=== PATIENT | male | born 1970 | race Caucasian/White ===

== ENCOUNTER 2018-05-26 10:15 | Outpatient (RCR) | payer BC, SELFPAY ==
[2018-05-19 09:32] VITALS: BP 143/96; PULSE 67; RESP 16; TEMP 36.6; BMI 33.7
--- NOTE | 2018-05-19 11:03 | HP.PCM_ITS ---
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 He had this performed in [place] with Dr. Estes on 04/14/2018. He noticed some redness and gapping at the incision site on the outside of the foot and was placed on Augmentin. He denies fever, chill, nausea, vomiting, loss of appetite. His foot is painful particularly on the lateral aspect. He thinks his PRAFO boot may be touching the site. He denies laying or sleeping on the site. He denies claudication symptoms or rest paresthesias. He has been putting dry gauze over the site. History of Wound: Stable Past Medical History Past Medical History: Chronic Problems Chronic ulcer of left foot with fat layer exposed (Chronic) Allergies/Adverse Reactions: Allergies No Known Allergies Allergy (Verified 05/19/18 09:54) Home Medications: Ambulatory Orders Medication Instructions Recorded Allopurinol [Zyloprim] 100 mg PO BIDCM 04/17/16 Ascorbic Acid [Vitamin C] 1,000 mg PO BID 04/17/16 Fexofenadine/Pseudoephedrine 1 each PO BID 04/17/16 [Ju-D 12 Hour Tablet] Fluticasone 0.05% [Flonase Nasal 1 spray NASAL BID 04/17/16 [place]] Acetaminophen [Tylenol Extra 1,000 mg PO BID 05/19/18 Strength] Amoxicillin/Potassium Clav 1 each PO BID 05/19/18 [Augmentin 875-125 Tablet] Magnesium 400 mg PO DAILY 05/19/18 Lives: Spouse/ Significant Other Smoking Status: Former smoker Tobacco Use: Non-smoker Review of Systems Constitutional: Denies: Chills, Fever, Fatigue Cardiovascular: Reports: Edema. Denies: Chest Pain, Claudication Respiratory: Denies: Shortness of Breath Gastrointestinal: Denies: Diarrhea, Nausea, Vomiting Musculoskeletal: Reports: Foot Pain. Denies: Joint Tenderness, Leg Pain Skin: Reports: Skin Changes, Wounds Neurological: Reports: - - CMT deformity. Denies: Numbness, Tingling - Physical Exam Vital Signs Temp Pulse Resp BP 98 F 67 16 143/96 H 05/19/18 09:32 05/19/18 09:32 05/19/18 09:32 05/19/18 09:32 General: Alert, Oriented x3, Cooperative HEENT: Atraumatic Extremities: No cyanosis, Capillary Refill Less than 3 Seconds, No Calf Tenderness - Negative Kev and Bran left lower extremity, Edema - Left hindfoot, Peripheral Pulses Normal Skin: Ulcer/ Wound - No purulence, streaking, odor noted. There is eschar noted to the central aspect of the lateral hindfoot incision as well as the medial hindfoot incision with fibrous and granulation tissue noted. This may be secondary to incisional devitalization or minor dehiscence. There is no exposed deep tissue noted. There is some rubor Fe-incision site on the lateral aspect and no distinct erythema, bogginess, or fluctuance. Wound Measurements and Assessment WC - Nurse 1 - General Ulcer Measurement Start: 05/19/18 09:32 Freq: Status: Active Protocol: Activity Type Activity Date Activity User E-Sign Co-Sign Detail Recorded Client Recorded Date Recorded By Document 05/19/18 09:32 [facility] [id number] 05/19/18 09:46 [facility] 05/19/18 09:32 Wound Center Nurse 1 [Ulcer Assessment] #2- LT MED ANKLE CLUSTER -Combined with other wound No -Current Size (cm) - Length 9 -Current Size (cm) - Width 0.6 -Current Size (cm) - Depth 0.1 -Total Square Cm 5.4 -Date of Last Picture (Recall this 05/19/18 field) -Photo Taken Yes -Epithelialization None Present -Tunneling No -Undermining/Tunneling No -Circular Undermining No -Exudate Amt None Present (0 %) -Wound Margin Distinct, Outline Attached -Granulation Amt Small (1-33%) -Granulation Quality Red -Slough/Fibrin Yes -Necrosis Amt Large (67-100%) -Necrotic Tissue Type Eschar -Structure Exposed N/A -Texture (Fe-wound Skin Appearance) Localized Edema Scarring -Color (Fe-wound Skin Appearance) Assessed Erythema -Temperature (Fe-wound Skin No Abnormality Appearance) (Pt Warm) -Tenderness on Palpation (Fe-wound No Skin Appearance) -Ulcer Cleansing Rinsed/ Irrigated with Saline -Foul Odor after Cleansing No -Anesthetic Used 4% Lidocaine Solution #1- LT LAT ANKLE -Combined with other wound No -Current Size (cm) - Length 8 -Current Size (cm) - Width 0.6 -Current Size (cm) - Depth 0.2 -Total Square Cm 4.8 -Date of Last Picture (Recall this 05/19/18 field) -Photo Taken Yes -Epithelialization None Present -Tunneling No -Undermining/Tunneling No -Circular Undermining No -Exudate Amt None Present (0 %) -Wound Margin Distinct, Outline Attached -Granulation Amt Small (1-33%) -Granulation Quality Red -Slough/Fibrin Yes -Necrosis Amt Large (67-100%) -Necrotic Tissue Type Eschar -Structure Exposed N/A -Texture (Fe-wound Skin Appearance) Localized Edema -Moisture (Fe-wound Skin Appearance Dry/Scaly ) -Color (Fe-wound Skin Appearance) Erythema -Temperature (Fe-wound Skin No Abnormality Appearance) (Pt Warm) -Tenderness on Palpation (Fe-wound No Skin Appearance) -Ulcer Cleansing Rinsed/ Irrigated with Saline -Foul Odor after Cleansing No -Anesthetic Used 4% Lidocaine Solution [Edema Assessment] -Lower Limb Edema Present No -Right Calf (cm) 33.5 -Right Ankle (cm) 20 -Left Calf (cm) 33.5 -Left Ankle (cm) 21.2 WC - Nurse 2 - General Ulcer CM Notes Start: 05/19/18 09:32 Freq: Status: Active Protocol: Activity Type Activity Date Activity User E-Sign Co-Sign Detail Recorded Client Recorded Date Recorded By Document 05/19/18 10:07 [id number] 05/19/18 10:23 05/19/18 10:07 Wound Center Nurse 2 [Procedure/Treatment] #2- LT MED ANKLE CLUSTER -Time 10:07 -Correct Patient Yes -Correct Side, Site, Position Yes -Correct Procedure Yes -Procedure Performed Yes -Type of Procedure Debridement -Clinical Debridement Subcutaneous -Post Debridement Size (cm) - Length 9.1 -Post Debridement Size (cm) - Width 0.7 -Post Debridement Size (cm) - Depth 0.1 -Total Square Cm 6.37 -Wound/Ulcer Outcome Not Healed -Ulcer Cleansing Rinsed/ Irrigated with Saline -Foul Odor after Cleansing No -Bioengineered Tissue No -Topical Lidocaine (%) 4 -Bleeding Controlled with Pressure -Treatment Response Procedure Tolerated Well #1- LT LAT ANKLE -Time 10:16 -Correct Patient Yes -Correct Side, Site, Position Yes -Correct Procedure Yes -Procedure Performed Yes -Type of Procedure Debridement -Clinical Debridement Subcutaneous -Post Debridement Size (cm) - Length 8.1 -Post Debridement Size (cm) - Width 0.6 -Post Debridement Size (cm) - Depth 0.2 -Total Square Cm 4.86 -Wound/Ulcer Outcome Not Healed -Ulcer Cleansing Rinsed/ Irrigated with Saline -Foul Odor after Cleansing No -Bioengineered Tissue No -Topical Lidocaine (%) 4 -Bleeding Controlled with Pressure -Treatment Response Procedure Tolerated Well [See Physician Procedure note for Specifics] Pain Scale: 0-10 Numeric [Pain] -Is Patient Pain Free? Yes Musculoskeletal: No Tenderness to Palpation of Joints or Extremities, Muscle Wasting, - - Active ankle range of motion all directions noted. Surgically corrected cavus foot structure with improved rectus position noted. Adequate ankle dorsiflexion with knee flexed and extended. Neurological: Sensory exam intact to light touch and pain Psych/Mental Status: Normal Affect, Appropriate Debridement Note Post-Debridement Measurements/Treatment WC - Nurse 2 - General Ulcer CM Notes Start: 05/19/18 09:32 Freq: Status: Active Protocol: Activity Type Activity Date Activity User E-Sign Co-Sign Detail Recorded Client Recorded Date Recorded By Document 05/19/18 10:07 [id number] 05/19/18 10:23 05/19/18 10:07 Wound Center Nurse 2 #2- LT MED ANKLE CLUSTER -Time 10:07 -Correct Patient Yes -Correct Side, Site, Position Yes -Correct Procedure Yes -Procedure Performed Yes -Type of Procedure Debridement -Clinical Debridement Subcutaneous -Post Debridement Size (cm) - Length 9.1 -Post Debridement Size (cm) - Width 0.7 -Post Debridement Size (cm) - Depth 0.1 -Total Square Cm 6.37 -Wound/Ulcer Outcome Not Healed -Ulcer Cleansing Rinsed/ Irrigated with Saline -Foul Odor after Cleansing No -Bioengineered Tissue No -Topical Lidocaine (%) 4 -Bleeding Controlled with Pressure -Treatment Response Procedure Tolerated Well #1- LT LAT ANKLE -Time 10:16 -Correct Patient Yes -Correct Side, Site, Position Yes -Correct Procedure Yes -Procedure Performed Yes -Type of Procedure Debridement -Clinical Debridement Subcutaneous -Post Debridement Size (cm) - Length 8.1 -Post Debridement Size (cm) - Width 0.6 -Post Debridement Size (cm) - Depth 0.2 -Total Square Cm 4.86 -Wound/Ulcer Outcome Not Healed -Ulcer Cleansing Rinsed/ Irrigated with Saline -Foul Odor after Cleansing No -Bioengineered Tissue No -Topical Lidocaine (%) 4 -Bleeding Controlled with Pressure -Treatment Response Procedure Tolerated Well Pain Scale: 0-10 Numeric Is Patient Pain Free? Yes Wound debrided: lateral foot Laterality: Left Type of Debridement: Excisional debridement Anesthesia Used: 4% Lidocaine Solution Depth: in the subcutaneous layer Percentage of wound debrided: 20 Instrument Used: #15 blade Tissue Removed: Fibrous, devitalized subcutaneous, biofilm, slough Severity: Fat Layer Exposed Amount of bleeding with debridement: Mild Bleeding Controlled with: Pressure Patient tolerated procedure well Assessment/Plan Active Problems Chronic ulcer of left foot with fat layer exposed (Chronic) Delayed wound healing (Acute) Charcot-Rocio disease (Acute) Cavus deformity of left foot (Acute) Assessment: -Status post left Charcot Rocio associated cavus foot reconstruction performed on 04/14/2018 (subtalar and talonavicular arthrodesis with Peroneus longus to brevis tendon transfer, plantar fascial release, percutaneous tendo Achilles lengthening, first metatarsal dorsiflexion closing wedge osteotomy with allograft, deltoid ligament lengthening, posterior tibial Z-lengthening, bone marrow aspirate extraction and augmentation). -Cellulitis resolving left foot. -Delayed healing with incision compromise. -Malnutrition suspected Plan: I reviewed and discussed his case today. Physical exam was performed as noted. Debridement was performed only to the partial lateral incision aspect including removal of nonviable slough, fibrous tissue, and partially adhered eschar. Care was taken to this recent surgical site not to reopen any unnecessary aspects. I recommend application of Aquacel Ag to the medial lateral hindfoot sites and change daily and cover with additional gauze. He reports previous cellulitis which has improved on Augmentin antibiotic. To complete his prescribed dose. Labs were ordered including CBC, CMP, ESR, C- reactive protein for baseline also for general medical assessment. I recommended a foot x-ray and reviewed his foot x-rays that he had saved on his phone from his immediate postoperative timeframe. The arthrodesis and osteotomy sites with internal fixation are noted with desired hardware placement and trajectory. No acute injuries were noted. He is following up with his surgeon on Thursday and and will obtain new x-rays; I requested a copy to compare to serial future x-rays if lack of healing ensues. To avoid pressure on this site by avoiding sleeping on the left leg. He also evaluated his PRAFO boot and advised him not to tighten the central strap which appears to line up directly with the devitalized site. To wear the Cam walker use because he reports this presses very firmly into the irritated skin site. To avoid excessive hindfoot and leg motion because this places tension on the friable skin and ulcer sites. I recommend nutritional supplementation optimize healing; a prescription for Terrance nutritional supplement was provided today. He was advised on safe and proper use. If lack of healing continues the following will be considered; vascular workup to rule out any lack of perfusion, change in wound care product, consideration for advanced wound care products with extra growth factors to expedite healing. I answered all his questions. To return to the wound healing center 1 week or call sooner if he has any questions or concerns.
[2018-05-26 10:27] VITALS: BP 142/90; PULSE 79; RESP 16; TEMP 35.7; BMI 33.7
--- NOTE | 2018-05-26 11:05 | PCM.WC.PN ---
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 He had this performed in [place] with Dr. Estes on 04/14/2018. His redness has resolved and he denies pain. He denies fever, chill, nausea, vomiting, loss of appetite. He has been advised to place 25% weight on this with a Cam walker by his surgeon that he saw last week. X-rays were obtained in his surgeon's office. He did not obtain his lab work yet and will go this afternoon. He is also no longer taking oral antibiotics. Progress of Wound: Improving - Physical Exam Vital Signs Temp Pulse Resp BP 96.2 F L 79 16 142/90 H 05/26/18 10:27 05/26/18 10:27 05/26/18 10:27 05/26/18 10:27 General: Alert, Oriented x3, Cooperative Extremities: No cyanosis, Capillary Refill Less than 3 Seconds - All digits left foot, No Calf Tenderness - Negative Kev and Bran, Edema - Mild fe-ulcer decreased, Peripheral Pulses Normal, - - Maintained surgically reconstructive foot posture noted left lower extremity. No pain to arthrodesis sites left Skin: Ulcer/ Wound - No purulence, erythema, string, odor, or infection. There is incisional central eschar noted with adjacent fibrous and granulation tissue. No exposed deep tissue or sutures are noted. There is no bogginess or fluctuance on palpation. The peripheral skin is atrophic. Wound Measurements and Assessment WC - Nurse 1 - General Ulcer Measurement Start: 05/19/18 09:32 Freq: Status: Active Protocol: Activity Type Activity Date Activity User E-Sign Co-Sign Detail Recorded Client Recorded Date Recorded By Document 05/26/18 10:27 [facility] [id number] 05/26/18 10:32 [facility] 05/26/18 10:27 Wound Center Nurse 1 [Ulcer Assessment] #2- LT MED ANKLE CLUSTER -Combined with other wound No -Current Size (cm) - Length 7.4 -Current Size (cm) - Width 0.6 -Current Size (cm) - Depth 0.1 -Total Square Cm 4.44 -Photo Taken No -Epithelialization None Present -Tunneling No -Undermining/Tunneling No -Circular Undermining No -Exudate Amt Small (1-33%) -Exudate Type Serosanguineous -Wound Margin Distinct, Outline Attached -Granulation Amt Small (1-33%) -Granulation Quality Red -Slough/Fibrin Yes -Necrosis Amt Large (67-100%) -Necrotic Tissue Type Adherent Slough -Texture (Fe-wound Skin Appearance) Scarring -Moisture (Fe-wound Skin Appearance Dry/Scaly ) -Color (Fe-wound Skin Appearance) Assessed -Temperature (Fe-wound Skin No Abnormality Appearance) (Pt Warm) -Tenderness on Palpation (Fe-wound No Skin Appearance) -Ulcer Cleansing Rinsed/ Irrigated with Saline -Foul Odor after Cleansing No -Anesthetic Used 4% Lidocaine Solution #1- LT LAT ANKLE -Combined with other wound No -Current Size (cm) - Length 0.8 -Current Size (cm) - Width 7.4 -Current Size (cm) - Depth 0.1 -Total Square Cm 5.92 -Photo Taken No -Tunneling No -Undermining/Tunneling No -Circular Undermining No -Exudate Amt Small (1-33%) -Exudate Type Serosanguineous -Wound Margin Distinct, Outline Attached -Granulation Amt None Present (0 %) -Slough/Fibrin Yes -Necrosis Amt Large (67-100%) -Necrotic Tissue Type Adherent Slough -Texture (Fe-wound Skin Appearance) Scarring -Moisture (Fe-wound Skin Appearance Dry/Scaly ) -Color (Fe-wound Skin Appearance) Assessed -Temperature (Fe-wound Skin No Abnormality Appearance) (Pt Warm) -Tenderness on Palpation (Fe-wound No Skin Appearance) -Ulcer Cleansing Rinsed/ Irrigated with Saline -Foul Odor after Cleansing No -Anesthetic Used 4% Lidocaine Solution [Edema Assessment] -Lower Limb Edema Present Yes -Left Calf (cm) 37.5 -Left Ankle (cm) 22.2 NEREYDA - Nurse 2 - General Ulcer CM Notes Start: 05/19/18 09:32 Freq: Status: Active Protocol: Activity Type Activity Date Activity User E-Sign Co-Sign Detail Recorded Client Recorded Date Recorded By Document 05/26/18 10:56 ROSA ISELA [id number] 05/26/18 10:57 ROSA ISELA 05/26/18 10:56 Wound Center Nurse 2 [Procedure/Treatment] #2- LT MED ANKLE CLUSTER -Time 10:56 -Correct Patient Yes -Correct Side, Site, Position Yes -Correct Procedure Yes -Procedure Performed Yes -Type of Procedure Debridement -Clinical Debridement Subcutaneous -Post Debridement Size (cm) - Length 7.5 -Post Debridement Size (cm) - Width 0.6 -Post Debridement Size (cm) - Depth 0.1 -Total Square Cm 4.50 -Wound/Ulcer Outcome Not Healed -Ulcer Cleansing Rinsed/ Irrigated with Saline -Foul Odor after Cleansing No -Bioengineered Tissue No -Bleeding Controlled with Pressure -Treatment Response Procedure Tolerated Well #1- LT LAT ANKLE -Time 10:57 -Correct Patient Yes -Correct Side, Site, Position Yes -Correct Procedure Yes -Procedure Performed Yes -Type of Procedure Debridement -Clinical Debridement Subcutaneous -Post Debridement Size (cm) - Length 0.8 -Post Debridement Size (cm) - Width 7.5 -Post Debridement Size (cm) - Depth 0.2 -Total Square Cm 6.00 -Wound/Ulcer Outcome Not Healed -Ulcer Cleansing Rinsed/ Irrigated with Saline -Foul Odor after Cleansing No -Bioengineered Tissue No -Bleeding Controlled with Pressure -Treatment Response Procedure Tolerated Well [See Physician Procedure note for Specifics] Pain Scale: 0-10 Numeric [Pain] -Is Patient Pain Free? Yes Musculoskeletal: No Tenderness to Palpation of Joints or Extremities, Muscle Wasting, - - Pain with ulcer site manipulation left foot Neurological: Sensory exam intact to light touch and pain Psych/Mental Status: Normal Affect, Appropriate Debridement Note Post-Debridement Measurements/Treatment [email or web address] - Nurse 2 - General Ulcer CM Notes Start: 05/19/18 09:32 Freq: Status: Active Protocol: Activity Type Activity Date Activity User E-Sign Co-Sign Detail Recorded Client Recorded Date Recorded By Document 05/19/18 10:07 [id number] 05/19/18 10:23 Document 05/26/18 10:56 [id number] 05/26/18 10:57 05/19/18 05/26/18 10:07 10:56 Wound Center Nurse 2 #2- LT MED ANKLE CLUSTER -Time 10:07 10:56 -Correct Patient Yes Yes -Correct Side, Site, Position Yes Yes -Correct Procedure Yes Yes -Procedure Performed Yes Yes -Type of Procedure Debridement Debridement -Clinical Debridement Subcutaneous Subcutaneous -Post Debridement Size (cm) - Length 9.1 7.5 -Post Debridement Size (cm) - Width 0.7 0.6 -Post Debridement Size (cm) - Depth 0.1 0.1 -Total Square Cm 6.37 4.50 -Wound/Ulcer Outcome Not Healed Not Healed -Ulcer Cleansing Rinsed/ Rinsed/ Irrigated with Irrigated with Saline Saline -Foul Odor after Cleansing No No -Bioengineered Tissue No No -Topical Lidocaine (%) 4 -Bleeding Controlled with Pressure Pressure -Treatment Response Procedure Procedure Tolerated Well Tolerated Well #1- LT LAT ANKLE -Time 10:16 10:57 -Correct Patient Yes Yes -Correct Side, Site, Position Yes Yes -Correct Procedure Yes Yes -Procedure Performed Yes Yes -Type of Procedure Debridement Debridement -Clinical Debridement Subcutaneous Subcutaneous -Post Debridement Size (cm) - Length 8.1 0.8 -Post Debridement Size (cm) - Width 0.6 7.5 -Post Debridement Size (cm) - Depth 0.2 0.2 -Total Square Cm 4.86 6.00 -Wound/Ulcer Outcome Not Healed Not Healed -Ulcer Cleansing Rinsed/ Rinsed/ Irrigated with Irrigated with Saline Saline -Foul Odor after Cleansing No No -Bioengineered Tissue No No -Topical Lidocaine (%) 4 -Bleeding Controlled with Pressure Pressure -Treatment Response Procedure Procedure Tolerated Well Tolerated Well Pain Scale: 0-10 Numeric Is Patient Pain Free? Yes Yes Wound debrided: medial Laterality: Left Type of Debridement: Excisional debridement Anesthesia Used: 4% Lidocaine Solution Depth: in the subcutaneous layer Percentage of wound debrided: 100 Instrument Used: #15 blade Tissue Removed: fibrous, devitalized subcutaneous, biofilm, slough Severity: Fat Layer Exposed Amount of bleeding with debridement: Mild Bleeding Controlled with: Pressure Patient tolerated procedure well - Additional Wound Wound debrided: lateral foot Laterality: Left Type of Debridement: Excisional debridement Anesthesia Used: 4% Lidocaine Solution Depth: in the subcutaneous layer Percentage of wound debrided: 100 Instrument Used: #15 blade Tissue Removed: fibrous, devitalized subcutaneous, biofilm, slough Severity: Fat Layer Exposed Amount of bleeding with debridement: Mild Bleeding Controlled with: Pressure Patient tolerated procedure: Patient tolerated procedure well Assessment/Plan Active Problems Chronic ulcer of left foot with fat layer exposed (Chronic) Delayed wound healing (Chronic) Charcot-Rocio disease (Chronic) Cavus deformity of left foot (Chronic) Assessment: -Status post left Charcot Rocio associated cavus foot reconstruction performed on 04/14/2018 (subtalar and talonavicular arthrodesis with Peroneus longus to brevis tendon transfer, plantar fascial release, percutaneous tendo Achilles lengthening, first metatarsal dorsiflexion closing wedge osteotomy with allograft, deltoid ligament lengthening, posterior tibial Z-lengthening, bone marrow aspirate extraction and augmentation). -Cellulitis resolving left foot. -Delayed healing with incision compromise. -Malnutrition suspected Plan: I reviewed and discussed his case today. Physical exam was performed as noted. Debridement was performed only to the partial lateral and medial incision aspects including removal of nonviable slough, fibrous tissue, and partially adhered eschar. Care was taken to this recent surgical site not to reopen any unnecessary aspects. I recommend application of Aquacel Ag to the medial and saline moistened lateral hindfoot sites and change daily and cover with additional gauze. He reports previous cellulitis which has improved on Augmentin antibiotic. He is no longer taking this at this time and I do not recommend resuming due to lack of clinical signs of infection. Labs were ordered including CBC, CMP, ESR, C-reactive protein for baseline also for general medical assessment. He will obtain this later today. I recommended a foot x-ray and reviewed his foot x-rays were recently updated when he visited his surgeon last week. He will request that they are sent to the wound healing center for review. To avoid pressure on this site by avoiding sleeping on the left leg. To wear the Cam walker and placed up to 25% weight as advised by his surgeon. To avoid excessive hindfoot and leg motion because this places tension on the friable skin and ulcer sites. I recommend nutritional supplementation optimize healing; a prescription for Terrance nutritional supplement was provided previously. If lack of healing continues the following will be considered; vascular workup to rule out any lack of perfusion, change in wound care product, consideration for advanced wound care products with extra growth factors to expedite healing. I answered all his questions. To return to the wound healing center 1 week or call sooner if he has any questions or concerns.
== END 2018-05-28 23:59 ==
LOC: WC 10:15
PROVIDERS: Family Provider Family Medicine; PCP Family Medicine; Visit Provider Podiatrist
DX: L97.522 Non-pressure chronic ulcer of other part of left foot with fat layer exposed (principal); G60.0 Hereditary motor and sensory neuropathy; Q66.7 Congenital pes cavus; Z87.891 Personal history of nicotine dependence
CPT/HCPCS: 11042; 99213; G0463

== ENCOUNTER → 2018-05-26 11:01 | Outpatient (CLI) | payer BC, SELFPAY ==
[2018-05-26 10:27] VITALS: BMI 33.7
[2018-05-26 11:50] LABS: Absolute Lymphocyte Count 1.91 X10^3/ul (0.83-4.51); Absolute Neutrophil Count 4.3 X10^3/uL (2.0-7.7); Basophil# 0.03 X10^3/uL; Basophil% 0.4 % (0-1); Eosinophil# 0.17 X10^3/uL; Eosinophils% 2.5 % (0-5); Hematocrit 45.4 % (40-54); Hemoglobin 14.8 g/dl (13.0-16.5); Lymphocyte # 1.91 X10^3/ul (4.0); Lymphocyte % 28.1 % (19-41); Mean Corp Hgb Conc 32.6 g/gl (32-36); Mean Corpuscular Hgb 29.8 pg (27.0-32.0); Mean Corpuscular Volume 91.3 fL (80-94); Mean Platelet Vol. 10.6 fl (6.2-12.0); Monocyte# 0.41 X10^3/uL; Neutrophil # 4.27 X10^3/uL (2.7-7.7); Neutrophil % 62.9 % (47-70); Platelet Count 252 K/mm3 (150-450); RBC Distribution Width CV 14.4 % (11.6-14.6); RBC Distribution Width SD 47.5 fl (35.1-43.9); Red Blood Count 4.97 M/mm3 (4.6-6.2); White Blood Count 6.8 K/mm3 (4.4-11.0)
[2018-05-26 11:52] LABS: POSITIVE COUNT NO; POSITIVE DIFFERENTIAL NO; POSITIVE MORPHOLOGY NO
[2018-05-26 11:54] LABS: Erythrocyte Sedimentation Rate 23 mm/hr (0-15)
[2018-05-26 12:04] LABS: Hemoglobin A1c 5.5 % (4.2-6.3)
[2018-05-26 12:08] LABS: ALB/GLOB Ratio 1.1 RATIO (0.9-2.4); AST(SGOT) 26 U/L (15-37); Alanine Aminotransfer ALT/SGPT 43 U/L (16-61); Albumin, Serum 3.7 g/dL (3.2-5.0); Alkaline Phosphatase 58 U/L (45-117); Anion Gap 8 (5-15); BUN 18 mg/dL (7-18); BUN/Creat Ratio 19.7 RATIO (10-20); CRP 4.18 mg/L (0.0-3.0); Chloride 110 mmol/L (98-107); Creatinine, Serum 0.91 mg/dL (0.70-1.30); EST Glomerular Filtration Rate 94 mL/min (>60); Est Glom Filt Rate - Afr Amer 114 mL/min (>60); Globulin 3.5 g/dL (2.2-4.2); Glucose 95 mg/dL (74-106); Potassium 4.2 mmol/L (3.5-5.1); Protein, Total 7.2 g/dL (6.4-8.2); Sodium Level 143 mmol/L (136-145); Uric Acid 5.3 mg/dL (3.5-7.2)
--- OUTSIDE RECORDS SUMMARY | 2018-07-21 19:34 | XMS RPT_ITS ---
:1970 Author Organization OHIP Care Team Providers Name Role Phone Munira White Attending Unavailable Paul [facility] Unavailable Munira White Attending Unavailable Munira White Referring Unavailable Paul D eLa [facility] Unavailable Munira White Attending Unavailable [facility] Unavailable PROBLEMS PROBLEMS No Problem Records FoundPROCEDURES PROCEDURES No Procedure Records FoundRESULTS RESULTS CBC W/DIFF, AUTOMATED Collected: 05/26/2018 Status: F Source: [facility]ATY 11:05 AM [facility] REPOSITORY Order Comment: DR. WHITE WANTS THE CRP CMP SED CBCD DR. DE LA TORRE WANTS THE CBCD CMP URIC A1C TYPE CODE TESTS RESULT OUT OF RANGE REFERENCE UNITS LAB L100.1000 4.4-11.0 K/mm3 Normal WBC 6.8 LAB L100.1200 4.6-6.2 M/mm3 Normal RBC 4.97 LAB L100.1300 13.0-16.5 g/dl Normal HGB 14.8 LAB L100.1400 40-54 % Normal HCT 45.4 LAB L100.1500 80-94 fL Normal MCV 91.3 LAB L100.1600 27.0-32.0 pg Normal MCH 29.8 LAB L100.1700 32-36 g/gl Normal MCHC 32.6 LAB L100.1810 11.6-14.6 % Normal RDW CV 14.4 LAB L100.1820 35.1-43.9 fl High RDW SD 47.5 LAB L100.1900 150-450 K/mm3 Normal PLT 252 LAB L100.2000 6.2-12.0 fl Normal MPV 10.6 LAB L100.2100 47-70 % Normal NEUT% 62.9 LAB L100.2200 19-41 % Normal LY% 28.1 LAB L100.2300 0-10 % Normal MONO% 6.0 LAB L100.2400 0-5 % Normal EO% 2.5 LAB L100.2500 0-1 % Normal BASO% 0.4 LAB L100.2550 0.0-0.9 % Normal IM GRAN % 0.100 Result Comment: IG% - Immature Granulocytes (promyelocytes, myelocytes and metamyelocytes) > 1% indicates that a LEFT SHIFT is Present. LAB L100.2620 2.0-7.7 X10 3/uL Normal Absolute Neut 4.3 LAB L100.2720 0.83-4.51 X10 3/ul Normal Absolute Lymph 1.91 Performed By: #### L100.0100 #### [facility] [id number] ERYTHROCYTE SED RATE Collected: 05/26/2018 Status: F Source: [place] 11:05 [facility] REPOSITORY Order Comment: DR. WHITE WANTS THE CRP CMP SED CBCD DR. DE LA TORRE WANTS THE CBCD CMP URIC A1C TYPE CODE TESTS RESULT OUT OF RANGE REFERENCE UNITS LAB L102.0000 0-15 mm/hr High SED RATE 23 Performed By: #### L101.9900 #### [facility] [id number] HEMOGLOBIN A1C Collected: 05/26/2018 Status: F Source: CLINT 11:05 [facility] REPOSITORY Order Comment: DR. WHITE WANTS THE CRP CMP SED CBCD DR. DE LA TORRE WANTS THE CBCD CMP URIC A1C TYPE CODE TESTS RESULT OUT OF RANGE REFERENCE UNITS LAB L501.9985 4.2-6.3 % Normal HGB A1C 5.5 Performed By: #### L501.9985 #### [facility] [address] [place], [place], [address] COMPREHENSIVE METABOLIC Collected: 05/26/2018 Status: F Source: [place] 11:05 AM [facility] REPOSITORY Order Comment: DR. WHITE WANTS THE CRP CMP SED CBCD DR. DE LA TORRE WANTS THE CBCD CMP URIC A1C TYPE CODE TESTS RESULT OUT OF RANGE REFERENCE UNITS LAB L501.0100 74-106 mg/dL Normal GLU 95 Result Comment: Please note revised GLUCOSE reference range effective 2017. LAB L501.1000 7-18 mg/dL Normal BUN 18 LAB L501.1100 0.70-1.30 mg/dL Normal CREAT,SERUM 0.91 Result Comment: The validity of the calculated GFR AND GFRAA in patients over 70 years has not been determined. Clinical correlation is essential. LAB L501.1110 >60 mL/min Normal EST GFR 94 Result Comment: Non- GFR Calc LAB L501.1115 >60 mL/min Normal EST GFR - AA 114 Result Comment: GFR Calc LAB L501.1300 10-20 RATIO Normal BUN/CRE 19.7 LAB L501.1500 6.4-8.2 g/dL T Normal PROT 7.2 LAB L501.1800 3.2-5.0 g/dL Normal ALB 3.7 LAB L501.1950 2.2-4.2 g/dL Normal GLOB 3.5 LAB L501.2000 0.9-2.4 RATIO Normal A/G 1.1 LAB L501.2200 8.5-10.1 mg/dL CA Normal 9.0 LAB L501.4100 15-37 U/L Normal AST 26 Result Comment: Slight Hemolysis, Result may be falsely increased. LAB L501.4305 45-117 U/L Normal ALK P 58 LAB L501.4405 16-61 U/L Normal ALT 43 LAB L501.4600 0.20-1.00 mg/dL Normal T BILI 0.50 LAB L501.5300 136-145 mmol/L Normal NA 143 LAB L501.5600 3.5-5.1 mmol/L Normal K 4.2 Result Comment: Slight Hemolysis, Result may be falsely increased. LAB L501.5900 98-107 mmol/L High CL 110 LAB L501.6100 21.0-32.0 mmol/L Normal CO2 25.0 LAB L501.6200 5-15 Normal 8 GAP Performed By: #### L500.4050 #### [facility] [address] [facility] [place], [address] URIC ACID Collected: 05/26/2018 Status: F Source: [facility] 11:05 AM [facility] REPOSITORY Order Comment: DR. WHITE WANTS THE CRP CMP SED CBCD DR. DE LA TORRE WANTS THE CBCD CMP URIC A1C TYPE CODE TESTS RESULT OUT OF RANGE REFERENCE UNITS LAB L501.1400 3.5-7.2 mg/dL Normal URIC 5.3 Result Comment: The drugs N-Acetylcysteine and Metamizole may falsely depress this assay. Performed By: #### L501.1400 #### [facility] [address] [facility] [place], [address] CRP Collected: 05/26/2018 Status: F Source: [place] 11:05 AM [facility] REPOSITORY Order Comment: DR. WHITE WANTS THE CRP CMP SED CBCD DR. DE LA TORRE WANTS THE CBCD CMP URIC A1C TYPE CODE TESTS RESULT OUT OF RANGE REFERENCE UNITS LAB L501.6710 0.0-3.0 mg/L High 4.18 C-REACTIVE PROT Result Comment: C-Reactive Protein (CRP) provides useful information for the diagnosis, therapy and monitoring of inflammatory processes and associated diseases. For the evaluation of Relative Risk for Cardiovascular Disease, a High Sensitivity CRP (HSCRP) should be ordered. Performed By: #### L501.6710 #### [facility] [address] [facility] [place], [address] WOUND CTR HISTORY Observed: 05/19/2018 Status: F Source: TATY AND PHYSICAL 3:15 PM [facility] REPOSITORY [facility] [address] [place] [address] Wound Ctr History AND Physical 05/19/18 1102 MR#: [id number] Acct: [id number] Name: LORRIE LLAMAS Rep #: [id number] : 1970 48 From: Munira White DPM PCP: Wil TEMPLETON,Paul Status: REG RCR Y Location: WC (1) Chronic ulcer of left foot with fat layer exposed Status: Chronic Current Visit: Yes Code(s): L97.522 - Non-pressure chronic ulcer of other part of left foot with fat layer exposed (2) Delayed wound healing Status: Acute Current Visit: Yes Code(s): T14.8XXD - Other injury of unspecified body region, subsequent encounter (3) Charcot-Rocio disease Status: Acute Current Visit: Yes Code(s): 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 He had this performed in [place] with Dr. Estes on 04/14/2018. He noticed some redness and gapping at the incision site on the outside of the foot and was placed on Augmentin. He denies fever, chill, nausea, vomiting, loss of appetite. His foot is painful particularly on the lateral aspect. He thinks his PRAFO boot may be touching the site. He denies laying or sleeping on the site. He denies claudication symptoms or rest paresthesias. He has been putting dry gauze over the site. History of Wound: Stable Past Medical History Past Medical History: Chronic Problems Chronic ulcer of left foot with fat layer exposed (Chronic) Allergies/Adverse Reactions: Allergies No Known Allergies Allergy (Verified 05/19/18 09:54) Home Medications: Ambulatory Orders Medication Instructions Recorded Allopurinol [Zyloprim] 100 mg PO BIDCM 04/17/16 Lives: Spouse/ Significant Other Smoking Status: Former smoker Tobacco Use: Non-smoker Review of Systems Constitutional: Denies: Chills, Fever, Fatigue Cardiovascular: Reports: Edema. Denies: Chest Pain, Claudication Respiratory: Denies: Shortness of Breath Gastrointestinal: Denies: Diarrhea, Nausea, Vomiting Musculoskeletal: Reports: Foot Pain. Denies: Joint Tenderness, Leg Pain Skin: Reports: Skin Changes, Wounds Neurological: Reports: - - CMT deformity. Denies: Numbness, Tingling - Physical Exam Vital Signs Temp Pulse Resp BP 98 F 67 16 143/96 H 05/19/18 09:32 05/19/18 09:32 05/19/18 09:32 05/19/18 09:32 General: Alert, Oriented x3, Cooperative HEENT: Atraumatic Extremities: No cyanosis, Capillary Refill Less than 3 Seconds, No Calf Tenderness - Negative Kev and Bran left lower extremity, Edema - Left hindfoot, Peripheral Pulses Normal Skin: Ulcer/ Wound - No purulence, streaking, odor noted. There is eschar noted to the central aspect of the lateral hindfoot incision as well as the medial hindfoot incision with fibrous and granulation tissue noted. This may be secondary to incisional devitalization or minor dehiscence. There is no exposed deep tissue noted. There is some rubor Fe-incision site on the lateral aspect and no distinct erythema, bogginess, or fluctuance. Wound Measurements and Assessment WC - Nurse 1 - General Ulcer Measurement Start: 05/19/18 09:32 Freq: Status: Active Protocol: Activity Type Activity Date Activity User E-Sign Co-Sign Detail Recorded Client Recorded Date Recorded By Document 05/19/18 09:32 [facility] [id number] 05/19/18 09:46 [facility] Wound Center Nurse 1 [Ulcer Assessment] #2- LT MED ANKLE CLUSTER -Combined with other wound No -Current Size (cm) - Length 9 WC - Nurse 2 - General Ulcer CM Notes Start: 05/19/18 09:32 Freq: Status: Active Protocol: Activity Type Activity Date Activity User E-Sign Co-Sign Detail Recorded Client Recorded Date Recorded By Document 05/19/18 10:07 [id number] 05/19/18 10:23 Wound Center Nurse 2 [Procedure/Treatment] #2- LT MED ANKLE CLUSTER -Time 10:07 -Correct Patient Yes Musculoskeletal: No Tenderness to Palpation of Joints or Extremities, Muscle Wasting, - - Active ankle range of motion all directions noted. Surgically corrected cavus foot structure with improved rectus position noted. Adequate ankle dorsiflexion with knee flexed and extended. Neurological: Sensory exam intact to light touch and pain Psych/Mental Status: Normal Affect, Appropriate Debridement Note Post-Debridement Measurements/Treatment - Nurse 2 - General Ulcer CM Notes Start: 05/19/18 09:32 Freq: Status: Active Protocol: Activity Type Activity Date Activity User E-Sign Co-Sign Detail Recorded Client Recorded Date Recorded By Document 05/19/18 10:07 [id number] 05/19/18 10:23 Wound Center Nurse 2 #2- LT MED ANKLE CLUSTER -Time 10:07 -Correct Patient Yes -Correct Side, Site, Position Yes -Correct Procedure Yes -Procedure Performed Yes Wound debrided: lateral foot Laterality: Left Type of Debridement: Excisional debridement Anesthesia Used: 4% Lidocaine Solution Depth: in the subcutaneous layer Percentage of wound debrided: 20 Instrument Used: #15 blade Tissue Removed: Fibrous, devitalized subcutaneous, biofilm, slough Severity: Fat Layer Exposed Amount of bleeding with debridement: Mild Bleeding Controlled with: Pressure Patient tolerated procedure well Assessment/Plan Active Problems Chronic ulcer of left foot with fat layer exposed (Chronic) Delayed wound healing (Acute) Charcot-Rocio disease (Acute) Cavus deformity of left foot (Acute) Assessment: -Status post left Charcot Rocio associated cavus foot reconstruction performed on 04/14/2018 (subtalar and talonavicular arthrodesis with Peroneus longus to brevis tendon transfer, plantar fascial release, percutaneous tendo Achilles lengthening, first metatarsal dorsiflexion closing wedge osteotomy with allograft, deltoid ligament lengthening, posterior tibial Z-lengthening, bone marrow aspirate extraction and augmentation). -Cellulitis resolving left foot. -Delayed healing with incision compromise. -Malnutrition suspected Plan: I reviewed and discussed his case today. Physical exam was performed as noted. Debridement was performed only to the partial lateral incision aspect including removal of nonviable slough, fibrous tissue, and partially adhered eschar. Care was taken to this recent surgical site not to reopen any unnecessary aspects. I recommend application of Aquacel Ag to the medial lateral hindfoot sites and change daily and cover with additional gauze. He reports previous cellulitis which has improved on Augmentin antibiotic. To complete his prescribed dose. Labs were ordered including CBC, CMP, ESR, C-reactive protein for baseline also for general medical assessment. I recommended a foot x-ray and reviewed his foot x-rays that he had saved on his phone from his immediate postoperative timeframe. The arthrodesis and osteotomy sites with internal fixation are noted with desired hardware placement and trajectory. No acute injuries were noted. He is following up with his surgeon on Thursday and and will obtain new x-rays; I requested a copy to compare to serial future x-rays if lack of healing ensues. To avoid pressure on this site by avoiding sleeping on the left leg. He also evaluated his PRAFO boot and advised him not to tighten the central strap which appears to line up directly with the devitalized site. To wear the Cam walker use because he reports this presses very firmly into the irritated skin site. To avoid excessive hindfoot and leg motion because this places tension on the friable skin and ulcer sites. I recommend nutritional supplementation optimize healing; a prescription for Terrance nutritional supplement was provided today. He was advised on safe and proper use. If lack of healing continues the following will be considered; vascular workup to rule out any lack of perfusion, change in wound care product, consideration for advanced wound care products with extra growth factors to expedite healing. I answered all his questions. To return to the wound healing center 1 week or call sooner if he has any questions or concerns. 05/19/18 1515 <Electronically signed by Munira White DPM> Date Munira White DPM CC: Signed ALLERGIES ALLERGIES DATE TYPE / CODE NAME / CODE REACTION SEVERITY SOURCE 05/19/2018 Drug No Known Unknown [facility] Allergy/4160 Allergies/F00 Hospital 93145(SNOMED [id number](RXNOR Repository CT) M) ENCOUNTERS ENCOUNTERS ADMIT/DISCHARGE ACCOUNT ADMITTING ENCOUNTER LOCATION SOURCE NUMBER CLASS 06/09/2018 [id number] Ambulatory [place] [facility] ing:WC Repository 05/26/2018 [id number] Ambulatory [facility] [place] 7 [facility] ing:LAB Repository 05/26/2018/ [id number] Ambulatory [place] [facility] 8 9 [facility] ing: Repository PAYERS PAYERS ENCOUNTER GUARANTOR PAYER SUBSCRIBER SOURCE 06/09/2018 EDWARD E Primary EDWARD E Taty [id number] Insurance:ANTHEMPolic BUTDORFDOB: Community LUI [place]: [id number] [id number] Repository [address]Gfo: [phone]) Date:[id number] [phone] () [id number], [place] [address]FD: 06/09/2018 Secondary NOT GIVENUNK [place] Insurance:SELF PAY [facility] Effective Repository Date:2018-05-29 05/26/2018 EDWARD E Primary EDJONATAN E Taty [id number] Insurance:ANTHEMPolic BUTDORFDOB: Community LUI y [place]: [id number] [id number] Repository [address]Aki: ([phone]) Date:[id number] [phone] () [id number] [address]VK: 05/26/2018 Secondary NOT GIVENUNK [place] Insurance:SELF PAY [facility] Number: Effective Repository Date:2018-05-26 05/26/2018 Edjnoatan Primary Edjonatan Posey [id number] Insurance:ANTHEMPolic ButdorfDOB: Community LUI y Number: [id number], [place] [id number] Repository [address]Oxy: ([phone]) Date:[id number] [phone] () [id number], [place] [address]CK: 05/26/2018 Secondary NOT GIVENUNK Taty Insurance:SELF PAY [facility] Number: Effective Repository Date:2018-05-18
== END ==
PROVIDERS: Family Provider Family Medicine; PCP Family Medicine; Referring Provider Podiatrist; Visit Provider Podiatrist
DX: L97.329 Non-pressure chronic ulcer of left ankle with unspecified severity (principal); E66.9 Obesity, unspecified
CPT/HCPCS: 36415; 80053; 83036; 84550; 85025; 85652; 86140

== ENCOUNTER 2018-06-23 14:15 | Outpatient (RCR) | payer BC, SELFPAY ==
[2018-05-29 02:09] VITALS: BP 142/90; PULSE 79; RESP 16; TEMP 35.7
[2018-06-02 10:18] VITALS: BP 155/96; PULSE 72; RESP 16; TEMP 35.5; BMI 33.7
--- NOTE | 2018-06-02 13:12 | PCM.WC.PN ---
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 He had this performed in [place] with Dr. Estes on 04/14/2018. His redness has resolved and he denies pain. He denies fever, chill, nausea, vomiting, loss of appetite. He has been advised to place 25% weight on this with a Cam walker by his surgeon that he saw last week. X-rays were obtained in his surgeon's office. He obtained his lab work. Progress of Wound: Improving - Physical Exam Vital Signs Temp Pulse Resp BP 95.9 F L 72 16 155/96 H 06/02/18 10:18 06/02/18 10:18 06/02/18 10:18 06/02/18 10:18 General: Alert, Oriented x3, Cooperative Extremities: No cyanosis, No edema, Capillary Refill Less than 3 Seconds, No Calf Tenderness - Negative Kev and Bran left, Peripheral Pulses Normal Skin: Ulcer/ Wound - No purulence, erythema, streaking, odor, or infection. There is dried well adhered eschar to medial less than lateral incision sites. Peripheral skin is atrophic Wound Measurements and Assessment WC - Nurse 1 - General Ulcer Measurement Start: 06/02/18 10:18 Freq: Status: Active Protocol: Activity Type Activity Date Activity User E-Sign Co-Sign Detail Recorded Client Recorded Date Recorded By Document 06/02/18 10:18 DL [id number] 06/02/18 10:22 DL 06/02/18 10:18 Wound Center Nurse 1 [Ulcer Assessment] #2- LT MED ANKLE CLUSTER -Current Size (cm) - Length 6.9 -Current Size (cm) - Width 0.5 -Current Size (cm) - Depth 0.1 -Total Square Cm 3.45 -Photo Taken No -Exudate Amt None Present (0 %) -Wound Margin Thickened -Granulation Amt Large (67-100%) -Necrosis Amt Large (67-100%) -Necrotic Tissue Type Eschar -Structure Exposed N/A -Texture (Fe-wound Skin Appearance) Localized Edema Scarring -Moisture (Fe-wound Skin Appearance No Abnormality ) -Color (Fe-wound Skin Appearance) Hemosiderin Staining Rubor -Temperature (Fe-wound Skin No Abnormality Appearance) (Pt Warm) -Tenderness on Palpation (Fe-wound No Skin Appearance) -Ulcer Cleansing Wound Cleanser -Foul Odor after Cleansing No -Anesthetic Used 4% Lidocaine Solution 5% Lidocaine Gel #1- LT LAT ANKLE -Current Size (cm) - Length 4.3 -Current Size (cm) - Width 0.3 -Current Size (cm) - Depth 0.2 -Total Square Cm 1.29 -Photo Taken No -Exudate Amt None Present (0 %) -Wound Margin Thickened -Granulation Amt Large (67-100%) -Slough/Fibrin No -Necrosis Amt Large (67-100%) -Necrotic Tissue Type Eschar -Structure Exposed N/A -Texture (Fe-wound Skin Appearance) Localized Edema Scarring -Moisture (Fe-wound Skin Appearance No Abnormality ) -Color (Fe-wound Skin Appearance) Rubor -Temperature (Fe-wound Skin No Abnormality Appearance) (Pt Warm) -Tenderness on Palpation (Ef-wound No Skin Appearance) -Ulcer Cleansing Wound Cleanser -Foul Odor after Cleansing No -Anesthetic Used 4% Lidocaine Solution 5% Lidocaine Gel [Edema Assessment] -Left Calf (cm) 38.1 -Left Ankle (cm) 21.6 WC - Nurse 2 - General Ulcer CM Notes Start: 06/02/18 10:18 Freq: Status: Active Protocol: Activity Type Activity Date Activity User E-Sign Co-Sign Detail Recorded Client Recorded Date Recorded By Document 06/02/18 10:39 ROSA ISELA [id number] 06/02/18 10:45 ROSA ISELA 06/02/18 10:39 Wound Center Nurse 2 [Procedure/Treatment] #2- LT MED ANKLE CLUSTER -Time 10:40 -Correct Patient Yes -Correct Side, Site, Position Yes -Correct Procedure Yes -Procedure Performed Yes -Type of Procedure Debridement -Clinical Debridement Subcutaneous -Post Debridement Size (cm) - Length 7 -Post Debridement Size (cm) - Width 0.5 -Post Debridement Size (cm) - Depth 0.1 -Total Square Cm 3.5 -Wound/Ulcer Outcome Not Healed -Ulcer Cleansing Rinsed/ Irrigated with Saline -Foul Odor after Cleansing No -Bioengineered Tissue No -Bleeding Controlled with Pressure -Offloading Yes -Type of Offloading Camwalker -Treatment Response Procedure Tolerated Well #1- LT LAT ANKLE -Time 10:40 -Correct Patient Yes -Correct Side, Site, Position Yes -Correct Procedure Yes -Procedure Performed Yes -Type of Procedure Debridement -Clinical Debridement Subcutaneous -Post Debridement Size (cm) - Length 4.3 -Post Debridement Size (cm) - Width 0.4 -Post Debridement Size (cm) - Depth 0.2 -Total Square Cm 1.72 -Wound/Ulcer Outcome Not Healed -Ulcer Cleansing Rinsed/ Irrigated with Saline -Foul Odor after Cleansing No -Bioengineered Tissue No -Bleeding Controlled with Pressure -Offloading Yes -Type of Offloading Camwalker -Treatment Response Procedure Tolerated Well [See Physician Procedure note for Specifics] Pain Scale: 0-10 Numeric [Pain] -Is Patient Pain Free? Yes Musculoskeletal: No Tenderness to Palpation of Joints or Extremities, Muscle Wasting, - - Reconstructive rectus foot maintained left Neurological: Sensory exam intact to light touch and pain Psych/Mental Status: Normal Affect, Appropriate Debridement Note Post-Debridement Measurements/Treatment WC - Nurse 2 - General Ulcer CM Notes Start: 06/02/18 10:18 Freq: Status: Active Protocol: Activity Type Activity Date Activity User E-Sign Co-Sign Detail Recorded Client Recorded Date Recorded By Document 06/02/18 10:39 ROSA ISELA [id number] 06/02/18 10:45 ROSA ISELA 06/02/18 10:39 Wound Center Nurse 2 #2- LT MED ANKLE CLUSTER -Time 10:40 -Correct Patient Yes -Correct Side, Site, Position Yes -Correct Procedure Yes -Procedure Performed Yes -Type of Procedure Debridement -Clinical Debridement Subcutaneous -Post Debridement Size (cm) - Length 7 -Post Debridement Size (cm) - Width 0.5 -Post Debridement Size (cm) - Depth 0.1 -Total Square Cm 3.5 -Wound/Ulcer Outcome Not Healed -Ulcer Cleansing Rinsed/ Irrigated with Saline -Foul Odor after Cleansing No -Bioengineered Tissue No -Bleeding Controlled with Pressure -Offloading Yes -Type of Offloading Camwalker -Treatment Response Procedure Tolerated Well #1- LT LAT ANKLE -Time 10:40 -Correct Patient Yes -Correct Side, Site, Position Yes -Correct Procedure Yes -Procedure Performed Yes -Type of Procedure Debridement -Clinical Debridement Subcutaneous -Post Debridement Size (cm) - Length 4.3 -Post Debridement Size (cm) - Width 0.4 -Post Debridement Size (cm) - Depth 0.2 -Total Square Cm 1.72 -Wound/Ulcer Outcome Not Healed -Ulcer Cleansing Rinsed/ Irrigated with Saline -Foul Odor after Cleansing No -Bioengineered Tissue No -Bleeding Controlled with Pressure -Offloading Yes -Type of Offloading Camwalker -Treatment Response Procedure Tolerated Well Pain Scale: 0-10 Numeric Is Patient Pain Free? Yes Wound debrided: medial rearfoot Laterality: Left Type of Debridement: Excisional debridement Anesthesia Used: 5% Lidocaine Gel Depth: in the subcutaneous layer Percentage of wound debrided: 100 Instrument Used: #15 blade Tissue Removed: fibrous, devitalized subcutaneous, biofilm, slough Severity: Fat Layer Exposed Amount of bleeding with debridement: Mild Bleeding Controlled with: Pressure Patient tolerated procedure well - Additional Wound Wound debrided: lateral rearfoot Laterality: Left Type of Debridement: Excisional debridement Anesthesia Used: 5% Lidocaine Gel Depth: in the subcutaneous layer Percentage of wound debrided: 100 Instrument Used: #15 blade Tissue Removed: fibrous, devitalized subcutaneous, biofilm, slough Severity: Fat Layer Exposed Amount of bleeding with debridement: Mild Bleeding Controlled with: Pressure Patient tolerated procedure: Patient tolerated procedure well Assessment/Plan Assessment: -Status post left Charcot Rocio associated cavus foot reconstruction performed on 04/14/2018 (subtalar and talonavicular arthrodesis with Peroneus longus to brevis tendon transfer, plantar fascial release, percutaneous tendo Achilles lengthening, first metatarsal dorsiflexion closing wedge osteotomy with allograft, deltoid ligament lengthening, posterior tibial Z-lengthening, bone marrow aspirate extraction and augmentation). -Cellulitis resolving left foot. -Delayed healing with incision compromise. -Malnutrition suspected Plan: I reviewed and discussed his case today. Physical exam was performed as noted. Debridement was performed only to the partial lateral and medial incision aspects including removal of nonviable slough, fibrous tissue, and partially adhered eschar. Care was taken to this recent surgical site not to reopen any unnecessary aspects. I recommend application of Aquacel Ag to the medial and saline moistened lateral hindfoot sites and change daily and cover with additional gauze. I recommend transitioning over to Santyl, enzymatic debrider, once approved by insurance to further remove this adhered eschar. He was reassured no signs of infection are noted labs were ordered including CBC, CMP, ESR, C-reactive protein for baseline also for general medical assessment. The white blood cell count was 6.8, sedimentation rate 23, and C-reactive protein 4.18. This was reviewed today without gross abnormalities. I recommended a foot x-ray and reviewed his foot x-rays were recently updated when he visited his surgeon last week. To avoid pressure on this site by avoiding sleeping on the left leg. To wear the Cam walker and placed up to 25% weight as advised by his surgeon. To avoid excessive hindfoot and leg motion because this places tension on the friable skin and ulcer sites. I recommend nutritional supplementation optimize healing; a prescription for Terrance nutritional supplement was provided previously. If lack of healing continues the following will be considered; vascular workup to rule out any lack of perfusion, change in wound care product, consideration for advanced wound care products with extra growth factors to expedite healing. I answered all his questions. To return to the wound healing center 1 week or call sooner if he has any questions or concerns.
[2018-06-09 10:19] VITALS: BP 125/87; PULSE 69; RESP 20; TEMP 36.6; BMI 33.7
--- NOTE | 2018-06-09 13:32 | PN.PCM_ITS ---
(1) Chronic ulcer of left foot with fat layer exposed Status: Chronic Current Visit: Yes Code(s): L97.522 - Non-pressure chronic ulcer of other part of left foot with fat layer exposed (2) Delayed wound healing Status: Chronic Current Visit: Yes Code(s): T14.8XXD - Other injury of unspecified body region, subsequent encounter (3) Charcot-Rocio disease Status: Chronic Current Visit: Yes Code(s): G60.0 - Hereditary motor and sensory neuropathy (4) Cavus deformity of left foot Status: Chronic Current Visit: Yes Code(s): Q66.7 - Congenital pes cavus Type of Wound Date of Service: 06/09/18 Chief Complaint: Left foot ulcer sites at previous surgical incisions, medial lateral foot History of Wound: This 48-year-old male is status post Tgvidbc-Tlciy-Sgaef induced cavus foot reconstructive surgery with ulcers now to the medial and lateral wear foot at his nonhealing incision sites. He had this performed in [facility] with Dr. Estes on 04/14/2018. His redness has resolved and he denies pain. He denies fever, chill, nausea, vomiting, loss of appetite. He has been progressing his weightbearing status as advised by his surgeon. He reports some discomfort with the Santyl and switched over to only utilizing this every other day. Progress of Wound: Improving - Physical Exam Vital Signs Temp Pulse Resp BP 97.8 F 69 20 H 125/87 H 06/09/18 10:19 06/09/18 10:19 06/09/18 10:19 06/09/18 10:19 General: Alert, Oriented x3, Cooperative Extremities: No cyanosis, Capillary Refill Less than 3 Seconds, No Calf Tenderness - Negative Kev and Bran., Diminished Peripheral Pulses, Edema, - - Surgical the reconstructive foot has maintained its desired position left lower extremity Skin: Ulcer/ Wound - No purulence, erythema, streaking, odor, or infection. Peripheral skin is with normal turgor. Decreased eschar noted. The wound beds are mainly fibrous with sparse granulation tissue Wound Measurements and Assessment WC - Nurse 1 - General Ulcer Measurement Start: 06/02/18 10:18 Freq: Status: Active Protocol: Activity Type Activity Date Activity User E-Sign Co-Sign Detail Recorded Client Recorded Date Recorded By Document 06/09/18 10:19 MAYKEL [id number] 06/09/18 10:27 DL 06/09/18 10:19 Wound Center Nurse 1 [Ulcer Assessment] #2- LT MED ANKLE CLUSTER -Current Size (cm) - Length 3.3 -Current Size (cm) - Width 0.1 -Current Size (cm) - Depth 0.1 -Total Square Cm 0.33 -Photo Taken No -Exudate Amt None Present (0 %) -Exudate Type Serosanguineous -Wound Margin Flat & Intact -Granulation Amt Large (67-100%) -Granulation Quality [place] -Necrosis Amt Small (1-33%) -Necrotic Tissue Type Adherent Slough -Structure Exposed N/A -Texture (Fe-wound Skin Appearance) Scarring -Moisture (Fe-wound Skin Appearance No Abnormality ) -Color (Fe-wound Skin Appearance) Rubor -Temperature (Fe-wound Skin No Abnormality Appearance) (Pt Warm) -Tenderness on Palpation (Fe-wound No Skin Appearance) -Ulcer Cleansing Wound Cleanser -Foul Odor after Cleansing No -Anesthetic Used 4% Lidocaine Solution #1- LT LAT ANKLE -Current Size (cm) - Length 4.8 -Current Size (cm) - Width 0.5 -Current Size (cm) - Depth 0.2 -Total Square Cm 2.40 -Photo Taken No -Exudate Amt Small (1-33%) -Exudate Type Serosanguineous -Wound Margin Distinct, Outline Attached -Granulation Amt Small (1-33%) -Granulation Quality [place] -Necrosis Amt Large (67-100%) -Necrotic Tissue Type Adherent Slough -Structure Exposed N/A -Texture (Fe-wound Skin Appearance) Scarring -Moisture (Fe-wound Skin Appearance No Abnormality ) -Color (Fe-wound Skin Appearance) Rubor -Temperature (Fe-wound Skin No Abnormality Appearance) (Pt Warm) -Tenderness on Palpation (Fe-wound No Skin Appearance) -Ulcer Cleansing Rinsed/ Irrigated with Saline -Foul Odor after Cleansing No -Anesthetic Used 4% Lidocaine Solution [Edema Assessment] -Left Calf (cm) 3,621.5 WC - Nurse 2 - General Ulcer CM Notes Start: 06/02/18 10:18 Freq: Status: Active Protocol: Activity Type Activity Date Activity User E-Sign Co-Sign Detail Recorded Client Recorded Date Recorded By Document 06/09/18 10:36 [id number] 06/09/18 10:40 DL 06/09/18 10:36 Wound Center Nurse 2 [Procedure/Treatment] #2- LT MED ANKLE CLUSTER -Time 10:38 -Correct Patient Yes -Correct Side, Site, Position Yes -Correct Procedure Yes -Procedure Performed Yes -Type of Procedure Debridement -Clinical Debridement Subcutaneous -Post Debridement Size (cm) - Length 3.4 -Post Debridement Size (cm) - Width 0.2 -Post Debridement Size (cm) - Depth 0.1 -Total Square Cm 0.68 -Wound/Ulcer Outcome Not Healed -Ulcer Cleansing Rinsed/ Irrigated with Saline -Foul Odor after Cleansing No -Bioengineered Tissue No -Bleeding Controlled with Pressure -Offloading No -Treatment Response Procedure Tolerated Well #1- LT LAT ANKLE -Time 10:39 -Correct Patient Yes -Correct Side, Site, Position Yes -Correct Procedure Yes -Procedure Performed Yes -Type of Procedure Debridement -Clinical Debridement Subcutaneous -Post Debridement Size (cm) - Length 4.8 -Post Debridement Size (cm) - Width 0.6 -Post Debridement Size (cm) - Depth 0.2 -Total Square Cm 2.88 -Wound/Ulcer Outcome Not Healed -Ulcer Cleansing Rinsed/ Irrigated with Saline -Foul Odor after Cleansing No -Bioengineered Tissue No -Bleeding Controlled with Pressure -Offloading No -Treatment Response Procedure Tolerated Well [See Physician Procedure note for Specifics] Pain Scale: 0-10 Numeric [Pain] -Is Patient Pain Free? Yes Musculoskeletal: No Tenderness to Palpation of Joints or Extremities, Muscle Wasting Neurological: Sensory exam intact to light touch and pain Psych/Mental Status: Normal Affect, Appropriate Debridement Note Post-Debridement Measurements/Treatment WC - Nurse 2 - General Ulcer CM Notes Start: 06/02/18 10:18 Freq: Status: Active Protocol: Activity Type Activity Date Activity User E-Sign Co-Sign Detail Recorded Client Recorded Date Recorded By Document 06/02/18 10:39 [id number] 06/02/18 10:45 Document 06/09/18 10:36 DL [id number] 06/09/18 10:40 DL 06/02/18 06/09/18 10:39 10:36 Wound Center Nurse 2 #2- LT MED ANKLE CLUSTER -Time 10:40 10:38 -Correct Patient Yes Yes -Correct Side, Site, Position Yes Yes -Correct Procedure Yes Yes -Procedure Performed Yes Yes -Type of Procedure Debridement Debridement -Clinical Debridement Subcutaneous Subcutaneous -Post Debridement Size (cm) - Length 7 3.4 -Post Debridement Size (cm) - Width 0.5 0.2 -Post Debridement Size (cm) - Depth 0.1 0.1 -Total Square Cm 3.5 0.68 -Wound/Ulcer Outcome Not Healed Not Healed -Ulcer Cleansing Rinsed/ Rinsed/ Irrigated with Irrigated with Saline Saline -Foul Odor after Cleansing No No -Bioengineered Tissue No No -Bleeding Controlled with Pressure Pressure -Offloading Yes No -Type of Offloading Camwalker -Treatment Response Procedure Procedure Tolerated Well Tolerated Well #1- LT LAT ANKLE -Time 10:40 10:39 -Correct Patient Yes Yes -Correct Side, Site, Position Yes Yes -Correct Procedure Yes Yes -Procedure Performed Yes Yes -Type of Procedure Debridement Debridement -Clinical Debridement Subcutaneous Subcutaneous -Post Debridement Size (cm) - Length 4.3 4.8 -Post Debridement Size (cm) - Width 0.4 0.6 -Post Debridement Size (cm) - Depth 0.2 0.2 -Total Square Cm 1.72 2.88 -Wound/Ulcer Outcome Not Healed Not Healed -Ulcer Cleansing Rinsed/ Rinsed/ Irrigated with Irrigated with Saline Saline -Foul Odor after Cleansing No No -Bioengineered Tissue No No -Bleeding Controlled with Pressure Pressure -Offloading Yes No -Type of Offloading Camwalker -Treatment Response Procedure Procedure Tolerated Well Tolerated Well Pain Scale: 0-10 Numeric Is Patient Pain Free? Yes Yes Wound debrided: medial rearfoot Laterality: Left Type of Debridement: Excisional debridement Anesthesia Used: 5% Lidocaine Gel Depth: in the subcutaneous layer Percentage of wound debrided: 100 Instrument Used: #15 blade Tissue Removed: fibrous, devitalized subcutaneous, biofilm, slough Severity: Fat Layer Exposed Amount of bleeding with debridement: Mild Bleeding Controlled with: Pressure Patient tolerated procedure well - Additional Wound Wound debrided: lateral rearfoot Laterality: Left Type of Debridement: Excisional debridement Anesthesia Used: 5% Lidocaine Gel Depth: in the subcutaneous layer Percentage of wound debrided: 100 Instrument Used: #15 blade Tissue Removed: fibrous, devitalized subcutaneous, biofilm, slough Severity: Fat Layer Exposed Amount of bleeding with debridement: Mild Bleeding Controlled with: Pressure Patient tolerated procedure: Patient tolerated procedure well Assessment/Plan Active Problems Chronic ulcer of left foot with fat layer exposed (Chronic) Delayed wound healing (Chronic) Charcot-Rocio disease (Chronic) Cavus deformity of left foot (Chronic) Assessment: -Status post left Charcot Rocio associated cavus foot reconstruction performed on 04/14/2018 (subtalar and talonavicular arthrodesis with Peroneus longus to brevis tendon transfer, plantar fascial release, percutaneous tendo Achilles lengthening, first metatarsal dorsiflexion closing wedge osteotomy with allograft, deltoid ligament lengthening, posterior tibial Z-lengthening, bone marrow aspirate extraction and augmentation). -Cellulitis resolving left foot. -Delayed healing with incision compromise. -Malnutrition suspected Plan: I reviewed and discussed his case today. Physical exam was performed as noted. Debridement was performed only to the partial lateral and medial incision aspects including removal of nonviable slough, fibrous tissue, and partially adhered eschar. Care was taken to this recent surgical site not to reopen any unnecessary aspects. I recommend application of Santyl as tolerated every other day and to apply hydrogel in the interim. A prescription was provided for hydration with collagen. It appears the Aquacel Ag is causing the wound to dry out too much and eschar keep forming; to decrease this use. He was reassured no signs of infection are noted labs were ordered including CBC, CMP, ESR, C-reactive protein for baseline also for general medical assessment. The white blood cell count was 6.8, sedimentation rate 23, and C-reactive protein 4.18. This was reviewed today without gross abnormalities. I recommended a foot x-ray and reviewed his foot x-rays were recently updated when he visited his surgeon last week. To avoid pressure on this site by avoiding sleeping on the left leg. To wear the Cam walker and placed up to 25% weight as advised by his surgeon. To avoid excessive hindfoot and leg motion because this places tension on the friable skin and ulcer sites. I recommend nutritional supplementation optimize healing; a prescription for Terrance nutritional supplement was provided previously. If lack of healing continues the following will be considered; vascular workup to rule out any lack of perfusion, change in wound care product, consideration for advanced wound care products with extra growth factors to expedite healing. I answered all his questions. To return to the wound healing center 1 week or call sooner if he has any questions or concerns.
[2018-06-16 13:51] VITALS: BP 127/74; PULSE 76; RESP 20; TEMP 36.3; BMI 33.7
--- NOTE | 2018-06-16 15:16 | PN.PCM_ITS ---
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 He had this performed in [facility] with Dr. Estes on 04/14/2018. He denies redness, odor, or pain. He denies fever, chill, nausea, vomiting, loss of appetite. He has been progressing his weightbearing status as advised by his surgeon. He reports some discomfort with the Santyl and switched over to only utilizing this every other day. Progress of Wound: Improving - Physical Exam Vital Signs Temp Pulse Resp BP 97.4 F L 76 20 H 127/74 H 06/16/18 13:51 06/16/18 13:51 06/16/18 13:51 06/16/18 13:51 General: Alert, Oriented x3, Cooperative Extremities: No cyanosis, Capillary Refill Less than 3 Seconds, No Calf Tenderness - Negative Kev and Bran sign, Diminished Peripheral Pulses, Edema - Mild Skin: Ulcer/ Wound - No purulence, erythema, streaking, odor, or infection. Peripheral skin is atrophic and there is hair noted Wound Measurements and Assessment WC - Nurse 1 - General Ulcer Measurement Start: 06/02/18 10:18 Freq: Status: Active Protocol: Activity Type Activity Date Activity User E-Sign Co-Sign Detail Recorded Client Recorded Date Recorded By Document 06/16/18 13:51 DL [id number] 06/16/18 13:58 DL 12/19/18 13:51 Wound Center Nurse 1 [Ulcer Assessment] #2- LT MED ANKLE CLUSTER -Current Size (cm) - Length 0.4 -Current Size (cm) - Width 0.3 -Current Size (cm) - Depth 0.1 -Total Square Cm 0.12 -Photo Taken No -Exudate Amt None Present (0 %) -Wound Margin Flat & Intact -Granulation Amt Small (1-33%) -Granulation Quality [place] -Necrosis Amt Small (1-33%) -Necrotic Tissue Type Adherent Slough -Structure Exposed N/A -Texture (Fe-wound Skin Appearance) Localized Edema Scarring -Moisture (Fe-wound Skin Appearance No Abnormality ) -Color (Fe-wound Skin Appearance) Hemosiderin Staining -Temperature (Fe-wound Skin No Abnormality Appearance) (Pt Warm) -Tenderness on Palpation (Fe-wound No Skin Appearance) -Ulcer Cleansing Rinsed/ Irrigated with Saline -Foul Odor after Cleansing No -Anesthetic Used 4% Lidocaine Solution #1- LT LAT ANKLE -Current Size (cm) - Length 3.4 -Current Size (cm) - Width 0.5 -Current Size (cm) - Depth 0.1 -Total Square Cm 1.70 -Photo Taken No -Exudate Amt Small (1-33%) -Exudate Type Serosanguineous -Wound Margin Distinct, Outline Attached -Granulation Amt Small (1-33%) -Granulation Quality [place] -Necrosis Amt Large (67-100%) -Necrotic Tissue Type Adherent Slough -Structure Exposed N/A -Texture (Fe-wound Skin Appearance) Scarring -Moisture (Fe-wound Skin Appearance No Abnormality ) -Color (Fe-wound Skin Appearance) Rubor -Temperature (Fe-wound Skin No Abnormality Appearance) (Pt Warm) -Tenderness on Palpation (Fe-wound No Skin Appearance) -Ulcer Cleansing Rinsed/ Irrigated with Saline -Foul Odor after Cleansing No -Anesthetic Used 4% Lidocaine Solution [Edema Assessment] -Left Calf (cm) 37.5 -Left Ankle (cm) 21.5 WC - Nurse 2 - General Ulcer CM Notes Start: 06/02/18 10:18 Freq: Status: Active Protocol: Activity Type Activity Date Activity User E-Sign Co-Sign Detail Recorded Client Recorded Date Recorded By Document 06/16/18 14:16 DL [id number] 06/16/18 14:18 DL 06/16/18 14:16 Wound Center Nurse 2 [Procedure/Treatment] #2- LT MED ANKLE CLUSTER -Time 14:16 -Correct Patient Yes -Correct Side, Site, Position Yes -Correct Procedure Yes -Procedure Performed Yes -Type of Procedure Debridement -Clinical Debridement Subcutaneous -Post Debridement Size (cm) - Length 0.5 -Post Debridement Size (cm) - Width 0.3 -Post Debridement Size (cm) - Depth 0.1 -Total Square Cm 0.15 -Wound/Ulcer Outcome Not Healed -Ulcer Cleansing Rinsed/ Irrigated with Saline -Foul Odor after Cleansing No -Bioengineered Tissue No -Bleeding Controlled with Pressure -Offloading Yes -Type of Offloading Camwalker -Treatment Response Procedure Tolerated Well #1- LT LAT ANKLE -Time 14:17 -Correct Patient Yes -Correct Side, Site, Position Yes -Correct Procedure Yes -Procedure Performed Yes -Type of Procedure Debridement -Clinical Debridement Subcutaneous -Post Debridement Size (cm) - Length 3.5 -Post Debridement Size (cm) - Width 0.5 -Post Debridement Size (cm) - Depth 0.1 -Total Square Cm 1.75 -Wound/Ulcer Outcome Not Healed -Ulcer Cleansing Rinsed/ Irrigated with Saline -Foul Odor after Cleansing No -Bioengineered Tissue No -Bleeding Controlled with Pressure -Offloading Yes -Type of Offloading Camwalker -Treatment Response Procedure Tolerated Well [See Physician Procedure note for Specifics] Pain Scale: 0-10 Numeric [Pain] -Is Patient Pain Free? Yes Musculoskeletal: No Tenderness to Palpation of Joints or Extremities, Muscle Wasting, - - Preserved reconstructive foot position is maintained. Other incision sites are healed with cicatrix noted Neurological: Sensory exam intact to light touch and pain Psych/Mental Status: Normal Affect, Appropriate Debridement Note Post-Debridement Measurements/Treatment WC - Nurse 2 - General Ulcer CM Notes Start: 06/02/18 10:18 Freq: Status: Active Protocol: Activity Type Activity Date Activity User E-Sign Co-Sign Detail Recorded Client Recorded Date Recorded By Document 06/02/18 10:39 JF [id number] 06/02/18 10:45 JF Document 06/09/18 10:36 DL [id number] 06/09/18 10:40 DL Document 06/16/18 14:16 DL [id number] 06/16/18 14:18 DL 06/02/18 06/09/1818 10:39 10:36 14:16 Wound Center Nurse 2 #2- LT MED ANKLE CLUSTER -Time 10:40 10:38 14:16 -Correct Patient Yes Yes Yes -Correct Side, Site, Position Yes Yes Yes -Correct Procedure Yes Yes Yes -Procedure Performed Yes Yes Yes -Type of Procedure Debridement Debridement Debridement -Clinical Debridement Subcutaneous Subcutaneous Subcutaneous -Post Debridement Size (cm) - Length 7 3.4 0.5 -Post Debridement Size (cm) - Width 0.5 0.2 0.3 -Post Debridement Size (cm) - Depth 0.1 0.1 0.1 -Total Square Cm 3.5 0.68 0.15 -Wound/Ulcer Outcome Not Healed Not Healed Not Healed -Ulcer Cleansing Rinsed/ Rinsed/ Rinsed/ Irrigated with Irrigated with Irrigated with Saline Saline Saline -Foul Odor after Cleansing No No No -Bioengineered Tissue No No No -Bleeding Controlled with Pressure Pressure Pressure -Offloading Yes No Yes -Type of Offloading Camwalker Camwalker -Treatment Response Procedure Procedure Procedure Tolerated Well Tolerated Well Tolerated Well #1- LT LAT ANKLE -Time 10:40 10:39 14:17 -Correct Patient Yes Yes Yes -Correct Side, Site, Position Yes Yes Yes -Correct Procedure Yes Yes Yes -Procedure Performed Yes Yes Yes -Type of Procedure Debridement Debridement Debridement -Clinical Debridement Subcutaneous Subcutaneous Subcutaneous -Post Debridement Size (cm) - Length 4.3 4.8 3.5 -Post Debridement Size (cm) - Width 0.4 0.6 0.5 -Post Debridement Size (cm) - Depth 0.2 0.2 0.1 -Total Square Cm 1.72 2.88 1.75 -Wound/Ulcer Outcome Not Healed Not Healed Not Healed -Ulcer Cleansing Rinsed/ Rinsed/ Rinsed/ Irrigated with Irrigated with Irrigated with Saline Saline Saline -Foul Odor after Cleansing No No No -Bioengineered Tissue No No No -Bleeding Controlled with Pressure Pressure Pressure -Offloading Yes No Yes -Type of Offloading Camwalker Camwalker -Treatment Response Procedure Procedure Procedure Tolerated Well Tolerated Well Tolerated Well Pain Scale: 0-10 Numeric Is Patient Pain Free? Yes Yes Yes Wound debrided: medial rearfoot Laterality: Right Type of Debridement: Excisional debridement Anesthesia Used: 4% Lidocaine Solution Depth: in the subcutaneous layer Percentage of wound debrided: 100 Instrument Used: #15 blade Tissue Removed: fibrous, devitalized subcutaneous, biofilm, slough Severity: Fat Layer Exposed Amount of bleeding with debridement: Mild Bleeding Controlled with: Pressure Patient tolerated procedure well - Additional Wound Wound debrided: lateral rearfoot Laterality: Left Type of Debridement: Excisional debridement Anesthesia Used: 4% Lidocaine Solution Depth: in the subcutaneous layer Percentage of wound debrided: 100 Instrument Used: #15 blade Tissue Removed: fibrous, devitalized subcutaneous, biofilm, slough Severity: Fat Layer Exposed Amount of bleeding with debridement: Mild Bleeding Controlled with: Pressure Patient tolerated procedure: Patient tolerated procedure well Assessment/Plan Active Problems Chronic ulcer of left foot with fat layer exposed (Chronic) Delayed wound healing (Chronic) Charcot-Rocio disease (Chronic) Cavus deformity of left foot (Chronic) Assessment: -Status post left Charcot Rocio associated cavus foot reconstruction performed on 04/14/2018 (subtalar and talonavicular arthrodesis with Peroneus longus to brevis tendon transfer, plantar fascial release, percutaneous tendo Achilles lengthening, first metatarsal dorsiflexion closing wedge osteotomy with allograft, deltoid ligament lengthening, posterior tibial Z-lengthening, bone marrow aspirate extraction and augmentation). -Cellulitis resolving left foot. -Delayed healing with incision compromise. -Malnutrition suspected Plan: I reviewed and discussed his case today. Physical exam was performed as noted. Debridement was performed only to the partial lateral and medial incision aspects including removal of nonviable slough, fibrous tissue, and partially adhered eschar. Care was taken to this recent surgical site not to reopen any unnecessary aspects. I recommend application of Santyl as tolerated every other day and to apply hydrogel in the interim. He was reassured no signs of infection are noted labs were ordered including CBC, CMP, ESR, C- reactive protein for baseline also for general medical assessment. The white blood cell count was 6.8, sedimentation rate 23, and C-reactive protein 4.18. This was reviewed today without gross abnormalities. I recommended a foot x- ray and reviewed his foot x-rays were recently updated when he visited his surgeon last week. To avoid pressure on this site by avoiding sleeping on the left leg. To wear the Cam walker and placed up to 25% weight as advised by his surgeon. To avoid excessive hindfoot and leg motion because this places tension on the friable skin and ulcer sites. I recommend nutritional supplementation optimize healing; a prescription for Terrance nutritional supplement was provided previously. If lack of healing continues the following will be considered; vascular workup to rule out any lack of perfusion, change in wound care product, consideration for advanced wound care products with extra growth factors to expedite healing. I answered all his questions. To return to the wound healing center 1 week or call sooner if he has any questions or concerns.
[2018-06-23 14:36] VITALS: BP 137/85; PULSE 77; RESP 16; TEMP 37; BMI 33.7
--- NOTE | 2018-06-23 15:02 | PN.PCM_ITS ---
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 He had this performed in [place] with Dr. Estes on 04/14/2018. He denies redness, odor, or pain. He denies fever, chill, nausea, vomiting, loss of appetite. He has been progressing his weightbearing status as advised by his surgeon. He reports some discomfort with the Santyl and switched over to only utilizing this every day. Progress of Wound: Improving - Physical Exam Vital Signs Temp Pulse Resp BP 98.6 F 77 16 137/85 H 06/23/18 14:36 06/23/18 14:36 06/23/18 14:36 06/23/18 14:36 General: Alert, Oriented x3, Cooperative Extremities: No cyanosis, Capillary Refill Less than 3 Seconds, No Calf Tenderness - Negative Kev and Bran sign, Diminished Peripheral Pulses, Edema - Mild, Tenderness - Mild pain with ulcer manipulation and debridement left foot, - - Surgically reconstructed foot position is maintained Skin: Ulcer/ Wound - No purulence, erythema hamstring, odor, or infection. Peripheral epithelialization noted to both sites. The central lateral rear foot ulcer site continues to have fibrotic tissue. There is no exposed bone or joint or muscle. Wound Measurements and Assessment WC - Nurse 1 - General Ulcer Measurement Start: 06/02/18 10:18 Freq: Status: Active Protocol: Activity Type Activity Date Activity User E-Sign Co-Sign Detail Recorded Client Recorded Date Recorded By Document 06/23/18 14:36 DV [id number] 06/23/18 14:38 DV 06/23/18 14:36 Wound Center Nurse 1 [Ulcer Assessment] #2- LT MED ANKLE CLUSTER -Combined with other wound No -Current Size (cm) - Length 0.1 -Current Size (cm) - Width 0.1 -Current Size (cm) - Depth 0.1 -Total Square Cm 0.01 -Photo Taken No -Epithelialization None Present -Tunneling No -Undermining/Tunneling No -Circular Undermining No #1- LT LAT ANKLE -Combined with other wound No -Current Size (cm) - Length 5.0 -Current Size (cm) - Width 0.6 -Current Size (cm) - Depth 0.2 -Total Square Cm 3.00 WC - Nurse 2 - General Ulcer CM Notes Start: 06/02/18 10:18 Freq: Status: Active Protocol: Activity Type Activity Date Activity User E-Sign Co-Sign Detail Recorded Client Recorded Date Recorded By Document 06/23/18 14:51 [id number] 06/23/18 14:52 06/23/18 14:51 Wound Center Nurse 2 [Procedure/Treatment] #2- LT MED ANKLE CLUSTER -Time 14:51 -Correct Patient Yes -Correct Side, Site, Position Yes -Correct Procedure Yes -Procedure Performed Yes -Type of Procedure Debridement -Clinical Debridement Subcutaneous -Post Debridement Size (cm) - Length 0.1 -Post Debridement Size (cm) - Width 0.1 -Post Debridement Size (cm) - Depth 0.1 -Total Square Cm 0.01 -Wound/Ulcer Outcome Not Healed -Ulcer Cleansing Rinsed/ Irrigated with Saline -Foul Odor after Cleansing No -Bioengineered Tissue No -Bleeding Controlled with Pressure -Offloading No -Treatment Response Procedure Tolerated Well #1- LT LAT ANKLE -Time 14:52 -Correct Patient Yes -Correct Side, Site, Position Yes -Correct Procedure Yes -Procedure Performed Yes -Type of Procedure Debridement -Clinical Debridement Subcutaneous -Post Debridement Size (cm) - Length 5 -Post Debridement Size (cm) - Width 0.7 -Post Debridement Size (cm) - Depth 0.2 -Total Square Cm 3.5 -Wound/Ulcer Outcome Not Healed -Ulcer Cleansing Rinsed/ Irrigated with Saline -Foul Odor after Cleansing No -Bioengineered Tissue No -Bleeding Controlled with Pressure -Offloading No -Treatment Response Procedure Tolerated Well [See Physician Procedure note for Specifics] Pain Scale: 0-10 Numeric [Pain] -Is Patient Pain Free? Yes Musculoskeletal: No Tenderness to Palpation of Joints or Extremities, Muscle Wasting Neurological: Sensory exam intact to light touch and pain Psych/Mental Status: Normal Affect, Appropriate Debridement Note Post-Debridement Measurements/Treatment WC - Nurse 2 - General Ulcer CM Notes Start: 06/02/18 10:18 Freq: Status: Active Protocol: Activity Type Activity Date Activity User E-Sign Co-Sign Detail Recorded Client Recorded Date Recorded By Document 06/02/18 10:39 JF [id number] 06/02/18 10:45 JF Document 06/09/18 10:36 DL [id number] 06/09/18 10:40 DL Document 06/16/18 14:16 DL [id number] 06/16/18 14:18 DL Document 06/23/18 14:51 [id number] 06/23/18 14:52 06/02/18 06/09/18 06/16/18 10:39 10:36 14:16 Wound Center Nurse 2 #2- LT MED ANKLE CLUSTER -Time 10:40 10:38 14:16 -Correct Patient Yes Yes Yes -Correct Side, Site, Position Yes Yes Yes -Correct Procedure Yes Yes Yes -Procedure Performed Yes Yes Yes -Type of Procedure Debridement Debridement Debridement -Clinical Debridement Subcutaneous Subcutaneous Subcutaneous -Post Debridement Size (cm) - Length 7 3.4 0.5 -Post Debridement Size (cm) - Width 0.5 0.2 0.3 -Post Debridement Size (cm) - Depth 0.1 0.1 0.1 -Total Square Cm 3.5 0.68 0.15 -Wound/Ulcer Outcome Not Healed Not Healed Not Healed -Ulcer Cleansing Rinsed/ Rinsed/ Rinsed/ Irrigated with Irrigated with Irrigated with Saline Saline Saline -Foul Odor after Cleansing No No No -Bioengineered Tissue No No No -Bleeding Controlled with Pressure Pressure Pressure -Offloading Yes No Yes -Type of Offloading Camwalker Camwalker -Treatment Response Procedure Procedure Procedure Tolerated Well Tolerated Well Tolerated Well #1- LT LAT ANKLE -Time 10:40 10:39 14:17 -Correct Patient Yes Yes Yes -Correct Side, Site, Position Yes Yes Yes -Correct Procedure Yes Yes Yes -Procedure Performed Yes Yes Yes -Type of Procedure Debridement Debridement Debridement -Clinical Debridement Subcutaneous Subcutaneous Subcutaneous -Post Debridement Size (cm) - Length 4.3 4.8 3.5 -Post Debridement Size (cm) - Width 0.4 0.6 0.5 -Post Debridement Size (cm) - Depth 0.2 0.2 0.1 -Total Square Cm 1.72 2.88 1.75 -Wound/Ulcer Outcome Not Healed Not Healed Not Healed -Ulcer Cleansing Rinsed/ Rinsed/ Rinsed/ Irrigated with Irrigated with Irrigated with Saline Saline Saline -Foul Odor after Cleansing No No No -Bioengineered Tissue No No No -Bleeding Controlled with Pressure Pressure Pressure -Offloading Yes No Yes -Type of Offloading Camwalker Camwalker -Treatment Response Procedure Procedure Procedure Tolerated Well Tolerated Well Tolerated Well Pain Scale: 0-10 Numeric Is Patient Pain Free? Yes Yes Yes 06/23/18 14:51 Wound Center Nurse 2 #2- LT MED ANKLE CLUSTER -Time 14:51 -Correct Patient Yes -Correct Side, Site, Position Yes -Correct Procedure Yes -Procedure Performed Yes -Type of Procedure Debridement -Clinical Debridement Subcutaneous -Post Debridement Size (cm) - Length 0.1 -Post Debridement Size (cm) - Width 0.1 -Post Debridement Size (cm) - Depth 0.1 -Total Square Cm 0.01 -Wound/Ulcer Outcome Not Healed -Ulcer Cleansing Rinsed/ Irrigated with Saline -Foul Odor after Cleansing No -Bioengineered Tissue No -Bleeding Controlled with Pressure -Offloading No -Type of Offloading -Treatment Response Procedure Tolerated Well #1- LT LAT ANKLE -Time 14:52 -Correct Patient Yes -Correct Side, Site, Position Yes -Correct Procedure Yes -Procedure Performed Yes -Type of Procedure Debridement -Clinical Debridement Subcutaneous -Post Debridement Size (cm) - Length 5 -Post Debridement Size (cm) - Width 0.7 -Post Debridement Size (cm) - Depth 0.2 -Total Square Cm 3.5 -Wound/Ulcer Outcome Not Healed -Ulcer Cleansing Rinsed/ Irrigated with Saline -Foul Odor after Cleansing No -Bioengineered Tissue No -Bleeding Controlled with Pressure -Offloading No -Type of Offloading -Treatment Response Procedure Tolerated Well Pain Scale: 0-10 Numeric Is Patient Pain Free? Yes Wound debrided: lateral rearfoot Laterality: Left Type of Debridement: Excisional debridement Anesthesia Used: 5% Lidocaine Gel Depth: in the subcutaneous layer Percentage of wound debrided: 100 Instrument Used: #15 blade Tissue Removed: fibrous, devitalized subcutaneous, biofilm, slough Severity: Fat Layer Exposed Amount of bleeding with debridement: Mild Bleeding Controlled with: Pressure Patient tolerated procedure well - Additional Wound Wound debrided: medial rearfoot Laterality: Left Type of Debridement: Excisional debridement Anesthesia Used: 5% Lidocaine Gel Depth: in the subcutaneous layer Percentage of wound debrided: 100 Instrument Used: #15 blade Tissue Removed: fibrous, devitalized subcutaneous, biofilm, slough Severity: Fat Layer Exposed Amount of bleeding with debridement: Mild Bleeding Controlled with: Pressure Patient tolerated procedure: Patient tolerated procedure well Assessment/Plan Active Problems Chronic ulcer of left foot with fat layer exposed (Chronic) Delayed wound healing (Chronic) Charcot-Rocio disease (Chronic) Cavus deformity of left foot (Chronic) Assessment: -Status post left Charcot Rocio associated cavus foot reconstruction performed on 04/14/2018 (subtalar and talonavicular arthrodesis with Peroneus longus to brevis tendon transfer, plantar fascial release, percutaneous tendo Achilles lengthening, first metatarsal dorsiflexion closing wedge osteotomy with allograft, deltoid ligament lengthening, posterior tibial Z-lengthening, bone marrow aspirate extraction and augmentation). -Cellulitis resolving left foot. -Delayed healing with incision compromise. -Malnutrition suspected Plan: I reviewed and discussed his case today. Physical exam was performed as noted. Debridement was performed only to the partial lateral and medial incision aspects including removal of nonviable slough, fibrous tissue, and partially adhered eschar. Care was taken to this recent surgical site not to reopen any unnecessary aspects. I recommend application of Santyl as tolerated every day. He was reassured no signs of infection are noted labs were ordered including CBC, CMP, ESR, C-reactive protein for baseline also for general medical assessment. The white blood cell count was 6.8, sedimentation r ate 23, and C-reactive protein 4.18. This was reviewed today without gross abnormalities. I recommended a foot x-ray and reviewed his foot x-rays were recently updated when he visited his surgeon last week. To avoid pressure on this site by avoiding sleeping on the left leg. To wear the Cam walker and placed up to 25% weight as advised by his surgeon. To avoid excessive hindfoot and leg motion because this places tension on the friable skin and ulcer sites. I recommend nutritional supplementation optimize healing; a prescription for Terrance nutritional supplement was provided previously. If lack of healing continues the following will be considered; vascular workup to rule out any lack of perfusion, change in wound care product, consideration for advanced wound care products with extra growth factors to expedite healing. I answered all his questions. To return to the wound healing center 1 week or call sooner if he has any questions or concerns.
== END 2018-06-28 23:59 ==
LOC: WC 14:15
PROVIDERS: Family Provider Family Medicine; PCP Family Medicine; Visit Provider Podiatrist
DX: L97.522 Non-pressure chronic ulcer of other part of left foot with fat layer exposed (principal); G60.0 Hereditary motor and sensory neuropathy; Q66.7 Congenital pes cavus
CPT/HCPCS: 11042

== ENCOUNTER 2018-07-22 13:00 | Outpatient (RCR) | payer SELFPAY ==
[2018-07-07 14:37] VITALS: BMI 33.7
--- NOTE | 2018-07-13 13:59 | HP.PTEVAL_ITS ---
Patient's Visit Information LORRIE LLAMAS is a 48 year old M referred to Physical Therapy by Jair Estes with a diagnosis of charcot maco tooth disease. Date of Evaluation: 07/13/18 Physical Therapist: Viet Richard PT, ATC - Visit Plan Frequency: 2-3x /Week Duration: 2 Months Plan: L ankle stretching and strengthening, balance and proprio, gait training, bike, and HEP - Subjective Findings: DOS: 04/14/18. 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 Pt reports he could waslk prior to the surgery, but was in significant pain. Pt reports he was NWB'ing for the past 13 weeks. He just began putting weight on his foot 4 days ago. Pt notes he can tell his strength is coming back quickly, but he is still in a lot of pain. 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 No sleep difficulty at this time secondary to pain. Pt has stairs at home that he negotiates one at a time. No tingling or numbness at this time in his L LE. Pt is wearing his shoe around the house, but the boot outside. Pt had his other foot operated on 8 years ago. 0/10 pain at rest. 4/10 pain after standing all day - Pain L foot Pain Intensity (Out of 10): 0 Pain Intensity Range: 4 - Objective Neuro: B LE sensation is WNL to light touch. B patellar reflex= 2/3. Girth at malleolus line: L ankle 31 CM, R ankle 25 cm. ROM: R ankle DF= 1, PF= 30 degrees. L ankle DF= -3, PF= 24. MMT: R ankle 4+/5 throughout. L ankle is 3+/5 throughout. Gait: slow cadance. No heal strike and only minimal toe off - Goals Goal 1:: Decrease L foot pain x 50% to aid with tolerance for prolonged standing Goal Time Frame: 6-8 Weeks Goal 2:: Increase L ankle strength x 1 grade to aid with stair negotiation Goal Time Frame: 6-8 Weeks Goal 3:: increase L ankle DF ROM x 5-10 degrees to aid with restoring a more normalized gait pattern Goal Time Frame: 6-8 Weeks Goal 4:: I with HEP Goal Time Frame: 6-8 Weeks - Rehabilitation Potential Physical Therapy Diagnosis: Pt has limited L ankle ROM, weakness, and L foot pain secondary to L foot fusion and tendon lengthenings. Rehabilitation Potential: Good - Anticipated Interventions Patient/Client Instruction: Educate patient on: Condition, Plan of Care For the Purpose of:: To improve self management Therapeutic Exercise to Include: Strength training, Endurance training, Balance training, Flexibilty training, Gait and locomotor training, Passive ROM, Active ROM For the Purpose of:: To decrease pain, To increase ROM, To improve muscle performance and motor function Cryotherapy (ice pack, ice massage): Yes For the Purpose of:: To decrease pain Thank you for the opportunity to evaluate your patient. For Medicare and Medicare HMO plans, please review the plan of care and approve it. It will need to be FAXED BACK to us at [phone] for Medicare purposes. For Medicare only, by signing this I certify the plan of care. Please let me know if there are questions or concerns regarding this plan of care. Physician Signature: Date:
--- NOTE | 2018-09-08 13:30 | HP.PT.NRP ---
HP - Discharge Summary (1) - Patient Information LORRIE LLAMAS was seen in my office for initial evaluation on 07/13/18. The following Plan of Care was established for this patient: Initial Frequency: 2-3x /Week Initial Duration: 2 Months - Anticipated Interventions Patient/Client Instruction: Educate patient on: Condition, Plan of Care For the Purpose of:: To improve self management Therapeutic Exercise to Include: Strength training, Endurance training, Balance training, Flexibilty training, Gait and locomotor training, Passive ROM, Active ROM For the Purpose of:: To decrease pain, To increase ROM, To improve muscle performance and motor function Cryotherapy (ice pack, ice massage): Yes For the Purpose of:: To decrease pain This patient was last seen in our office . Pertinent comments regarding their Physical therapy will appear below: Pt was last treated for L ankle pain on the date of 07/22/18. Pt has not returned since that date and is therefore discontinued at this time. At this point I will be discontinuing this patient from physical therapy. I would be happy to see this patient again in the future if found appropriate by the physician. Thank you! Viet Richard, PT, ATC
== END 2018-07-22 19:00 | disposition home or self-care (01) ==
LOC: PT 13:00
PROVIDERS: Family Provider Family Medicine; PCP Family Medicine; Referring Provider Orthopaedic Surgery Foot and Ankle Surgery; Visit Provider Orthopaedic Surgery Foot and Ankle Surgery
DX: G80.0 Spastic quadriplegic cerebral palsy (principal)
CPT/HCPCS: 97110; 97162

== ENCOUNTER 2018-07-28 14:30 | Outpatient (RCR) | payer BC, SELFPAY ==
[2018-06-29 01:24] VITALS: BP 137/85; PULSE 77; RESP 16; TEMP 37
[2018-06-30 14:32] VITALS: RESP 16; TEMP 36.8; BMI 33.7
--- NOTE | 2018-06-30 16:26 | PN.PCM_ITS ---
(1) Chronic ulcer of left foot with fat layer exposed Status: Chronic Current Visit: Yes Code(s): L97.522 - Non-pressure chronic ulcer of other part of left foot with fat layer exposed (2) Delayed wound healing Status: Chronic Current Visit: Yes Code(s): T14.8XXD - Other injury of unspecified body region, subsequent encounter (3) Charcot-Rocio disease Status: Chronic Current Visit: Yes Code(s): G60.0 - Hereditary motor and sensory neuropathy (4) Cavus deformity of left foot Status: Chronic Current Visit: Yes Code(s): Q66.7 - Congenital pes cavus Type of Wound Date of Service: 06/30/18 Chief Complaint: Left foot ulcer sites at previous surgical incisions, lateral foot History of Wound: This 48-year-old male is status post Bjzmbda-Ygujg-Lslox induced cavus foot reconstructive surgery with ulcers now to the medial and lateral wear foot at his nonhealing incision sites. He had this performed in [facility] [place] with Dr. Estes on 04/14/2018. He denies redness, odor, or pain. He denies fever, chill, nausea, vomiting, loss of appetite. He thinks the medial ulcer site is healing denies drainage the last several days. Progress of Wound: Improving lateral. Healed medial - Physical Exam Vital Signs Temp Pulse Resp BP 98.2 F 77 16 137/85 H 06/30/18 14:32 06/29/18 01:24 06/30/18 14:32 06/29/18 01:24 General: Alert, Oriented x3, Cooperative Extremities: No cyanosis, Capillary Refill Less than 3 Seconds, No Calf Tenderness - Negative Kev and Bran sign, Diminished Peripheral Pulses, Edema, Tenderness - Decrease tenderness with ulcer manipulation Skin: Ulcer/ Wound - No purulence, erythema, streaking, odor, or acute signs of infection left foot. Wound Measurements and Assessment WC - Nurse 1 - General Ulcer Measurement Start: 06/30/18 14:32 Freq: Status: Active Protocol: Activity Type Activity Date Activity User E-Sign Co-Sign Detail Recorded Client Recorded Date Recorded By Document 06/30/18 14:32 [facility] [id number] 06/30/18 14:40 BM 06/30/18 14:32 Wound Center Nurse 1 [Ulcer Assessment] #2- LT MED ANKLE CLUSTER -Combined with other wound No -Current Size (cm) - Length 0.1 -Current Size (cm) - Width 0.1 -Current Size (cm) - Depth 0.1 -Total Square Cm 0.01 -Date of Last Picture (Recall this 06/30/18 field) -Photo Taken Yes -Epithelialization Large 67-100% #1- LT LAT ANKLE -Combined with other wound No -Current Size (cm) - Length 3.5 -Current Size (cm) - Width 0.5 -Current Size (cm) - Depth 0.2 -Total Square Cm 1.75 -Date of Last Picture (Recall this 06/30/18 field) -Photo Taken Yes -Epithelialization None Present -Tunneling No -Undermining/Tunneling No -Circular Undermining No -Exudate Amt Small (1-33%) -Exudate Type Serosanguineous -Wound Margin Distinct, Outline Attached -Granulation Amt None Present (0 %) -Slough/Fibrin Yes -Necrosis Amt Large (67-100%) -Necrotic Tissue Type Adherent Slough -Texture (Fe-wound Skin Appearance) Scarring -Moisture (Fe-wound Skin Appearance Dry/Scaly ) -Color (Fe-wound Skin Appearance) Assessed -Temperature (Fe-wound Skin No Abnormality Appearance) (Pt Warm) -Tenderness on Palpation (Fe-wound No Skin Appearance) -Ulcer Cleansing Rinsed/ Irrigated with Saline -Foul Odor after Cleansing No -Anesthetic Used 5% Lidocaine Gel WC - Nurse 2 - General Ulcer CM Notes Start: 06/30/18 14:32 Freq: Status: Active Protocol: Activity Type Activity Date Activity User E-Sign Co-Sign Detail Recorded Client Recorded Date Recorded By Document 06/30/18 14:47 ROSA ISELA [id number] 06/30/18 14:48 ROSA ISELA 06/30/18 14:47 Wound Center Nurse 2 [Procedure/Treatment] #2- LT MED ANKLE CLUSTER -Correct Patient No -Correct Side, Site, Position No -Correct Procedure No -Procedure Performed No -Post Debridement Size (cm) - Length 0 -Post Debridement Size (cm) - Width 0 -Post Debridement Size (cm) - Depth 0 -Total Square Cm 0 -Wound/Ulcer Outcome Healed- Epithelialized #1- LT LAT ANKLE -Time 14:48 -Correct Patient Yes -Correct Side, Site, Position Yes -Correct Procedure Yes -Procedure Performed Yes -Type of Procedure Debridement -Clinical Debridement Subcutaneous -Post Debridement Size (cm) - Length 3.6 -Post Debridement Size (cm) - Width 0.5 -Post Debridement Size (cm) - Depth 0.2 -Total Square Cm 1.80 -Ulcer Cleansing Rinsed/ Irrigated with Saline -Foul Odor after Cleansing No -Bioengineered Tissue No -Bleeding Controlled with Pressure -Offloading Yes -Type of Offloading Camwalker -Treatment Response Procedure Tolerated Well [See Physician Procedure note for Specifics] Pain Scale: 0-10 Numeric [Pain] -Is Patient Pain Free? Yes Musculoskeletal: No Tenderness to Palpation of Joints or Extremities, Muscle Wasting Neurological: Sensory exam intact to light touch and pain Psych/Mental Status: Normal Affect, Appropriate Debridement Note Post-Debridement Measurements/Treatment WC - Nurse 2 - General Ulcer CM Notes Start: 06/30/18 14:32 Freq: Status: Active Protocol: Activity Type Activity Date Activity User E-Sign Co-Sign Detail Recorded Client Recorded Date Recorded By Document 06/30/18 14:47 ROSA ISELA [id number] 06/30/18 14:48 ROSA ISELA 06/30/18 14:47 Wound Center Nurse 2 #2- LT MED ANKLE CLUSTER -Correct Patient No -Correct Side, Site, Position No -Correct Procedure No -Procedure Performed No -Post Debridement Size (cm) - Length 0 -Post Debridement Size (cm) - Width 0 -Post Debridement Size (cm) - Depth 0 -Total Square Cm 0 -Wound/Ulcer Outcome Healed- Epithelialized #1- LT LAT ANKLE -Time 14:48 -Correct Patient Yes -Correct Side, Site, Position Yes -Correct Procedure Yes -Procedure Performed Yes -Type of Procedure Debridement -Clinical Debridement Subcutaneous -Post Debridement Size (cm) - Length 3.6 -Post Debridement Size (cm) - Width 0.5 -Post Debridement Size (cm) - Depth 0.2 -Total Square Cm 1.80 -Ulcer Cleansing Rinsed/ Irrigated with Saline -Foul Odor after Cleansing No -Bioengineered Tissue No -Bleeding Controlled with Pressure -Offloading Yes -Type of Offloading Camwalker -Treatment Response Procedure Tolerated Well Pain Scale: 0-10 Numeric Is Patient Pain Free? Yes Wound debrided: lateral foot Laterality: Left Type of Debridement: Excisional debridement Anesthesia Used: 5% Lidocaine Gel Depth: in the subcutaneous layer Percentage of wound debrided: 100 Instrument Used: #15 blade Tissue Removed: fibrous, devitalized subcutaneous, biofilm, slough Severity: Fat Layer Exposed Amount of bleeding with debridement: Mild Bleeding Controlled with: Pressure Patient tolerated procedure well Assessment/Plan Active Problems Chronic ulcer of left foot with fat layer exposed (Chronic) Delayed wound healing (Chronic) Charcot-Rocio disease (Chronic) Cavus deformity of left foot (Chronic) Assessment: -Status post left Charcot Rocio associated cavus foot reconstruction performed on 04/14/2018 (subtalar and talonavicular arthrodesis with Peroneus longus to brevis tendon transfer, plantar fascial release, percutaneous tendo Achilles lengthening, first metatarsal dorsiflexion closing wedge osteotomy with allograft, deltoid ligament lengthening, posterior tibial Z-lengthening, bone marrow aspirate extraction and augmentation). -Cellulitis resolving left foot. -Delayed healing with incision compromise. -Malnutrition suspected Plan: I reviewed and discussed his case today. Physical exam was performed as noted. Debridement was performed only to the lateral incision aspect including removal of nonviable slough, fibrous tissue, and partially adhered eschar. It is noted the medial site has healed. I recommend application of Santyl as tolerated every day. He was reassured no signs of infection are noted labs were ordered including CBC, CMP, ESR, C-reactive protein for baseline also for general medical assessment. The white blood cell count was 6.8, sedimentation rate 23, and C-reactive protein 4.18. This was reviewed today without gross abnormalities. I recommended a foot x-ray and reviewed his foot x-rays were recently updated when he visited his surgeon last week. To avoid pressure on this site by avoiding sleeping on the left leg. To wear the Cam walker and placed up to 25% weight as advised by his surgeon. To avoid excessive hindfoot and leg motion because this places tension on the friable skin and ulcer sites. I recommend nutritional supplementation optimize healing; a prescription for Terrance nutritional supplement was provided previously. If lack of healing continues the following will be considered; vascular workup to rule out any lack of perfusion, change in wound care product, consideration for advanced wound care products with extra growth factors to expedite healing. I answered all his questions. To return to the wound healing center 1 week or call sooner if he has any questions or concerns.
[2018-07-07 14:37] VITALS: BP 135/92; PULSE 74; RESP 16; TEMP 36.4; BMI 33.7
--- NOTE | 2018-07-07 15:34 | PN.PCM_ITS ---
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 He had this performed in [place] with Dr. Estes on 04/14/2018. He has a scheduled follow-up tomorrow which she hopes to progress his weightbearing status. He is applied up to 50% weight in the protective boot and is following his surgeons guidelines. He denies redness, odor, or pain. He denies fever, chill, nausea, vomiting, loss of appetite. Progress of Wound: Improving lateral - Physical Exam Vital Signs Temp Pulse Resp BP 97.5 F L 74 16 135/92 H 07/07/18 14:37 07/07/18 14:37 07/07/18 14:37 07/07/18 14:37 General: Alert, Oriented x3, Cooperative Extremities: No cyanosis, Capillary Refill Less than 3 Seconds, No Calf Tenderness - Negative Kev and Bran left lower extremity, Diminished Peripheral Pulses, Edema - Decreased left hindfoot Skin: Ulcer/ Wound - No purulence, erythema, streaking, odor, or acute signs of infection. Peripheral skin is hairless and atrophic. There is some hyperpigmentation around the lateral hindfoot ulcer site. The peripheral skin is hairless Wound Measurements and Assessment WC - Nurse 1 - General Ulcer Measurement Start: 06/30/18 14:32 Freq: Status: Active Protocol: Activity Type Activity Date Activity User E-Sign Co-Sign Detail Recorded Client Recorded Date Recorded By Document 07/07/18 14:37 [facility] [id number] 07/07/18 14:40 [facility] 07/07/18 14:37 Wound Center Nurse 1 [Ulcer Assessment] #1- LT LAT ANKLE -Combined with other wound No -Current Size (cm) - Length 0.3 -Current Size (cm) - Width 2.1 -Current Size (cm) - Depth 0.2 -Total Square Cm 0.63 -Photo Taken No -Epithelialization None Present -Tunneling No -Undermining/Tunneling No -Circular Undermining No -Exudate Amt Small -Exudate Type Serosanguineous -Wound Margin Distinct, Outline Attached -Granulation Amt Small (1-33%) -Granulation Quality [place] -Slough/Fibrin Yes -Necrosis Amt Large (67-100%) -Necrotic Tissue Type Adherent Slough -Texture (Fe-wound Skin Appearance) Scarring -Moisture (Fe-wound Skin Appearance Maceration ) -Color (Fe-wound Skin Appearance) Palor -Temperature (Fe-wound Skin No Abnormality Appearance) (Pt Warm) -Tenderness on Palpation (Fe-wound No Skin Appearance) -Ulcer Cleansing Rinsed/ Irrigated with Saline -Foul Odor after Cleansing No -Anesthetic Used 5% Lidocaine Gel [Edema Assessment] -Lower Limb Edema Present Yes -Left Calf (cm) 39 -Left Ankle (cm) 22.4 WC - Nurse 2 - General Ulcer CM Notes Start: 06/30/18 14:32 Freq: Status: Active Protocol: Activity Type Activity Date Activity User E-Sign Co-Sign Detail Recorded Client Recorded Date Recorded By Document 07/07/18 15:04 [id number] 07/07/18 15:05 07/07/18 15:04 Wound Center Nurse 2 [Procedure/Treatment] #1- LT [facility] ANKLE -Time 15:05 -Correct Patient Yes -Correct Side, Site, Position Yes -Correct Procedure Yes -Procedure Performed Yes -Type of Procedure Debridement -Clinical Debridement Subcutaneous -Post Debridement Size (cm) - Length 0.4 -Post Debridement Size (cm) - Width 2.1 -Post Debridement Size (cm) - Depth 0.2 -Total Square Cm 0.84 -Ulcer Cleansing Rinsed/ Irrigated with Saline -Foul Odor after Cleansing No -Bioengineered Tissue No -Bleeding Controlled with Pressure -Offloading Yes -Type of Offloading Knee Walker -Treatment Response Procedure Tolerated Well [See Physician Procedure note for Specifics] Pain Scale: 0-10 Numeric [Pain] -Is Patient Pain Free? Yes Musculoskeletal: No Tenderness to Palpation of Joints or Extremities, Muscle Wasting, - - No pain to arthrodesis site left. Compartments remain soft to palpate left lower extremity Neurological: Sensory exam intact to light touch and pain Psych/Mental Status: Normal Affect, Appropriate Debridement Note Post-Debridement Measurements/Treatment WC - Nurse 2 - General Ulcer CM Notes Start: 06/30/18 14:32 Freq: Status: Active Protocol: Activity Type Activity Date Activity User E-Sign Co-Sign Detail Recorded Client Recorded Date Recorded By Document 06/30/18 14:47 [id number] 06/30/18 14:48 Document 07/07/18 15:04 [id number] 07/07/18 15:05 JF 06/30/18 07/07/18 14:47 15:04 Wound Center Nurse 2 #2- LT MED ANKLE CLUSTER -Correct Patient No -Correct Side, Site, Position No -Correct Procedure No -Procedure Performed No -Post Debridement Size (cm) - Length 0 -Post Debridement Size (cm) - Width 0 -Post Debridement Size (cm) - Depth 0 -Total Square Cm 0 -Wound/Ulcer Outcome Healed- Epithelialized #1- LT LAT ANKLE -Time 14:48 15:05 -Correct Patient Yes Yes -Correct Side, Site, Position Yes Yes -Correct Procedure Yes Yes -Procedure Performed Yes Yes -Type of Procedure Debridement Debridement -Clinical Debridement Subcutaneous Subcutaneous -Post Debridement Size (cm) - Length 3.6 0.4 -Post Debridement Size (cm) - Width 0.5 2.1 -Post Debridement Size (cm) - Depth 0.2 0.2 -Total Square Cm 1.80 0.84 -Ulcer Cleansing Rinsed/ Rinsed/ Irrigated with Irrigated with Saline Saline -Foul Odor after Cleansing No No -Bioengineered Tissue No No -Bleeding Controlled with Pressure Pressure -Offloading Yes Yes -Type of Offloading Camwalker Knee Walker -Treatment Response Procedure Procedure Tolerated Well Tolerated Well Pain Scale: 0-10 Numeric Is Patient Pain Free? Yes Yes Wound debrided: lateral rearfoot Laterality: Left Type of Debridement: Excisional debridement Anesthesia Used: 5% Lidocaine Gel Depth: in the subcutaneous layer Percentage of wound debrided: 100 Instrument Used: #15 blade Tissue Removed: fibrous, devitalized subcutaneous, biofilm, slough Severity: Fat Layer Exposed Amount of bleeding with debridement: Mild Bleeding Controlled with: Pressure Patient tolerated procedure well Assessment/Plan Active Problems Chronic ulcer of left foot with fat layer exposed (Chronic) Delayed wound healing (Chronic) Charcot-Rocio disease (Chronic) Cavus deformity of left foot (Chronic) Assessment: -Status post left Charcot Rocio associated cavus foot reconstruction performed on 04/14/2018 (subtalar and talonavicular arthrodesis with Peroneus longus to brevis tendon transfer, plantar fascial release, percutaneous tendo Achilles lengthening, first metatarsal dorsiflexion closing wedge osteotomy with allograft, deltoid ligament lengthening, posterior tibial Z-lengthening, bone marrow aspirate extraction and augmentation). -Cellulitis resolving left foot. -Delayed healing with incision compromise. -Malnutrition suspected Plan: I reviewed and discussed his case today. Physical exam was performed as noted. Debridement was performed only to the lateral incision aspect including removal of nonviable slough, fibrous tissue, and partially adhered eschar. It is noted the medial site has healed. I recommend application of Santyl as tolerated every day. He was reassured no signs of infection are noted labs were ordered including CBC, CMP, ESR, C-reactive protein for baseline also for general medical assessment. The white blood cell count was 6.8, sedimentation rate 23, and C-reactive protein 4.18. This was reviewed today without gross abnormalities. To avoid pressure on this site by avoiding sleeping on the left leg. To wear the Cam walker and placed up to 50 % weight as advised by his surgeon. To follow-up as scheduled tomorrow. To avoid excessive hindfoot and leg motion because this places tension on the friable skin and ulcer sites. I recommend nutritional supplementation optimize healing; a prescription for Terrance nutritional supplement was provided previously. If lack of healing continues the following will be considered; vascular workup to rule out any lack of perfusion, change in wound care product, consideration for advanced wound care products with extra growth factors to expedite healing. I answered all his questions. To return to the wound healing center 1 week or call sooner if he has any questions or concerns.
[2018-07-14 14:41] VITALS: BP 158/88; PULSE 67; RESP 18; TEMP 37.1; BMI 33.7
--- NOTE | 2018-07-14 16:28 | PN.PCM_ITS ---
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 He had this performed in [place] with Dr. Estes on 04/14/2018. He recently followed up with his surgeon and is now able to apply full weight. He also started physical therapy. He denies redness, odor, or pain. He denies fever, chill, nausea, vomiting, loss of appetite. He will be in [place] next week and will not be able to attend his follow-up recommended visit. Progress of Wound: Improving lateral - Physical Exam Vital Signs Temp Pulse Resp BP 98.7 F 67 18 158/88 H 07/14/18 14:41 07/14/18 14:41 07/14/18 14:41 07/14/18 14:41 General: Alert, Oriented x3, Cooperative Extremities: No cyanosis, Capillary Refill Less than 3 Seconds, No Calf Tenderness - Negative Kev and Bran sign bilateral, Diminished Peripheral Pulses, Edema, Tenderness - Ulcer manipulation debridement Skin: Ulcer/ Wound - No purulence, erythema, streaking, odor, or infection. There is peripheral epithelialization. The central wound bed is fibrous. Wound Measurements and Assessment WC - Nurse 1 - General Ulcer Measurement Start: 06/30/18 14:32 Freq: Status: Active Protocol: Activity Type Activity Date Activity User E-Sign Co-Sign Detail Recorded Client Recorded Date Recorded By Document 07/14/18 14:41 [email or web address] [id number] 07/14/18 14:47 DL 07/14/18 14:41 Wound Center Nurse 1 [Ulcer Assessment] #1- LT LAT ANKLE -Current Size (cm) - Length 0.4 -Current Size (cm) - Width 2.3 -Current Size (cm) - Depth 0.2 -Total Square Cm 0.92 -Photo Taken No -Exudate Amt Small -Exudate Type Serosanguineous -Wound Margin Distinct, Outline Attached -Granulation Amt Small (1-33%) -Granulation Quality Palominas -Necrosis Amt Small (1-33%) -Necrotic Tissue Type Adherent Slough -Structure Exposed N/A -Texture (Fe-wound Skin Appearance) Scarring -Moisture (Fe-wound Skin Appearance Dry/Scaly ) -Color (Fe-wound Skin Appearance) Rubor -Temperature (Fe-wound Skin No Abnormality Appearance) (Pt Warm) -Tenderness on Palpation (Fe-wound No Skin Appearance) -Ulcer Cleansing Rinsed/ Irrigated with Saline -Foul Odor after Cleansing No -Anesthetic Used 5% Lidocaine Gel [Edema Assessment] -Left Calf (cm) 38 -Left Ankle (cm) 22 WC - Nurse 2 - General Ulcer CM Notes Start: 06/30/18 14:32 Freq: Status: Active Protocol: Activity Type Activity Date Activity User E-Sign Co-Sign Detail Recorded Client Recorded Date Recorded By Document 07/14/18 15:09 [id number] 07/14/18 15:09 07/14/18 15:09 Wound Center Nurse 2 [Procedure/Treatment] #1- LT LAT ANKLE -Time 15:09 -Correct Patient Yes -Correct Side, Site, Position Yes -Correct Procedure Yes -Procedure Performed Yes -Type of Procedure Debridement -Clinical Debridement Subcutaneous -Post Debridement Size (cm) - Length 0.5 -Post Debridement Size (cm) - Width 1.9 -Post Debridement Size (cm) - Depth 0.2 -Total Square Cm 0.95 -Wound/Ulcer Outcome Not Healed -Ulcer Cleansing Rinsed/ Irrigated with Saline -Foul Odor after Cleansing No -Bioengineered Tissue No -Bleeding Controlled with Pressure -Offloading Yes -Type of Offloading Camwalker -Treatment Response Procedure Tolerated Well [See Physician Procedure note for Specifics] Pain Scale: 0-10 Numeric [Pain] -Is Patient Pain Free? Yes Musculoskeletal: No Tenderness to Palpation of Joints or Extremities, Muscle Wasting Neurological: Sensory exam intact to light touch and pain Psych/Mental Status: Normal Affect, Appropriate Debridement Note Post-Debridement Measurements/Treatment WC - Nurse 2 - General Ulcer CM Notes Start: 06/30/18 14:32 Freq: Status: Active Protocol: Activity Type Activity Date Activity User E-Sign Co-Sign Detail Recorded Client Recorded Date Recorded By Document 06/30/18 14:47 [id number] 06/30/18 14:48 Document 07/07/18 15:04 [id number] 07/07/18 15:05 Document 07/14/18 15:09 [id number] 07/14/18 15:09 06/30/18 07/07/18 07/14/18 14:47 15:04 15:09 Wound Center Nurse 2 #2- LT MED ANKLE CLUSTER -Correct Patient No -Correct Side, Site, Position No -Correct Procedure No -Procedure Performed No -Post Debridement Size (cm) - Length 0 -Post Debridement Size (cm) - Width 0 -Post Debridement Size (cm) - Depth 0 -Total Square Cm 0 -Wound/Ulcer Outcome Healed- Epithelialized #1- LT LAT ANKLE -Time 14:48 15:05 15:09 -Correct Patient Yes Yes Yes -Correct Side, Site, Position Yes Yes Yes -Correct Procedure Yes Yes Yes -Procedure Performed Yes Yes Yes -Type of Procedure Debridement Debridement Debridement -Clinical Debridement Subcutaneous Subcutaneous Subcutaneous -Post Debridement Size (cm) - Length 3.6 0.4 0.5 -Post Debridement Size (cm) - Width 0.5 2.1 1.9 -Post Debridement Size (cm) - Depth 0.2 0.2 0.2 -Total Square Cm 1.80 0.84 0.95 -Wound/Ulcer Outcome Not Healed -Ulcer Cleansing Rinsed/ Rinsed/ Rinsed/ Irrigated with Irrigated with Irrigated with Saline Saline Saline -Foul Odor after Cleansing No No No -Bioengineered Tissue No No No -Bleeding Controlled with Pressure Pressure Pressure -Offloading Yes Yes Yes -Type of Offloading Camwalker Knee Walker Camwalker -Treatment Response Procedure Procedure Procedure Tolerated Well Tolerated Well Tolerated Well Pain Scale: 0-10 Numeric Is Patient Pain Free? Yes Yes Yes Wound debrided: lateral foot Laterality: Left Type of Debridement: Excisional debridement Anesthesia Used: 5% Lidocaine Gel Depth: in the subcutaneous layer Percentage of wound debrided: 100 Instrument Used: #15 blade Tissue Removed: fibrous, devitalized subcutaneous, biofilm, slough Severity: Fat Layer Exposed Amount of bleeding with debridement: Mild Bleeding Controlled with: Pressure Patient tolerated procedure well Assessment/Plan Active Problems Chronic ulcer of left foot with fat layer exposed (Chronic) Delayed wound healing (Chronic) Charcot-Rocio disease (Chronic) Cavus deformity of left foot (Chronic) Assessment: -Status post left Charcot Rocio associated cavus foot reconstruction performed on 04/14/2018 (subtalar and talonavicular arthrodesis with Peroneus longus to brevis tendon transfer, plantar fascial release, percutaneous tendo Achilles lengthening, first metatarsal dorsiflexion closing wedge osteotomy with allograft, deltoid ligament lengthening, posterior tibial Z-lengthening, bone marrow aspirate extraction and augmentation). -Cellulitis resolving left foot. -Delayed healing with incision compromise. -Malnutrition suspected Plan: I reviewed and discussed his case today. Physical exam was performed as noted. Debridement was performed only to the lateral incision aspect including removal of nonviable slough, fibrous tissue, and partially adhered eschar. It is noted the medial site has healed. I recommend application of Santyl as tolerated every day. He was reassured no signs of infection are noted labs were ordered including CBC, CMP, ESR, C-reactive protein for baseline also for general medical assessment. The white blood cell count was 6.8, sedimentation rate 23, and C-reactive protein 4.18. This was reviewed today without gross abnormalities. To avoid pressure on this site by avoiding sleeping on the left leg. To wear the Cam walker and placed up to 100 % weight as advised by his surgeon. To proceed with physical therapy as ordered by his surgeon. To avoid excessive hindfoot and leg motion because this places tension on the friable skin and ulcer sites. I recommend nutritional supplementation optimize healing; a prescription for Terrance nutritional supplement was provided previously. If lack of healing continues the following will be considered; vascular workup to rule out any lack of perfusion, change in wound care product, consideration for advanced wound care products with extra growth factors to expedite healing. I answered all his questions. To return to the wound healing center 1 week or call sooner if he has any questions or concerns. It is noted the patient will be out of town next week and plans to return in 2 weeks instead.
[2018-07-28 14:21] VITALS: BP 140/99; PULSE 72; RESP 18; TEMP 36.1; BMI 33.7
--- NOTE | 2018-07-28 15:35 | RAD_ITS ---
STUDY: X-RAY - LEFT FOOT CLINICAL: Male, 48 years old. Lateral heel ulcer. TECHNIQUE: 3 view(s) of the foot. COMPARISON: None. FINDINGS: Threaded metallic screws penetrating and fusing the calcaneus and talus. Metallic staple in the talus and calcaneus. Metallic staple and metallic plate with transfixing screws fusing the talus with the navicular bone. There is also metallic staple at the base of the first metatarsal bone. There is diffuse osteopenia. Degenerative osteoarthrosis of the visualized subtalar, talonavicular, calcaneocuboid, tarsal and tarsometatarsal articulations. Fracture deformity base of the first metatarsal bone. No suspicious acute fractures. Degenerative osteoarthrosis of the metatarsophalangeal joint of the great toe. Normal tibial and fibular sesamoid bones. Degenerative narrowing of the interphalangeal joint of the great toe. Normal phalanges of the great toe. Normal second through fifth metatarsophalangeal joints. Normal interphalangeal joints and phalanges of the lesser toes. The soft tissue structures are unremarkable. RAD/Foot min 3 Views IMPRESSION: 1. Postoperative changes of the talocalcaneal, talonavicular bones. 2. Degenerative osteoarthrosis of the subtalar, talonavicular, calcaneocuboid, tarsal and metatarsal articulations. 3. Old fracture deformity at the base of the first metatarsal bone with metallic staple. 4. Degenerative osteoarthrosis of the tarsometatarsal articulations across the left foot. 5. Degenerative osteoarthrosis of the left first metatarsophalangeal joint and the DIP joint of the left big toe. Electronically Signed: John Tee MD at 16:05 EST , Service support ,
[2018-07-28 17:12] LABS: Hematocrit 47.2 % (40-54); Hemoglobin 15.4 g/dl (13.0-16.5); Mean Corp Hgb Conc 32.6 g/gl (32-36); Mean Corpuscular Hgb 30.2 pg (27.0-32.0); Mean Corpuscular Volume 92.5 fL (80-94); Mean Platelet Vol. 10.8 fl (6.2-12.0); Platelet Count 255 K/mm3 (150-450); RBC Distribution Width CV 14.4 % (11.6-14.6); RBC Distribution Width SD 47.5 fl (35.1-43.9); Scan Indicated on CBC? Y/N NO; White Blood Count 7.5 K/mm3 (4.4-11.0)
[2018-07-28 17:36] LABS: Anion Gap 6 (5-15); BUN 19 mg/dL (7-18); BUN/Creat Ratio 20.9 RATIO (10-20); Chloride 110 mmol/L (98-107); Creatinine, Serum 0.91 mg/dL (0.70-1.30); EST Glomerular Filtration Rate 94 mL/min (>60); Est Glom Filt Rate - Afr Amer 114 mL/min (>60); Glucose 82 mg/dL (74-106); Sodium Level 142 mmol/L (136-145)
[2018-07-28 17:43] LABS: Erythrocyte Sedimentation Rate 20 mm/hr (0-15)
--- NOTE | 2018-07-29 12:50 | PCM.WC.PN ---
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 The medial aspect has already healed. He had this performed in [place] with Dr. Estes on 04/14/2018. He has been full weightbearing and athletic sneakers and thinks this site may be rubbing. He is out of town last week traveling out of state and he reports he is been more active continues to participate with. He also started physical therapy. He denies redness, odor, or pain. He denies fever, chill, nausea, vomiting, loss of appetite. He has had increased pain and switch from Santyl to Aquacel AG for 2 days. His inflammation and pain decrease and he returned to Santyl use yesterday. He thinks that ulcer site is draining more. Progress of Wound: Worsening status - Physical Exam Vital Signs Temp Pulse Resp BP 96.9 F L 72 18 140/99 H 07/28/18 14:21 07/28/18 14:21 07/28/18 14:21 07/28/18 14:21 General: Alert, Oriented x3, Cooperative Extremities: No cyanosis, Capillary Refill Less than 3 Seconds, No Calf Tenderness - Negative Kev and Bran sign bilateral, Diminished Peripheral Pulses, Edema - fe ulcer site Skin: Ulcer/ Wound - No purulence, streaking, odor, necrosis, definitive acute infection left foot. Deeper probing is noted however this is not probing to hardware or bone. There is no inflammation around the ulcer site, - - The peripheral skin is atrophic Wound Measurements and Assessment - Nurse 1 - General Ulcer Measurement Start: 06/30/18 14:32 Freq: Status: Active Protocol: Activity Type Activity Date Activity User E-Sign Co-Sign Detail Recorded Client Recorded Date Recorded By Document 07/28/18 14:21 DL [id number] 07/28/18 14:29 DL 07/28/18 14:21 Wound Center Nurse 1 [Ulcer Assessment] #1- LT LAT ANKLE -Current Size (cm) - Length 1.8 -Current Size (cm) - Width 0.2 -Current Size (cm) - Depth 0.7 -Total Square Cm 0.36 -Photo Taken No -Exudate Amt Small -Exudate Type Serosanguineous -Wound Margin Indistinct, Non -Visible -Granulation Amt Small (1-33%) -Granulation Quality [place] -Necrosis Amt Large (67-100%) -Necrotic Tissue Type Adherent Slough -Structure Exposed N/A -Texture (Fe-wound Skin Appearance) Excoriation Scarring -Moisture (Fe-wound Skin Appearance Dry/Scaly ) -Color (Fe-wound Skin Appearance) Erythema Rubor -Temperature (Fe-wound Skin No Abnormality Appearance) (Pt Warm) -Tenderness on Palpation (Fe-wound No Skin Appearance) -Ulcer Cleansing Rinsed/ Irrigated with Saline -Foul Odor after Cleansing No -Anesthetic Used 5% Lidocaine Gel [Edema Assessment] -Left Calf (cm) 38.5 -Left Ankle (cm) 22 - Nurse 2 - General Ulcer CM Notes Start: 06/30/18 14:32 Freq: Status: Active Protocol: Activity Type Activity Date Activity User E-Sign Co-Sign Detail Recorded Client Recorded Date Recorded By Document 07/28/18 14:59 JF [id number] 07/28/18 14:59 JF 07/28/18 14:59 Wound Center Nurse 2 [Procedure/Treatment] #1- LT LAT ANKLE -Time 14:59 -Correct Patient Yes -Correct Side, Site, Position Yes -Correct Procedure Yes -Procedure Performed Yes -Type of Procedure Debridement -Clinical Debridement Subcutaneous -Post Debridement Size (cm) - Length 1.8 -Post Debridement Size (cm) - Width 0.3 -Post Debridement Size (cm) - Depth 0.8 -Total Square Cm 0.54 -Wound/Ulcer Outcome Not Healed -Ulcer Cleansing Rinsed/ Irrigated with Saline -Foul Odor after Cleansing No -Bioengineered Tissue No -Bleeding Controlled with Pressure -Offloading Yes -Type of Offloading Camwalker -Treatment Response Procedure Tolerated Well [See Physician Procedure note for Specifics] Pain Scale: 0-10 Numeric [Pain] -Is Patient Pain Free? Yes Musculoskeletal: No Tenderness to Palpation of Joints or Extremities, Muscle Wasting, Tenderness - Pain to palpate the incision site Neurological: Sensory exam intact to light touch and pain Psych/Mental Status: Normal Affect, Appropriate Debridement Note Post-Debridement Measurements/Treatment WC - Nurse 2 - General Ulcer CM Notes Start: 06/30/18 14:32 Freq: Status: Active Protocol: Activity Type Activity Date Activity User E-Sign Co-Sign Detail Recorded Client Recorded Date Recorded By Document 06/30/18 14:47 [id number] 06/30/18 14:48 Document 07/07/18 15:04 [id number] 07/07/18 15:05 Document 07/14/18 15:09 [id number] 07/14/18 15:09 Document 07/28/18 14:59 [id number] 07/28/18 14:59 06/30/18 07/07/18 07/14/18 14:47 15:04 15:09 Wound Center Nurse 2 #2- LT MED ANKLE CLUSTER -Correct Patient No -Correct Side, Site, Position No -Correct Procedure No -Procedure Performed No -Post Debridement Size (cm) - Length 0 -Post Debridement Size (cm) - Width 0 -Post Debridement Size (cm) - Depth 0 -Total Square Cm 0 -Wound/Ulcer Outcome Healed- Epithelialized #1- LT LAT ANKLE -Time 14:48 15:05 15:09 -Correct Patient Yes Yes Yes -Correct Side, Site, Position Yes Yes Yes -Correct Procedure Yes Yes Yes -Procedure Performed Yes Yes Yes -Type of Procedure Debridement Debridement Debridement -Clinical Debridement Subcutaneous Subcutaneous Subcutaneous -Post Debridement Size (cm) - Length 3.6 0.4 0.5 -Post Debridement Size (cm) - Width 0.5 2.1 1.9 -Post Debridement Size (cm) - Depth 0.2 0.2 0.2 -Total Square Cm 1.80 0.84 0.95 -Wound/Ulcer Outcome Not Healed -Ulcer Cleansing Rinsed/ Rinsed/ Rinsed/ Irrigated with Irrigated with Irrigated with Saline Saline Saline -Foul Odor after Cleansing No No No -Bioengineered Tissue No No No -Bleeding Controlled with Pressure Pressure Pressure -Offloading Yes Yes Yes -Type of Offloading Camwalker Knee Walker Camwalker -Treatment Response Procedure Procedure Procedure Tolerated Well Tolerated Well Tolerated Well Pain Scale: 0-10 Numeric Is Patient Pain Free? Yes Yes Yes 07/28/18 14:59 Wound Center Nurse 2 #2- LT MED ANKLE CLUSTER -Correct Patient -Correct Side, Site, Position -Correct Procedure -Procedure Performed -Post Debridement Size (cm) - Length -Post Debridement Size (cm) - Width -Post Debridement Size (cm) - Depth -Total Square Cm -Wound/Ulcer Outcome #1- LT LAT ANKLE -Time 14:59 -Correct Patient Yes -Correct Side, Site, Position Yes -Correct Procedure Yes -Procedure Performed Yes -Type of Procedure Debridement -Clinical Debridement Subcutaneous -Post Debridement Size (cm) - Length 1.8 -Post Debridement Size (cm) - Width 0.3 -Post Debridement Size (cm) - Depth 0.8 -Total Square Cm 0.54 -Wound/Ulcer Outcome Not Healed -Ulcer Cleansing Rinsed/ Irrigated with Saline -Foul Odor after Cleansing No -Bioengineered Tissue No -Bleeding Controlled with Pressure -Offloading Yes -Type of Offloading Camwalker -Treatment Response Procedure Tolerated Well Pain Scale: 0-10 Numeric Is Patient Pain Free? Yes Wound debrided: lateral foot Laterality: Left Type of Debridement: Excisional debridement Anesthesia Used: 5% Lidocaine Gel Depth: in the subcutaneous layer Percentage of wound debrided: 100 Instrument Used: #15 blade Tissue Removed: fibrous, devitalized subcutaneous, biofilm, slough Severity: Fat Layer Exposed Amount of bleeding with debridement: Mild Bleeding Controlled with: Pressure Patient tolerated procedure well Assessment/Plan Active Problems Chronic ulcer of left foot with fat layer exposed (Chronic) Delayed wound healing (Chronic) Charcot-Rocio disease (Chronic) Cavus deformity of left foot (Chronic) Assessment: -Status post left Charcot Rocio associated cavus foot reconstruction performed on 04/14/2018 (subtalar and talonavicular arthrodesis with Peroneus longus to brevis tendon transfer, plantar fascial release, percutaneous tendo Achilles lengthening, first metatarsal dorsiflexion closing wedge osteotomy with allograft, deltoid ligament lengthening, posterior tibial Z-lengthening, bone marrow aspirate extraction and augmentation). -status change lateral site with increased ulcer depth and inflammation versus infection. -Delayed healing with incision compromise. -Malnutrition suspected Plan: I reviewed and discussed his case today. Debridement was performed only to the lateral incision aspect including removal of nonviable slough, fibrous tissue as noted in the clinical panel. It is noted the medial site has healed. I recommend application of Aquacel Ag and a with manner to the deeper aspect daily. I recommend infection screening with labs and x-rays and he understands these changes may be a result of increased inflammation with his increase in activity and shoe gear rubbing on the site or it could also be early signs of infection. Labs were ordered including CBC (no leukocytosis with wbc of 7.5), CMP, ESR (20) was ordered and reviewed. The x-ray was reviewed with no obvious bone destruction, soft tissue emphysema, or foreign body. The surgical correction and arthrodesis site appear to be healed and remain intact with appropriate hardware placement and trajectories. To avoid pressure on this site by avoiding sleeping on the left leg. To wear the Cam walker and placed up to 100 % weight as advised by his surgeon. To proceed with physical therapy as ordered by his surgeon. To avoid contact with a shoe on this site and felt offloading pads were fabricated to avoid rubbing on the open ulcer site. To avoid excessive hindfoot and leg motion because this places tension on the friable skin and ulcer sites. I recommend nutritional supplementation optimize healing; a prescription for Terrance nutritional supplement was provided previously. If lack of healing continues the following will be considered; vascular workup to rule out any lack of perfusion, change in wound care product, consideration for advanced wound care products with extra growth factors to expedite healing. I answered all his questions. To return to the wound healing center 1 week or call sooner if he has any questions or concerns. It is noted the patient will be out of town next week and plans to return in 2 weeks instead. He will be called with his lab and x-ray results. If he has continued discomfort. Since he is reduce his activity and decrease pressure and antibiotic will be considered. I do not recommend that at this time today in clinic. I answered all of his questions.
--- NOTE | 2018-07-29 12:57 | PN.PCM_ITS ---
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 The medial aspect has already healed. He had this performed in [place] with Dr. Estes on 04/14/2018. He has been full weightbearing and athletic sneakers and thinks this site may be rubbing. He is out of town last week traveling out of state and he reports he is been more active continues to participate with. He also started physical therapy. He denies redness, odor, or pain. He denies fever, chill, nausea, vomiting, loss of appetite. He has had increased pain and switch from Santyl to Aquacel AG for 2 days. His inflammation and pain decrease and he returned to Santyl use yesterday. He thinks that ulcer site is draining more. Progress of Wound: Worsening status - Physical Exam Vital Signs Temp Pulse Resp BP 96.9 F L 72 18 140/99 H 07/28/18 14:21 07/28/18 14:21 07/28/18 14:21 07/28/18 14:21 General: Alert, Oriented x3, Cooperative Extremities: No cyanosis, Capillary Refill Less than 3 Seconds, No Calf Tenderness - Negative Kev and Bran sign bilateral, Diminished Peripheral Pulses, Edema - fe ulcer site Skin: Ulcer/ Wound - No purulence, streaking, odor, necrosis, definitive acute infection left foot. Deeper probing is noted however this is not probing to hardware or bone. There is no inflammation around the ulcer site, - - The peripheral skin is atrophic Wound Measurements and Assessment - Nurse 1 - General Ulcer Measurement Start: 06/30/18 14:32 Freq: Status: Active Protocol: Activity Type Activity Date Activity User E-Sign Co-Sign Detail Recorded Client Recorded Date Recorded By Document 07/28/18 14:21 DL [id number] 07/28/18 14:29 DL 07/28/18 14:21 Wound Center Nurse 1 [Ulcer Assessment] #1- LT LAT ANKLE -Current Size (cm) - Length 1.8 -Current Size (cm) - Width 0.2 -Current Size (cm) - Depth 0.7 -Total Square Cm 0.36 -Photo Taken No -Exudate Amt Small -Exudate Type Serosanguineous -Wound Margin Indistinct, Non -Visible -Granulation Amt Small (1-33%) -Granulation Quality [place] -Necrosis Amt Large (67-100%) -Necrotic Tissue Type Adherent Slough -Structure Exposed N/A -Texture (Fe-wound Skin Appearance) Excoriation Scarring -Moisture (Fe-wound Skin Appearance Dry/Scaly ) -Color (Fe-wound Skin Appearance) Erythema Rubor -Temperature (Fe-wound Skin No Abnormality Appearance) (Pt Warm) -Tenderness on Palpation (Fe-wound No Skin Appearance) -Ulcer Cleansing Rinsed/ Irrigated with Saline -Foul Odor after Cleansing No -Anesthetic Used 5% Lidocaine Gel [Edema Assessment] -Left Calf (cm) 38.5 -Left Ankle (cm) 22 - Nurse 2 - General Ulcer CM Notes Start: 06/30/18 14:32 Freq: Status: Active Protocol: Activity Type Activity Date Activity User E-Sign Co-Sign Detail Recorded Client Recorded Date Recorded By Document 07/28/18 14:59 JF [id number] 07/28/18 14:59 JF 07/28/18 14:59 Wound Center Nurse 2 [Procedure/Treatment] #1- LT LAT ANKLE -Time 14:59 -Correct Patient Yes -Correct Side, Site, Position Yes -Correct Procedure Yes -Procedure Performed Yes -Type of Procedure Debridement -Clinical Debridement Subcutaneous -Post Debridement Size (cm) - Length 1.8 -Post Debridement Size (cm) - Width 0.3 -Post Debridement Size (cm) - Depth 0.8 -Total Square Cm 0.54 -Wound/Ulcer Outcome Not Healed -Ulcer Cleansing Rinsed/ Irrigated with Saline -Foul Odor after Cleansing No -Bioengineered Tissue No -Bleeding Controlled with Pressure -Offloading Yes -Type of Offloading Camwalker -Treatment Response Procedure Tolerated Well [See Physician Procedure note for Specifics] Pain Scale: 0-10 Numeric [Pain] -Is Patient Pain Free? Yes Musculoskeletal: No Tenderness to Palpation of Joints or Extremities, Muscle Wasting, Tenderness - Pain to palpate the incision site Neurological: Sensory exam intact to light touch and pain Psych/Mental Status: Normal Affect, Appropriate Debridement Note Post-Debridement Measurements/Treatment WC - Nurse 2 - General Ulcer CM Notes Start: 06/30/18 14:32 Freq: Status: Active Protocol: Activity Type Activity Date Activity User E-Sign Co-Sign Detail Recorded Client Recorded Date Recorded By Document 06/30/18 14:47 [id number] 06/30/18 14:48 Document 07/07/18 15:04 [id number] 07/07/18 15:05 Document 07/14/18 15:09 [id number] 07/14/18 15:09 Document 07/28/18 14:59 [id number] 07/28/18 14:59 06/30/18 07/07/18 07/14/18 14:47 15:04 15:09 Wound Center Nurse 2 #2- LT MED ANKLE CLUSTER -Correct Patient No -Correct Side, Site, Position No -Correct Procedure No -Procedure Performed No -Post Debridement Size (cm) - Length 0 -Post Debridement Size (cm) - Width 0 -Post Debridement Size (cm) - Depth 0 -Total Square Cm 0 -Wound/Ulcer Outcome Healed- Epithelialized #1- LT LAT ANKLE -Time 14:48 15:05 15:09 -Correct Patient Yes Yes Yes -Correct Side, Site, Position Yes Yes Yes -Correct Procedure Yes Yes Yes -Procedure Performed Yes Yes Yes -Type of Procedure Debridement Debridement Debridement -Clinical Debridement Subcutaneous Subcutaneous Subcutaneous -Post Debridement Size (cm) - Length 3.6 0.4 0.5 -Post Debridement Size (cm) - Width 0.5 2.1 1.9 -Post Debridement Size (cm) - Depth 0.2 0.2 0.2 -Total Square Cm 1.80 0.84 0.95 -Wound/Ulcer Outcome Not Healed -Ulcer Cleansing Rinsed/ Rinsed/ Rinsed/ Irrigated with Irrigated with Irrigated with Saline Saline Saline -Foul Odor after Cleansing No No No -Bioengineered Tissue No No No -Bleeding Controlled with Pressure Pressure Pressure -Offloading Yes Yes Yes -Type of Offloading Camwalker Knee Walker Camwalker -Treatment Response Procedure Procedure Procedure Tolerated Well Tolerated Well Tolerated Well Pain Scale: 0-10 Numeric Is Patient Pain Free? Yes Yes Yes 07/28/18 14:59 Wound Center Nurse 2 #2- LT MED ANKLE CLUSTER -Correct Patient -Correct Side, Site, Position -Correct Procedure -Procedure Performed -Post Debridement Size (cm) - Length -Post Debridement Size (cm) - Width -Post Debridement Size (cm) - Depth -Total Square Cm -Wound/Ulcer Outcome #1- LT LAT ANKLE -Time 14:59 -Correct Patient Yes -Correct Side, Site, Position Yes -Correct Procedure Yes -Procedure Performed Yes -Type of Procedure Debridement -Clinical Debridement Subcutaneous -Post Debridement Size (cm) - Length 1.8 -Post Debridement Size (cm) - Width 0.3 -Post Debridement Size (cm) - Depth 0.8 -Total Square Cm 0.54 -Wound/Ulcer Outcome Not Healed -Ulcer Cleansing Rinsed/ Irrigated with Saline -Foul Odor after Cleansing No -Bioengineered Tissue No -Bleeding Controlled with Pressure -Offloading Yes -Type of Offloading Camwalker -Treatment Response Procedure Tolerated Well Pain Scale: 0-10 Numeric Is Patient Pain Free? Yes Wound debrided: lateral foot Laterality: Left Type of Debridement: Excisional debridement Anesthesia Used: 5% Lidocaine Gel Depth: in the subcutaneous layer Percentage of wound debrided: 100 Instrument Used: #15 blade Tissue Removed: fibrous, devitalized subcutaneous, biofilm, slough Severity: Fat Layer Exposed Amount of bleeding with debridement: Mild Bleeding Controlled with: Pressure Patient tolerated procedure well Assessment/Plan Active Problems Chronic ulcer of left foot with fat layer exposed (Chronic) Delayed wound healing (Chronic) Charcot-Rocio disease (Chronic) Cavus deformity of left foot (Chronic) Assessment: -Status post left Charcot Rocio associated cavus foot reconstruction performed on 04/14/2018 (subtalar and talonavicular arthrodesis with Peroneus longus to brevis tendon transfer, plantar fascial release, percutaneous tendo Achilles lengthening, first metatarsal dorsiflexion closing wedge osteotomy with allograft, deltoid ligament lengthening, posterior tibial Z-lengthening, bone marrow aspirate extraction and augmentation). -status change lateral site with increased ulcer depth and inflammation versus infection. -Delayed healing with incision compromise. -Malnutrition suspected Plan: I reviewed and discussed his case today. Debridement was performed only to the lateral incision aspect including removal of nonviable slough, fibrous tissue as noted in the clinical panel. It is noted the medial site has healed. I recommend application of Aquacel Ag and a with manner to the deeper aspect daily. I recommend infection screening with labs and x-rays and he understands these changes may be a result of increased inflammation with his increase in activity and shoe gear rubbing on the site or it could also be early signs of infection. Labs were ordered including CBC (no leukocytosis with wbc of 7.5), CMP, ESR (20) was ordered and reviewed. The x-ray was reviewed with no obvious bone destruction, soft tissue emphysema, or foreign body. The surgical correction and arthrodesis site appear to be healed and remain intact with appropriate hardware placement and trajectories. To avoid pressure on this site by avoiding sleeping on the left leg. To wear the Cam walker and placed up to 100 % weight as advised by his surgeon. To proceed with physical therapy as ordered by his surgeon. To avoid contact with a shoe on this site and felt offloading pads were fabricated to avoid rubbing on the open ulcer site. To avoid excessive hindfoot and leg motion because this places tension on the friable skin and ulcer sites. I recommend nutritional supplementation optimize healing; a prescription for Terrance nutritional supplement was provided previously. If lack of healing continues the following will be considered; vascular workup to rule out any lack of perfusion, change in wound care product, consideration for advanced wound care products with extra growth factors to expedite healing. I answered all his questions. To return to the wound healing center 1 week or call sooner if he has any questions or concerns. It is noted the patient will be out of town next week and plans to return in 2 weeks instead. He will be called with his lab and x-ray results. If he has continued discomfort. Since he is reduce his activity and decrease pressure and antibiotic will be considered. I do not recommend that at this time today in clinic. I answered all of his questions.
== END 2018-07-29 23:59 ==
LOC: WC 14:30
PROVIDERS: Family Provider Family Medicine; PCP Family Medicine; Referring Provider Podiatrist; Visit Provider Podiatrist
DX: L97.522 Non-pressure chronic ulcer of other part of left foot with fat layer exposed (principal); G60.0 Hereditary motor and sensory neuropathy; Q66.7 Congenital pes cavus
CPT/HCPCS: 11042; 36415; 73630; 80048; 85027; 85652

== ENCOUNTER 2018-08-18 14:00 | Outpatient (RCR) | payer BC, SELFPAY ==
[2018-07-30 01:27] VITALS: BP 140/99; PULSE 72; RESP 18; TEMP 36.1
[2018-08-04 14:41] VITALS: BP 142/94; PULSE 74; RESP 18; TEMP 36.6; BMI 33.7
--- NOTE | 2018-08-04 16:20 | PN.PCM_ITS ---
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 The medial aspect has already healed. He had this performed in [place] with Dr. Estes on 04/14/2018. He was previously full weightbearing in athletic sneakers and thought his shoe was rubbing. He denies fever, chill, nausea, vomiting, loss of appetite. He is use Aquacel Ag as advised. He denies purulent drainage or odor. He relates the redness has expanded around the ulcer site and is worried it is getting infected. Progress of Wound: Worsening status - Physical Exam Vital Signs Temp Pulse Resp BP 97.8 F 74 18 142/94 H 08/04/18 14:41 08/04/18 14:41 08/04/18 14:41 08/04/18 14:41 General: Alert, Oriented x3, Cooperative Extremities: No cyanosis, Capillary Refill Less than 3 Seconds, No Calf Tenderness - Negative Kev and Bran sign bilateral, Diminished Peripheral Pulses, Edema Skin: Ulcer/ Wound - Lateral ulcer at the previous incision site does have some skin peeling and erythema extending approximately 1.5 cm peripherally. There is no odor, necrosis, purulence on expression. The wound bed is fibrous and does probe approximately 0.6 cm. This does not probe to bone nor is or any hardware exposed. There is no fluctuance or bogginess on palpation. This site is deteriorating compared to previous exams. The peripheral skin is atrophic. Wound Measurements and Assessment WC - Nurse 1 - General Ulcer Measurement Start: 08/04/18 14:41 Freq: Status: Active Protocol: Activity Type Activity Date Activity User E-Sign Co-Sign Detail Recorded Client Recorded Date Recorded By Document 08/04/18 14:41 RB [id number] 08/04/18 14:44 RB 08/04/18 14:41 Wound Center Nurse 1 [Ulcer Assessment] #1- LT LAT ANKLE -Combined with other wound No -Current Size (cm) - Length 0.3 -Current Size (cm) - Width 0.6 -Current Size (cm) - Depth 0.3 -Total Square Cm 0.18 -Photo Taken No -Tunneling No -Undermining/Tunneling No -Circular Undermining No -Exudate Amt Small -Exudate Type Serosanguineous -Wound Margin Distinct, Outline Attached -Granulation Amt Medium (34-66%) -Granulation Quality [place] -Slough/Fibrin Yes -Necrosis Amt Medium (34-66%) -Necrotic Tissue Type Adherent Slough -Structure Exposed N/A -Texture (Fe-wound Skin Appearance) Assessed -Moisture (Fe-wound Skin Appearance Assessed ) Dry/Scaly -Color (Fe-wound Skin Appearance) Assessed Erythema -Temperature (Fe-wound Skin No Abnormality Appearance) (Pt Warm) -Ulcer Cleansing Rinsed/ Irrigated with Saline -Foul Odor after Cleansing No -Anesthetic Used 4% Lidocaine Solution [Edema Assessment] -Lower Limb Edema Present Yes -Left Calf (cm) 40.5 -Left Ankle (cm) 22.5 WC - Nurse 2 - General Ulcer CM Notes Start: 08/04/18 14:41 Freq: Status: Active Protocol: Activity Type Activity Date Activity User E-Sign Co-Sign Detail Recorded Client Recorded Date Recorded By Document 08/04/18 15:02 ROSA ISELA [id number] 08/04/18 15:08 ROSA ISELA 08/04/18 15:02 Wound Center Nurse 2 [Procedure/Treatment] #1- LT LAT ANKLE -Time 15:07 -Correct Patient Yes -Correct Side, Site, Position Yes -Correct Procedure Yes -Procedure Performed Yes -Type of Procedure Debridement -Clinical Debridement Subcutaneous -Post Debridement Size (cm) - Length 1.8 -Post Debridement Size (cm) - Width 1.6 -Post Debridement Size (cm) - Depth 0.6 -Total Square Cm 2.88 -Wound/Ulcer Outcome Not Healed -Ulcer Cleansing Rinsed/ Irrigated with Saline -Foul Odor after Cleansing No -Bioengineered Tissue No -Bleeding Controlled with Pressure -Offloading Yes -Type of Offloading Camwalker -Treatment Response Procedure Tolerated Well [See Physician Procedure note for Specifics] Pain Scale: 0-10 Numeric [Pain] -Is Patient Pain Free? Yes Musculoskeletal: Muscle Wasting, Tenderness - Pain with ulcer site manipulation, - - Maintained surgical foot position, left Neurological: - - Epicritic sensation intact to light touch left lower extremity Psych/Mental Status: Normal Affect, Appropriate Debridement Note Post-Debridement Measurements/Treatment WC - Nurse 2 - General Ulcer CM Notes Start: 08/04/18 14:41 Freq: Status: Active Protocol: Activity Type Activity Date Activity User E-Sign Co-Sign Detail Recorded Client Recorded Date Recorded By Document 08/04/18 15:02 ROSA ISELA [id number] 08/04/18 15:08 ROSA ISELA 08/04/18 15:02 Wound Center Nurse 2 #1- LT LAT ANKLE -Time 15:07 -Correct Patient Yes -Correct Side, Site, Position Yes -Correct Procedure Yes -Procedure Performed Yes -Type of Procedure Debridement -Clinical Debridement Subcutaneous -Post Debridement Size (cm) - Length 1.8 -Post Debridement Size (cm) - Width 1.6 -Post Debridement Size (cm) - Depth 0.6 -Total Square Cm 2.88 -Wound/Ulcer Outcome Not Healed -Ulcer Cleansing Rinsed/ Irrigated with Saline -Foul Odor after Cleansing No -Bioengineered Tissue No -Bleeding Controlled with Pressure -Offloading Yes -Type of Offloading Camwalker -Treatment Response Procedure Tolerated Well Pain Scale: 0-10 Numeric Is Patient Pain Free? Yes Wound debrided: lateral hindfoot Laterality: Left Type of Debridement: Excisional debridement Anesthesia Used: 5% Lidocaine Gel Depth: in the subcutaneous layer Percentage of wound debrided: 100 Instrument Used: #15 blade Tissue Removed: fibrous, devitalized subcutaneous, biofilm, slough Severity: Fat Layer Exposed Amount of bleeding with debridement: Mild Bleeding Controlled with: Pressure Patient tolerated procedure well Assessment/Plan Active Problems Chronic ulcer of left foot with fat layer exposed (Chronic) Delayed wound healing (Chronic) Charcot-Rocio disease (Chronic) Cavus deformity of left foot (Chronic) Cellulitis of right foot (Chronic) Assessment: -Status post left Charcot Orcio associated cavus foot reconstruction performed on 04/14/2018 (subtalar and talonavicular arthrodesis with Peroneus longus to brevis tendon transfer, plantar fascial release, percutaneous tendo Achilles lengthening, first metatarsal dorsiflexion closing wedge osteotomy with allograft, deltoid ligament lengthening, posterior tibial Z-lengthening, bone marrow aspirate extraction and augmentation). -status change lateral site with increased ulcer depth - cellulitis. -Delayed healing with incision compromise. -Malnutrition suspected Plan: I reviewed and discussed his case today. Debridement was performed only to the lateral incision aspect including removal of nonviable slough, fibrous tissue as noted in the clinical panel. It is noted the medial site has healed. I recommend application of Aquacel Ag daily dressing change. I recommended infection screening with labs and x-rays after his last visit. These results were reviewed and I called him to follow up last Thursday. He reported decreased inflammation with shoe gear change. Now, he has some increased redness the past 2-3 days. His white blood cell count was 7.5 and sedimentation rate was 20. The ordered C-reactive protein was not completed. The x-ray was reviewed with no obvious bone destruction, soft tissue emphysema, or foreign body. The surgical correction and arthrodesis site appear to be healed and remain intact with appropriate hardware placement and trajectories. No osteolysis or osseous destruction noted adjacent to the wound site. A wound culture was obtained today. He was advised to start Augmentin prescription which she already has at home. I will call him with his culture results and he understands additional antibiotics may be needed. I also recommend advance wound care product, puraply this is medically necessary and will optimize healing. Prior authorization with insurance will be initiated., which is a collagen antimicrobial agent. I advised him to call the office immediately or present to the emergency room with his local cellulitis symptoms worsen or if he starts to develop systemic illness. To avoid pressure on this site by avoiding sleeping on the left leg. To wear the Cam walker and placed up to 100 % weight as advised by his surgeon. To proceed with physical therapy as ordered by his surgeon. To avoid contact with a shoe on this site and felt offloading pads were fabricated to avoid rubbing on the open ulcer site. To avoid excessive hindfoot and leg motion because this places tension on the friable skin and ulcer sites. He continues to walk around at home without any shoe or boot on. I recommend nutritional supplementation optimize healing; a prescription for Terrance nutritional supplement was provided previously. I answered all his questions. To return to the wound healing center 1 week or call sooner if he has any questions or concerns. To follow-up with his surgeon as advised. Due to his status change all notes will be forwarded to the surgeon for communication purposes. Since he is reduce his activity and decrease pressure and antibiotic will be considered. I do not recommend that at this time today in clinic. I answered all of his questions.
[2018-08-11 14:38] VITALS: BP 147/90; PULSE 77; RESP 16; BMI 33.7
--- NOTE | 2018-08-11 16:12 | PN.PCM_ITS ---
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 The medial aspect has already healed. He had this performed in [place] with Dr. Estes on 04/14/2018. He is use [employer] as advised. He denies purulent drainage or odor. He relates the redness has decreased in location and intensity. He took antibiotics as recommended and his pain has decreased. He also follow-up with his surgeon on Thursday who recommended nonweightbearing splinting and continued wound care. Progress of Wound: Worsening status with infection - Physical Exam Vital Signs Temp Pulse Resp BP 97.8 F 77 16 147/90 H 08/04/18 14:41 08/11/18 14:38 08/11/18 14:38 08/11/18 14:38 General: Alert, Oriented x3, Cooperative HEENT: Atraumatic Extremities: No cyanosis, Capillary Refill Less than 3 Seconds - Left foot, No Calf Tenderness - Negative Kev and Bran sign left lower extremity, Diminished Peripheral Pulses - Palpable dorsalis pedis pulse left, Edema - Fe-ulcer edema left foot, - - Rectus left surgically corrected foot position noted and maintained Skin: Ulcer/ Wound - No purulence or odor on expression. No streaking, no maceration, no eschar. This ulcer site appears to be infected and is partially improved since he has been on oral antibiotics. The ulcer continues to probe deep and there is no exposed hardware or bone. There is improved granulation tissue in the ulcer bed., - - The adjacent skin is hairless and atrophic Wound Measurements and Assessment - Nurse 1 - General Ulcer Measurement Start: 08/04/18 14:41 Freq: Status: Active Protocol: Activity Type Activity Date Activity User E-Sign Co-Sign Detail Recorded Client Recorded Date Recorded By Document 08/11/18 14:38 [facility] [id number] 08/11/18 14:48 [facility] 08/11/18 14:38 Wound Center Nurse 1 [Ulcer Assessment] #1- LT LAT ANKLE -Combined with other wound No -Current Size (cm) - Length 0.5 -Current Size (cm) - Width 0.3 -Current Size (cm) - Depth 0.6 -Total Square Cm 0.15 -Date of Last Picture (Recall this 08/11/18 field) -Photo Taken Yes -Epithelialization None Present -Tunneling No -Undermining/Tunneling No -Circular Undermining No -Exudate Amt Small -Exudate Type Serous -Wound Margin Flat & Intact -Granulation Amt Small (1-33%) -Granulation Quality [place] -Slough/Fibrin Yes -Necrosis Amt Large (67-100%) -Necrotic Tissue Type Adherent Slough -Texture (Fe-wound Skin Appearance) Scarring -Moisture (Fe-wound Skin Appearance Dry/Scaly ) -Color (Fe-wound Skin Appearance) Erythema -Temperature (Fe-wound Skin No Abnormality Appearance) (Pt Warm) -Tenderness on Palpation (Fe-wound No Skin Appearance) -Ulcer Cleansing Rinsed/ Irrigated with Saline -Foul Odor after Cleansing No -Anesthetic Used 5% Lidocaine Gel [Edema Assessment] -Lower Limb Edema Present Yes -Left Calf (cm) 39.5 -Left Ankle (cm) 21.5 - Nurse 2 - General Ulcer CM Notes Start: 08/04/18 14:41 Freq: Status: Active Protocol: Activity Type Activity Date Activity User E-Sign Co-Sign Detail Recorded Client Recorded Date Recorded By Document 08/11/18 15:16 [id number] 08/11/18 15:17 08/11/18 15:16 Wound Center Nurse 2 [Procedure/Treatment] #1- LT LAT ANKLE -Time 15:16 -Correct Patient Yes -Correct Side, Site, Position Yes -Correct Procedure Yes -Procedure Performed Yes -Type of Procedure Debridement -Clinical Debridement Subcutaneous -Post Debridement Size (cm) - Length 0.6 -Post Debridement Size (cm) - Width 0.4 -Post Debridement Size (cm) - Depth 0.6 -Total Square Cm 0.24 -Wound/Ulcer Outcome Not Healed -Ulcer Cleansing Rinsed/ Irrigated with Saline -Foul Odor after Cleansing No -Bioengineered Tissue No -Bleeding Controlled with Pressure -Offloading Yes -Type of Offloading Surgical Shoe -Treatment Response Procedure Tolerated Well [See Physician Procedure note for Specifics] Pain Scale: 0-10 Numeric [Pain] -Is Patient Pain Free? Yes Musculoskeletal: No Tenderness to Palpation of Joints or Extremities, Muscle Wasting, Tenderness - Pain with ulcer manipulation left foot Neurological: Sensory exam intact to light touch and pain Psych/Mental Status: Normal Affect, Appropriate Debridement Note Post-Debridement Measurements/Treatment WC - Nurse 2 - General Ulcer CM Notes Start: 08/04/18 14:41 Freq: Status: Active Protocol: Activity Type Activity Date Activity User E-Sign Co-Sign Detail Recorded Client Recorded Date Recorded By Document 08/04/18 15:02 [id number] 08/04/18 15:08 Document 08/11/18 15:16 [id number] 08/11/18 15:17 08/04/18 08/11/18 15:02 15:16 Wound Center Nurse 2 #1- LT LAT ANKLE -Time 15:07 15:16 -Correct Patient Yes Yes -Correct Side, Site, Position Yes Yes -Correct Procedure Yes Yes -Procedure Performed Yes Yes -Type of Procedure Debridement Debridement -Clinical Debridement Subcutaneous Subcutaneous -Post Debridement Size (cm) - Length 1.8 0.6 -Post Debridement Size (cm) - Width 1.6 0.4 -Post Debridement Size (cm) - Depth 0.6 0.6 -Total Square Cm 2.88 0.24 -Wound/Ulcer Outcome Not Healed Not Healed -Ulcer Cleansing Rinsed/ Rinsed/ Irrigated with Irrigated with Saline Saline -Foul Odor after Cleansing No No -Bioengineered Tissue No No -Bleeding Controlled with Pressure Pressure -Offloading Yes Yes -Type of Offloading Camwalker Surgical Shoe -Treatment Response Procedure Procedure Tolerated Well Tolerated Well Pain Scale: 0-10 Numeric Is Patient Pain Free? 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 -status change lateral site with increased ulcer depth - cellulitis. -Delayed healing with incision compromise. -Malnutrition suspected. -Risk for limb loss Plan: I reviewed and discussed his case today. Debridement was performed only to the lateral incision aspect including removal of nonviable slough, fibrous tissue as noted in the clinical panel. It is noted the medial site has healed. I recommend application of Aquacel Ag daily dressing change. I recommended advance wound care product including antimicrobial agent and collagen, puraply, to optimize ulcer healing, prevent amputation, prevent continued worsening infection, and to prevent hospitalization. This is medically necessary to save his limb. The indication, purpose, benefits, risks, and anticipated healing time is were discussed. The initial insurance prior authorization was denied and I recommend going through an appeal process. The reference number for this case was tentatively given [id number]. Additional documents will be faxed to [phone] and a phone peer to peer will also be initiated at extension [phone]. The x-ray was reviewed with no obvious bone destruction, soft tissue emphysema, or foreign body. The surgical correction and arthrodesis site appear to be healed and remain intact with appropriate hardware placement and trajectories. No osteolysis or osseous destruction noted adjacent to the wound site. A wound culture was obtained and there was no anaerobic growth. I recommend he continues on ciprofloxacin and clindamycin to cover his bacterial growth until next week. It is okay to discontinue the Augmentin at this time. To monitor for worsening signs of infection. To avoid pressure on this site by avoiding sleeping on the left leg. To wear the Cam walker and placed up to 100 % weight as advised by his surgeon. To proceed with physical therapy as ordered by his surgeon. To avoid contact with a shoe on this site and felt offloading pads were fabricated to avoid rubbing on the open ulcer site. To avoid excessive hindfoot and leg motion because this places tension on the friable skin and ulcer sites. He continues to walk around at home without any s hoe or boot on. I recommend nutritional supplementation optimize healing; a prescription for Terrance nutritional supplement was provided previously. I answered all his questions. To return to the wound healing center 1 week or call sooner if he has any questions or concerns. To follow-up with his surgeon as advised. His notes from Thursday will be requested. I answered all of his questions.
[2018-08-18 14:17] VITALS: BP 148/98; PULSE 66; RESP 18; TEMP 37.2; BMI 33.7
--- NOTE | 2018-08-18 15:24 | PCM.WC.PN ---
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 He had this performed in [place] with Dr. Estes on 04/14/2018. He has used [employer] Ag as advised. He denies purulent drainage or odor. He relates the redness has decreased in location and intensity. He took antibiotics as recommended and his pain has decreased. His diarrhea has been resolving. He also follow-up with his surgeon on Thursday who ordered a CT scan to confirm arthrodesis healing and to screen for bone erosion at this ulcer site. He understands debridement in the operating room with wound vac and advanced product application may be considered. Progress of Wound: stable - Physical Exam Vital Signs Temp Pulse Resp BP 98.9 F 66 18 148/98 H 08/18/18 14:17 08/18/18 14:17 08/18/18 14:17 08/18/18 14:17 General: Alert, Oriented x3, Cooperative HEENT: Atraumatic Extremities: No cyanosis, Capillary Refill Less than 3 Seconds, No Calf Tenderness, Diminished Peripheral Pulses, Edema - decreased periwound Skin: Ulcer/ Wound - no purulence, no odor, no austin necrosis noted. no streaking. fe wound inflammation continues without streaking. peripheral atrophic skin is noted Wound Measurements and Assessment WC - Nurse 1 - General Ulcer Measurement Start: 08/04/18 14:41 Freq: Status: Active Protocol: Activity Type Activity Date Activity User E-Sign Co-Sign Detail Recorded Client Recorded Date Recorded By Document 08/18/18 14:17 MAYLIN [id number] 08/18/18 14:31 AN 08/18/18 14:17 Wound Center Nurse 1 [Ulcer Assessment] #1- LT LAT ANKLE -Current Size (cm) - Length 0.4 -Current Size (cm) - Width 0.5 -Current Size (cm) - Depth 0.5 -Total Square Cm 0.20 -Photo Taken No -Epithelialization None Present -Tunneling No -Undermining/Tunneling No -Classification - Thickness Full Thickness without Exposed Support Structure -Exudate Amt Small -Exudate Type Serosanguineous -Wound Margin Distinct, Outline Attached -Granulation Amt Small (1-33%) -Granulation Quality [place] -Slough/Fibrin Yes -Necrosis Amt Large (67-100%) -Necrotic Tissue Type Adherent Slough -Structure Exposed None/Limited to Skin Breakdown -Texture (Fe-wound Skin Appearance) Assessed -Moisture (Fe-wound Skin Appearance Assessed ) Dry/Scaly -Color (Fe-wound Skin Appearance) Assessed -Temperature (Fe-wound Skin No Abnormality Appearance) (Pt Warm) -Tenderness on Palpation (Fe-wound No Skin Appearance) -Ulcer Cleansing Rinsed/ Irrigated with Saline -Foul Odor after Cleansing No -Anesthetic Used 5% Lidocaine Gel - Nurse 2 - General Ulcer CM Notes Start: 08/04/18 14:41 Freq: Status: Active Protocol: Activity Type Activity Date Activity User E-Sign Co-Sign Detail Recorded Client Recorded Date Recorded By Document 08/18/18 14:41 ROSA ISELA [id number] 08/18/18 14:44 08/18/18 14:41 Wound Center Nurse 2 [Procedure/Treatment] -Time 14:42 -Correct Patient Yes -Correct Side, Site, Position Yes -Correct Procedure Yes -Procedure Performed Yes -Type of Procedure Debridement -Clinical Debridement Subcutaneous -Post Debridement Size (cm) - Length 0.5 -Post Debridement Size (cm) - Width 0.5 -Post Debridement Size (cm) - Depth 0.6 -Total Square Cm 0.25 -Wound/Ulcer Outcome Not Healed -Ulcer Cleansing Rinsed/ Irrigated with Saline -Foul Odor after Cleansing No -Bioengineered Tissue No -Bleeding Controlled with Pressure -Offloading Yes -Type of Offloading Knee Walker -Treatment Response Procedure Tolerated Well [See Physician Procedure note for Specifics] Pain Scale: 0-10 Numeric [Pain] -Is Patient Pain Free? Yes Musculoskeletal: No Tenderness to Palpation of Joints or Extremities, Muscle Wasting Neurological: Sensory exam intact to light touch and pain Psych/Mental Status: Normal Affect, Appropriate Debridement Note Post-Debridement Measurements/Treatment WC - Nurse 2 - General Ulcer CM Notes Start: 08/04/18 14:41 Freq: Status: Active Protocol: Activity Type Activity Date Activity User E-Sign Co-Sign Detail Recorded Client Recorded Date Recorded By Document 08/04/18 15:02 [id number] 08/04/18 15:08 Document 08/11/18 15:16 [id number] 08/11/18 15:17 Document 08/18/18 14:41 [id number] 08/18/18 14:44 08/04/18 08/11/18 08/18/18 15:02 15:16 14:41 Wound Center Nurse 2 #1- LT LAT ANKLE -Time 15:07 15:16 14:42 -Correct Patient Yes Yes Yes -Correct Side, Site, Position Yes Yes Yes -Correct Procedure Yes Yes Yes -Procedure Performed Yes Yes Yes -Type of Procedure Debridement Debridement Debridement -Clinical Debridement Subcutaneous Subcutaneous Subcutaneous -Post Debridement Size (cm) - Length 1.8 0.6 0.5 -Post Debridement Size (cm) - Width 1.6 0.4 0.5 -Post Debridement Size (cm) - Depth 0.6 0.6 0.6 -Total Square Cm 2.88 0.24 0.25 -Wound/Ulcer Outcome Not Healed Not Healed Not Healed -Ulcer Cleansing Rinsed/ Rinsed/ Rinsed/ Irrigated with Irrigated with Irrigated with Saline Saline Saline -Foul Odor after Cleansing No No No -Bioengineered Tissue No No No -Bleeding Controlled with Pressure Pressure Pressure -Offloading Yes Yes Yes -Type of Offloading Camwalker Surgical Shoe Knee Walker -Treatment Response Procedure Procedure Procedure Tolerated Well Tolerated Well Tolerated Well Pain Scale: 0-10 Numeric Is Patient Pain Free? 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 -lateral site with increased ulcer depth - cellulitis appears to be resolving. -Delayed healing with incision compromise. -Malnutrition suspected. -Risk for limb loss Plan: I reviewed and discussed his case today. Debridement was performed only to the lateral incision aspect including removal of nonviable slough, fibrous tissue as noted in the clinical panel. I recommend application of Aquacel Ag daily dressing change. I recommended advance wound care product including antimicrobial agent and collagen, puraply, to optimize ulcer healing, prevent amputation, prevent continued worsening infection, reduce biofilm or bacterial colonization, and to prevent hospitalization. This is medically necessary to save his limb. The indication, purpose, benefits, risks, and anticipated healing time is were discussed. The initial insurance prior authorization was denied and I recommend going through an appeal process. He wants to do self pay at this time and this will be ordered for next week. The reference number for this case was tentatively given [id number]. Additional documents were faxed to [phone] and a phone peer to peer will also be initiated at extension [phone]. The insurance company was contacted a minimum of three times this past week. The x-ray was reviewed with no obvious bone destruction, soft tissue emphysema, or foreign body. A CT scan was performed and I have requested the CD and report from the [facility]. Radiographically, the surgical correction and arthrodesis site appear to be healed and remain intact with appropriate hardware placement and trajectories. No osteolysis or osseous destruction noted adjacent to the wound site. A wound culture was obtained and there was no anaerobic growth. I recommend he continues on ciprofloxacin and clindamycin to cover his bacterial growth until next Thursday; refill provided. He demonstrates clinical improvement and his diarrhea is also improving. I do not recommend reculturing the ulcer site today as his asks about this. I am still concerned about the depth of this wound. Surgical debridement, advanced product application, and wound vac will be considered. I would like to review this case with his surgeon and encouraged him to follow up as advised and scheduled for this upcoming Thursday. He also asks if he can go in the hyperbaric oxygen therapy chamber and he does not meet current qualifying diagnoses. The indications, purpose, requirements and qualifying diagnoses were discussed today. He understands bone infection and grade 3 diabetic foot ulcers are typical conditions that undergo this type of treatment. To avoid pressure on this site by avoiding sleeping on the left leg. To wear the Cam walker and placed up to 100 % weight as advised by his surgeon. To proceed with physical therapy as ordered by his surgeon. To avoid contact with a shoe on this site and felt offloading pads were fabricated to avoid rubbing on the open ulcer site. To avoid excessive hindfoot and leg motion because this places tension on the friable skin and ulcer sites. I recommend nutritional supplementation optimize healing; a prescription for Terrance nutritional supplement was provided previously. I answered all his questions. To return to clinic in one week or call sooner if questions or concerns.
== END 2018-08-26 23:59 ==
LOC: WC 14:00
PROVIDERS: Family Provider Family Medicine; PCP Family Medicine; Referring Provider Podiatrist; Visit Provider Podiatrist
DX: L97.522 Non-pressure chronic ulcer of other part of left foot with fat layer exposed (principal); G60.0 Hereditary motor and sensory neuropathy; Q66.7 Congenital pes cavus
CPT/HCPCS: 11042; 87070; 87075; 87077; 87186; 87205

== ENCOUNTER → 2018-12-16 09:19 | Outpatient (CLI) | payer BC, SELFPAY ==
[2018-12-16 12:22] LABS: AST(SGOT) 32 U/L (15-37); Alanine Aminotransfer ALT/SGPT 56 U/L (16-61); Albumin, Serum 3.5 g/dL (3.2-5.0); Alkaline Phosphatase 69 U/L (45-117); Anion Gap 9 (5-15); BUN 15 mg/dL (7-18); BUN/Creat Ratio 19.4 RATIO (10-20); Calcium,Total 8.4 mg/dL (8.5-10.1); Chloride 109 mmol/L (98-107); Cholesterol 173 mg/dL (200); Creatinine, Serum 0.77 mg/dL (0.70-1.30); EST Glomerular Filtration Rate 114 mL/min (>60); Est Glom Filt Rate - Afr Amer 137 mL/min (>60); Globulin 3.5 g/dL (2.2-4.2); Glucose 103 mg/dL (74-106); High Density Lipoprotein 37 mg/dL; Potassium 3.8 mmol/L (3.5-5.1); Sodium Level 143 mmol/L (136-145); Triglycerides 145 mg/dL; Very Low Density Lipoprotein 29 mg/dL (5-40)
== END ==
PROVIDERS: Family Provider Family Medicine; PCP Family Medicine; Referring Provider Family Medicine; Visit Provider Family Medicine
DX: M10.9 Gout, unspecified (principal); E78.5 Hyperlipidemia, unspecified
CPT/HCPCS: 36415; 80053; 80061; 84550

== ENCOUNTER → 2019-07-14 10:19 | Outpatient (CLI) | payer BC, SELFPAY ==
--- NOTE | 2019-07-14 10:22 | RAD_ITS ---
STUDY: X-RAY - PARANASAL SINUSES REASON FOR EXAM: Male, 49 years old. sinusitis, right side more pain, ear and jaw TECHNIQUE: 3 view(s) of the paranasal sinuses were obtained. COMPARISON: None. FINDINGS: Mild areas of mucosal thickening in the inferior maxillary sinuses without fluid retention. Normal visualized facial bones. The soft tissue structures are unremarkable. RAD/Sinuses min 3 Views IMPRESSION: Mild areas of mucosal thickening in the inferior maxillary sinuses without fluid retention. Electronically Signed: Jo-Ann Santiago MD at 16:59 EST , Service support ,
== END ==
PROVIDERS: PCP Family Medicine; Referring Provider Family Medicine; Visit Provider Family Medicine
DX: J32.9 Chronic sinusitis, unspecified (principal)
CPT/HCPCS: 70220

== ENCOUNTER → 2020-04-30 13:47 | Outpatient (CLI) | payer BC, SELFPAY | PROVIDERS: PCP Family Medicine; Visit Provider Family Medicine | DX: U07.1 COVID-19 (principal) | CPT/HCPCS: 87635; U0003 ==

== ENCOUNTER 2020-05-08 05:01 | Inpatient (IN) | payer BC, SELFPAY ==
[2020-05-08] VITALS (13 sets, daily range): BP systolic 93–160; BP diastolic 64–101; PULSE 75–114; RESP 16–35; TEMP 36.9–39.1; O2SAT 89–96; BMI 36.1; BMI 35.1
--- NOTE | 2020-05-08 05:28 | RAD_ITS ---
STUDY: X-RAY CHEST REASON FOR EXAM: Male, 50 years old. patient is covid positive, on day 11. woke up this morning with worsening shortness of breath, pulse ox 87% room air, chills, and fever. TECHNIQUE: Single AP portable view of the chest. COMPARISON: None. FINDINGS: Ill-defined subpleural groundglass opacities are seen more prominent in the lung bases , may represent atypical pneumonia or viral pneumonia (COVID-19 ?). There is no demonstrated pleural abnormality. Normal size heart. Normal mediastinum and teresa. Normal visualized pulmonary arteries. Normal visualized aortic arch and descending thoracic aorta. Normal visualized thoracic spine. Normal visualized ribs, clavicles, and shoulders. There is no demonstrated abnormality of the visualized soft tissue structures of the upper abdomen. RAD/Chest 1 View (Portable) IMPRESSION: Ill-defined subpleural groundglass opacities are seen more prominent in the lung bases , may represent atypical pneumonia or viral pneumonia (COVID-19 ?). Electronically Signed: Orquidea Ramsay, at 6:10 EST Tel , Service support ,
--- NOTE | 2020-05-08 05:28 | EKG12_ITS ---
Test Reason : SOB Blood Pressure : / mmHG Vent. Rate : 094 BPM Atrial Rate : 094 BPM P-R Int : 160 ms QRS Dur : 086 ms QT Int : 338 ms P-R-T Axes : 025 -14 055 degrees QTc Int : 422 ms Normal sinus rhythm Voltage criteria for left ventricular hypertrophy Nonspecific T wave abnormality Abnormal ECG Confirmed by BIRDIE TEMPLETON, GARFIELD ([id number]), legal editor BRANT PARRA ([id number]) on 05/09/2020 8:34:44 AM Referred By: TONY Confirmed By:GARFIELD PACKER MD
--- NOTE | 2020-05-08 05:30 | ED.DCSUM_ITS ---
History of Present Illness Chief Complaint: Shortness of Breath Informant: Patient Narrative: Patient states that he is on day 11 of coronavirus. He tested positive for coronavirus on April 30 at our facility. He has been having fevers for the last 11 days. He is using Tylenol and ibuprofen to keep his temperatures down. Over the last couple days he has had some increased short of breath. Nonproductive cough. He took his pulse ox this morning when he woke up and it was 87% at home. This concerned him so he came into the hospital. No history of asthma. Patient stated he has no chronic lung disease. He is not smoker. Patient stated that he is on day 10 of a prednisone taper. He started out with a high dose and now he is on low-dose. He is not sure the exact strength of the medication he is taking - Past Medical History (1) Cavus deformity of left foot Status: Chronic (2) Cellulitis of right foot Status: Chronic (3) Charcot-Rocio disease Status: Chronic (4) Chronic ulcer of left foot with fat layer exposed Status: Chronic (5) Delayed wound healing Status: Chronic (6) Infection of left foot Status: Suspected Past Medical History - Allergies and Home Meds Allergies/Adverse Reactions: Allergies No Known Allergies Allergy (Verified 05/08/20 05:08) Prior records reviewed: Yes Past Medical History: - - See problem list Surgical History: - - Reviewed Smoking Status: Former smoker Alcohol: None Drugs: None Review of Systems General: Reports: Fever. Denies: Chills, Sweats Eyes: Denies: Visual changes - bilaterally, Diplopia ENT: Denies: Rhinorrhea, Sore throat Cardiovascular: Denies: Chest pain, Palpitations Respiratory: Reports: Dyspnea, Cough, Dyspnea on exertion Gastrointestinal: Denies: Abdominal pain, Nausea, Vomiting, Diarrhea, Melena, Hematochezia Genitourinary: Denies: Dysuria, Hematuria, Frequency Musculoskeletal: Denies: Back pain, Extremity Pain Skin: Denies: Rash, Wounds Neurological: Denies: Headache, Weakness, Numbness Physical Exam Vital Signs/Narrative: Vital Signs Temp Pulse Resp BP Pulse Ox 05/08/20 05:08 96 05/08/20 05:06 95 05/08/20 05:01 99.8 F H 99 30 H 160/91 H 89 General: Well nourished, Well developed, No Acute Distress Head: Normocephalic, Atraumatic Eyes: Perrl, EOMI ENT: Moist mucous membranes, No rhinorrhea Neck: Supple, Nontender Cardiovascular: Regular rate, Regular rhythm, No murmurs Respiratory: No distress, CTA bilaterally, Chest nontender, - - Mild tachypnea Abdomen: Soft, Nontender, Nondistended, Normal bowel sounds Back: Nontender, Normal Inspection Extremities: Nontender, No edema Skin: Normal color, No rash Neurological: Alert, Oriented x3, Cranial nerves II-XII grossly intact, Normal Strength, Normal Sensation Psychological: Normal affect, Normal Mood Diagnostic/Tx/Re-eval - Medical Decision Making Patient given albuterol inhaler puffs x4. Placed on nasal cannula oxygen 2 L to bring his pulse ox from 90% when he arrived up to mid 90s. He is normally not on oxygen. Lab work and chest x-ray obtained. Work shows nothing acute including CBC and BMP. EKG shows normal sinus rhythm at a rate of 94 with no acute ischemia or arrhythmia. Chest x-ray shows a COVID-19 interstitial pneumonitis picture. The patient remained stable with a pulse oxygenation in the mid 90s on nasal cannula. He is already on steroid therapy. He has been weaning down. This case will be discussed with the hospitalist and due to the fact that patient has hypoxic respiratory failure from COVID-19 I feel he will need to be admitted for supplemental oxygen ED Disposition - Plan for ED Patient: Disposition: Acute Care Hospital [facility] Diagnosis: Coronavirus infection, Interstitial pneumonitis, Hypoxia
[2020-05-08 05:36] LABS: Absolute Lymphocyte Count 1.07 X10^3/uL (0.83-4.51); Absolute Neutrophil Count 5.9 X10^3/uL (2.0-7.7); Basophil# 0.01 X10^3/uL; Basophil% 0.1 % (0-1); Hematocrit 51.8 % (40-54); Hemoglobin 16.7 g/dL (13.0-16.5); Lymphocyte # 1.07 X10^3/ul (4.0); Lymphocyte % 14.7 % (19-41); Mean Corp Hgb Conc 32.2 g/dL (32-36); Mean Corpuscular Hgb 29.3 pg (27.0-32.0); Mean Platelet Vol. 9.9 fl (6.2-12.0); Monocyte# 0.28 X10^3/uL; Monocyte% 3.8 % (0-10); NRBC Flagged by Analyzer 0 % (0-5); Neutrophil # 5.92 X10^3/uL (2.7-7.7); Neutrophil % 81.1 % (47-70); Platelet Count 211 K/mm3 (150-450); RBC Distribution Width CV 13.7 % (11.6-14.6); RBC Distribution Width SD 46.4 fl (35.1-43.9); Red Blood Count 5.69 M/mm3 (4.6-6.2); White Blood Count 7.3 K/mm3 (4.4-11.0)
[2020-05-08 05:43] LABS: Anion Gap 8 (5-15); BUN 11 mg/dL (7-18); Calcium,Total 8.4 mg/dL (8.5-10.1); Chloride 103 mmol/L (98-107); Creatinine, Serum 0.85 mg/dL (0.70-1.30); EST Glomerular Filtration Rate 102 mL/min (>60); Est Glom Filt Rate - Afr Amer 123 mL/min (>60); Estimated Creatinine Clearance 100.59 ml/min; Glucose 95 mg/dL (74-106); Potassium 3.7 mmol/L (3.5-5.1); Sodium Level 136 mmol/L (136-145)
[2020-05-08] MEDS: Acetaminophen 325 MG Tablet 650 MG PO ×2 (06:37→18:12)
--- NOTE | 2020-05-08 07:16 | PCM.HP.STD ---
History of Present Illness Date of Admission: 05/08/20 Chief Complaint: Dyspnea, cough, body aches, nausea, fevers. The patient is a 50 y/o M w/ PMHx: Allergic Rhinitis, Gout who presents to the [facility] ED on 05/08/20 with history of onset of symptoms on 04/27/2020 including headache, cough, dyspnea, alteration to his taste noting that several things tasted severely salty, nausea without emesis, body aches and fevers, worsening with increasing dyspnea prompting eventual ED presentation for evaluation. Patient noted that both his and son were at home with quarantine with no severe symptoms. Work-up in the ED included T100.5, heart rate 99, BP 160/91, respiratory rate 30, 89% on room air with improvement to 93% on 2 L nasal cannula, CBC with WC 7.3, hemoglobin 16.7, platelet 211 without market shift, D-dimer 1.0, BMP unremarkable aside calcium 8.4, chest x-ray with ill-defined subpleural groundglass opacities more prominent lung bases possibly circulation representative atypical pneumonia or viral pneumonia. Patient administered no medications in the ED. 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 Psychiatric History: No pertinent psych hx Lives: Spouse/ Significant Other Smoking Status: Former smoker Tobacco Use: Non-smoker Alcohol: None Drugs: None - *Family History Maternal History Items: Hypertension Paternal History Items: Diabetes Review of Systems Constitutional: Reports: Anorexia, Chills, Fever, Malaise, Weakness, Fatigue. Denies: Weight Change HEENT: Reports: Head Aches, - - Alteration to sense of taste.. Denies: Sinus Congestion, Sinus Drainage Cardiovascular: Denies: Chest Pain, Chest Pressure, Chest Tightness, Palpitations Respiratory: Reports: Cough, Shortness of Breath, Shortness of breath at rest, Shortness of breath upon exertion. Denies: Sputum production, Wheezing Gastrointestinal: Reports: Nausea. Denies: Abdominal Pain, Vomiting Genitourinary: Denies: Dysuria Musculoskeletal: Reports: Joint Pain, Muscle pain. Denies: Joint Tenderness Skin: Denies: Rash, Wounds Neurological: Denies: Numbness, Tingling, Focal weakness Psychiatric: Denies: Anxiety, Depression, Homicidal Ideations, Suicidal Ideations Hematologic/ Lymphatic: Denies: Easy Bruising, Easy Bleeding VTE Information - Inpt Only VTE Present on Admission: No VTE Mechan Device Prophylaxis: SCD's VTE Pharm Prophylaxis ordered?: Yes Patient Problems: Active and Suspected Problems Infection of left foot (Suspected) Coronavirus infection (Acute) Interstitial pneumonitis (Acute) Hypoxia (Acute) COVID-19 (Acute) Subjective: Patient seated upright in the ED bed, fatigued and ill-appearing, no obvious acute distress at this point. Objective: Physical Examination: General: awake, alert, oriented x 3 and cooperative, seated upright in the ED bed, no acute distress currently, notes feeling somewhat improved. Skin: normal color, turgor, no icterus, cyanosis. HEENT: AT/NC, EOMI, PERRLA, dry MM, no carotid bruits or JVD noted. Lungs: Diminished breath sounds, greater bases, effort improved, notes less short of breath since initial ED presentation, no rales, ronchi or wheezing. Heart: Tachycardic with regular rhythm; no gallop, rub audible. Abdomen: soft, mild generalized discomfort TTP, ND, mildly hyperactive BS, no HSM. Extremities: no cyanosis, clubbing, or edema. Neurological: patient awake, alert, oriented x 3; cognitive function intact; pupils equally reactive to light and accomodation; cranial nerves II-XII grossly normal, moving all 4 extremities, no focal deficits, strength moderately to severely decreased secondary to acute presentation. Psychiatric: affect appears fatigued otherwise normal, no acute evidence of depressive or anxiety feelings. - Physical Exam Vitals/I&O's: Vital Signs Temp Pulse Resp BP Pulse Ox 102.4 F H 100 20 H 93/70 94 05/08/20 07:07 05/08/20 07:07 05/08/20 07:07 05/08/20 07:07 05/08/20 07:07 Oxygen Flow Rate (L/min) 2 Oxygen Delivery Method Nasal Cannula Weight: 238 lb 1.588 oz Body Mass Index (BMI) 36.1 Laboratory Results 05/08/20 05:00: WBC 7.3, RBC 5.69, Hgb 16.7 H, Hct 51.8, MCV 91.0, MCH 29.3, MCHC 32.2, RDW Std Deviation 46.4 H, RDW Coeff of Do 13.7, Plt Count 211, MPV 9.9, Immature Gran % (Auto) 0.300, Neut % (Auto) 81.1 H, Lymph % (Auto) 14.7 L, [place] % (Auto) 3.8, Eos % (Auto) 0.0, Baso % (Auto) 0.1, Absolute Neuts (auto) 5.9, Absolute Lymphs (auto) 1.07, Nucleated RBC % 0 05/08/20 05:00: Sodium 136, Potassium 3.7, Chloride 103, Carbon Dioxide 25.0, Anion Gap 8, BUN 11, Creatinine 0.85, Estim Creat Clear Calc 100.59, Est GFR (MDRD) Af Amer 123, Est GFR (MDRD) Non-Af 102, BUN/Creatinine Ratio 13.0, Glucose 95, Calcium 8.4 L Assessment/Plan All Active Problems Coronavirus infection (Acute) Interstitial pneumonitis (Acute) Hypoxia (Acute) COVID-19 (Acute) The patient is a 50 y/o M w/ PMHx: Allergic Rhinitis, Gout who presents to the [facility] ED on 05/08/20 with history of onset of symptoms on 04/27/2020 including headache, cough, dyspnea, alteration to his taste noting that several things tasted severely salty, nausea without emesis, body aches and fevers, worsening with increasing dyspnea prompting eventual ED presentation for evaluation. 1. Acute Hypoxia, Dyspnea, Cough, Fever with Bilateral Pneumonia secondary to Acute Viral Syndrome, COVID-19, complicated by Acute BL Pulmonary Emboli: Patient with hypoxia upon presentation, ED evaluation with chest x-ray consistent with COVID pneumonia, CBC not marked appearing, BMP not marked appearing, admitted to the COVID unit, maintained on oxygen with wean as tolerated to room air, continue PRN albuterol, will obtain hepatic profile, initial work-up following transition to Covid unit included ferritin 2095, LDH 422, CRP 72.8, procalcitonin less than 0.04, D-dimer 1.0 with follow-up CTPA obtained notable for scattered filling defects in the branches of the upper and lower lobe pulmonary artery branches consistent with pulmonary emboli, diffuse bilateral airspace disease in keeping with findings of COVID-19 infection initiation on therapeutic Eliquis regimen. Legionella and streptococcal antigens negative. Respiratory viral panel negative. Pending sputum culture. Continue supportive care, head of bed, encourage I-S, every 2 hours turning, judicious hydration, closely monitor for worsening status for ARDS and multiorgan failure. 2. Elevated BP without hypertensive diagnosis: ED presentation with elevated BPs above goal, will continue to closely monitor and if remain elevated may need to consider oral agent addition, as needed IV hydralazine in interim. 3. Allergic rhinitis: We will continue patient home fluticasone regimen. 4. Gout: We will continue patient home allopurinol regimen. 5. DVT prophylaxis: SCDs, will initiate patient on therapeutic Eliquis regimen. Discussed with case management. Inpatient E&M: 27330 Init Hosp L3
[2020-05-08 08:42] LABS: Procalcitonin < 0.04 ng/mL (0.00-0.09)
[2020-05-08 08:53] LABS: Ferritin 2895 ng/mL (26-388); LDH 422 U/L (87-241); Magnesium 2.2 mg/dL (1.6-2.6)
[2020-05-08] MEDS: 0.9% Normal Saline 1,000 ML 100 ML IV (09:36)
[2020-05-08] MEDS: dexAMETHasone 10 MG/ML Vial 6 MG IV (09:38)
[2020-05-08] MEDS: Enoxaparin 30 MG/0.3 ML Syringe SC (09:40)
[2020-05-08] MEDS: Fluticasone 0.05% 1 SPRAY NASAL.SRY NASAL (09:41)
--- NOTE | 2020-05-08 09:55 | CT_ITS ---
STUDY: CTA CHEST REASON FOR EXAM: Male, 50 years old. INCREASED SOB, COVID + RADIATION DOSAGE (If Supplied By Facility): CTDIvol = ( 12.65 ) mGy, DLP = ( 463.71 ) mGycm TECHNIQUE: The examination was performed with the intravenous administration of IV 100mL Isovue-370. Post-processing of the angiographic images was performed, with multiplanar reformation and 3D reconstruction. Individualized dose optimization techniques were used for this CT. COMPARISON: Comparison is made with prior chest radiograph dated 05/08/2020. FINDINGS: There are small intraluminal filling defects in branches of the upper lobe pulmonary arteries more prominent in the right upper lobe. This also evidence of small intraluminal filling defect in branches of the left lower lobe. Normal thoracic aorta and visualized great vessels. There is no demonstrated aortic dissection. Normal heart and pericardium. Normal mediastinum. Normal hilar regions. Normal visualized trachea and bronchi. The lungs are well expanded. Diffuse bilateral groundglass appearance involving both lungs as well as the upper and lower lobes. With the patient''s history of Covid positive, this may represent changes secondary to Covid19 infection. Normal pleura. Normal chest wall structures. There are degenerative changes of thoracic spine. Fatty infiltration of the liver. CT/CTA Chest W/WO Contrast IMPRESSION: Scattered filling defects in branches of the upper lobe and lower lobe pulmonary arterial branches in comparison with the pulmonary emboli. Diffuse bilateral airspace disease in keeping with the findings of Covid 19 infection. Electronically Signed: Lionel Menjivar, at 11:12 EST , Service support ,
--- NOTE | 2020-05-08 11:19 | CON.PCM_ITS ---
Problem List (1) COVID-19 Status: Acute Reason for Consult: covid Consulted by: Dr. Alvarado History of Present Illness: The patient is a 50 year old M presented with sx since 04/27 with headache, cough, dyspnea, change in taste (everything was salty), upset stomach, and body aches with fevers. and son at home are in quarantine, feeling ok. Had worsening dyspnea, came to ED, feeling better on O2 this AM. Full ROS performed and neg except as noted above. 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) Cellulitis of right foot (Chronic) Allergies/Adverse Reactions: Allergies No Known Allergies Allergy (Verified 05/08/20 05:08) Home Medications: Ambulatory Orders Medication Instructions Recorded Allopurinol [Zyloprim] 100 mg PO BIDCM 04/17/16 Ascorbic Acid [Vitamin C] 1,000 mg PO BID 04/17/16 Fluticasone 0.05% [Flonase Nasal 1 spray NASAL DAILY 04/17/16 [place]] Magnesium 400 mg PO DAILY 05/19/18 Khrimknm89/Folic AC/Nadh/Coq10 1 ea PO BID 05/08/20 [Xyzbac Tablet] - Social History SMOKING STATUS:: Former smoker Vital Signs Temp Pulse Resp BP Pulse Ox 98.5 F 80 16 114/70 92 05/08/20 09:25 05/08/20 09:25 05/08/20 09:25 05/08/20 09:25 05/08/20 09:25 Oxygen Flow Rate (L/min) 2 Oxygen Delivery Method Nasal Cannula Weight: 105.1 kg Body Mass Index (BMI) 35.1 Laboratory Tests Past 24 Hrs 05/08/20 05/08/20 05/08/20 05:00 05:00 05:00 WBC 7.3 RBC 5.69 Hgb 16.7 H Hct 51.8 MCV 91.0 MCH 29.3 MCHC 32.2 RDW Std Deviation 46.4 H RDW Coeff of Do 13.7 Plt Count 211 MPV 9.9 Immature Gran % (Auto) 0.300 Neut % (Auto) 81.1 H Lymph % (Auto) 14.7 L [place] % (Auto) 3.8 Eos % (Auto) 0.0 Baso % (Auto) 0.1 Absolute Neuts (auto) 5.9 Absolute Lymphs (auto) 1.07 Nucleated RBC % 0 D-Dimer Quant (PE/DVT) Sodium 136 Potassium 3.7 Chloride 103 Carbon Dioxide 25.0 Anion Gap 8 BUN 11 Creatinine 0.85 Estim Creat Clear Calc 100.59 Est GFR (MDRD) Af Amer 123 Est GFR (MDRD) Non-Af 102 BUN/Creatinine Ratio 13.0 Glucose 95 Calcium 8.4 L Magnesium 2.2 Ferritin 2895 H Lactate Dehydrogenase 422 H C-React Prot Ext Range 72.80 H Procalcitonin 05/08/20 05/08/20 05:00 05:00 WBC RBC Hgb Hct MCV MCH MCHC RDW Std Deviation RDW Coeff of Do Plt Count MPV Immature Gran % (Auto) Neut % (Auto) Lymph % (Auto) [place] % (Auto) Eos % (Auto) Baso % (Auto) Absolute Neuts (auto) Absolute Lymphs (auto) Nucleated RBC % D-Dimer Quant (PE/DVT) 1.00 H* Sodium Potassium Chloride Carbon Dioxide Anion Gap BUN Creatinine Estim Creat Clear Calc Est GFR (MDRD) Af Amer Est GFR (MDRD) Non-Af BUN/Creatinine Ratio Glucose Calcium Magnesium Ferritin Lactate Dehydrogenase C-React Prot Ext Range Procalcitonin < 0.04 - Other Studies Radiology: [] reviewed Other Studies: [] Route of nutrition/ use of supplements: [] Nutritional Intake: [] IV Site: [] Clemente Catheter: [] - Physical Exam General: Alert, Oriented x3, Cooperative HEENT: Atraumatic, PERRLA, EOMI Neck: Supple, No Nodes Lungs: Diminished Cardiovascular: Regular rate, Regular Rhythm Abdomen: Soft, Non Tender, Non-Distended Extremities: No edema Skin: No rashes IV Site: Peripheral, without redness Musculoskeletal: No Tenderness to Palpation of Joints or Extremities - Assessment/Plan Antibiotics: [] Assessment/Plan: [] Active and Suspected Problems Infection of left foot (Suspected) Coronavirus infection (Acute) Interstitial pneumonitis (Acute) Hypoxia (Acute) Fever to 102.4 on admit. On dex, lovenox bid. Feeling better this Am. Sx started 04/27. At this point given timing and his symptoms, recommend dex and intermediate dose lovenox, pending results of CT-PE. Will follow, thank you
[2020-05-08] MEDS: APIXABAN 5 MG TABLET 10 MG PO ×2 (13:13→20:21)
[2020-05-08] MEDS: Ascorbic Acid 500 MG Tablet 1000 MG PO ×2 (13:14→20:21)
[2020-05-08] MEDS: Allopurinol 100 MG Tablet PO ×2 (13:14→20:21)
[2020-05-08 14:55] LABS: AST(SGOT) 75 U/L (15-37); Alanine Aminotransfer ALT/SGPT 87 U/L (16-61); Albumin, Serum 3.3 g/dL (3.2-5.0); Alkaline Phosphatase 107 U/L (45-117); Bilirubin, Direct 0.25 mg/dL (0.00-0.30); Globulin 4.7 g/dL (2.2-4.2)
--- NOTE | 2020-05-08 15:01 | PCM.NTREPORT ---
Nutrition Therapy Report - History Nutrition Services has been consulted to:: Manage nutrient details of diet order Current diet / nutrition support order:: regular diet - Anthropometric Measurements Height:: 5 ft 8.11 in Weight:: 105.1 kg Body Mass Index (BMI):: 35.1 - Relevant Labs Relevant Labs:: Hgb 16.7 g/dL (13.0-16.5) H 05/08/20 05:00 RDW Std Deviation 46.4 fl (35.1-43.9) H 05/08/20 05:00 Neut % (Auto) 81.1 % (47-70) H 05/08/20 05:00 Lymph % (Auto) 14.7 % (19-41) L 05/08/20 05:00 D-Dimer Quant (PE/DVT) 1.00 FEU/ug/m (0.27-0.49) H* 05/08/20 05:00 Calcium 8.4 mg/dL (8.5-10.1) L 05/08/20 05:00 Ferritin 2895 ng/mL (26-388) H 05/08/20 05:00 AST 75 U/L (15-37) H 05/08/20 05:00 ALT 87 U/L (16-61) H 05/08/20 05:00 Lactate Dehydrogenase 422 U/L (87-241) H 05/08/20 05:00 C-React Prot Ext Range 72.80 mg/L (0.0-3.0) H 05/08/20 05:00 Globulin 4.7 g/dL (2.2-4.2) H 05/08/20 05:00 - Assessment Food / Nutrition-Related History:: Pt currently in isolation d/t COVID-19. Spoke w/ pt via room phone. Pt reports decreased appetite w/ poor PO intake for 11 days [employer]. Describes fair intake at lunch and breakfast this date; believes appetite is improving. UBW 235-240#. CBW 231.7#, suggesting a 3.3-8.3# (1.4-3.4%) wt loss <2 weeks, significant for malnutrition. No special diet followed normally at home. - Nutrition Diagnosis Problem / Etiology / Signs & Symptoms (PES):: Pt w/ moderate, acute malnutrition related to inadequate energy intake w/ COVID-19 illness as evidenced by estimated 3.3-8.3# (1.4-3.4%) wt loss <2 weeks, estimated PO intake meeting less than 75% of pt's estimated needs over past 1 week. Evidence of Malnutrition Exists:: Yes Moderate PCM:: Acute Illness - Nutrition Intervention Nutrition Prescription:: [id number] calories, 80-90 g protein/day - Food / Nutrient Delivery Interventions Summary of nutrition intervention:: Discussed available ONS- pt declines supplements at this time; feels appetite/intake is much improved compared to previous. Aware RDN available to provide ONS if requested. Nutrition support ordered as / adjusted to:: continue regular diet as tolerated - MNT Monitoring Further MNT monitoring and evaluation required?: Yes MNT Follow-up in:: 3-5 days
--- NOTE | 2020-05-08 15:26 | CASEMGMT ---
RN CM Assessment Note Intro role of CM to patient via phone to room. the patient states he is independent at home, no care needs. His was tested and is negative. They have been isolating in the home. Patient states family is able to provide shopping, etc if needed, and neighbors drop groceries off at the door for us. No concerns at this time re: dc. Pt is able to contact PCP for f/u visit on dc. Diagnosis: COVID PCP: Dr. Paul De La Torre Specialists: none Insurance: Colleen Cam Pharmacy: [facility] Prescription Benefit: ues LNOK: , [place] Living Arrangements: lives independently. No care needs. Tranportation: drives DME: none. If oxygen needed, [facility] reviewed with patient via phone including [employer] having hospital affiliation. Patient DC Goals: HOME DC Plan: Anticipate Home on discharge. Recommend oxygen testing at rest and with ambulation prior to dc. CM available for discharge planning coordination. Contact CM for any concerns/needs that may arise. Danielle ARVIZU RN ACM
--- NOTE | 2020-05-08 15:26 | NURSING ---
Pt resting in bed. denies needs at this time.
--- NOTE | 2020-05-08 15:28 | CON.PCM_ITS ---
Problem List (1) Chronic ulcer of left foot with fat layer exposed Status: Chronic (2) Charcot-Rocio disease Status: Chronic (3) Coronavirus infection Status: Acute (4) Interstitial pneumonitis Status: Acute (5) Hypoxia Status: Acute (6) COVID-19 Status: Acute Reason for Consult Date of Consultation: 05/08/20 Reason for Consultation: COVID-19 History of Present Illness: The patient is a 50 year old M, with past medical history listed below, who presented to [facility] on 05/08/2020 secondary to progressive shortness of breath. Patient had tested positive for COVID-19 on April 30 and had been reporting fevers for the last 11 days. Patient has been using Tylenol and ibuprofen symptomatically. However, patient reportedly had noted that he had become hypoxic at home at 87%, so came into the hospital for evaluation. Patient denies any history of lung disease such as asthma, COPD or interstitial lung disease. Patient stated that he is currently on day 10 of a prednisone taper. In the ER, patient was given albuterol, but required supplemental oxygen to maintain saturations. Lab work and chest x-ray were obtained and were relatively unremarkable except for bilateral infiltrates on the chest x-ray. EKG showed normal sinus rhythm without ST changes. Patient was admitted to the floor for further evaluation. Patient reports he feels significantly improved following addition of sup plemental oxygen. Patient is still feeling an overall sense of weakness, but feels that the oxygen is helping. Patient denies any previous pulmonary function test, but is unaware of any underlying lung disease. 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 Patient denies a history of smoking, but it is documented intermittently in the patient's record. Patient is not having any significant cough at this time. Review of systems otherwise negative from a constitutional, HEENT, respiratory, cardiovascular, GI, genitourinary, musculoskeletal, skin, neurologic, psychiatric and hematologic system unless stated above. 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 Psychiatric History: No pertinent psych hx Lives: Spouse/ Significant Other Smoking Status: Former smoker Tobacco Use: Non-smoker Alcohol: None Drugs: None - *Family History Maternal History Items: Hypertension Paternal History Items: Diabetes Review of Systems Comment: See HPI Patient Problems: Active and Suspected Problems Infection of left foot (Suspected) Coronavirus infection (Acute) Interstitial pneumonitis (Acute) Hypoxia (Acute) COVID-19 (Acute) - Physical Exam Vitals/I&O's: Vital Signs Temp Pulse Resp BP Pulse Ox 37.2 C 78 18 123/64 H 94 05/08/20 15:00 05/08/20 15:00 05/08/20 15:00 05/08/20 15:00 05/08/20 15:00 Oxygen Flow Rate (L/min) 2 Oxygen Delivery Method Nasal Cannula Weight: 105.1 kg Body Mass Index (BMI) 35.1 General: Alert, Oriented x3, Cooperative, No apparent distress, Well developed, Well nourished, - - No conversational dyspnea HEENT: Atraumatic, PERRLA, EOMI, Normocephalic, - - No scleral icterus or injection noted Oral: Moist Mucosa, No Gingival or Mucosal Lesions/ Ulcerations Neck: Supple, No JVD, No Nodes, Trachea Midline Lungs: Clear to auscultation, Normal air movement, No rhonchi, No wheeze, No rales, - - Symmetric expansion. No dullness to percussion. Cardiovascular: Regular rate, Regular Rhythm, Normal S1, Normal S2, No murmurs, No rub noted, No Gallop Abdomen: Bowel Sounds Present, Soft, Non-Distended, Tender - Slightly, but no rebound or guarding Extremities: No clubbing, No cyanosis, No edema Musculoskeletal: No Tenderness to Palpation of Joints or Extremities Lymphatic: No Cervical, Supraclavicular, or Inguinal Adenopathy Neurological: Cranial nerves II-XII grossly intact, Neuro grossly intact, Motor Exam 5/5 strength throughout Psych/Mental Status: Alert and oriented to time, place, person, mood and affect Microbiology Past 72 Hours 05/08/20 10:55 Urine, Clean Catch Legionella Antigen - Final 05/08/20 10:55 Urine, Clean Catch Streptococcus pneumoniae Antigen (M - Final 05/08/20 09:15 Mucosa - Nasopharyngeal Respiratory Panel (PCR) - Final Laboratory Results 05/08/20 05:00: WBC 7.3, RBC 5.69, Hgb 16.7 H, Hct 51.8, MCV 91.0, MCH 29.3, MCHC 32.2, RDW Std Deviation 46.4 H, RDW Coeff of Do 13.7, Plt Count 211, MPV 9.9, Immature Gran % (Auto) 0.300, Neut % (Auto) 81.1 H, Lymph % (Auto) 14.7 L, Bledsoe % (Auto) 3.8, Eos % (Auto) 0.0, Baso % (Auto) 0.1, Absolute Neuts (auto) 5. 9, Absolute Lymphs (auto) 1.07, Nucleated RBC % 0 05/08/20 05:00: Sodium 136, Potassium 3.7, Chloride 103, Carbon Dioxide 25.0, Anion Gap 8, BUN 11, Creatinine 0.85, Estim Creat Clear Calc 100.59, Est GFR (MDRD) Af Amer 123, Est GFR (MDRD) Non-Af 102, BUN/Creatinine Ratio 13.0, Glucose 95, Calcium 8.4 L 05/08/20 05:00: Magnesium 2.2, Ferritin 2895 H, Lactate Dehydrogenase 422 H, C- React Prot Ext Range 72.80 H 05/08/20 05:00: Procalcitonin < 0.04 05/08/20 05:00: D-Dimer Quant (PE/DVT) 1.00 H* 05/08/20 05:00: Total Bilirubin 0.60, Direct Bilirubin 0.25, AST 75 H, ALT 87 H, Alkaline Phosphatase 107, Total Protein 8.0, Albumin 3.3, Globulin 4.7 H Current Medications Acetaminophen (Acetaminophen 325 Mg Tablet) 650 mg PO Q6H PRN PRN PRN Reason: Pain Score 1-10/Temp > 100.7 F Allopurinol (Allopurinol 100 Mg Tablet) 100 mg PO BID [facility] Last Admin: 05/08/20 13:14 Dose: 100 mg Documented by: Apixaban (Apixaban 5 Mg Tablet) 10 mg PO BID [facility] Last Admin: 05/08/20 13:13 Dose: 10 mg Documented by: Ascorbic Acid (Ascorbic Acid 500 Mg Tablet) 1,000 mg PO BID [facility] Last Admin: 05/08/20 13:14 Dose: 1,000 mg Documented by: Dexamethasone Sodium Phosphate (Dexamethasone 10 Mg/Ml Vial) 6 mg IV Q24 [facility] Stop: 05/17/20 10:01 Last Admin: 05/08/20 09:38 Dose: 6 mg Documented by: Fluticasone Propionate (Fluticasone 0.05% 1 [facility] Nasal.Sry) 1 spray NASAL BID [facility] Last Admin: 05/08/20 09:41 Dose: 1 spray Documented by: Hydralazine HCl (Hydralazine 20 Mg/Ml Vial) 10 mg IV Q4H PRN PRN PRN Reason: SBP > 160 Sodium Chloride () 1,000 mls @ 100 mls/hr IV .Q10H [facility] Stop: 05/08/20 18:02 Last Admin: 05/08/20 09:36 Dose: 100 mls/hr Documented by: Sodium Chloride () 250 mls @ 15 mls/hr IV .[id number] PRN PRN Reason: Saline Flush Sodium Chloride () 250 mls @ 15 mls/hr IV .[id number] PRN PRN Reason: Additional IVPB Infusion Ondansetron HCl (Ondansetron 4 Mg/2 Ml Vial) 4 mg IV Q8H PRN PRN PRN Reason: NAUSEA/VOMITING Sodium Chloride (0.9% Saline Lock 10 Ml Syringe) 10 - 40 ml IV UD PRN PRN Reason: SALINE FLUSH Clinical Impression(s) from Imaging Studies Chest X-Ray 05/08/20 05:28 IMPRESSION: Ill-defined subpleural groundglass opacities are seen more prominent in the lung bases , may represent atypical pneumonia or viral pneumonia (COVID-19 ?). Electronically Signed: Orquidea Ramsay, at 6:10 EST Tel , Service support , Chest CTA 05/08/20 09:55 IMPRESSION: Scattered filling defects in branches of the upper lobe and lower lobe pulmonary arterial branches in comparison with the pulmonary emboli. Diffuse bilateral airspace disease in keeping with the findings of Covid 19 infection. Electronically Signed: Lionel Menjivar, at 11:12 EST , Service support , Assessment/Plan All Active Problems Coronavirus infection (Acute) Interstitial pneumonitis (Acute) Hypoxia (Acute) COVID-19 (Acute) RECOMMENDATIONS: 1. Symptomatic therapy for fever 2. Continue anticoagulation for 3 to 6 months 3. Hold on antibiotics and remdesivir 4. Wean oxygen as tolerated 5. Monitor for complications of Decadron therapy IMPRESSIONS: 1. Acute hypoxic respiratory insufficiency Multifactorial etiology. Review of the CT scan shows groundglass opacities consistent with COVID-19 infection. Patient also has small bilateral pulmonary emboli noted. Patient is appropriately on anticoagulation at this time. Patient has been placed on Decadron therapy. We will have to monitor for complications such as hypertension and hyperglycemia. Wean oxygen as tolerated. Patient will need a walking oximetry prior to discharge. Unclear if patient requires outpatient pulmonary function testing for quantification clarification of lung function. 2. Hypertension Unclear etiology. Patient was recently placed on steroid therapy, which could be adding to current situation. Patient also has been stressed secondary to hypoxia related to #1. Continue to monitor. Unclear if p.o. medications need to be initiated. 3. Allergic rhinitis/gout/possible asbestos exposure Uppercase care, management, recovery and prognosis. Okay to continue with baseline medications. Inpatient E&M: 06054 Init Hosp L2
[2020-05-09] VITALS (13 sets, daily range): BP systolic 126–165; BP diastolic 70–94; PULSE 72–83; RESP 16–28; TEMP 36.7–37.9; O2SAT 82–96
[2020-05-09] MEDS: Acetaminophen 325 MG Tablet 650 MG PO ×4 (02:36→21:41)
[2020-05-09 06:12] LABS: Absolute Lymphocyte Count 0.66 X10^3/uL (0.83-4.51); Absolute Neutrophil Count 7.5 X10^3/uL (2.0-7.7); Basophil# 0.02 X10^3/uL; Basophil% 0.2 % (0-1); Hematocrit 47.3 % (40-54); Hemoglobin 15.4 g/dL (13.0-16.5); Lymphocyte # 0.66 X10^3/ul (4.0); Lymphocyte % 7.7 % (19-41); Mean Corp Hgb Conc 32.6 g/dL (32-36); Mean Corpuscular Hgb 29.8 pg (27.0-32.0); Mean Corpuscular Volume 91.5 fL (80-94); Mean Platelet Vol. 9.6 fl (6.2-12.0); Monocyte# 0.38 X10^3/uL; Monocyte% 4.4 % (0-10); NRBC Flagged by Analyzer 0 % (0-5); Neutrophil % 87.1 % (47-70); Platelet Count 234 K/mm3 (150-450); RBC Distribution Width CV 13.7 % (11.6-14.6); RBC Distribution Width SD 46.6 fl (35.1-43.9); Red Blood Count 5.17 M/mm3 (4.6-6.2); White Blood Count 8.6 K/mm3 (4.4-11.0)
[2020-05-09 06:36] LABS: ALB/GLOB Ratio 0.7 RATIO (0.9-2.4); AST(SGOT) 63 U/L (15-37); Alanine Aminotransfer ALT/SGPT 72 U/L (16-61); Albumin, Serum 2.8 g/dL (3.2-5.0); Alkaline Phosphatase 91 U/L (45-117); Anion Gap 8 (5-15); BUN 13 mg/dL (7-18); BUN/Creat Ratio 19.8 RATIO (10-20); Chloride 108 mmol/L (98-107); Creatinine, Serum 0.66 mg/dL (0.70-1.30); EST Glomerular Filtration Rate 136 mL/min (>60); Est Glom Filt Rate - Afr Amer 165 mL/min (>60); Estimated Creatinine Clearance 129.55 ml/min; Globulin 4.3 g/dL (2.2-4.2); Glucose 105 mg/dL (74-106); Potassium 3.7 mmol/L (3.5-5.1); Protein, Total 7.1 g/dL (6.4-8.2); Sodium Level 138 mmol/L (136-145)
[2020-05-09] MEDS: Ascorbic Acid 500 MG Tablet 1000 MG PO ×2 (09:27→21:42)
[2020-05-09] MEDS: Allopurinol 100 MG Tablet PO ×2 (09:28→21:42)
[2020-05-09] MEDS: dexAMETHasone 10 MG/ML Vial 6 MG IV (09:31)
[2020-05-09] MEDS: Fluticasone 0.05% 1 SPRAY NASAL.SRY NASAL (09:36)
[2020-05-09] MEDS: APIXABAN 5 MG TABLET 10 MG PO ×2 (09:42→21:42)
--- NOTE | 2020-05-09 14:40 | PCM.PN.HOSP ---
Patient Problems: Active and Suspected Problems Infection of left foot (Suspected) Coronavirus infection (Acute) Interstitial pneumonitis (Acute) Hypoxia (Acute) COVID-19 (Acute) Subjective: Patient overnight with increased dyspnea and oxygen requirements. He states he feels similar to when he initially presented with fatigue, malaise, occasional loose stool, cough and worsened dyspnea. Patient oxygenation assessment today with required 4 L for any activity with noted 82% ambulating on room air, 89% resting on room air and 93% on 4 L nasal cannula ambulating but prior to this had been 87% on room air at initial assessment. Patient had been initially considering convalescent plasma and per discussions with pulmonary medicine given patient status noted intention to re-discuss with infectious disease and initiate. Patient denies fevers, chills, nausea, emesis, abdominal pain, chest pain. Objective: Physical Examination: General: awake, alert, oriented x 3 and cooperative, seated upright in the medical surgical Covid unit bed, fatigued appearance, more so than even admission presentation. Skin: normal color, turgor, no icterus, cyanosis. HEENT: AT/NC, EOMI, PERRLA, dry MM. Lungs: Diminished breath sounds, greater bases, mildly improved effort despite complaints, no rales, ronchi or wheezing. Heart: Improved, regular rate and regular rhythm; no gallop, rub audible. Abdomen: soft, mild generalized discomfort TTP, ND, mildly hyperactive BS, no HSM. Extremities: no cyanosis, clubbing, or edema. Neurological: patient awake, alert, oriented x 3; cognitive function intact; pupils equally reactive to light and accomodation; cranial nerves II-XII grossly normal, moving all 4 extremities, no focal deficits, strength remains moderately to severely decreased secondary to acute presentation. Psychiatric: affect appears similarly fatigued, no acute evidence of depressive or anxiety feelings. Vitals/I&O's: Vital Signs Temp Pulse Resp BP Pulse Ox 98.8 F 83 24 H 126/70 H 94 05/09/20 12:07 05/09/20 12:07 05/09/20 12:07 05/09/20 12:07 05/09/20 12:07 Oxygen Flow Rate (L/min) [ 4 AMBULATION with Oxygen] Oxygen Flow Rate (L/min) [ 0 AMBULATING on Room Air] Oxygen Flow Rate (L/min) [At 0 REST on Room Air] Oxygen Flow Rate (L/min) 4 Oxygen Delivery Method Nasal Cannula Weight: 231 lb 11.293 oz Body Mass Index (BMI) 35.1 Intake and Output for Last 24 Hours 05/07/20 05/08/20 05/09/20 23:59 23:59 23:59 Intake Total 1000 / 1120 480 / 480 Output Total 3 / 3 Balance 1000 / 1120 477 / 477 Microbiology Past 72 Hours 05/08/20 09:50 Sputum, Expectorated/Coughed Gram Stain - Final 05/08/20 09:50 Sputum, Expectorated/Coughed Respiratory Culture - Preliminary Appears to be normal respiratory dary. Further studies to follow. 05/08/20 10:55 Urine, Clean Catch Legionella Antigen - Final 05/08/20 10:55 Urine, Clean Catch Streptococcus pneumoniae Antigen (M - Final 05/08/20 09:15 Mucosa - Nasopharyngeal Respiratory Panel (PCR) - Final Laboratory Results 05/08/20 05:00: Total Bilirubin 0.60, Direct Bilirubin 0.25, AST 75 H, ALT 87 H, Alkaline Phosphatase 107, Total Protein 8.0, Albumin 3.3, Globulin 4.7 H 05/09/20 05:58: WBC 8.6, RBC 5.17, Hgb 15.4, Hct 47.3, MCV 91.5, MCH 29.8, MCHC 32.6, RDW Std Deviation 46.6 H, RDW Coeff of Do 13.7, Plt Count 234, MPV 9.6, Immature Gran % (Auto) 0.600, Neut % (Auto) 87.1 H, Lymph % (Auto) 7.7 L, [place] % (Auto) 4.4, Eos % (Auto) 0.0, Baso % (Auto) 0.2, Absolute Neuts (auto) 7.5, Absolute Lymphs (auto) 0.66 L, Nucleated RBC % 0 05/09/20 05:58: Sodium 138, Potassium 3.7, Chloride 108 H, Carbon Dioxide 22.0, Anion Gap 8, BUN 13, Creatinine 0.66 L, Estim Creat Clear Calc 129.55, Est GFR (MDRD) Af Amer 165, Est GFR (MDRD) Non-Af 136, BUN/Creatinine Ratio 19.8, Glucose 105, Calcium 8.0 L, Total Bilirubin 0.50, AST 63 H, ALT 72 H, Alkaline Phosphatase 91, Total Protein 7.1, Albumin 2.8 L, Globulin 4.3 H, Albumin/Globulin Ratio 0.7 L Current Medications Acetaminophen (Acetaminophen 325 Mg Tablet) 650 mg PO Q6H PRN PRN PRN Reason: Pain Score 1-10/Temp > 100.7 F Last Admin: 05/09/20 09:28 Dose: 650 mg Documented by: Allopurinol (Allopurinol 100 Mg Tablet) 100 mg PO BID [facility] Last Admin: 05/09/20 09:28 Dose: 100 mg Documented by: Apixaban (Apixaban 5 Mg Tablet) 10 mg PO BID [facility] Last Admin: 05/09/20 09:42 Dose: 10 mg Documented by: Ascorbic Acid (Ascorbic Acid 500 Mg Tablet) 1,000 mg PO BID [facility] Last Admin: 05/09/20 09:27 Dose: 1,000 mg Documented by: Dexamethasone Sodium Phosphate (Dexamethasone 10 Mg/Ml Vial) 6 mg IV Q24 [facility] Stop: 05/17/20 10:01 Last Admin: 05/09/20 09:31 Dose: 6 mg Documented by: Diphenoxylate HCl/Atropine (Diphenoxylate/Atrop 1 Tablet) 2 tablet PO 4X/DAY PRN PRN PRN Reason: Diarrhea Fluticasone Propionate (Fluticasone 0.05% 1 [place] Nasal.Sry) 1 spray NASAL BID [facility] Last Admin: 05/09/20 09:36 Dose: 1 spray Documented by: Hydralazine HCl (Hydralazine 20 Mg/Ml Vial) 10 mg IV Q4H PRN PRN PRN Reason: SBP > 160 Sodium Chloride () 250 mls @ 15 mls/hr IV .[id number] PRN PRN Reason: Saline Flush Sodium Chloride () 250 mls @ 15 mls/hr IV .[id number] PRN PRN Reason: Additional IVPB Infusion Ondansetron HCl (Ondansetron 4 Mg/2 Ml Vial) 4 mg IV Q8H PRN PRN PRN Reason: NAUSEA/VOMITING Sodium Chloride (0.9% Saline Lock 10 Ml Syringe) 10 - 40 ml IV UD PRN PRN Reason: SALINE FLUSH STROKE Vital Signs/Narrative: Vital Signs Temp Pulse Resp BP Pulse Ox 05/09/20 12:07 98.8 F 83 24 H 126/70 H 94 Medical Necessity - Tobacco Use Smoking Status: Former smoker Tobacco Use: Non-smoker Assessment/Plan All Active Problems Coronavirus infection (Acute) Interstitial pneumonitis (Acute) Hypoxia (Acute) COVID-19 (Acute) The patient is a 50 y/o M w/ PMHx: Allergic Rhinitis, Gout who presents to the [facility] ED on 05/08/20 with history of onset of symptoms on 04/27/2020 including headache, cough, dyspnea, alteration to his taste noting that several things tasted severely salty, nausea without emesis, body aches and fevers, worsening with increasing dyspnea prompting eventual ED presentation for evaluation. 1. Acute Hypoxia, Dyspnea, Cough, Fever with Bilateral Pneumonia secondary to Acute Viral Syndrome, COVID-19, complicated by Acute BL Pulmonary Emboli: Patient with hypoxia upon presentation, ED evaluation with chest x-ray consistent with COVID pneumonia, CBC not marked appearing, BMP not marked appearing, admitted to the COVID unit, maintained on oxygen with wean as tolerated to room air patient has continued increasing oxygenation needs, both infectious disease and pulmonary medicine following, per discussion with pulmonary medicine may need to be reconsidered for consideration convalescent plasma. Will defer these decisions to infectious disease. Initial Covid panel order set with ferritin 2095, LDH 422, CRP 72.8, procalcitonin less than 0.04, D-dimer 1.0 with follow-up CTPA obtained notable for scattered filling defects in the branches of the upper and lower lobe pulmonary artery branches consistent with pulmonary emboli, diffuse bilateral airspace disease in keeping with findings of COVID-19 infection initiated and continued on therapeutic Eliquis regimen. Legionella and streptococcal antigens negative. Respiratory viral panel negative. Continue supportive care, head of bed, encourage I-S, every 2 hours turning, judicious hydration, closely monitor for worsening status for ARDS and multiorgan failure. Pending type and screen. 2. Elevated BP without hypertensive diagnosis: ED presentation with elevated BPs above goal, normalized since presentation, IV hydralazine in interim. 3. Allergic rhinitis: We will continue patient home fluticasone regimen. 4. Gout: We will continue patient home allopurinol regimen. 5. DVT prophylaxis: SCDs, Eliquis therapeutic regimen. Inpatient E&M: [id number] [facility] Hosp L2
[2020-05-09] MEDS: Diphenoxylate/Atrop 1 Tablet 2 TABLET PO (15:05)
--- NOTE | 2020-05-09 15:48 | PCM.PN.PUL ---
Patient Problems: Active and Suspected Problems Infection of left foot (Suspected) Coronavirus infection (Acute) Interstitial pneumonitis (Acute) Hypoxia (Acute) COVID-19 (Acute) Subjective: Patient did okay overnight. Patient was slightly irritated that he had gone up to 4 L nasal cannula during the day. Patient did not have an incentive spirometer at the bedside. Patient also states that he had thought about the convalescent serum and would like to receive it if it was still an option. - Physical Exam Vitals/I&O's: Vital Signs Temp Pulse Resp BP Pulse Ox 37.3 C H 80 18 146/94 H 94 05/09/20 15:01 05/09/20 15:01 05/09/20 15:01 05/09/20 15:01 05/09/20 15:01 Oxygen Flow Rate (L/min) [ 4 AMBULATION with Oxygen] Oxygen Flow Rate (L/min) [ 0 AMBULATING on Room Air] Oxygen Flow Rate (L/min) [At 0 REST on Room Air] Oxygen Flow Rate (L/min) 4 Oxygen Delivery Method Nasal Cannula Weight: 105.1 kg Body Mass Index (BMI) 35.1 Intake and Output for Last 24 Hours 05/07/20 05/08/20 05/09/20 23:59 23:59 23:59 Intake Total 1000 / 1120 480 / 480 Output Total 3 / 3 Balance 1000 / 1120 477 / 477 General: Alert, Oriented x3, Cooperative, No apparent distress, Well developed, Well nourished, - - No conversational dyspnea. Nasal cannula in place. HEENT: Atraumatic, PERRLA, EOMI, Normocephalic, - - No scleral icterus or injection noted Oral: Moist Mucosa, No Gingival or Mucosal Lesions/ Ulcerations Neck: Supple, No JVD, No Nodes, Trachea Midline Lungs: No rhonchi, No wheeze, No rales, Diminished Cardiovascular: Regular rate, Regular Rhythm, Normal S1, Normal S2, No murmurs, No rub noted, No Gallop Abdomen: Bowel Sounds Present, Soft, Non Tender, Non-Distended Extremities: No clubbing, No cyanosis, No edema Skin: No rashes, No breakdown Musculoskeletal: No Tenderness to Palpation of Joints or Extremities Lymphatic: No Cervical, Supraclavicular, or Inguinal Adenopathy Neurological: Cranial nerves II-XII grossly intact, Neuro grossly intact, Motor Exam 5/5 strength throughout Psych/Mental Status: Alert and oriented to time, place, person, mood and affect Microbiology Past 72 Hours 05/08/20 09:50 Sputum, Expectorated/Coughed Gram Stain - Final 05/08/20 09:50 Sputum, Expectorated/Coughed Respiratory Culture - Preliminary Appears to be normal respiratory dary. Further studies to follow. 05/08/20 10:55 Urine, Clean Catch Legionella Antigen - Final 05/08/20 10:55 Urine, Clean Catch Streptococcus pneumoniae Antigen (M - Final 05/08/20 09:15 Mucosa - Nasopharyngeal Respiratory Panel (PCR) - Final Laboratory Results 05/09/20 05:58: WBC 8.6, RBC 5.17, Hgb 15.4, Hct 47.3, MCV 91.5, MCH 29.8, MCHC 32.6, RDW Std Deviation 46.6 H, RDW Coeff of Do 13.7, Plt Count 234, MPV 9.6, Immature Gran % (Auto) 0.600, Neut % (Auto) 87.1 H, Lymph % (Auto) 7.7 L, [place] % (Auto) 4.4, Eos % (Auto) 0.0, Baso % (Auto) 0.2, Absolute Neuts (auto) 7.5, Absolute Lymphs (auto) 0.66 L, Nucleated RBC % 0 05/09/20 05:58: Sodium 138, Potassium 3.7, Chloride 108 H, Carbon Dioxide 22.0, Anion Gap 8, BUN 13, Creatinine 0.66 L, Estim Creat Clear Calc 129.55, Est GFR (MDRD) Af Amer 165, Est GFR (MDRD) Non-Af 136, BUN/Creatinine Ratio 19.8, Glucose 105, Calcium 8.0 L, Total Bilirubin 0.50, AST 63 H, ALT 72 H, Alkaline Phosphatase 91, Total Protein 7.1, Albumin 2.8 L, Globulin 4.3 H, Albumin/Globulin Ratio 0.7 L 05/09/20 15:00: Blood Type Pending, Antibody Screen Pending Current Medications Acetaminophen (Acetaminophen 325 Mg Tablet) 650 mg PO Q6H PRN PRN PRN Reason: Pain Score 1-10/Temp > 100.7 F Last Admin: 05/09/20 15:28 Dose: 650 mg Documented by: Allopurinol (Allopurinol 100 Mg Tablet) 100 mg PO BID [facility] Last Admin: 05/09/20 09:28 Dose: 100 mg Documented by: Apixaban (Apixaban 5 Mg Tablet) 10 mg PO BID [facility] Last Admin: 05/09/20 09:42 Dose: 10 mg Documented by: Ascorbic Acid (Ascorbic Acid 500 Mg Tablet) 1,000 mg PO BID [facility] Last Admin: 05/09/20 09:27 Dose: 1,000 mg Documented by: Dexamethasone Sodium Phosphate (Dexamethasone 10 Mg/Ml Vial) 6 mg IV Q24 [facility] Stop: 05/17/20 10:01 Last Admin: 05/09/20 09:31 Dose: 6 mg Documented by: Diphenoxylate HCl/Atropine (Diphenoxylate/Atrop 1 Tablet) 2 tablet PO 4X/DAY PRN PRN PRN Reason: Diarrhea Last Admin: 05/09/20 15:05 Dose: 2 tablet Documented by: Fluticasone Propionate (Fluticasone 0.05% 1 [place] Nasal.Sry) 1 spray NASAL BID [facility] Last Admin: 05/09/20 09:36 Dose: 1 spray Documented by: Hydralazine HCl (Hydralazine 20 Mg/Ml Vial) 10 mg IV Q4H PRN PRN PRN Reason: SBP > 160 Sodium Chloride () 250 mls @ 15 mls/hr IV .[id number] PRN PRN Reason: Saline Flush Sodium Chloride () 250 mls @ 15 mls/hr IV .[id number] PRN PRN Reason: Additional IVPB Infusion Ondansetron HCl (Ondansetron 4 Mg/2 Ml Vial) 4 mg IV Q8H PRN PRN PRN Reason: NAUSEA/VOMITING Sodium Chloride (0.9% Saline Lock 10 Ml Syringe) 10 - 40 ml IV UD PRN PRN Reason: SALINE FLUSH Medical Necessity - Tobacco Use Smoking Status: Former smoker Tobacco Use: Non-smoker Assessment/Plan All Active Problems Coronavirus infection (Acute) Interstitial pneumonitis (Acute) Hypoxia (Acute) COVID-19 (Acute) RECOMMENDATIONS: 1. Symptomatic therapy for fever 2. Continue anticoagulation for 3 to 6 months 3. Okay to use convalescent serum from my perspective 4. Wean oxygen as tolerated 5. Monitor for complications of Decadron therapy IMPRESSIONS: 1. Acute hypoxic respiratory insufficiency Multifactorial etiology. Review of the CT scan shows groundglass opacities consistent with COVID-19 infection. Patient also has small bilateral pulmonary emboli noted. Patient is appropriately on anticoagulation at this time. Patient has been placed on Decadron therapy. We will have to monitor for complications such as hypertension and hyperglycemia. Wean oxygen as tolerated. Patient will need a walking oximetry prior to discharge. I would be okay with patient receiving convalescent serum as he understands that it may be late in the course and of little benefit. However, harm would be unlikely. Patient was given an incentive spirometer. Do anticipate some improvement in oxygenation following initiation of anticoagulation. 2. Hypertension Unclear etiology. Patient was recently placed on steroid therapy, which could be adding to current situation. Patient also has been stressed secondary to hypoxia related to #1. Continue to monitor. Unclear if p.o. medications need to be initiated. 3. Allergic rhinitis/gout/possible asbestos exposure Uppercase care, management, recovery and prognosis. Okay to continue with baseline medications. Inpatient E&M: 11159 Subs Hosp L2
--- NOTE | 2020-05-09 16:24 | PN.ID_ITS ---
Patient Problems: Active and Suspected Problems Infection of left foot (Suspected) Coronavirus infection (Acute) Interstitial pneumonitis (Acute) Hypoxia (Acute) COVID-19 (Acute) Subjective: Not feeling any better, still with some aches, chills, dyspnea, cough, diarrhea. - Physical Exam Vitals/I&O's: Vital Signs Temp Pulse Resp BP Pulse Ox 99.2 F H 80 18 146/94 H 94 05/09/20 15:01 05/09/20 15:01 05/09/20 15:01 05/09/20 15:01 05/09/20 15:01 Oxygen Flow Rate (L/min) [ 4 AMBULATION with Oxygen] Oxygen Flow Rate (L/min) [ 0 AMBULATING on Room Air] Oxygen Flow Rate (L/min) [At 0 REST on Room Air] Oxygen Flow Rate (L/min) 4 Oxygen Delivery Method Nasal Cannula Weight: 105.1 kg Body Mass Index (BMI) 35.1 Intake and Output for Last 24 Hours 05/07/20 05/08/20 05/09/20 23:59 23:59 23:59 Intake Total 1000 / 1120 480 / 480 Output Total 3 / 3 Balance 1000 / 1120 477 / 477 General: Alert, Cooperative, No apparent distress Lungs: Diminished Cardiovascular: Regular rate, Regular Rhythm Abdomen: Soft, Non Tender, Non-Distended Skin: No rashes Microbiology Past 72 Hours 05/08/20 09:50 Sputum, Expectorated/Coughed Gram Stain - Final 05/08/20 09:50 Sputum, Expectorated/Coughed Respiratory Culture - Preliminary Appears to be normal respiratory dary. Further studies to follow. 05/08/20 10:55 Urine, Clean Catch Legionella Antigen - Final 05/08/20 10:55 Urine, Clean Catch Streptococcus pneumoniae Antigen (M - Final 05/08/20 09:15 Mucosa - Nasopharyngeal Respiratory Panel (PCR) - Final Laboratory Results 05/09/20 05:58: WBC 8.6, RBC 5.17, Hgb 15.4, Hct 47.3, MCV 91.5, MCH 29.8, MCHC 32.6, RDW Std Deviation 46.6 H, RDW Coeff of Do 13.7, Plt Count 234, MPV 9.6, Immature Gran % (Auto) 0.600, Neut % (Auto) 87.1 H, Lymph % (Auto) 7.7 L, [place] % (Auto) 4.4, Eos % (Auto) 0.0, Baso % (Auto) 0.2, Absolute Neuts (auto) 7.5, Absolute Lymphs (auto) 0.66 L, Nucleated RBC % 0 05/09/20 05:58: Sodium 138, Potassium 3.7, Chloride 108 H, Carbon Dioxide 22.0, Anion Gap 8, BUN 13, Creatinine 0.66 L, Estim Creat Clear Calc 129.55, Est GFR (MDRD) Af Amer 165, Est GFR (MDRD) Non-Af 136, BUN/Creatinine Ratio 19.8, Glucose 105, Calcium 8.0 L, Total Bilirubin 0.50, AST 63 H, ALT 72 H, Alkaline Phosphatase 91, Total Protein 7.1, Albumin 2.8 L, Globulin 4.3 H, Albumin/Globulin Ratio 0.7 L 05/09/20 15:00: Blood Type Pending, Antibody Screen Pending Current Medications Acetaminophen (Acetaminophen 325 Mg Tablet) 650 mg PO Q6H PRN PRN PRN Reason: Pain Score 1-10/Temp > 100.7 F Last Admin: 05/09/20 15:28 Dose: 650 mg Documented by: Allopurinol (Allopurinol 100 Mg Tablet) 100 mg PO BID [facility] Last Admin: 05/09/20 09:28 Dose: 100 mg Documented by: Apixaban (Apixaban 5 Mg Tablet) 10 mg PO BID [facility] Last Admin: 05/09/20 09:42 Dose: 10 mg Documented by: Ascorbic Acid (Ascorbic Acid 500 Mg Tablet) 1,000 mg PO BID [facility] Last Admin: 05/09/20 09:27 Dose: 1,000 mg Documented by: Dexamethasone Sodium Phosphate (Dexamethasone 10 Mg/Ml Vial) 6 mg IV Q24 [facility] Stop: 05/17/20 10:01 Last Admin: 05/09/20 09:31 Dose: 6 mg Documented by: Diphenoxylate HCl/Atropine (Diphenoxylate/Atrop 1 Tablet) 2 tablet PO 4X/DAY PRN PRN PRN Reason: Diarrhea Last Admin: 05/09/20 15:05 Dose: 2 tablet Documented by: Fluticasone Propionate (Fluticasone 0.05% 1 [place] Nasal.Sry) 1 spray NASAL BID [facility] Last Admin: 05/09/20 09:36 Dose: 1 spray Documented by: Hydralazine HCl (Hydralazine 20 Mg/Ml Vial) 10 mg IV Q4H PRN PRN PRN Reason: SBP > 160 Sodium Chloride () 250 mls @ 15 mls/hr IV .[id number] PRN PRN Reason: Saline Flush Sodium Chloride () 250 mls @ 15 mls/hr IV .[id number] PRN PRN Reason: Additional IVPB Infusion Ondansetron HCl (Ondansetron 4 Mg/2 Ml Vial) 4 mg IV Q8H PRN PRN PRN Reason: NAUSEA/VOMITING Sodium Chloride (0.9% Saline Lock 10 Ml Syringe) 10 - 40 ml IV UD PRN PRN Reason: SALINE FLUSH Medical Necessity - Tobacco Use Smoking Status: Former smoker Tobacco Use: Non-smoker Route of nutrition/ use of supplements: [] Nutritional Intake: [] IV Site: [] [place] Catheter: [] - Assessment/Plan Antibiotics: [] Assessment/Plan: [] Active and Suspected Problems Infection of left foot (Suspected) Coronavirus infection (Acute) Interstitial pneumonitis (Acute) Hypoxia (Acute) Fever to 102.4 on admit. On dex, lovenox bid. Ongoing symptoms concerning for persistent viral replication. Will start remdesivir. Reviewed EUA and discussed risks and benefits of convalescent plasma, pt consents to treatment, will order. Will follow
[2020-05-09] MEDS: 0.9% Saline Lock 10 ML Syringe IV (17:54)
[2020-05-10] VITALS (15 sets, daily range): BP systolic 136–168; BP diastolic 74–93; PULSE 71–90; RESP 17–20; TEMP 36.6–37.1; O2SAT 91–96
[2020-05-10] MEDS: 0.9% Saline Lock 10 ML Syringe IV ×2 (01:29→09:03)
[2020-05-10] MEDS: Ondansetron 4 MG/2 ML Vial IV (03:20)
--- NOTE | 2020-05-10 03:38 | CPS ---
NURSING INFORMED RT THAT PATIENT WAS INCREASED TO 6 LPM DUE TO DESATURATION.
[2020-05-10] MEDS: Mag Hydrox/Al Hydrox/Simeth 30 ML UDC 15 ML PO (04:09)
[2020-05-10] MEDS: hydrALAZINE 20 MG/ML Vial 10 MG IV (04:10)
[2020-05-10 06:10] LABS: Absolute Lymphocyte Count 0.81 X10^3/uL (0.83-4.51); Basophil# 0.01 X10^3/uL; Basophil% 0.1 % (0-1); Hematocrit 46.3 % (40-54); Hemoglobin 15.2 g/dL (13.0-16.5); Lymphocyte # 0.81 X10^3/ul (4.0); Lymphocyte % 8.8 % (19-41); Mean Corp Hgb Conc 32.8 g/dL (32-36); Mean Corpuscular Hgb 29.7 pg (27.0-32.0); Mean Corpuscular Volume 90.6 fL (80-94); Mean Platelet Vol. 9.7 fl (6.2-12.0); Monocyte# 0.35 X10^3/uL; Monocyte% 3.8 % (0-10); NRBC Flagged by Analyzer 0 % (0-5); Neutrophil # 7.96 X10^3/uL (2.7-7.7); Neutrophil % 86.8 % (47-70); Platelet Count 278 K/mm3 (150-450); RBC Distribution Width CV 13.7 % (11.6-14.6); RBC Distribution Width SD 46.1 fl (35.1-43.9); Red Blood Count 5.11 M/mm3 (4.6-6.2); White Blood Count 9.2 K/mm3 (4.4-11.0)
[2020-05-10 06:41] LABS: ALB/GLOB Ratio 0.6 RATIO (0.9-2.4); AST(SGOT) 69 U/L (15-37); Alanine Aminotransfer ALT/SGPT 87 U/L (16-61); Albumin, Serum 2.8 g/dL (3.2-5.0); Alkaline Phosphatase 96 U/L (45-117); Anion Gap 6 (5-15); BUN 14 mg/dL (7-18); BUN/Creat Ratio 20.8 RATIO (10-20); Calcium,Total 8.4 mg/dL (8.5-10.1); Chloride 109 mmol/L (98-107); Creatinine, Serum 0.67 mg/dL (0.70-1.30); EST Glomerular Filtration Rate 132 mL/min (>60); Est Glom Filt Rate - Afr Amer 160 mL/min (>60); Estimated Creatinine Clearance 127.61 ml/min; Globulin 4.5 g/dL (2.2-4.2); Glucose 98 mg/dL (74-106); Potassium 3.6 mmol/L (3.5-5.1); Protein, Total 7.3 g/dL (6.4-8.2); Sodium Level 139 mmol/L (136-145)
--- NOTE | 2020-05-10 07:22 | PN_ITS ---
Patient Problems: Active and Suspected Problems Infection of left foot (Suspected) Coronavirus infection (Acute) Interstitial pneumonitis (Acute) Hypoxia (Acute) COVID-19 (Acute) Subjective: Patient overnight with increased dyspnea, increased oxygenation requirements up to 6 L nasal cannula status post convalescent plasma. Patient notes feeling worse today than day prior, fatigued. He denies any recurrent diarrhea. Patient notes worsened body aches. Patient denies fevers, chills, nausea, emesis, abdominal pain, chest pain. Objective: Physical Examination: General: awake, alert, oriented x 3 and cooperative, seated upright in the medical surgical Covid unit bed, more fatigued and uncomfortable than day prior, notes feeling worse. Skin: normal color, turgor, no icterus, cyanosis. HEENT: AT/NC, EOMI, PERRLA, while the improved MMM. Lungs: Diminished breath sounds, greater bases, mildly increased effort with increased respiratory rate compared to prior day, no rales, ronchi or wheezing. Heart: Currently regular rate and regular rhythm; no gallop, rub audible. Abdomen: soft, improved, NTTP, ND, normalized BS. Extremities: no cyanosis, clubbing, or edema. Neurological: patient awake, alert, oriented x 3; cognitive function intact; pupils equally reactive to light and accomodation; cranial nerves II-XII grossly normal, moving all 4 extremities, no focal deficits, strength remains moderately to severely decreased secondary to acute presentation, feels worse than day prior. Psychiatric: affect appears more fatigued, flat affect, notes feeling worse, no acute evidence of depressive or anxiety feelings. Vitals/I&O's: Vital Signs Temp Pulse Resp BP Pulse Ox 98.4 F 71 18 138/87 H 93 05/10/20 06:57 05/10/20 06:57 05/10/20 06:57 05/10/20 06:57 05/10/20 06:57 Oxygen Flow Rate (L/min) [ 4 AMBULATION with Oxygen] Oxygen Flow Rate (L/min) [ 0 AMBULATING on Room Air] Oxygen Flow Rate (L/min) [At 0 REST on Room Air] Oxygen Flow Rate (L/min) 3 Oxygen Delivery Method Nasal Cannula Weight: 231 lb 11.293 oz Body Mass Index (BMI) 35.1 Intake and Output for Last 24 Hours 1105/09/20 05/10/20 23:59 23:59 23:59 Intake Total 1000 / 1120 1470 / 1470 500 / 500 Output Total 353 / 353 Balance 1000 / 1120 1117 / 1117 500 / 500 Microbiology Past 72 Hours 05/08/20 09:50 Sputum, Expectorated/Coughed Gram Stain - Final 05/08/20 09:50 Sputum, Expectorated/Coughed Respiratory Culture - Preliminary Appears to be normal respiratory dary. Further studies to follow. 05/08/20 10:55 Urine, Clean Catch Legionella Antigen - Final 05/08/20 10:55 Urine, Clean Catch Streptococcus pneumoniae Antigen (M - Final 05/08/20 09:15 Mucosa - Nasopharyngeal Respiratory Panel (PCR) - Final Laboratory Results 05/09/20 15:00: Blood Type A NEGATIVE, Antibody Screen NEGATIVE 05/10/20 05:56: WBC 9.2, RBC 5.11, Hgb 15.2, Hct 46.3, MCV 90.6, MCH 29.7, MCHC 32.8, RDW Std Deviation 46.1 H, RDW Coeff of Do 13.7, Plt Count 278, MPV 9.7, Immature Gran % (Auto) 0.500, Neut % (Auto) 86.8 H, Lymph % (Auto) 8.8 L, [place] % (Auto) 3.8, Eos % (Auto) 0.0, Baso % (Auto) 0.1, Absolute Neuts (auto) 8.0 H, Absolute Lymphs (auto) 0.81 L, Nucleated RBC % 0 05/10/20 05:56: Sodium 139, Potassium 3.6, Chloride 109 H, Carbon Dioxide 24.0, Anion Gap 6, BUN 14, Creatinine 0.67 L, Estim Creat Clear Calc 127.61, Est GFR (MDRD) Af Amer 160, Est GFR (MDRD) Non-Af 132, BUN/Creatinine Ratio 20.8 H, Glucose 98, Calcium 8.4 L, Total Bilirubin 0.60, AST 69 H, ALT 87 H, Alkaline Phosphatase 96, Total Protein 7.3, Albumin 2.8 L, Globulin 4.5 H, Albumin/Globulin Ratio 0.6 L Current Medications Acetaminophen (Acetaminophen 325 Mg Tablet) 650 mg PO Q6H PRN PRN PRN Reason: Pain Score 1-10/Temp > 100.7 F Last Admin: 05/09/20 21:41 Dose: 650 mg Documented by: Al Hydroxide/Mg Hydroxide (Mag Hydrox/Al Hydrox/Simeth 30 Ml Udc) 15 ml PO Q4H PRN PRN PRN Reason: HEARTBURN Last Admin: 05/10/20 04:09 Dose: 15 ml Documented by: Allopurinol (Allopurinol 100 Mg Tablet) 100 mg PO BID [facility] Last Admin: 05/09/20 21:42 Dose: 100 mg Documented by: Apixaban (Apixaban 5 Mg Tablet) 10 mg PO BID [facility] Last Admin: 05/09/20 21:42 Dose: 10 mg Documented by: Ascorbic Acid (Ascorbic Acid 500 Mg Tablet) 1,000 mg PO BID [facility] Last Admin: 05/09/20 21:42 Dose: 1,000 mg Documented by: Dexamethasone Sodium Phosphate (Dexamethasone 10 Mg/Ml Vial) 6 mg IV Q24 [facility] Stop: 05/17/20 10:01 Last Admin: 05/09/20 09:31 Dose: 6 mg Documented by: Diphenoxylate HCl/Atropine (Diphenoxylate/Atrop 1 Tablet) 2 tablet PO 4X/DAY PRN PRN PRN Reason: Diarrhea Last Admin: 05/09/20 15:05 Dose: 2 tablet Documented by: Fluticasone Propionate (Fluticasone 0.05% 1 [place] Nasal.Sry) 1 spray NASAL BID [facility] Last Admin: 05/09/20 21:42 Dose: Not Given Documented by: Hydralazine HCl (Hydralazine 20 Mg/Ml Vial) 10 mg IV Q4H PRN PRN PRN Reason: SBP > 160 Last Admin: 05/10/20 04:10 Dose: 10 mg Documented by: Sodium Chloride () 250 mls @ 15 mls/hr IV .[id number] PRN PRN Reason: Saline Flush Sodium Chloride () 250 mls @ 15 mls/hr IV .[id number] PRN PRN Reason: Additional IVPB Infusion Remdesivir 100 mg/ Sodium (Chloride) 250 mls @ 125 mls/hr IV DAILY [facility]; Protocol Stop: 05/13/20 11:59 Ondansetron HCl (Ondansetron 4 Mg/2 Ml Vial) 4 mg IV Q8H PRN PRN PRN Reason: NAUSEA/VOMITING Last Admin: 05/10/20 03:20 Dose: 4 mg Documented by: Sodium Chloride (0.9% Saline Lock 10 Ml Syringe) 10 - 40 ml IV UD PRN PRN Reason: SALINE FLUSH Last Admin: 05/10/20 01:29 Dose: 10 ml Documented by: STROKE Vital Signs/Narrative: Vital Signs Temp Pulse Resp BP Pulse Ox 05/10/20 06:57 98.4 F 71 18 138/87 H 93 05/10/20 06:38 17 96 05/10/20 05:39 96 05/10/20 04:45 98.8 F 90 20 H 157/87 H 93 05/10/20 04:10 83 168/93 H 05/10/20 04:06 97.9 F 83 20 H 168/93 H 92 05/10/20 03:38 92 Medical Necessity - Tobacco Use Smoking Status: Former smoker Tobacco Use: Non-smoker Assessment/Plan All Active Problems Coronavirus infection (Acute) Interstitial pneumonitis (Acute) Hypoxia (Acute) COVID-19 (Acute) The patient is a 50 y/o M w/ PMHx: Allergic Rhinitis, Gout who presents to the [facility] ED on 05/08/20 with history of onset of symptoms on 04/27/2020 including headache, cough, dyspnea, alteration to his taste noting that several things tasted severely salty, nausea without emesis, body aches and fevers, worsening with increasing dyspnea prompting eventual ED presentation for evaluation. 1. Acute Hypoxia, Dyspnea, Cough, Fever with Bilateral Pneumonia secondary to Acute Viral Syndrome, COVID-19, complicated by Acute BL Pulmonary Emboli: Patient with hypoxia upon presentation, ED evaluation with chest x-ray consistent with COVID pneumonia, CBC not marked appearing, BMP not marked appearing, admitted to the COVID unit, maintained on oxygen with wean as tolerated to room air patient has continued increasing oxygenation needs, both infectious disease and pulmonary medicine following. Initial Covid panel order set with ferritin 2095, LDH 422, CRP 72.8, procalcitonin less than 0.04, D-dimer 1.0 with follow-up CTPA obtained notable for scattered filling defects in the branches of the upper and lower lobe pulmonary artery branches consistent with pulmonary emboli, diffuse bilateral airspace disease in keeping with findings of COVID-19 infection, initiated and continued on therapeutic Eliquis regimen. Legionella and streptococcal antigens negative. Respiratory viral panel negative. Patient on dexamethasone, remdesivir and administered convalescent plasma on 05/09/2020. Given patient worsened hypoxia with increased transient needs up to 6 L, now down to 4 L we will continue continue supportive care, head of bed, encourage I-S, every 2 hours turning, closely monitor for worsening status for ARDS and multiorgan failure. Blood type A negative. 2. Elevated BP without hypertensive diagnosis: ED presentation with elevated BPs above goal, intermittently elevated during presentation, possibly secondary to steroids, currently normalized, may need to consider oral addition, as needed IV hydralazine currently. 3. Allergic rhinitis: We will continue patient home fluticasone regimen. 4. Gout: We will continue patient home allopurinol regimen. 5. DVT prophylaxis: [place] therapeutic regimen. Inpatient E&M: 11639 [facility] Hosp L3
[2020-05-10] MEDS: Allopurinol 100 MG Tablet PO ×2 (09:00→20:06)
[2020-05-10] MEDS: APIXABAN 5 MG TABLET 10 MG PO ×2 (09:00→20:05)
[2020-05-10] MEDS: dexAMETHasone 10 MG/ML Vial 6 MG IV (09:00)
[2020-05-10] MEDS: Ascorbic Acid 500 MG Tablet 1000 MG PO ×2 (09:00→20:05)
[2020-05-10] MEDS: Fluticasone 0.05% 1 SPRAY NASAL.SRY NASAL (09:01)
[2020-05-10] MEDS: Acetaminophen 325 MG Tablet 650 MG PO ×2 (09:04→20:09)
--- NOTE | 2020-05-10 11:30 | PCM.PN.ID ---
Patient Problems: Active and Suspected Problems Infection of left foot (Suspected) Coronavirus infection (Acute) Interstitial pneumonitis (Acute) Hypoxia (Acute) COVID-19 (Acute) Subjective: Had a rough night with increased hypoxia after transfusion; overall feeling better this AM but tired. Fever improved, no n/v/d. - Physical Exam Vitals/I&O's: Vital Signs Temp Pulse Resp BP Pulse Ox 98.4 F 71 18 138/87 H 96 05/10/20 06:57 05/10/20 06:57 05/10/20 06:57 05/10/20 06:57 05/10/20 10:25 Oxygen Flow Rate (L/min) [ 4 AMBULATION with Oxygen] Oxygen Flow Rate (L/min) [ 0 AMBULATING on Room Air] Oxygen Flow Rate (L/min) [At 0 REST on Room Air] Oxygen Flow Rate (L/min) 4 Oxygen Delivery Method Nasal Cannula Weight: 105.1 kg Body Mass Index (BMI) 35.1 Intake and Output for Last 24 Hours 05/08/20 05/09/20 05/10/20 23:59 23:59 23:59 Intake Total 1000 / 1120 1470 / 1470 500 / 500 Output Total 353 / 353 Balance 1000 / 1120 1117 / 1117 500 / 500 General: Alert, Cooperative, No apparent distress Lungs: Diminished Cardiovascular: Regular rate, Regular Rhythm Abdomen: Soft, Non Tender, Non-Distended Skin: No rashes Microbiology Past 72 Hours 05/08/20 09:50 Sputum, Expectorated/Coughed Gram Stain - Final 05/08/20 09:50 Sputum, Expectorated/Coughed Respiratory Culture - Preliminary Appears to be normal respiratory dary. Further studies to follow. 05/08/20 10:55 Urine, Clean Catch Legionella Antigen - Final 05/08/20 10:55 Urine, Clean Catch Streptococcus pneumoniae Antigen (M - Final 05/08/20 09:15 Mucosa - Nasopharyngeal Respiratory Panel (PCR) - Final Laboratory Results 05/09/20 15:00: Blood Type A NEGATIVE, Antibody Screen NEGATIVE 05/10/20 05:56: WBC 9.2, RBC 5.11, Hgb 15.2, Hct 46.3, MCV 90.6, MCH 29.7, MCHC 32.8, RDW Std Deviation 46.1 H, RDW Coeff of Do 13.7, Plt Count 278, MPV 9.7, Immature Gran % (Auto) 0.500, Neut % (Auto) 86.8 H, Lymph % (Auto) 8.8 L, [place] % (Auto) 3.8, Eos % (Auto) 0.0, Baso % (Auto) 0.1, Absolute Neuts (auto) 8.0 H, Absolute Lymphs (auto) 0.81 L, Nucleated RBC % 0 05/10/20 05:56: Sodium 139, Potassium 3.6, Chloride 109 H, Carbon Dioxide 24.0, Anion Gap 6, BUN 14, Creatinine 0.67 L, Estim Creat Clear Calc 127.61, Est GFR (MDRD) Af Amer 160, Est GFR (MDRD) Non-Af 132, BUN/Creatinine Ratio 20.8 H, Glucose 98, Calcium 8.4 L, Total Bilirubin 0.60, AST 69 H, ALT 87 H, Alkaline Phosphatase 96, Total Protein 7.3, Albumin 2.8 L, Globulin 4.5 H, Albumin/Globulin Ratio 0.6 L Current Medications Acetaminophen (Acetaminophen 325 Mg Tablet) 650 mg PO Q6H PRN PRN PRN Reason: Pain Score 1-10/Temp > 100.7 F Last Admin: 05/10/20 09:04 Dose: 650 mg Documented by: Al Hydroxide/Mg Hydroxide (Mag Hydrox/Al Hydrox/Simeth 30 Ml Udc) 15 ml PO Q4H PRN PRN PRN Reason: HEARTBURN Last Admin: 05/10/20 04:09 Dose: 15 ml Documented by: Allopurinol (Allopurinol 100 Mg Tablet) 100 mg PO BID [facility] Last Admin: 05/10/20 09:00 Dose: 100 mg Documented by: Apixaban (Apixaban 5 Mg Tablet) 10 mg PO BID [facility] Last Admin: 05/10/20 09:00 Dose: 10 mg Documented by: Ascorbic Acid (Ascorbic Acid 500 Mg Tablet) 1,000 mg PO BID [facility] Last Admin: 05/10/20 09:00 Dose: 1,000 mg Documented by: Dexamethasone (Dexamethasone 4 Mg Tablet) 6 mg PO DAILY [facility] Stop: 05/16/20 10:01 Diphenoxylate HCl/Atropine (Diphenoxylate/Atrop 1 Tablet) 2 tablet PO 4X/DAY PRN PRN PRN Reason: Diarrhea Last Admin: 05/09/20 15:05 Dose: 2 tablet Documented by: Fluticasone Propionate (Fluticasone 0.05% 1 [place] Nasal.Sry) 1 spray NASAL BID [facility] Last Admin: 05/10/20 09:01 Dose: 1 spray Documented by: Hydralazine HCl (Hydralazine 20 Mg/Ml Vial) 10 mg IV Q4H PRN PRN PRN Reason: SBP > 160 Last Admin: 05/10/20 04:10 Dose: 10 mg Documented by: Sodium Chloride () 250 mls @ 15 mls/hr IV .[id number] PRN PRN Reason: Saline Flush Sodium Chloride () 250 mls @ 15 mls/hr IV .[id number] PRN PRN Reason: Additional IVPB Infusion Remdesivir 100 mg/ Sodium (Chloride) 250 mls @ 125 mls/hr IV DAILY [facility]; Protocol Stop: 05/13/20 11:59 Last Admin: 05/10/20 10:21 Dose: 125 mls/hr Documented by: Ondansetron HCl (Ondansetron 4 Mg/2 Ml Vial) 4 mg IV Q8H PRN PRN PRN Reason: NAUSEA/VOMITING Last Admin: 05/10/20 03:20 Dose: 4 mg Documented by: Sodium Chloride (0.9% Saline Lock 10 Ml Syringe) 10 - 40 ml IV UD PRN PRN Reason: SALINE FLUSH Last Admin: 05/10/20 09:03 Dose: 10 ml Documented by: Medical Necessity - Tobacco Use Smoking Status: Former smoker Tobacco Use: Non-smoker Route of nutrition/ use of supplements: [] Nutritional Intake: [] IV Site: [] [place] Catheter: [] - Assessment/Plan Antibiotics: [] Assessment/Plan: [] Active and Suspected Problems Infection of left foot (Suspected) Coronavirus infection (Acute) Interstitial pneumonitis (Acute) Hypoxia (Acute) Fever to 102.4 on admit. On dex, eliquis, remdesivir. CT showed PEs. Got plasma 05/09/20. Will follow
--- NOTE | 2020-05-10 12:48 | PCM.PN.PUL ---
Patient Problems: Active and Suspected Problems Infection of left foot (Suspected) Coronavirus infection (Acute) Interstitial pneumonitis (Acute) Hypoxia (Acute) COVID-19 (Acute) Subjective: Patient did receive convalescent serum overnight. Patient states this morning he is rough and feels achy all over. Patient is also had an increase in his oxygen demands compared to yesterday. Patient denies any chest pain, abdominal pain, nausea or vomiting. - Physical Exam Vitals/I&O's: Vital Signs Temp Pulse Resp BP Pulse Ox 36.8 C 80 18 136/86 H 92 05/10/20 12:36 05/10/20 12:36 05/10/20 12:36 05/10/20 12:36 05/10/20 12:36 Oxygen Flow Rate (L/min) [ 4 AMBULATION with Oxygen] Oxygen Flow Rate (L/min) [ 0 AMBULATING on Room Air] Oxygen Flow Rate (L/min) [At 0 REST on Room Air] Oxygen Flow Rate (L/min) 4 Oxygen Delivery Method Nasal Cannula Weight: 105.1 kg Body Mass Index (BMI) 35.1 Intake and Output for Last 24 Hours 05/08/20 05/09/20 05/10/20 23:59 23:59 23:59 Intake Total 1000 / 1120 1470 / 1470 1110 / 1110 Output Total 353 / 353 2 / 2 Balance 1000 / 1120 1117 / 1117 1108 / 1108 General: Alert, Oriented x3, Cooperative, - - Mild distress. Appears unwell. HEENT: Atraumatic, PERRLA, EOMI, Normocephalic, - - Slight scleral injection without icterus Oral: Moist Mucosa, No Gingival or Mucosal Lesions/ Ulcerations Neck: Supple, No JVD, No Nodes, Trachea Midline Lungs: No rhonchi, No rales, Diminished, Wheezes - Sporadic Cardiovascular: Regular rate, Regular Rhythm, Normal S1, Normal S2, No murmurs, No rub noted, No Gallop Abdomen: Bowel Sounds Present, Soft, Non Tender, Non-Distended, Obese Extremities: No clubbing, No cyanosis, No edema Skin: No rashes, No breakdown Musculoskeletal: No Tenderness to Palpation of Joints or Extremities Lymphatic: No Cervical, Supraclavicular, or Inguinal Adenopathy Neurological: Cranial nerves II-XII grossly intact, Neuro grossly intact, Motor Exam 5/5 strength throughout Psych/Mental Status: Anxious, Restless Microbiology Past 72 Hours 05/08/20 09:50 Sputum, Expectorated/Coughed Gram Stain - Final 05/08/20 09:50 Sputum, Expectorated/Coughed Respiratory Culture - Preliminary Appears to be normal respiratory dary. Further studies to follow. 05/08/20 10:55 Urine, Clean Catch Legionella Antigen - Final 05/08/20 10:55 Urine, Clean Catch Streptococcus pneumoniae Antigen (M - Final 05/08/20 09:15 Mucosa - Nasopharyngeal Respiratory Panel (PCR) - Final Laboratory Results 05/09/20 15:00: Blood Type A NEGATIVE, Antibody Screen NEGATIVE 05/10/20 05:56: WBC 9.2, RBC 5.11, Hgb 15.2, Hct 46.3, MCV 90.6, MCH 29.7, MCHC 32.8, RDW Std Deviation 46.1 H, RDW Coeff of Do 13.7, Plt Count 278, MPV 9.7, Immature Gran % (Auto) 0.500, Neut % (Auto) 86.8 H, Lymph % (Auto) 8.8 L, [place] % (Auto) 3.8, Eos % (Auto) 0.0, Baso % (Auto) 0.1, Absolute Neuts (auto) 8.0 H, Absolute Lymphs (auto) 0.81 L, Nucleated RBC % 0 05/10/20 05:56: Sodium 139, Potassium 3.6, Chloride 109 H, Carbon Dioxide 24.0, Anion Gap 6, BUN 14, Creatinine 0.67 L, Estim Creat Clear Calc 127.61, Est GFR (MDRD) Af Amer 160, Est GFR (MDRD) Non-Af 132, BUN/Creatinine Ratio 20.8 H, Glucose 98, Calcium 8.4 L, Total Bilirubin 0.60, AST 69 H, ALT 87 H, Alkaline Phosphatase 96, Total Protein 7.3, Albumin 2.8 L, Globulin 4.5 H, Albumin/Globulin Ratio 0.6 L Current Medications Acetaminophen (Acetaminophen 325 Mg Tablet) 650 mg PO Q6H PRN PRN PRN Reason: Pain Score 1-10/Temp > 100.7 F Last Admin: 05/10/20 09:04 Dose: 650 mg Documented by: Al Hydroxide/Mg Hydroxide (Mag Hydrox/Al Hydrox/Simeth 30 Ml Udc) 15 ml PO Q4H PRN PRN PRN Reason: HEARTBURN Last Admin: 05/10/20 04:09 Dose: 15 ml Documented by: Allopurinol (Allopurinol 100 Mg Tablet) 100 mg PO BID [facility] Last Admin: 05/10/20 09:00 Dose: 100 mg Documented by: Apixaban (Apixaban 5 Mg Tablet) 10 mg PO BID [facility] Last Admin: 05/10/20 09:00 Dose: 10 mg Documented by: Ascorbic Acid (Ascorbic Acid 500 Mg Tablet) 1,000 mg PO BID [facility] Last Admin: 05/10/20 09:00 Dose: 1,000 mg Documented by: Dexamethasone (Dexamethasone 4 Mg Tablet) 6 mg PO DAILY [facility] Stop: 05/16/20 10:01 Diphenoxylate HCl/Atropine (Diphenoxylate/Atrop 1 Tablet) 2 tablet PO 4X/DAY PRN PRN PRN Reason: Diarrhea Last Admin: 05/09/20 15:05 Dose: 2 tablet Documented by: Fluticasone Propionate (Fluticasone 0.05% 1 [place] Nasal.Sry) 1 spray NASAL BID [facility] Last Admin: 05/10/20 09:01 Dose: 1 spray Documented by: Hydralazine HCl (Hydralazine 20 Mg/Ml Vial) 10 mg IV Q4H PRN PRN PRN Reason: SBP > 160 Last Admin: 05/10/20 04:10 Dose: 10 mg Documented by: Sodium Chloride () 250 mls @ 15 mls/hr IV .[id number] PRN PRN Reason: Saline Flush Sodium Chloride () 250 mls @ 15 mls/hr IV .[id number] PRN PRN Reason: Additional IVPB Infusion Remdesivir 100 mg/ Sodium (Chloride) 250 mls @ 125 mls/hr IV DAILY [facility]; Protocol Stop: 05/13/20 11:59 Last Infusion: 05/10/20 12:40 Dose: Infused Documented by: Ondansetron HCl (Ondansetron 4 Mg/2 Ml Vial) 4 mg IV Q8H PRN PRN PRN Reason: NAUSEA/VOMITING Last Admin: 05/10/20 03:20 Dose: 4 mg Documented by: Sodium Chloride (0.9% Saline Lock 10 Ml Syringe) 10 - 40 ml IV UD PRN PRN Reason: SALINE FLUSH Last Admin: 05/10/20 09:03 Dose: 10 ml Documented by: Medical Necessity - Tobacco Use Smoking Status: Former smoker Tobacco Use: Non-smoker Assessment/Plan All Active Problems Coronavirus infection (Acute) Interstitial pneumonitis (Acute) Hypoxia (Acute) COVID-19 (Acute) RECOMMENDATIONS: 1. Symptomatic therapy for fever and myalgias 2. Continue anticoagulation for 3 to 6 months 3. Encourage incentive spirometer 4. Wean oxygen as tolerated 5. Monitor for complications of Decadron therapy IMPRESSIONS: 1. Acute hypoxic respiratory insufficiency Multifactorial etiology. Review of the CT scan shows groundglass opacities consistent with COVID-19 infection. Patient also has small bilateral pulmonary emboli noted. Patient is appropriately on anticoagulation at this time. Patient has been placed on Decadron therapy. We will have to monitor for complications such as hypertension and hyperglycemia. Wean oxygen as tolerated. Patient will need a walking oximetry prior to discharge. Decompensation today likely secondary to increased cytokine release related to convalescent serum. We will continue to monitor the patient closely. 2. Hypertension Unclear etiology. Patient was recently placed on steroid therapy, which could be adding to current situation. Patient also has been stressed secondary to hypoxia related to #1. Continue to monitor. Unclear if p.o. medications need to be initiated. 3. Allergic rhinitis/gout/possible asbestos exposure Uppercase care, management, recovery and prognosis. Okay to continue with baseline medications. Inpatient E&M: 11080 [facility] Hosp L3
[2020-05-11] VITALS (7 sets, daily range): BP systolic 135–157; BP diastolic 83–92; PULSE 74–85; RESP 16–20; TEMP 36.8–37.4; O2SAT 90–94
[2020-05-11 05:59] LABS: Absolute Lymphocyte Count 0.96 X10^3/uL (0.83-4.51); Basophil# 0.01 X10^3/uL; Basophil% 0.1 % (0-1); Hematocrit 45.7 % (40-54); Hemoglobin 14.8 g/dL (13.0-16.5); Lymphocyte # 0.96 X10^3/ul (4.0); Lymphocyte % 9.3 % (19-41); Mean Corp Hgb Conc 32.4 g/dL (32-36); Mean Corpuscular Hgb 29.7 pg (27.0-32.0); Mean Corpuscular Volume 91.8 fL (80-94); Mean Platelet Vol. 9.7 fl (6.2-12.0); Monocyte# 0.35 X10^3/uL; Monocyte% 3.4 % (0-10); NRBC Flagged by Analyzer 0 % (0-5); Neutrophil # 8.97 X10^3/uL (2.7-7.7); Neutrophil % 86.8 % (47-70); Platelet Count 321 K/mm3 (150-450); RBC Distribution Width CV 13.9 % (11.6-14.6); RBC Distribution Width SD 46.7 fl (35.1-43.9); Red Blood Count 4.98 M/mm3 (4.6-6.2); White Blood Count 10.3 K/mm3 (4.4-11.0)
[2020-05-11 06:38] LABS: ALB/GLOB Ratio 0.7 RATIO (0.9-2.4); AST(SGOT) 54 U/L (15-37); Alanine Aminotransfer ALT/SGPT 94 U/L (16-61); Albumin, Serum 2.8 g/dL (3.2-5.0); Alkaline Phosphatase 88 U/L (45-117); Anion Gap 6 (5-15); BUN 17 mg/dL (7-18); Calcium,Total 8.3 mg/dL (8.5-10.1); Chloride 108 mmol/L (98-107); Creatinine, Serum 0.68 mg/dL (0.70-1.30); EST Glomerular Filtration Rate 131 mL/min (>60); Est Glom Filt Rate - Afr Amer 159 mL/min (>60); Estimated Creatinine Clearance 125.74 ml/min; Globulin 4.3 g/dL (2.2-4.2); Glucose 91 mg/dL (74-106); Potassium 3.8 mmol/L (3.5-5.1); Protein, Total 7.1 g/dL (6.4-8.2); Sodium Level 139 mmol/L (136-145)
--- NOTE | 2020-05-11 07:09 | PCM.PN.HOSP ---
Patient Problems: Active and Suspected Problems Infection of left foot (Suspected) Coronavirus infection (Acute) Interstitial pneumonitis (Acute) Hypoxia (Acute) COVID-19 (Acute) Subjective: Patient with no acute events overnight per self and per nursing report however he did require continued 5 to 6 L nasal cannula to maintain appropriate saturation. Patient visibly appears improved, more interactive, moving easier but states he stills feels the same with ongoing dyspnea and significant body aches. Patient denies any recurrent significant diarrhea or nausea, continued toleration of oral intake. Contacted spouse and reviewed patient status, family at home remains asymptomatic. Patient denies fevers, chills, nausea, emesis, abdominal pain, chest pain. Objective: Physical Examination: General: awake, alert, oriented x 3 and cooperative, upright in MS to Covid unit bed, less fatigued and more interactive than day prior, appears improved. Skin: normal color, turgor, no icterus, cyanosis. HEENT: AT/NC, EOMI, PERRLA, MMM. Lungs: Diminished breath sounds, greater bases, normalized effort, no rales, ronchi or wheezing. Heart: Regular rate and regular rhythm; no gallop, rub audible. Abdomen: soft, NTTP, ND, normalized BS. Extremities: no cyanosis, clubbing, or edema. Neurological: patient awake, alert, oriented x 3; cognitive function intact; pupils equally reactive to light and accomodation; cranial nerves II-XII grossly normal, moving all 4 extremities, no focal deficits, strength improved, moderately global decrease secondary to acute presentation. Psychiatric: affect appears improved, less fatigued, more talkative, no acute evidence of depressive or anxiety feelings. Vitals/I&O's: Vital Signs Temp Pulse Resp BP Pulse Ox 98.3 F 75 20 H 144/88 H 93 05/11/20 05:41 05/11/20 05:41 05/11/20 05:41 05/11/20 05:41 05/11/20 05:41 Oxygen Flow Rate (L/min) [ 4 AMBULATION with Oxygen] Oxygen Flow Rate (L/min) [ 0 AMBULATING on Room Air] Oxygen Flow Rate (L/min) [At 0 REST on Room Air] Oxygen Flow Rate (L/min) 5 Oxygen Delivery Method Nasal Cannula Weight: 231 lb 11.293 oz Body Mass Index (BMI) 35.1 Intake and Output for Last 24 Hours 05/09/20 05/10/20 05/11/20 23:59 23:59 23:59 Intake Total 1470 / 1470 1710 / 1710 240 / 240 Output Total 353 / 353 302 / 302 Balance 1117 / 1117 1408 / 1408 240 / 240 Microbiology Past 72 Hours 05/08/20 09:50 Sputum, Expectorated/Coughed Gram Stain - Final 05/08/20 09:50 Sputum, Expectorated/Coughed Respiratory Culture - Preliminary Appears to be normal respiratory dary. Further studies to follow. 05/08/20 10:55 Urine, Clean Catch Legionella Antigen - Final 05/08/20 10:55 Urine, Clean Catch Streptococcus pneumoniae Antigen (M - Final 05/08/20 09:15 Mucosa - Nasopharyngeal Respiratory Panel (PCR) - Final Laboratory Results 05/11/20 05:46: WBC 10.3, RBC 4.98, Hgb 14.8, Hct 45.7, MCV 91.8, MCH 29.7, MCHC 32.4, RDW Std Deviation 46.7 H, RDW Coeff of Do 13.9, Plt Count 321, MPV 9.7, Immature Gran % (Auto) 0.400, Neut % (Auto) 86.8 H, Lymph % (Auto) 9.3 L, [place] % (Auto) 3.4, Eos % (Auto) 0.0, Baso % (Auto) 0.1, Absolute Neuts (auto) 9.0 H, Absolute Lymphs (auto) 0.96, Nucleated RBC % 0 05/11/20 05:46: Sodium 139, Potassium 3.8, Chloride 108 H, Carbon Dioxide 25.0, Anion Gap 6, BUN 17, Creatinine 0.68 L, Estim Creat Clear Calc 125.74, Est GFR (MDRD) Af Amer 159, Est GFR (MDRD) Non-Af 131, BUN/Creatinine Ratio 25.0 H, Glucose 91, Calcium 8.3 L, Total Bilirubin 0.50, AST 54 H, ALT 94 H, Alkaline Phosphatase 88, Total Protein 7.1, Albumin 2.8 L, Globulin 4.3 H, Albumin/Globulin Ratio 0.7 L Current Medications Acetaminophen (Acetaminophen 325 Mg Tablet) 650 mg PO Q6H PRN PRN PRN Reason: Pain Score 1-10/Temp > 100.7 F Last Admin: 05/10/20 20:09 Dose: 650 mg Documented by: Al Hydroxide/Mg Hydroxide (Mag Hydrox/Al Hydrox/Simeth 30 Ml Udc) 15 ml PO Q4H PRN PRN PRN Reason: HEARTBURN Last Admin: 05/10/20 04:09 Dose: 15 ml Documented by: Allopurinol (Allopurinol 100 Mg Tablet) 100 mg PO BID [facility] Last Admin: 05/10/20 20:06 Dose: 100 mg Documented by: Apixaban (Apixaban 5 Mg Tablet) 10 mg PO BID [facility] Last Admin: 05/10/20 20:05 Dose: 10 mg Documented by: Ascorbic Acid (Ascorbic Acid 500 Mg Tablet) 1,000 mg PO BID [facility] Last Admin: 05/10/20 20:05 Dose: 1,000 mg Documented by: Dexamethasone (Dexamethasone 4 Mg Tablet) 6 mg PO DAILY [facility] Stop: 05/16/20 10:01 Diphenoxylate HCl/Atropine (Diphenoxylate/Atrop 1 Tablet) 2 tablet PO 4X/DAY PRN PRN PRN Reason: Diarrhea Last Admin: 05/09/20 15:05 Dose: 2 tablet Documented by: Fluticasone Propionate (Fluticasone 0.05% 1 [place] Nasal.Sry) 1 spray NASAL BID [facility] Last Admin: 05/10/20 20:06 Dose: Not Given Documented by: Hydralazine HCl (Hydralazine 20 Mg/Ml Vial) 10 mg IV Q4H PRN PRN PRN Reason: SBP > 160 Last Admin: 05/10/20 04:10 Dose: 10 mg Documented by: Sodium Chloride () 250 mls @ 15 mls/hr IV .[id number] PRN PRN Reason: Saline Flush Sodium Chloride () 250 mls @ 15 mls/hr IV .[id number] PRN PRN Reason: Additional IVPB Infusion Remdesivir 100 mg/ Sodium (Chloride) 250 mls @ 125 mls/hr IV DAILY [facility]; Protocol Stop: 05/13/20 11:59 Last Infusion: 05/10/20 12:40 Dose: Infused Documented by: Ondansetron HCl (Ondansetron 4 Mg/2 Ml Vial) 4 mg IV Q8H PRN PRN PRN Reason: NAUSEA/VOMITING Last Admin: 05/10/20 03:20 Dose: 4 mg Documented by: Sodium Chloride (0.9% Saline Lock 10 Ml Syringe) 10 - 40 ml IV UD PRN PRN Reason: SALINE FLUSH Last Admin: 05/10/20 09:03 Dose: 10 ml Documented by: STROKE Vital Signs/Narrative: Vital Signs Temp Pulse Resp BP Pulse Ox 05/11/20 05:41 98.3 F 75 20 H 144/88 H 93 Medical Necessity - Tobacco Use Smoking Status: Former smoker Tobacco Use: Non-smoker Assessment/Plan All Active Problems Coronavirus infection (Acute) Interstitial pneumonitis (Acute) Hypoxia (Acute) COVID-19 (Acute) The patient is a 50 y/o M w/ PMHx: Allergic Rhinitis, Gout who presents to the [facility] ED on 05/08/20 with history of onset of symptoms on 04/27/2020 including headache, cough, dyspnea, alteration to his taste noting that several things tasted severely salty, nausea without emesis, body aches and fevers, worsening with increasing dyspnea prompting eventual ED presentation for evaluation. 1. Acute Hypoxia, Dyspnea, Cough, Fever with Bilateral Pneumonia secondary to Acute Viral Syndrome, COVID-19, complicated by Acute BL Pulmonary Emboli: Patient with hypoxia upon presentation, ED evaluation with chest x-ray consistent with COVID pneumonia, CBC not marked appearing, BMP not marked appearing, admitted to the COVID unit, maintained on oxygen with wean as tolerated to room air patient has continued increasing oxygenation needs, both infectious disease and pulmonary medicine following. Initial Covid panel order set with ferritin 2095, LDH 422, CRP 72.8, procalcitonin less than 0.04, D-dimer 1.0 with follow-up CTPA obtained notable for scattered filling defects in the branches of the upper and lower lobe pulmonary artery branches consistent with pulmonary emboli, diffuse bilateral airspace disease in keeping with findings of COVID-19 infection, initiated and continued on therapeutic Eliquis regimen. Legionella and streptococcal antigens negative. Respiratory viral panel negative. Patient on dexamethasone, remdesivir and administered convalescent plasma on 05/09/2020. Patient with ongoing variability of oxygenation, currently on 5 L nasal cannula but required up to 6 L still overnight but does seem to be clinically improving, oxygenation assessment with noted 90% on 5 L with activity and 93% on 5 L at rest. Plan continuation of remdesivir and set up of discharge likely to home with oxygen supplementation expected once completion. Infectious disease and pulmonary medicine following. Blood type A negative. 2. Elevated BP without hypertensive diagnosis: ED presentation with elevated BPs above goal, intermittently elevated during presentation, possibly secondary to steroids however given ongoing above goal we will add low-dose lisinopril, continue monitor, as needed IV hydralazine as needed. Monitor repeat renal function. 3. Allergic rhinitis: We will continue patient home fluticasone regimen. 4. Gout: We will continue patient home allopurinol regimen. 5. DVT prophylaxis: [place] therapeutic regimen. Inpatient E&M: 90593 Subs Hosp L2
[2020-05-11] MEDS: Ascorbic Acid 500 MG Tablet 1000 MG PO ×2 (08:27→20:56)
[2020-05-11] MEDS: dexAMETHasone 4 MG Tablet 6 MG PO (08:27)
[2020-05-11] MEDS: Lisinopril 5 MG Tablet PO (08:28)
[2020-05-11] MEDS: APIXABAN 5 MG TABLET 10 MG PO ×2 (08:28→20:56)
[2020-05-11] MEDS: Allopurinol 100 MG Tablet PO ×2 (08:28→20:56)
--- NOTE | 2020-05-11 09:53 | PCM.PN.PUL ---
Patient Problems: Active and Suspected Problems Infection of left foot (Suspected) Coronavirus infection (Acute) Interstitial pneumonitis (Acute) Hypoxia (Acute) COVID-19 (Acute) Subjective: Patient did well overnight. Patient did stay on 5 to 6 L nasal cannula to maintain saturations. Patient states he feels grossly unchanged compared to previous. Patient is still complaining some body aches and shortness of breath, especially with exertion. - Physical Exam Vitals/I&O's: Vital Signs Temp Pulse Resp BP Pulse Ox 36.9 C 74 18 135/85 H 94 05/11/20 08:22 05/11/20 08:22 05/11/20 08:22 05/11/20 08:22 05/11/20 08:43 Oxygen Flow Rate (L/min) [ 4 AMBULATION with Oxygen] Oxygen Flow Rate (L/min) [ 0 AMBULATING on Room Air] Oxygen Flow Rate (L/min) [At 0 REST on Room Air] Oxygen Flow Rate (L/min) 5 Oxygen Delivery Method Nasal Cannula Weight: 105.1 kg Body Mass Index (BMI) 35.1 Intake and Output for Last 24 Hours 05/09/20 05/10/20 05/11/20 23:59 23:59 23:59 Intake Total 1470 / 1470 1710 / 1710 240 / 240 Output Total 353 / 353 302 / 302 Balance 1117 / 1117 1408 / 1408 240 / 240 General: Alert, Oriented x3, Cooperative, No apparent distress, Well developed, Well nourished, - - Only mild conversational dyspnea noted. HEENT: Atraumatic, PERRLA, EOMI, Normocephalic, - - No scleral injection or icterus noted Oral: Moist Mucosa, No Gingival or Mucosal Lesions/ Ulcerations Neck: Supple, No JVD, No Nodes, Trachea Midline Lungs: No wheeze, No rales, Diminished, Wheezes - End exhalation, - - Symmetric expansion Cardiovascular: Regular rate, Regular Rhythm, Normal S1, Normal S2, No murmurs, No rub noted, No Gallop Abdomen: Bowel Sounds Present, Soft, Non Tender, Non-Distended, Obese Extremities: No clubbing, No cyanosis, No edema, Capillary Refill Less than 3 Seconds Skin: No rashes, No breakdown Musculoskeletal: No Tenderness to Palpation of Joints or Extremities Lymphatic: No Cervical, Supraclavicular, or Inguinal Adenopathy Neurological: Cranial nerves II-XII grossly intact, Neuro grossly intact, Motor Exam 5/5 strength throughout Psych/Mental Status: Alert and oriented to time, place, person, mood and affect Microbiology Past 72 Hours 05/08/20 09:50 Sputum, Expectorated/Coughed Gram Stain - Final 05/08/20 09:50 Sputum, Expectorated/Coughed Respiratory Culture - Final 05/08/20 10:55 Urine, Clean Catch Legionella Antigen - Final 05/08/20 10:55 Urine, Clean Catch Streptococcus pneumoniae Antigen (M - Final 05/08/20 09:15 Mucosa - Nasopharyngeal Respiratory Panel (PCR) - Final Laboratory Results 05/11/20 05:46: WBC 10.3, RBC 4.98, Hgb 14.8, Hct 45.7, MCV 91.8, MCH 29.7, MCHC 32.4, RDW Std Deviation 46.7 H, RDW Coeff of Do 13.9, Plt Count 321, MPV 9.7, Immature Gran % (Auto) 0.400, Neut % (Auto) 86.8 H, Lymph % (Auto) 9.3 L, [place] % (Auto) 3.4, Eos % (Auto) 0.0, Baso % (Auto) 0.1, Absolute Neuts (auto) 9.0 H, Absolute Lymphs (auto) 0.96, Nucleated RBC % 0 05/11/20 05:46: Sodium 139, Potassium 3.8, Chloride 108 H, Carbon Dioxide 25.0, Anion Gap 6, BUN 17, Creatinine 0.68 L, Estim Creat Clear Calc 125.74, Est GFR (MDRD) Af Amer 159, Est GFR (MDRD) Non-Af 131, BUN/Creatinine Ratio 25.0 H, Glucose 91, Calcium 8.3 L, Total Bilirubin 0.50, AST 54 H, ALT 94 H, Alkaline Phosphatase 88, Total Protein 7.1, Albumin 2.8 L, Globulin 4.3 H, Albumin/Globulin Ratio 0.7 L Current Medications Acetaminophen (Acetaminophen 325 Mg Tablet) 650 mg PO Q6H PRN PRN PRN Reason: Pain Score 1-10/Temp > 100.7 F Last Admin: 05/10/20 20:09 Dose: 650 mg Documented by: Al Hydroxide/Mg Hydroxide (Mag Hydrox/Al Hydrox/Simeth 30 Ml Udc) 15 ml PO Q4H PRN PRN PRN Reason: HEARTBURN Last Admin: 05/10/20 04:09 Dose: 15 ml Documented by: Allopurinol (Allopurinol 100 Mg Tablet) 100 mg PO BID [facility] Last Admin: 05/11/20 08:28 Dose: 100 mg Documented by: Apixaban (Apixaban 5 Mg Tablet) 10 mg PO BID [facility] Last Admin: 05/11/20 08:28 Dose: 10 mg Documented by: Ascorbic Acid (Ascorbic Acid 500 Mg Tablet) 1,000 mg PO BID [facility] Last Admin: 05/11/20 08:27 Dose: 1,000 mg Documented by: Dexamethasone (Dexamethasone 4 Mg Tablet) 6 mg PO DAILY [facility] Stop: 05/16/20 10:01 Last Admin: 05/11/20 08:27 Dose: 6 mg Documented by: Diphenoxylate HCl/Atropine (Diphenoxylate/Atrop 1 Tablet) 2 tablet PO 4X/DAY PRN PRN PRN Reason: Diarrhea Last Admin: 05/09/20 15:05 Dose: 2 tablet Documented by: Fluticasone Propionate (Fluticasone 0.05% 1 [place] Nasal.Sry) 1 spray NASAL BID [facility] Last Admin: 05/10/20 20:06 Dose: Not Given Documented by: Hydralazine HCl (Hydralazine 20 Mg/Ml Vial) 10 mg IV Q4H PRN PRN PRN Reason: SBP > 160 Last Admin: 05/10/20 04:10 Dose: 10 mg Documented by: Sodium Chloride () 250 mls @ 15 mls/hr IV .[id number] PRN PRN Reason: Saline Flush Sodium Chloride () 250 mls @ 15 mls/hr IV .[id number] PRN PRN Reason: Additional IVPB Infusion Remdesivir 100 mg/ Sodium (Chloride) 250 mls @ 125 mls/hr IV DAILY [facility]; Protocol Stop: 05/13/20 11:59 Last Infusion: 05/10/20 12:40 Dose: Infused Documented by: Lisinopril (Lisinopril 5 Mg Tablet) 5 mg PO DAILY [facility] Last Admin: 05/11/20 08:28 Dose: 5 mg Documented by: Ondansetron HCl (Ondansetron 4 Mg/2 Ml Vial) 4 mg IV Q8H PRN PRN PRN Reason: NAUSEA/VOMITING Last Admin: 05/10/20 03:20 Dose: 4 mg Documented by: Sodium Chloride (0.9% Saline Lock 10 Ml Syringe) 10 - 40 ml IV UD PRN PRN Reason: SALINE FLUSH Last Admin: 05/10/20 09:03 Dose: 10 ml Documented by: Sodium Chloride (Sodium Chloride 0.65% 1 [place].Btl) 2 spray NASAL TID PRN PRN PRN Reason: NASAL DRYNESS Medical Necessity - Tobacco Use Smoking Status: Former smoker Tobacco Use: Non-smoker Assessment/Plan All Active Problems Coronavirus infection (Acute) Interstitial pneumonitis (Acute) Hypoxia (Acute) COVID-19 (Acute) RECOMMENDATIONS: 1. Symptomatic therapy for fever and myalgias 2. Continue anticoagulation for 3 to 6 months 3. Encourage incentive spirometer 4. Wean oxygen as tolerated 5. Monitor for complications of Decadron therapy 6. Continue Remdesivir per infectious disease IMPRESSIONS: 1. Acute hypoxic respiratory insufficiency Multifactorial etiology. Review of the CT scan shows groundglass opacities consistent with COVID-19 infection. Patient also has small bilateral pulmonary emboli noted. Patient is appropriately on anticoagulation at this time. Patient has been placed on Remdesivir and Decadron therapy. We will have to monitor for complications such as hypertension and hyperglycemia. Wean oxygen as tolerated. Patient will need a walking oximetry prior to discharge. Decompensation yesterday likely secondary to increased cytokine release related to convalescent serum and appears to have stabilized. We will continue to monitor the patient closely. 2. Hypertension Unclear etiology. Patient was recently placed on steroid therapy, which could be adding to current situation. Patient also has been stressed secondary to hypoxia related to #1. Continue to monitor. Unclear if p.o. medications need to be initiated. 3. Allergic rhinitis/gout/possible asbestos exposure Uppercase care, management, recovery and prognosis. Okay to continue with baseline medications. Inpatient E&M: [id number] [facility] Hosp L2
[2020-05-11] MEDS: Fluticasone 0.05% 1 SPRAY NASAL.SRY NASAL (10:30)
[2020-05-11] MEDS: Sodium Chloride 0.65% 1 SPRAY SPRAY.BTL 2 SPRAY NASAL (10:31)
[2020-05-11] MEDS: Acetaminophen 325 MG Tablet 650 MG PO (13:56)
--- NOTE | 2020-05-11 15:46 | PN.ID_ITS ---
Patient Problems: Active and Suspected Problems Infection of left foot (Suspected) Coronavirus infection (Acute) Interstitial pneumonitis (Acute) Hypoxia (Acute) COVID-19 (Acute) Subjective: Feeling better today, no fever, still cough - Physical Exam Vitals/I&O's: Vital Signs Temp Pulse Resp BP Pulse Ox 99.3 F H 78 16 136/83 H 94 05/11/20 14:05 05/11/20 14:05 05/11/20 14:05 05/11/20 14:05 05/11/20 14:05 Oxygen Flow Rate (L/min) [ 5 AMBULATION with Oxygen] Oxygen Flow Rate (L/min) [ 0 AMBULATING on Room Air] Oxygen Flow Rate (L/min) [At 5 REST on Room Air] Oxygen Flow Rate (L/min) 5 Oxygen Delivery Method Nasal Cannula Weight: 105.1 kg Body Mass Index (BMI) 35.1 Intake and Output for Last 24 Hours 05/09/20 05/10/20 05/11/20 23:59 23:59 23:59 Intake Total 1470 / 1470 1710 / 1710 490 / 490 Output Total 353 / 353 302 / 302 Balance 1117 / 1117 1408 / 1408 490 / 490 General: Alert, Cooperative, No apparent distress Lungs: Clear to auscultation, Diminished Cardiovascular: Regular rate, Regular Rhythm Abdomen: Soft, Non Tender, Non-Distended Skin: No rashes Microbiology Past 72 Hours 05/08/20 09:50 Sputum, Expectorated/Coughed Gram Stain - Final 05/08/20 09:50 Sputum, Expectorated/Coughed Respiratory Culture - Final 05/08/20 10:55 Urine, Clean Catch Legionella Antigen - Final 05/08/20 10:55 Urine, Clean Catch Streptococcus pneumoniae Antigen (M - Final 05/08/20 09:15 Mucosa - Nasopharyngeal Respiratory Panel (PCR) - Final Laboratory Results 05/11/20 05:46: WBC 10.3, RBC 4.98, Hgb 14.8, Hct 45.7, MCV 91.8, MCH 29.7, MCHC 32.4, RDW Std Deviation 46.7 H, RDW Coeff of Do 13.9, Plt Count 321, MPV 9.7, Immature Gran % (Auto) 0.400, Neut % (Auto) 86.8 H, Lymph % (Auto) 9.3 L, [place] % (Auto) 3.4, Eos % (Auto) 0.0, Baso % (Auto) 0.1, Absolute Neuts (auto) 9.0 H, Absolute Lymphs (auto) 0.96, Nucleated RBC % 0 05/11/20 05:46: Sodium 139, Potassium 3.8, Chloride 108 H, Carbon Dioxide 25.0, Anion Gap 6, BUN 17, Creatinine 0.68 L, Estim Creat Clear Calc 125.74, Est GFR (MDRD) Af Amer 159, Est GFR (MDRD) Non-Af 131, BUN/Creatinine Ratio 25.0 H, Glucose 91, Calcium 8.3 L, Total Bilirubin 0.50, AST 54 H, ALT 94 H, Alkaline Phosphatase 88, Total Protein 7.1, Albumin 2.8 L, Globulin 4.3 H, Albumin/Globulin Ratio 0.7 L Current Medications Acetaminophen (Acetaminophen 325 Mg Tablet) 650 mg PO Q6H PRN PRN PRN Reason: Pain Score 1-10/Temp > 100.7 F Last Admin: 05/11/20 13:56 Dose: 650 mg Documented by: Al Hydroxide/Mg Hydroxide (Mag Hydrox/Al Hydrox/Simeth 30 Ml Udc) 15 ml PO Q4H PRN PRN PRN Reason: HEARTBURN Last Admin: 05/10/20 04:09 Dose: 15 ml Documented by: Allopurinol (Allopurinol 100 Mg Tablet) 100 mg PO BID [facility] Last Admin: 05/11/20 08:28 Dose: 100 mg Documented by: Apixaban (Apixaban 5 Mg Tablet) 10 mg PO BID [facility] Last Admin: 05/11/20 08:28 Dose: 10 mg Documented by: Ascorbic Acid (Ascorbic Acid 500 Mg Tablet) 1,000 mg PO BID [facility] Last Admin: 05/11/20 08:27 Dose: 1,000 mg Documented by: Dexamethasone (Dexamethasone 4 Mg Tablet) 6 mg PO DAILY [facility] Stop: 05/16/20 10:01 Last Admin: 05/11/20 08:27 Dose: 6 mg Documented by: Diphenoxylate HCl/Atropine (Diphenoxylate/Atrop 1 Tablet) 2 tablet PO 4X/DAY PRN PRN PRN Reason: Diarrhea Last Admin: 05/09/20 15:05 Dose: 2 tablet Documented by: Fluticasone Propionate (Fluticasone 0.05% 1 [place] Nasal.Sry) 1 spray NASAL BID [facility] Last Admin: 05/11/20 10:30 Dose: 1 spray Documented by: Hydralazine HCl (Hydralazine 20 Mg/Ml Vial) 10 mg IV Q4H PRN PRN PRN Reason: SBP > 160 Last Admin: 05/10/20 04:10 Dose: 10 mg Documented by: Sodium Chloride () 250 mls @ 15 mls/hr IV .[id number] PRN PRN Reason: Saline Flush Sodium Chloride () 250 mls @ 15 mls/hr IV .[id number] PRN PRN Reason: Additional IVPB Infusion Remdesivir 100 mg/ Sodium (Chloride) 250 mls @ 125 mls/hr IV DAILY [facility]; Protocol Stop: 05/13/20 11:59 Last Infusion: 05/11/20 13:04 Dose: Infused Documented by: Lisinopril (Lisinopril 5 Mg Tablet) 5 mg PO DAILY [facility] Last Admin: 05/11/20 08:28 Dose: 5 mg Documented by: Ondansetron HCl (Ondansetron 4 Mg/2 Ml Vial) 4 mg IV Q8H PRN PRN PRN Reason: NAUSEA/VOMITING Last Admin: 05/10/20 03:20 Dose: 4 mg Documented by: Sodium Chloride (0.9% Saline Lock 10 Ml Syringe) 10 - 40 ml IV UD PRN PRN Reason: SALINE FLUSH Last Admin: 05/10/20 09:03 Dose: 10 ml Documented by: Sodium Chloride (Sodium Chloride 0.65% 1 [place].Btl) 2 spray NASAL TID PRN PRN PRN Reason: NASAL DRYNESS Last Admin: 05/11/20 10:31 Dose: 2 spray Documented by: Medical Necessity - Tobacco Use Smoking Status: Former smoker Tobacco Use: Non-smoker Route of nutrition/ use of supplements: [] Nutritional Intake: [] IV Site: [] [place] Catheter: [] - Assessment/Plan Antibiotics: [] Assessment/Plan: [] Active and Suspected Problems Infection of left foot (Suspected) Coronavirus infection (Acute) Interstitial pneumonitis (Acute) Hypoxia (Acute) Fever to 102.4 on admit. On dex, eliquis, remdesivir. CT showed PEs. Got plasma 05/09/20. Lung sounds much better, feeling better. No more fevers. Will follow
[2020-05-11] MEDS: Glycerin/Hypromellose/PEG400 15 ml Bottle 2 DRP EACH EYE (17:22)
[2020-05-12] VITALS (11 sets, daily range): BP systolic 131–158; BP diastolic 86–100; PULSE 76–94; RESP 18–20; TEMP 36.8–37.4; O2SAT 86–94
--- NOTE | 2020-05-12 07:24 | PN_ITS ---
Patient Problems: Active and Suspected Problems Infection of left foot (Suspected) Coronavirus infection (Acute) Interstitial pneumonitis (Acute) Hypoxia (Acute) COVID-19 (Acute) Subjective: Patient with dyspnea and difficulty resting overnight, increased oxygen requirements again to 6 L nasal cannula, more fatigued than day prior. Patient notes frustrations over labile oxygen needs. Discussed importance of activity in his room, out of bed to his chair, aggressive incentive spirometry and that likely he would need increase supplementation in the evenings to a.m. given some component of atelectasis with sleeping. Patient denies fevers, chills, nausea, emesis, abdominal pain, chest pain. Objective: Physical Examination: General: awake, alert, oriented x 3 and cooperative, seated upright in the [facility] bed, more fatigued, mildly despondent with labile oxygen needs. Skin: normal color, turgor, no icterus, cyanosis. HEENT: AT/NC, EOMI, PERRLA, MMM. Lungs: Diminished breath sounds, greater bases, normalized effort, no rales, ronchi or wheezing. Heart: Regular rate and regular rhythm; no gallop, rub audible. Abdomen: soft, NTTP, ND, normalized BS. Extremities: no cyanosis, clubbing, or edema. Neurological: patient awake, alert, oriented x 3; cognitive function intact; pupils equally reactive to light and accomodation; cranial nerves II-XII grossly normal, moving all 4 extremities, no focal deficits, strength still improved despite patient noting setback over the evening, moderately global decrease secondary to acute presentation. Psychiatric: affect appears fatigued, mildly despondent over labile oxygen needs, notes slept poorly, no acute evidence of depressive or anxiety feelings. Vitals/I&O's: Vital Signs Temp Pulse Resp BP Pulse Ox 98.8 F 79 18 132/89 H 94 05/12/20 02:59 05/12/20 02:59 05/12/20 02:59 05/12/20 02:59 05/12/20 02:59 Oxygen Flow Rate (L/min) [ 5 AMBULATION with Oxygen] Oxygen Flow Rate (L/min) [ 0 AMBULATING on Room Air] Oxygen Flow Rate (L/min) [At 5 REST on Room Air] Oxygen Flow Rate (L/min) 6 Oxygen Delivery Method Nasal Cannula Weight: 231 lb 11.293 oz Body Mass Index (BMI) 35.1 Intake and Output for Last 24 Hours 05/10/20 05/11/20 05/12/20 23:59 23:59 23:59 Intake Total 1710 / 1710 490 / 490 440 / 440 Output Total 302 / 302 Balance 1408 / 1408 490 / 490 440 / 440 Microbiology Past 72 Hours 05/08/20 09:50 Sputum, Expectorated/Coughed Gram Stain - Final 05/08/20 09:50 Sputum, Expectorated/Coughed Respiratory Culture - Final Current Medications Acetaminophen (Acetaminophen 325 Mg Tablet) 650 mg PO Q6H PRN PRN PRN Reason: Pain Score 1-10/Temp > 100.7 F Last Admin: 05/11/20 13:56 Dose: 650 mg Documented by: Al Hydroxide/Mg Hydroxide (Mag Hydrox/Al Hydrox/Simeth 30 Ml Udc) 15 ml PO Q4H PRN PRN PRN Reason: HEARTBURN Last Admin: 05/10/20 04:09 Dose: 15 ml Documented by: Allopurinol (Allopurinol 100 Mg Tablet) 100 mg PO BID ON LICENSE OF [facility] Last Admin: 05/11/20 20:56 Dose: 100 mg Documented by: Apixaban (Apixaban 5 Mg Tablet) 10 mg PO BID ON LICENSE OF [facility] Last Admin: 05/11/20 20:56 Dose: 10 mg Documented by: Ascorbic Acid (Ascorbic Acid 500 Mg Tablet) 1,000 mg PO BID ON [facility] Last Admin: 05/11/20 20:56 Dose: 1,000 mg Documented by: Dexamethasone (Dexamethasone 4 Mg Tablet) 6 mg PO DAILY ON [facility] Stop: 05/16/20 10:01 Last Admin: 05/11/20 08:27 Dose: 6 mg Documented by: Diphenoxylate HCl/Atropine (Diphenoxylate/Atrop 1 Tablet) 2 tablet PO 4X/DAY PRN PRN PRN Reason: Diarrhea Last Admin: 05/09/20 15:05 Dose: 2 tablet Documented by: Fluticasone Propionate (Fluticasone 0.05% 1 [place] Nasal.Sry) 1 spray NASAL BID ON [facility] Last Admin: 05/11/20 20:55 Dose: Not Given Documented by: Hydralazine HCl (Hydralazine 20 Mg/Ml Vial) 10 mg IV Q4H PRN PRN PRN Reason: SBP > 160 Last Admin: 05/10/20 04:10 Dose: 10 mg Documented by: Sodium Chloride () 250 mls @ 15 mls/hr IV .[id number] PRN PRN Reason: Saline Flush Sodium Chloride () 250 mls @ 15 mls/hr IV .[id number] PRN PRN Reason: Additional IVPB Infusion Remdesivir 100 mg/ Sodium (Chloride) 250 mls @ 125 mls/hr IV DAILY [facility]; Protocol Stop: 05/13/20 11:59 Last Infusion: 05/11/20 13:04 Dose: Infused Documented by: Lisinopril (Lisinopril 10 Mg Tablet) 10 mg PO DAILY [facility] Ondansetron HCl (Ondansetron 4 Mg/2 Ml Vial) 4 mg IV Q8H PRN PRN PRN Reason: NAUSEA/VOMITING Last Admin: 05/10/20 03:20 Dose: 4 mg Documented by: Sodium Chloride (0.9% Saline Lock 10 Ml Syringe) 10 - 40 ml IV UD PRN PRN Reason: SALINE FLUSH Last Admin: 05/10/20 09:03 Dose: 10 ml Documented by: Sodium Chloride (Sodium Chloride 0.65% 1 [place].Btl) 2 spray NASAL TID PRN PRN PRN Reason: NASAL DRYNESS Last Admin: 05/11/20 10:31 Dose: 2 spray Documented by: Medical Necessity - Tobacco Use Smoking Status: Former smoker Tobacco Use: Non-smoker Assessment/Plan All Active Problems Coronavirus infection (Acute) Interstitial pneumonitis (Acute) Hypoxia (Acute) COVID-19 (Acute) The patient is a 50 y/o M w/ PMHx: Allergic Rhinitis, Gout who presents to the [facility] ED on 05/08/20 with history of onset of symptoms on 04/27/2020 including headache, cough, dyspnea, alteration to his taste noting that several things tasted severely salty, nausea without emesis, body aches and fevers, worsening with increasing dyspnea prompting eventual ED presentation for evaluation. 1. Acute Hypoxia, Dyspnea, Cough, Fever with Bilateral Pneumonia secondary to Acute Viral Syndrome, COVID-19, complicated by Acute BL Pulmonary Emboli: Patient with hypoxia upon presentation, ED evaluation with chest x-ray consistent with COVID pneumonia, CBC not marked appearing, BMP not marked appearing, admitted to the COVID unit, maintained on oxygen with wean as tolerated to room air patient has continued increasing oxygenation needs, both infectious disease and pulmonary medicine following. Initial Covid panel order set with ferritin 2095, LDH 422, CRP 72.8, procalcitonin less than 0.04, D-dimer 1.0 with follow-up CTPA obtained notable for scattered filling defects in the branches of the upper and lower lobe pulmonary artery branches consistent with pulmonary emboli, diffuse bilateral airspace disease in keeping with findings of COVID-19 infection, Blood type A negative. Patient initiated and continued on therapeutic Eliquis regimen. Legionella and streptococcal antigens negative. Respiratory viral panel negative. Patient on dexamethasone, receiving remdesivir and administered convalescent plasma on 05/09/2020. Patient with ongoing variability of oxygenation, in the evenings and especially mornings patient with increased oxygen requirements, currently up to 6 L nasal cannula and noted to be hypoxic at 86% on 6 L with ambulation, currently maintaining 91 to 93% on 6 L nasal cannula at rest. Infectious disease and pulmonary medicine following. Strongly encouraged patient to be out of bed to his chair, short walks in his room as well as aggressive incentive spirometer to help with reducing oxygen requirements. 2. Elevated BP without hypertensive diagnosis undiagnosed hypertension: ED presentation with elevated BPs above goal, intermittently elevated during presentation, possibly secondary to steroids however given ongoing above goal added low-dose lisinopril, continued elevations, will increase to lisinopril 20 mg daily as well as as needed IV hydralazine with continued renal fx trending. 3. Allergic rhinitis: We will continue patient home fluticasone regimen. 4. Gout: We will continue patient home allopurinol regimen. 5. DVT prophylaxis: SCDs, Eliquis therapeutic regimen. Inpatient E&M: [id number] Subs Hosp L2
[2020-05-12] MEDS: APIXABAN 5 MG TABLET 10 MG PO ×2 (08:58→21:33)
[2020-05-12] MEDS: dexAMETHasone 4 MG Tablet 6 MG PO (08:58)
[2020-05-12] MEDS: Ascorbic Acid 500 MG Tablet 1000 MG PO ×2 (08:59→21:32)
[2020-05-12] MEDS: Lisinopril 10 MG Tablet PO (08:59)
[2020-05-12] MEDS: Fluticasone 0.05% 1 SPRAY NASAL.SRY NASAL (08:59)
[2020-05-12] MEDS: Allopurinol 100 MG Tablet PO ×2 (08:59→21:33)
[2020-05-12] MEDS: Mag Hydrox/Al Hydrox/Simeth 30 ML UDC 15 ML PO ×2 (09:08→19:01)
--- NOTE | 2020-05-12 10:29 | PCM.PN.PUL ---
Patient Problems: Active and Suspected Problems Infection of left foot (Suspected) Coronavirus infection (Acute) Interstitial pneumonitis (Acute) Hypoxia (Acute) COVID-19 (Acute) Subjective: Patient did okay overnight. Patient reports he felt better last evening than he does this morning. Patient denies any current chest pain, but does feel that he is more short of breath compared to last evening. Patient did have to go up slightly on his oxygen overnight. - Physical Exam Vitals/I&O's: Vital Signs Temp Pulse Resp BP Pulse Ox 37.2 C 80 18 131/86 H 92 05/12/20 08:13 05/12/20 08:13 05/12/20 08:13 05/12/20 08:13 05/12/20 08:13 Oxygen Flow Rate (L/min) [ 5 AMBULATION with Oxygen] Oxygen Flow Rate (L/min) [ 0 AMBULATING on Room Air] Oxygen Flow Rate (L/min) [At 5 REST on Room Air] Oxygen Flow Rate (L/min) 6 Oxygen Delivery Method Nasal Cannula Weight: 105.1 kg Body Mass Index (BMI) 35.1 Intake and Output for Last 24 Hours 05/10/20 05/11/20 05/12/20 23:59 23:59 23:59 Intake Total 1710 / 1710 490 / 490 440 / 440 Output Total 302 / 302 Balance 1408 / 1408 490 / 490 440 / 440 General: Alert, Oriented x3, Cooperative, - - Mild distress. Obese. HEENT: Atraumatic, PERRLA, EOMI, Normocephalic, - - Scleral injection without icterus noted. Oral: Moist Mucosa, No Gingival or Mucosal Lesions/ Ulcerations Neck: Supple, No JVD, No Nodes, Trachea Midline Lungs: No rhonchi, No wheeze, No rales, Diminished Cardiovascular: Regular rate, Regular Rhythm, Normal S1, Normal S2, No murmurs, No rub noted, No Gallop Abdomen: Bowel Sounds Present, Soft, Non Tender, Non-Distended, Obese Extremities: No clubbing, No cyanosis, Edema - Trace lower extremity Skin: No rashes, No breakdown Musculoskeletal: No Tenderness to Palpation of Joints or Extremities Lymphatic: No Cervical, Supraclavicular, or Inguinal Adenopathy Neurological: Cranial nerves II-XII grossly intact, Neuro grossly intact, Motor Exam 5/5 strength throughout Psych/Mental Status: Anxious, Restless Microbiology Past 72 Hours 05/08/20 09:50 Sputum, Expectorated/Coughed Gram Stain - Final 05/08/20 09:50 Sputum, Expectorated/Coughed Respiratory Culture - Final Laboratory Results 05/12/20 09:15: WBC Pending, RBC Pending, Hgb Pending, Hct Pending, MCV Pending, MCH Pending, MCHC Pending, RDW Std Deviation Pending, RDW Coeff of Do Pending, Plt Count Pending, Neut % (Auto) Pending, Absolute Neuts (auto) Pending 05/12/20 09:15: Sodium Pending, Potassium Pending, Chloride Pending, Carbon Dioxide Pending, Anion Gap Pending, BUN Pending, Creatinine Pending, Est GFR (MDRD) Af Amer Pending, Est GFR (MDRD) Non-Af Pending, BUN/Creatinine Ratio Pending, Glucose Pending, Calcium Pending, Total Bilirubin Pending, AST Pending, ALT Pending, Alkaline Phosphatase Pending, Total Protein Pending, Albumin Pending Current Medications Acetaminophen (Acetaminophen 325 Mg Tablet) 650 mg PO Q6H PRN PRN PRN Reason: Pain Score 1-10/Temp > 100.7 F Last Admin: 05/11/20 13:56 Dose: 650 mg Documented by: Al Hydroxide/Mg Hydroxide (Mag Hydrox/Al Hydrox/Simeth 30 Ml Udc) 15 ml PO Q4H PRN PRN PRN Reason: HEARTBURN Last Admin: 05/12/20 09:08 Dose: 15 ml Documented by: Allopurinol (Allopurinol 100 Mg Tablet) 100 mg PO BID [facility] Last Admin: 05/12/20 08:59 Dose: 100 mg Documented by: Apixaban (Apixaban 5 Mg Tablet) 10 mg PO BID [facility] Last Admin: 05/12/20 08:58 Dose: 10 mg Documented by: Ascorbic Acid (Ascorbic Acid 500 Mg Tablet) 1,000 mg PO BID [facility] Last Admin: 05/12/20 08:59 Dose: 1,000 mg Documented by: Dexamethasone (Dexamethasone 4 Mg Tablet) 6 mg PO DAILY [facility] Stop: 05/16/20 10:01 Last Admin: 05/12/20 08:58 Dose: 6 mg Documented by: Diphenoxylate HCl/Atropine (Diphenoxylate/Atrop 1 Tablet) 2 tablet PO 4X/DAY PRN PRN PRN Reason: Diarrhea Last Admin: 05/09/20 15:05 Dose: 2 tablet Documented by: Fluticasone Propionate (Fluticasone 0.05% 1 [place] Nasal.Sry) 1 spray NASAL BID [facility] Last Admin: 05/12/20 08:59 Dose: 1 spray Documented by: Hydralazine HCl (Hydralazine 20 Mg/Ml Vial) 10 mg IV Q4H PRN PRN PRN Reason: SBP > 160 Last Admin: 05/10/20 04:10 Dose: 10 mg Documented by: Sodium Chloride () 250 mls @ 15 mls/hr IV .[id number] PRN PRN Reason: Saline Flush Sodium Chloride () 250 mls @ 15 mls/hr IV .[id number] PRN PRN Reason: Additional IVPB Infusion Remdesivir 100 mg/ Sodium (Chloride) 250 mls @ 125 mls/hr IV DAILY [facility]; Protocol Stop: 05/13/20 11:59 Last Infusion: 05/11/20 13:04 Dose: Infused Documented by: Lisinopril (Lisinopril 10 Mg Tablet) 10 mg PO DAILY [facility] Last Admin: 05/12/20 08:59 Dose: 10 mg Documented by: Ondansetron HCl (Ondansetron 4 Mg/2 Ml Vial) 4 mg IV Q8H PRN PRN PRN Reason: NAUSEA/VOMITING Last Admin: 05/10/20 03:20 Dose: 4 mg Documented by: Sodium Chloride (0.9% Saline Lock 10 Ml Syringe) 10 - 40 ml IV UD PRN PRN Reason: SALINE FLUSH Last Admin: 05/10/20 09:03 Dose: 10 ml Documented by: Sodium Chloride (Sodium Chloride 0.65% 1 [place].Btl) 2 spray NASAL TID PRN PRN PRN Reason: NASAL DRYNESS Last Admin: 05/11/20 10:31 Dose: 2 spray Documented by: Medical Necessity - Tobacco Use Smoking Status: Former smoker Tobacco Use: Non-smoker Assessment/Plan All Active Problems Coronavirus infection (Acute) Interstitial pneumonitis (Acute) Hypoxia (Acute) COVID-19 (Acute) RECOMMENDATIONS: 1. Symptomatic therapy for fever and myalgias 2. Continue anticoagulation for 3 to 6 months 3. Encourage incentive spirometer 4. Wean oxygen as tolerated 5. Monitor for complications of Decadron therapy 6. Continue Remdesivir per infectious disease 7. Likely diuretic challenge tomorrow if continues to require supplemental oxygen IMPRESSIONS: 1. Acute hypoxic respiratory insufficiency Multifactorial etiology. Review of the CT scan shows groundglass opacities consistent with COVID-19 infection. Patient also has small bilateral pulmonary emboli noted. Patient is appropriately on anticoagulation at this time. Patient has been placed on Remdesivir and Decadron therapy. We will have to monitor for complications such as hypertension and hyperglycemia. Wean oxygen as tolerated. Patient will need a walking oximetry prior to discharge. Patient appears to be stabilized clinically. If continues to require supplemental oxygen tomorrow and renal function allows, may challenge with diuretics starting tomorrow. 2. Hypertension Unclear etiology. Patient was recently placed on steroid therapy, which could be adding to current situation. Patient also has been stressed secondary to hypoxia related to #1. Continue to monitor. Unclear if p.o. medications need to be initiated. 3. Allergic rhinitis/gout/possible asbestos exposure Uppercase care, management, recovery and prognosis. Okay to continue with baseline medications. Inpatient E&M: [id number] [facility] Hosp L3
[2020-05-12 10:40] LABS: Absolute Lymphocyte Count 0.83 X10^3/uL (0.83-4.51); Absolute Neutrophil Count 9.7 X10^3/uL (2.0-7.7); Basophil# 0.01 X10^3/uL; Basophil% 0.1 % (0-1); Eosinophil# 0.01 X10^3/uL; Eosinophils% 0.1 % (0-5); Hematocrit 46.8 % (40-54); Hemoglobin 15.2 g/dL (13.0-16.5); Lymphocyte # 0.83 X10^3/ul (4.0); Lymphocyte % 7.6 % (19-41); Mean Corp Hgb Conc 32.5 g/dL (32-36); Mean Corpuscular Hgb 29.7 pg (27.0-32.0); Mean Corpuscular Volume 91.4 fL (80-94); Monocyte# 0.25 X10^3/uL; Monocyte% 2.3 % (0-10); NRBC Flagged by Analyzer 0 % (0-5); Neutrophil # 9.69 X10^3/uL (2.7-7.7); Neutrophil % 89.3 % (47-70); Platelet Count 327 K/mm3 (150-450); RBC Distribution Width CV 13.7 % (11.6-14.6); RBC Distribution Width SD 46.5 fl (35.1-43.9); Red Blood Count 5.12 M/mm3 (4.6-6.2); White Blood Count 10.9 K/mm3 (4.4-11.0)
[2020-05-12] MEDS: 0.9% Saline Lock 10 ML Syringe IV (10:50)
[2020-05-12 11:11] LABS: ALB/GLOB Ratio 0.7 RATIO (0.9-2.4); AST(SGOT) 69 U/L (15-37); Alanine Aminotransfer ALT/SGPT 129 U/L (16-61); Albumin, Serum 2.9 g/dL (3.2-5.0); Alkaline Phosphatase 85 U/L (45-117); Anion Gap 8 (5-15); BUN 20 mg/dL (7-18); BUN/Creat Ratio 28.3 RATIO (10-20); Calcium,Total 8.3 mg/dL (8.5-10.1); Chloride 108 mmol/L (98-107); Creatinine, Serum 0.71 mg/dL (0.70-1.30); EST Glomerular Filtration Rate 126 mL/min (>60); Est Glom Filt Rate - Afr Amer 152 mL/min (>60); Estimated Creatinine Clearance 120.42 ml/min; Globulin 4.3 g/dL (2.2-4.2); Glucose 98 mg/dL (74-106); Potassium 3.3 mmol/L (3.5-5.1); Protein, Total 7.2 g/dL (6.4-8.2); Sodium Level 139 mmol/L (136-145)
--- NOTE | 2020-05-12 14:32 | CM.UR ---
Rounded with KARINA Kenneyprimer charger nurse and Dr. Jameson. + Covid. O2 demands increased. needing up to 6 liters now. discharge TBD. Care management will remain available for needs. Angela Bonilla RN, [facility].
--- NOTE | 2020-05-12 15:27 | NURSING ---
TOOK SEVERAL MINUTES AFTER RESTING IN BED AFTER AMBULATION TO RECOVER TO 92% WITH OXYGEN @ 6L/NC.
[2020-05-12] MEDS: Acetaminophen 325 MG Tablet 650 MG PO (19:04)
[2020-05-13] VITALS (7 sets, daily range): BP systolic 121–141; BP diastolic 74–92; PULSE 68–90; RESP 20; TEMP 36.4–37.4; O2SAT 92–96
[2020-05-13] MEDS: Mag Hydrox/Al Hydrox/Simeth 30 ML UDC 15 ML PO (05:27)
[2020-05-13 06:31] LABS: Absolute Neutrophil Count 6.9 X10^3/uL (2.0-7.7); Basophil# 0.01 X10^3/uL; Basophil% 0.1 % (0-1); Eosinophil# 0.01 X10^3/uL; Eosinophils% 0.1 % (0-5); Hemoglobin 14.8 g/dL (13.0-16.5); Lymphocyte % 7.7 % (19-41); Mean Corp Hgb Conc 32.2 g/dL (32-36); Mean Corpuscular Hgb 29.5 pg (27.0-32.0); Mean Corpuscular Volume 91.8 fL (80-94); Mean Platelet Vol. 9.7 fl (6.2-12.0); Monocyte# 0.21 X10^3/uL; Monocyte% 2.7 % (0-10); NRBC Flagged by Analyzer 0 % (0-5); Neutrophil # 6.92 X10^3/uL (2.7-7.7); Neutrophil % 88.8 % (47-70); POSITIVE DIFFERENTIAL YES; Platelet Count 324 K/mm3 (150-450); RBC Distribution Width CV 13.5 % (11.6-14.6); Red Blood Count 5.01 M/mm3 (4.6-6.2); White Blood Count 7.8 K/mm3 (4.4-11.0)
[2020-05-13 06:32] LABS: Differential Indicated SCAN CRITERIA MET
[2020-05-13 06:52] LABS: ALB/GLOB Ratio 0.6 RATIO (0.9-2.4); AST(SGOT) 47 U/L (15-37); Alanine Aminotransfer ALT/SGPT 112 U/L (16-61); Albumin, Serum 2.7 g/dL (3.2-5.0); Alkaline Phosphatase 74 U/L (45-117); Anion Gap 7 (5-15); BUN 14 mg/dL (7-18); BUN/Creat Ratio 18.7 RATIO (10-20); Calcium,Total 8.4 mg/dL (8.5-10.1); Chloride 105 mmol/L (98-107); Creatinine, Serum 0.75 mg/dL (0.70-1.30); EST Glomerular Filtration Rate 118 mL/min (>60); Est Glom Filt Rate - Afr Amer 142 mL/min (>60); Globulin 4.3 g/dL (2.2-4.2); Glucose 101 mg/dL (74-106); Potassium 3.9 mmol/L (3.5-5.1); Sodium Level 138 mmol/L (136-145)
--- NOTE | 2020-05-13 07:04 | PCM.PN.HOSP ---
Patient Problems: Active and Suspected Problems Infection of left foot (Suspected) Coronavirus infection (Acute) Interstitial pneumonitis (Acute) Hypoxia (Acute) COVID-19 (Acute) Subjective: The patient is a 50 y/o M w/ PMHx: Allergic Rhinitis, Gout who presents to the [facility] ED on 05/08/20 with history of onset of symptoms on 04/27/2020 including headache, cough, dyspnea, alteration to his taste noting that several things tasted severely salty, nausea without emesis, body aches and fevers, worsening with increasing dyspnea prompting eventual ED presentation for evaluation. ED evaluation with chest x-ray consistent with COVID pneumonia, CBC not marked appearing, BMP not marked appearing, admitted to the COVID unit, maintained on oxygen with wean as tolerated to room air patient has continued increasing oxygenation needs, both infectious disease and pulmonary medicine following. Initial Covid panel order set with ferritin 2095, LDH 422, CRP 72.8, procalcitonin less than 0.04, D-dimer 1.0 with follow-up CTPA obtained notable for scattered filling defects in the branches of the upper and lower lobe pulmonary artery branches consistent with pulmonary emboli, diffuse bilateral airspace disease in keeping with findings of COVID-19 infection, Blood type A negative. Patient initiated and continued on therapeutic Eliquis regimen. Patient on dexamethasone, remdesivir and administered convalescent plasma on 05/09/2020. Patient still requiring 6 L nasal cannula with desaturations with any activity, 05/13/2020 Lasix 20 mg IV x1 being administered and may require daily pulse dosing pending reevaluation and oxygenation. Encourage strongly continued movement in his room and aggressive incentive spirometry. Patient overnight with continued increased oxygen requirements, fatigued, some dyspnea especially when he is exerting himself i.e. walking to the bathroom, noting intention to watch sports, recently up and moving in the room. Discussed at length need to move and incentive spirometry aggressively day prior which patient has been continuing to do. Patient being currently administered Lasix 20 mg IV x1. Discussed reasoning and expectations following this regimen. Patient denies fevers, chills, nausea, emesis, abdominal pain, chest pain. Objective: Physical Examination: General: awake, alert, oriented x 3 and cooperative, seated upright in the [facility] bed, acute, more calm today. Skin: normal color, turgor, no icterus, cyanosis. HEENT: AT/NC, EOMI, PERRLA, MMM. Lungs: Diminished breath sounds, greater bases, normalized effort, no rales, ronchi or wheezing. Heart: Regular rate and regular rhythm; no gallop, rub audible. Abdomen: soft, NTTP, ND, normalized BS. Extremities: no cyanosis, clubbing, or edema. Neurological: patient awake, alert, oriented x 3; cognitive function intact; pupils equally reactive to light and accomodation; cranial nerves II-XII grossly normal, moving all 4 extremities, no focal deficits, strength, moderately global decrease secondary to acute presentation. Psychiatric: affect appears fatigued, more calm than day prior, no acute evidence of depressive or anxiety feelings. Vitals/I&O's: Vital Signs Temp Pulse Resp BP Pulse Ox 97.6 F L 68 20 H 128/76 H 96 05/13/20 03:29 05/13/20 03:29 05/13/20 03:33 05/13/20 03:29 05/13/20 03:33 Oxygen Flow Rate (L/min) [ 6 AMBULATION with Oxygen] Oxygen Flow Rate (L/min) [ 0 AMBULATING on Room Air] Oxygen Flow Rate (L/min) [At 5 REST on Room Air] Oxygen Flow Rate (L/min) 6 Oxygen Delivery Method Nasal Cannula Weight: 231 lb 11.293 oz Body Mass Index (BMI) 35.1 Intake and Output for Last 24 Hours 05/11/20 05/12/20 05/13/20 23:59 23:59 23:59 Intake Total 490 / 490 2019 / 3260 1839 / 1839 Balance 490 / 490 2019 / 3259 1839 / 1839 Microbiology Past 72 Hours 05/08/20 09:50 Sputum, Expectorated/Coughed Gram Stain - Final 05/08/20 09:50 Sputum, Expectorated/Coughed Respiratory Culture - Final Laboratory Results 05/12/20 09:15: WBC 10.9, RBC 5.12, Hgb 15.2, Hct 46.8, MCV 91.4, MCH 29.7, MCHC 32.5, RDW Std Deviation 46.5 H, RDW Coeff of Do 13.7, Plt Count 327, MPV 10.0, Immature Gran % (Auto) 0.600, Neut % (Auto) 89.3 H, Lymph % (Auto) 7.6 L, [place] % (Auto) 2.3, Eos % (Auto) 0.1, Baso % (Auto) 0.1, Absolute Neuts (auto) 9.7 H, Absolute Lymphs (auto) 0.83, Nucleated RBC % 0 05/12/20 09:15: Sodium 139, Potassium 3.3 L, Chloride 108 H, Carbon Dioxide 23.0, Anion Gap 8, BUN 20 H, Creatinine 0.71, Estim Creat Clear Calc 120.42, Est GFR (MDRD) Af Amer 152, Est GFR (MDRD) Non-Af 126, BUN/Creatinine Ratio 28.3 H, Glucose 98, Calcium 8.3 L, Total Bilirubin 0.70, AST 69 H, ALT 129 H, Alkaline Phosphatase 85, Total Protein 7.2, Albumin 2.9 L, Globulin 4.3 H, Albumin/Globulin Ratio 0.7 L 05/13/20 06:00: WBC 7.8, RBC 5.01, Hgb 14.8, Hct 46.0, MCV 91.8, MCH 29.5, MCHC 32.2, RDW Std Deviation 46.0 H, RDW Coeff of Do 13.5, Plt Count 324, MPV 9.7, Immature Gran % (Auto) 0.600, Neut % (Auto) 88.8 H, Lymph % (Auto) 7.7 L, [place] % (Auto) 2.7, Eos % (Auto) 0.1, Baso % (Auto) 0.1, Absolute Neuts (auto) 6.9, Absolute Lymphs (auto) 0.60 L, Nucleated RBC % 0 05/13/20 06:00: Sodium 138, Potassium 3.9, Chloride 105, Carbon Dioxide 26.0, Anion Gap 7, BUN 14, Creatinine 0.75, Estim Creat Clear Calc 114.00, Est GFR (MDRD) Af Amer 142, Est GFR (MDRD) Non-Af 118, BUN/Creatinine Ratio 18.7, Glucose 101, Calcium 8.4 L, Total Bilirubin 0.70, AST 47 H, ALT 112 H, Alkaline Phosphatase 74, Total Protein 7.0, Albumin 2.7 L, Globulin 4.3 H, Albumin/Globulin Ratio 0.6 L Current Medications Acetaminophen (Acetaminophen 325 Mg Tablet) 650 mg PO Q6H PRN PRN PRN Reason: Pain Score 1-10/Temp > 100.7 F Last Admin: 05/12/20 19:04 Dose: 650 mg Documented by: Al Hydroxide/Mg Hydroxide (Mag Hydrox/Al Hydrox/Simeth 30 Ml Udc) 15 ml PO Q4H PRN PRN PRN Reason: HEARTBURN Last Admin: 05/13/20 05:27 Dose: 15 ml Documented by: Allopurinol (Allopurinol 100 Mg Tablet) 100 mg PO BID [facility] Last Admin: 05/12/20 21:33 Dose: 100 mg Documented by: Apixaban (Apixaban 5 Mg Tablet) 10 mg PO BID [facility] Last Admin: 05/12/20 21:33 Dose: 10 mg Documented by: Ascorbic Acid (Ascorbic Acid 500 Mg Tablet) 1,000 mg PO BID [facility] Last Admin: 05/12/20 21:32 Dose: 1,000 mg Documented by: Dexamethasone (Dexamethasone 4 Mg Tablet) 6 mg PO DAILY [facility] Stop: 05/16/20 10:01 Last Admin: 05/12/20 08:58 Dose: 6 mg Documented by: Diphenoxylate HCl/Atropine (Diphenoxylate/Atrop 1 Tablet) 2 tablet PO 4X/DAY PRN PRN PRN Reason: Diarrhea Last Admin: 05/09/20 15:05 Dose: 2 tablet Documented by: Fluticasone Propionate (Fluticasone 0.05% 1 [place] Nasal.Sry) 1 spray NASAL BID [facility] Last Admin: 05/12/20 21:35 Dose: Not Given Documented by: Hydralazine HCl (Hydralazine 20 Mg/Ml Vial) 10 mg IV Q4H PRN PRN PRN Reason: SBP > 160 Last Admin: 05/10/20 04:10 Dose: 10 mg Documented by: Sodium Chloride () 250 mls @ 15 mls/hr IV .[id number] PRN PRN Reason: Saline Flush Sodium Chloride () 250 mls @ 15 mls/hr IV .[id number] PRN PRN Reason: Additional IVPB Infusion Remdesivir 100 mg/ Sodium (Chloride) 250 mls @ 125 mls/hr IV DAILY [facility]; Protocol Stop: 05/13/20 11:59 Last Infusion: 05/12/20 12:49 Dose: Infused Documented by: Lisinopril (Lisinopril 20 Mg Tablet) 20 mg PO DAILY [facility] Ondansetron HCl (Ondansetron 4 Mg/2 Ml Vial) 4 mg IV Q8H PRN PRN PRN Reason: NAUSEA/VOMITING Last Admin: 05/10/20 03:20 Dose: 4 mg Documented by: Sodium Chloride (0.9% Saline Lock 10 Ml Syringe) 10 - 40 ml IV UD PRN PRN Reason: SALINE FLUSH Last Admin: 05/12/20 10:50 Dose: 10 ml Documented by: Sodium Chloride (Sodium Chloride 0.65% 1 [place].Btl) 2 spray NASAL TID PRN PRN PRN Reason: NASAL DRYNESS Last Admin: 05/11/20 10:31 Dose: 2 spray Documented by: STROKE Vital Signs/Narrative: Vital Signs Temp Pulse Resp BP Pulse Ox 05/13/20 03:33 20 H 96 05/13/20 03:29 97.6 F L 68 20 H 128/76 H 96 Medical Necessity - Tobacco Use Smoking Status: Former smoker Tobacco Use: Non-smoker Assessment/Plan All Active Problems Coronavirus infection (Acute) Interstitial pneumonitis (Acute) Hypoxia (Acute) COVID-19 (Acute) The patient is a 50 y/o M w/ PMHx: Allergic Rhinitis, Gout who presents to the [facility] ED on 05/08/20 with history of onset of symptoms on 04/27/2020 including headache, cough, dyspnea, alteration to his taste noting that several things tasted severely salty, nausea without emesis, body aches and fevers, worsening with increasing dyspnea prompting eventual ED presentation for evaluation. 1. Acute Hypoxia, Dyspnea, Cough, Fever with Bilateral Pneumonia secondary to Acute Viral Syndrome, COVID-19, complicated by Acute BL Pulmonary Emboli: Patient with hypoxia upon presentation, ED evaluation with chest x-ray consistent with COVID pneumonia, CBC not marked appearing, BMP not marked appearing, admitted to the COVID unit, maintained on oxygen with wean as tolerated to room air patient has continued increasing oxygenation needs, both infectious disease and pulmonary medicine following. Initial Covid panel order set with ferritin 2095, LDH 422, CRP 72.8, procalcitonin less than 0.04, D-dimer 1.0 with follow-up CTPA obtained notable for scattered filling defects in the branches of the upper and lower lobe pulmonary artery branches consistent with pulmonary emboli, diffuse bilateral airspace disease in keeping with findings of COVID-19 infection, Blood type A negative. Patient initiated and continued on therapeutic Eliquis regimen. Legionella and streptococcal antigens negative. Respiratory viral panel negative. Patient on dexamethasone, remdesivir and administered convalescent plasma on 05/09/2020. Patient still requiring 6 L nasal cannula with desaturations with any activity, 05/13/2020 Lasix 20 mg IV x1 being administered and may require daily pulse dosing pending reevaluation and oxygenation. Encourage strongly continued movement in his room and aggressive incentive spirometry. 2. Elevated BP without hypertensive diagnosis undiagnosed hypertension: ED presentation with elevated BPs above goal, intermittently elevated during presentation, possibly secondary to steroids however given ongoing above goal, improved BPs on lisinopril 20 mg daily, will continue, trending CMP. IV lasix 20 mg x 1 as noted #1. 3. Allergic rhinitis: We will continue patient home fluticasone regimen. 4. Gout: We will continue patient home allopurinol regimen. 5. DVT prophylaxis: SCDs, Eliquis therapeutic regimen. Updated patient on his current status and plan of care. Inpatient E&M: [id number] Subs Hosp L2
[2020-05-13 07:05] LABS: Differential Comment SCANNED
[2020-05-13] MEDS: 0.9% Saline Lock 10 ML Syringe IV (08:21)
[2020-05-13] MEDS: Lisinopril 20 MG Tablet PO (08:22)
[2020-05-13] MEDS: dexAMETHasone 4 MG Tablet 6 MG PO (08:22)
[2020-05-13] MEDS: Allopurinol 100 MG Tablet PO ×2 (08:23→21:32)
[2020-05-13] MEDS: APIXABAN 5 MG TABLET 10 MG PO ×2 (08:23→21:32)
[2020-05-13] MEDS: Ascorbic Acid 500 MG Tablet 1000 MG PO ×2 (08:23→21:32)
[2020-05-13] MEDS: Fluticasone 0.05% 1 SPRAY NASAL.SRY NASAL (08:23)
--- NOTE | 2020-05-13 08:35 | PN_ITS ---
Patient Problems: Active and Suspected Problems Infection of left foot (Suspected) Coronavirus infection (Acute) Interstitial pneumonitis (Acute) Hypoxia (Acute) COVID-19 (Acute) Subjective: Patient feels subjectively improved today compared to yesterday. Patient is still requiring 4 to 5 L, but feels that he can get around easier. Patient still has an intermittent cough, but feels that his energy is improving. No chest pain, nausea, vomiting or diarrhea has been reported. - Physical Exam Vitals/I&O's: Vital Signs Temp Pulse Resp BP Pulse Ox 36.8 C 87 20 H 137/84 H 92 05/13/20 08:18 05/13/20 08:18 05/13/20 08:18 05/13/20 08:18 05/13/20 08:18 Oxygen Flow Rate (L/min) [ 6 AMBULATION with Oxygen] Oxygen Flow Rate (L/min) [ 0 AMBULATING on Room Air] Oxygen Flow Rate (L/min) [At 5 REST on Room Air] Oxygen Flow Rate (L/min) 6 Oxygen Delivery Method Nasal Cannula Weight: 105.1 kg Body Mass Index (BMI) 35.1 Intake and Output for Last 24 Hours 05/11/20 05/12/20 05/13/20 23:59 23:59 23:59 Intake Total 490 / 490 2019 / 3260 1839 Balance 490 / 490 2019 General: Alert, Oriented x3, Cooperative, No apparent distress, - - Obese. HEENT: Atraumatic, PERRLA, EOMI, Normocephalic, - - Significant scleral injection noted Oral: Moist Mucosa, No Gingival or Mucosal Lesions/ Ulcerations Neck: Supple, No JVD, No Nodes, Trachea Midline Lungs: No rhonchi, No wheeze, No rales, Diminished Cardiovascular: Regular rate, Regular Rhythm, Normal S1, Normal S2, No murmurs, No rub noted, No Gallop Abdomen: Bowel Sounds Present, Soft, Non Tender, Non-Distended, Obese Extremities: No clubbing, No cyanosis, No edema Skin: No rashes, No breakdown Musculoskeletal: No Tenderness to Palpation of Joints or Extremities Lymphatic: No Cervical, Supraclavicular, or Inguinal Adenopathy Neurological: Cranial nerves II-XII grossly intact, Neuro grossly intact, Motor Exam 5/5 strength throughout Psych/Mental Status: Alert and oriented to time, place, person, mood and affect Microbiology Past 72 Hours 05/08/20 09:50 Sputum, Expectorated/Coughed Gram Stain - Final 05/08/20 09:50 Sputum, Expectorated/Coughed Respiratory Culture - Final Laboratory Results 05/12/20 09:15: WBC 10.9, RBC 5.12, Hgb 15.2, Hct 46.8, MCV 91.4, MCH 29.7, MCHC 32.5, RDW Std Deviation 46.5 H, RDW Coeff of Do 13.7, Plt Count 327, MPV 10.0, Immature Gran % (Auto) 0.600, Neut % (Auto) 89.3 H, Lymph % (Auto) 7.6 L, [place] % (Auto) 2.3, Eos % (Auto) 0.1, Baso % (Auto) 0.1, Absolute Neuts (auto) 9.7 H, Absolute Lymphs (auto) 0.83, Nucleated RBC % 0 05/12/20 09:15: Sodium 139, Potassium 3.3 L, Chloride 108 H, Carbon Dioxide 23.0, Anion Gap 8, BUN 20 H, Creatinine 0.71, Estim Creat Clear Calc 120.42, Est GFR (MDRD) Af Amer 152, Est GFR (MDRD) Non-Af 126, BUN/Creatinine Ratio 28.3 H, Glucose 98, Calcium 8.3 L, Total Bilirubin 0.70, AST 69 H, ALT 129 H, Alkaline Phosphatase 85, Total Protein 7.2, Albumin 2.9 L, Globulin 4.3 H, Albumin/Globulin Ratio 0.7 L 05/13/20 06:00: WBC 7.8, RBC 5.01, Hgb 14.8, Hct 46.0, MCV 91.8, MCH 29.5, MCHC 32.2, RDW Std Deviation 46.0 H, RDW Coeff of Do 13.5, Plt Count 324, MPV 9.7, Immature Gran % (Auto) 0.600, Neut % (Auto) 88.8 H, Lymph % (Auto) 7.7 L, [place] % (Auto) 2.7, Eos % (Auto) 0.1, Baso % (Auto) 0.1, Absolute Neuts (auto) 6.9, Absolute Lymphs (auto) 0.60 L, Nucleated RBC % 0, Differential Comment SCANNED 05/13/20 06:00: Sodium 138, Potassium 3.9, Chloride 105, Carbon Dioxide 26.0, Anion Gap 7, BUN 14, Creatinine 0.75, Estim Creat Clear Calc 114.00, Est GFR (MDRD) Af Amer 142, Est GFR (MDRD) Non-Af 118, BUN/Creatinine Ratio 18.7, Glucose 101, Calcium 8.4 L, Total Bilirubin 0.70, AST 47 H, ALT 112 H, Alkaline Phosphatase 74, Total Protein 7.0, Albumin 2.7 L, Globulin 4.3 H, Albumin/Globulin Ratio 0.6 L Current Medications Acetaminophen (Acetaminophen 325 Mg Tablet) 650 mg PO Q6H PRN PRN PRN Reason: Pain Score 1-10/Temp > 100.7 F Last Admin: 05/12/20 19:04 Dose: 650 mg Documented by: Al Hydroxide/Mg Hydroxide (Mag Hydrox/Al Hydrox/Simeth 30 Ml Udc) 15 ml PO Q4H PRN PRN PRN Reason: HEARTBURN Last Admin: 05/13/20 05:27 Dose: 15 ml Documented by: Allopurinol (Allopurinol 100 Mg Tablet) 100 mg PO BID [facility] Last Admin: 05/13/20 08:23 Dose: 100 mg Documented by: Apixaban (Apixaban 5 Mg Tablet) 10 mg PO BID [facility] Last Admin: 05/13/20 08:23 Dose: 10 mg Documented by: Ascorbic Acid (Ascorbic Acid 500 Mg Tablet) 1,000 mg PO BID [facility] Last Admin: 05/13/20 08:23 Dose: 1,000 mg Documented by: Dexamethasone (Dexamethasone 4 Mg Tablet) 6 mg PO DAILY [facility] Stop: 05/16/20 10:01 Last Admin: 05/13/20 08:22 Dose: 6 mg Documented by: Diphenoxylate HCl/Atropine (Diphenoxylate/Atrop 1 Tablet) 2 tablet PO 4X/DAY PRN PRN PRN Reason: Diarrhea Last Admin: 05/09/20 15:05 Dose: 2 tablet Documented by: Fluticasone Propionate (Fluticasone 0.05% 1 [place] Nasal.Sry) 1 spray NASAL BID [facility] Last Admin: 05/13/20 08:23 Dose: 1 spray Documented by: Hydralazine HCl (Hydralazine 20 Mg/Ml Vial) 10 mg IV Q4H PRN PRN PRN Reason: SBP > 160 Last Admin: 05/10/20 04:10 Dose: 10 mg Documented by: Sodium Chloride () 250 mls @ 15 mls/hr IV .[id number] PRN PRN Reason: Saline Flush Sodium Chloride () 250 mls @ 15 mls/hr IV .[id number] PRN PRN Reason: Additional IVPB Infusion Remdesivir 100 mg/ Sodium (Chloride) 250 mls @ 125 mls/hr IV DAILY [facility]; Protocol Stop: 05/13/20 11:59 Last Infusion: 05/12/20 12:49 Dose: Infused Documented by: Lisinopril (Lisinopril 20 Mg Tablet) 20 mg PO DAILY [facility] Last Admin: 05/13/20 08:22 Dose: 20 mg Documented by: Ondansetron HCl (Ondansetron 4 Mg/2 Ml Vial) 4 mg IV Q8H PRN PRN PRN Reason: NAUSEA/VOMITING Last Admin: 05/10/20 03:20 Dose: 4 mg Documented by: Sodium Chloride (0.9% Saline Lock 10 Ml Syringe) 10 - 40 ml IV UD PRN PRN Reason: SALINE FLUSH Last Admin: 05/13/20 08:21 Dose: 10 ml Documented by: Sodium Chloride (Sodium Chloride 0.65% 1 [place].Btl) 2 spray NASAL TID PRN PRN PRN Reason: NASAL DRYNESS Last Admin: 05/11/20 10:31 Dose: 2 spray Documented by: Medical Necessity - Tobacco Use Smoking Status: Former smoker Tobacco Use: Non-smoker Assessment/Plan All Active Problems Coronavirus infection (Acute) Interstitial pneumonitis (Acute) Hypoxia (Acute) COVID-19 (Acute) RECOMMENDATIONS: 1. Symptomatic therapy for fever and myalgias 2. Continue anticoagulation for 3 to 6 months 3. Encourage incentive spirometer 4. Wean oxygen as tolerated 5. Monitor for complications of Decadron therapy 6. Complete remdesivir per infectious disease 7. Attempt diuretic challenge IMPRESSIONS: 1. Acute hypoxic respiratory insufficiency Multifactorial etiology. Review of the CT scan shows groundglass opacities consistent with COVID-19 infection. Patient also has small bilateral pulmonary emboli noted. Patient is appropriately on anticoagulation at this time. Patient has been placed on Remdesivir and Decadron therapy. We will have to monitor for complications such as hypertension and hyperglycemia. Wean oxygen as tolerated. Patient will need a walking oximetry prior to discharge. Patient appears to be stabilized clinically. Will initiate a diuretic challenge. Patient may be able to go home tomorrow pending walking oximetry if he responds well to the challenge. 2. Hypertension Unclear etiology. Patient was recently placed on steroid therapy, which could be adding to current situation. Patient also has been stressed secondary to hypoxia related to #1. Continue to monitor. Unclear if p.o. medications need to be initiated. 3. Allergic rhinitis/gout/possible asbestos exposure Uppercase care, management, recovery and prognosis. Okay to continue with baseline medications. Inpatient E&M: 40832 Subs Hosp L2
[2020-05-13] MEDS: Furosemide 20 MG/2 ML VIAL IV (11:02)
[2020-05-14] VITALS (11 sets, daily range): BP systolic 109–151; BP diastolic 65–94; PULSE 72–94; RESP 16–20; TEMP 36.2–37.3; O2SAT 82–96
[2020-05-14 06:58] LABS: Absolute Lymphocyte Count 0.65 X10^3/uL (0.83-4.51); Absolute Neutrophil Count 7.4 X10^3/uL (2.0-7.7); Basophil# 0.02 X10^3/uL; Basophil% 0.2 % (0-1); Eosinophil# 0.03 X10^3/uL; Eosinophils% 0.4 % (0-5); Hematocrit 48.8 % (40-54); Hemoglobin 15.3 g/dL (13.0-16.5); Lymphocyte # 0.65 X10^3/ul (4.0); Lymphocyte % 7.8 % (19-41); Mean Corp Hgb Conc 31.4 g/dL (32-36); Mean Corpuscular Hgb 29.9 pg (27.0-32.0); Mean Corpuscular Volume 95.3 fL (80-94); Mean Platelet Vol. 10.7 fl (6.2-12.0); Monocyte# 0.24 X10^3/uL; Monocyte% 2.9 % (0-10); NRBC Flagged by Analyzer 0 % (0-5); Neutrophil # 7.36 X10^3/uL (2.7-7.7); Neutrophil % 88.1 % (47-70); Platelet Count 338 K/mm3 (150-450); RBC Distribution Width CV 13.6 % (11.6-14.6); RBC Distribution Width SD 48.2 fl (35.1-43.9); Red Blood Count 5.12 M/mm3 (4.6-6.2); White Blood Count 8.4 K/mm3 (4.4-11.0)
[2020-05-14 07:19] LABS: ALB/GLOB Ratio 0.7 RATIO (0.9-2.4); AST(SGOT) 53 U/L (15-37); Alanine Aminotransfer ALT/SGPT 113 U/L (16-61); Albumin, Serum 2.8 g/dL (3.2-5.0); Alkaline Phosphatase 71 U/L (45-117); Anion Gap 11 (5-15); BUN 15 mg/dL (7-18); BUN/Creat Ratio 20.1 RATIO (10-20); Calcium,Total 8.5 mg/dL (8.5-10.1); Chloride 105 mmol/L (98-107); Creatinine, Serum 0.75 mg/dL (0.70-1.30); EST Glomerular Filtration Rate 117 mL/min (>60); Est Glom Filt Rate - Afr Amer 142 mL/min (>60); Globulin 4.2 g/dL (2.2-4.2); Glucose 95 mg/dL (74-106); Potassium 4.3 mmol/L (3.5-5.1); Sodium Level 138 mmol/L (136-145)
--- NOTE | 2020-05-14 08:25 | PCM.PN.HOSP ---
Patient Problems: Active and Suspected Problems Infection of left foot (Suspected) Coronavirus infection (Acute) Interstitial pneumonitis (Acute) Hypoxia (Acute) COVID-19 (Acute) Reason for Visit: Acute COVID-19 pneumonitis Subjective: Patient is a 50-year-old gentleman admitted with progressive shortness of breath with generalized body aches. Patient diagnosed with acute COVID-19 pneumonitis admitted to a monitored bed for further management Objective: GENERAL: cooperative HEENT: Atraumatic; EYES; Anicteric, Normal Conjunctiva NECK; supple, normal thyroid, RESPIRATORY: Diminished to auscultation CARDIOVASCULAR: Regular S1 S2, GI: soft, normoactive bowel sounds, : No Renal angle tenderness; EXTREMITIES: No edema, no clubbing, MUSCULOSKELETAL: no muscle waisting NEURO: Awake; no lateralizing signs. SKIN: No Rash PSYCH; Flat affect Vitals/I&O's: Vital Signs Temp Pulse Resp BP Pulse Ox 97.1 F L 72 20 H 144/88 H 96 05/14/20 02:35 05/14/20 02:35 05/14/20 02:37 05/14/20 02:35 05/14/20 02:37 Oxygen Flow Rate (L/min) [ 6 AMBULATION with Oxygen] Oxygen Flow Rate (L/min) [ 0 AMBULATING on Room Air] Oxygen Flow Rate (L/min) [At 5 REST on Room Air] Oxygen Flow Rate (L/min) 5 Oxygen Delivery Method Nasal Cannula Weight: 105.1 kg Body Mass Index (BMI) 35.1 Intake and Output for Last 24 Hours 05/12/20 05/13/20 05/14/20 23:59 23:59 23:59 Intake Total 2019 2340 / 2840 600 / 600 Output Total 1300 / 1300 Balance 2019 1040 / 1540 600 / 600 Microbiology Past 72 Hours 05/08/20 09:50 Sputum, Expectorated/Coughed Gram Stain - Final 05/08/20 09:50 Sputum, Expectorated/Coughed Respiratory Culture - Final Laboratory Results 05/14/20 06:30: WBC 8.4, RBC 5.12, Hgb 15.3, Hct 48.8, MCV 95.3 H, MCH 29.9, MCHC 31.4 L, RDW Std Deviation 48.2 H, RDW Coeff of Do 13.6, Plt Count 338, MPV 10.7, Immature Gran % (Auto) 0.600, Neut % (Auto) 88.1 H, Lymph % (Auto) 7.8 L, [place] % (Auto) 2.9, Eos % (Auto) 0.4, Baso % (Auto) 0.2, Absolute Neuts (auto) 7.4, Absolute Lymphs (auto) 0.65 L, Nucleated RBC % 0 05/14/20 06:30: Sodium 138, Potassium 4.3, Chloride 105, Carbon Dioxide 22.0, Anion Gap 11, BUN 15, Creatinine 0.75, Estim Creat Clear Calc 114.00, Est GFR (MDRD) Af Amer 142, Est GFR (MDRD) Non-Af 117, BUN/Creatinine Ratio 20.1 H, Glucose 95, Calcium 8.5, Total Bilirubin 0.70, AST 53 H, ALT 113 H, Alkaline Phosphatase 71, Total Protein 7.0, Albumin 2.8 L, Globulin 4.2, Albumin/Globulin Ratio 0.7 L Current Medications Acetaminophen (Acetaminophen 325 Mg Tablet) 650 mg PO Q6H PRN PRN PRN Reason: Pain Score 1-10/Temp > 100.7 F Last Admin: 05/12/20 19:04 Dose: 650 mg Documented by: Al Hydroxide/Mg Hydroxide (Mag Hydrox/Al Hydrox/Simeth 30 Ml Udc) 15 ml PO Q4H PRN PRN PRN Reason: HEARTBURN Last Admin: 05/13/20 05:27 Dose: 15 ml Documented by: Allopurinol (Allopurinol 100 Mg Tablet) 100 mg PO BID [facility] Last Admin: 05/13/20 21:32 Dose: 100 mg Documented by: Apixaban (Apixaban 5 Mg Tablet) 10 mg PO BID [facility] Last Admin: 05/13/20 21:32 Dose: 10 mg Documented by: Ascorbic Acid (Ascorbic Acid 500 Mg Tablet) 1,000 mg PO BID [facility] Last Admin: 05/13/20 21:32 Dose: 1,000 mg Documented by: Dexamethasone (Dexamethasone 4 Mg Tablet) 6 mg PO DAILY [facility] Stop: 05/16/20 10:01 Last Admin: 05/13/20 08:22 Dose: 6 mg Documented by: Diphenoxylate HCl/Atropine (Diphenoxylate/Atrop 1 Tablet) 2 tablet PO 4X/DAY PRN PRN PRN Reason: Diarrhea Last Admin: 05/09/20 15:05 Dose: 2 tablet Documented by: Fluticasone Propionate (Fluticasone 0.05% 1 [place] Nasal.Sry) 1 spray NASAL BID [facility] Last Admin: 05/13/20 21:33 Dose: Not Given Documented by: Hydralazine HCl (Hydralazine 20 Mg/Ml Vial) 10 mg IV Q4H PRN PRN PRN Reason: SBP > 160 Last Admin: 05/10/20 04:10 Dose: 10 mg Documented by: Sodium Chloride () 250 mls @ 15 mls/hr IV .[id number] PRN PRN Reason: Saline Flush Sodium Chloride () 250 mls @ 15 mls/hr IV .[id number] PRN PRN Reason: Additional IVPB Infusion Lisinopril (Lisinopril 20 Mg Tablet) 20 mg PO DAILY [facility] Last Admin: 05/13/20 08:22 Dose: 20 mg Documented by: Ondansetron HCl (Ondansetron 4 Mg/2 Ml Vial) 4 mg IV Q8H PRN PRN PRN Reason: NAUSEA/VOMITING Last Admin: 05/10/20 03:20 Dose: 4 mg Documented by: Sodium Chloride (0.9% Saline Lock 10 Ml Syringe) 10 - 40 ml IV UD PRN PRN Reason: SALINE FLUSH Last Admin: 05/13/20 08:21 Dose: 10 ml Documented by: Sodium Chloride (Sodium Chloride 0.65% 1 [place].Btl) 2 spray NASAL TID PRN PRN PRN Reason: NASAL DRYNESS Last Admin: 05/11/20 10:31 Dose: 2 spray Documented by: Medical Necessity - Tobacco Use Smoking Status: Former smoker Tobacco Use: Non-smoker Assessment/Plan All Active Problems Coronavirus infection (Acute) Interstitial pneumonitis (Acute) Hypoxia (Acute) COVID-19 (Acute) Patient is a 50-year-old gentleman admitted with progressive shortness of breath with generalized body aches. Patient diagnosed with acute COVID-19 pneumonitis admitted to a monitored bed for further management 1. Acute hypoxic respiratory failure secondary to COVID-19 pneumonia ?Admitted to a monitored bed patient did receive convalescent plasma on 05/09/2020. Currently on Decadron and remdesivir patient to supplemental oxygen plan is for patient to be evaluated for home oxygen prior to possible discharge 2. Allergic rhinitis ?Patient is on fluticasone at home did continue 3. Gout ?Patient is on allopurinol did continue 4. DVT prophylaxis ?Patient is on [facility] Inpatient E&M: 50362 Subs Hosp L2
--- NOTE | 2020-05-14 09:25 | PCM.PN.PUL ---
Patient Problems: Active and Suspected Problems Infection of left foot (Suspected) Coronavirus infection (Acute) Interstitial pneumonitis (Acute) Hypoxia (Acute) COVID-19 (Acute) Subjective: The patient was seen and examined at the bedside this morning. Events from the last 24 hours have been reviewed. The patient is currently afebrile, hemodynamically stable and maintaining appropriate oxygen saturations on 5 L/min via nasal cannula. The patient is currently sitting in his bedside recliner and reports that he only becomes short of breath when he exerts himself physically. He did report overall improvement in his dyspnea after being administered Lasix yesterday. The patient remains on therapeutic Eliquis and Decadron. He has already received convalescent plasma and completed his treatment course of remdesivir. Objective: The patient's most recent lab work, culture data and imaging studies have all been personally reviewed. Coronavirus PCR was positive on April 30. - Physical Exam Vitals/I&O's: Vital Signs Temp Pulse Resp BP Pulse Ox 98.4 F 80 20 H 135/85 H 94 05/14/20 08:25 05/14/20 08:32 05/14/20 08:32 05/14/20 08:25 05/14/20 08:32 Oxygen Flow Rate (L/min) [ 6 AMBULATION with Oxygen] Oxygen Flow Rate (L/min) [ 0 AMBULATING on Room Air] Oxygen Flow Rate (L/min) [At 5 REST on Room Air] Oxygen Flow Rate (L/min) 5 Oxygen Delivery Method Nasal Cannula Weight: 231 lb 11.293 oz Body Mass Index (BMI) 35.1 Intake and Output for Last 24 Hours 05/12/20 05/13/20 05/14/20 23:59 23:59 23:59 Intake Total 2019 2340 / 2840 600 / 600 Output Total 1300 / 1300 Balance 2019 1040 / 1540 600 / 600 General: Alert, Cooperative, No apparent distress, - - Sitting in bedside recliner HEENT: Atraumatic, PERRLA, Normocephalic Oral: No Gingival or Mucosal Lesions/ Ulcerations Neck: Supple, No Nodes, Trachea Midline Lungs: No rhonchi, No wheeze, No rales, Diminished Cardiovascular: Regular rate, Regular Rhythm Abdomen: Bowel Sounds Present, Soft, Non Tender, Obese Extremities: No clubbing, No cyanosis, No edema Skin: No breakdown Musculoskeletal: No Tenderness to Palpation of Joints or Extremities, No Muscle Wasting Lymphatic: No Cervical, Supraclavicular, or Inguinal Adenopathy Neurological: Cranial nerves II-XII grossly intact, Neuro grossly intact Psych/Mental Status: Normal Affect, Appropriate Labs (Last 48 Hours) 05/12/20 05/12/20 05/13/20 09:15 09:15 06:00 WBC 10.9 7.8 RBC 5.12 5.01 Hgb 15.2 14.8 Hct 46.8 46.0 MCV 91.4 91.8 MCH 29.7 29.5 MCHC 32.5 32.2 RDW Std Deviation 46.5 H 46.0 H RDW Coeff of Do 13.7 13.5 Plt Count 327 324 MPV 10.0 9.7 Immature Gran % (Auto) 0.600 0.600 Neut % (Auto) 89.3 H 88.8 H Lymph % (Auto) 7.6 L 7.7 L [place] % (Auto) 2.3 2.7 Eos % (Auto) 0.1 0.1 Baso % (Auto) 0.1 0.1 Absolute Neuts (auto) 9.7 H 6.9 Absolute Lymphs (auto) 0.83 0.60 L Nucleated RBC % 0 0 Differential Comment SCANNED Sodium 139 Potassium 3.3 L Chloride 108 H Carbon Dioxide 23.0 Anion Gap 8 BUN 20 H Creatinine 0.71 Estim Creat Clear Calc 120.42 Est GFR (MDRD) Af Amer 152 Est GFR (MDRD) Non-Af 126 BUN/Creatinine Ratio 28.3 H Glucose 98 Calcium 8.3 L Total Bilirubin 0.70 AST 69 H ALT 129 H Alkaline Phosphatase 85 Total Protein 7.2 Albumin 2.9 L Globulin 4.3 H Albumin/Globulin Ratio 0.7 L 05/13/20 05/14/20 05/14/20 06:00 06:30 06:30 WBC 8.4 RBC 5.12 Hgb 15.3 Hct 48.8 MCV 95.3 H MCH 29.9 MCHC 31.4 L RDW Std Deviation 48.2 H RDW Coeff of Do 13.6 Plt Count 338 MPV 10.7 Immature Gran % (Auto) 0.600 Neut % (Auto) 88.1 H Lymph % (Auto) 7.8 L [place] % (Auto) 2.9 Eos % (Auto) 0.4 Baso % (Auto) 0.2 Absolute Neuts (auto) 7.4 Absolute Lymphs (auto) 0.65 L Nucleated RBC % 0 Differential Comment Sodium 138 138 Potassium 3.9 4.3 Chloride 105 105 Carbon Dioxide 26.0 22.0 Anion Gap 7 11 BUN 14 15 Creatinine 0.75 0.75 Estim Creat Clear Calc 114.00 114.00 Est GFR (MDRD) Af Amer 142 142 Est GFR (MDRD) Non-Af 118 117 BUN/Creatinine Ratio 18.7 20.1 H Glucose 101 95 Calcium 8.4 L 8.5 Total Bilirubin 0.70 0.70 AST 47 H 53 H ALT 112 H 113 H Alkaline Phosphatase 74 71 Total Protein 7.0 7.0 Albumin 2.7 L 2.8 L Globulin 4.3 H 4.2 Albumin/Globulin Ratio 0.6 L 0.7 L Clinical Impression(s) from Imaging Studies Chest X-Ray 05/08/20 05:28 IMPRESSION: Ill-defined subpleural groundglass opacities are seen more prominent in the lung bases , may represent atypical pneumonia or viral pneumonia (COVID-19 ?). Electronically Signed: Orquidea Ramsay, at 6:10 EST Tel , Service support , Chest CTA 05/08/20 09:55 IMPRESSION: Scattered filling defects in branches of the upper lobe and lower lobe pulmonary arterial branches in comparison with the pulmonary emboli. Diffuse bilateral airspace disease in keeping with the findings of Covid 19 infection. Electronically Signed: Lionel Menjivar, at 11:12 EST , Service support , Current Medications Acetaminophen (Acetaminophen 325 Mg Tablet) 650 mg PO Q6H PRN PRN PRN Reason: Pain Score 1-10/Temp > 100.7 F Last Admin: 05/12/20 19:04 Dose: 650 mg Documented by: Al Hydroxide/Mg Hydroxide (Mag Hydrox/Al Hydrox/Simeth 30 Ml Udc) 15 ml PO Q4H PRN PRN PRN Reason: HEARTBURN Last Admin: 05/13/20 05:27 Dose: 15 ml Documented by: Allopurinol (Allopurinol 100 Mg Tablet) 100 mg PO BID [facility] Last Admin: 05/13/20 21:32 Dose: 100 mg Documented by: Apixaban (Apixaban 5 Mg Tablet) 10 mg PO BID [facility] Last Admin: 05/13/20 21:32 Dose: 10 mg Documented by: Ascorbic Acid (Ascorbic Acid 500 Mg Tablet) 1,000 mg PO BID [facility] Last Admin: 05/13/20 21:32 Dose: 1,000 mg Documented by: Dexamethasone (Dexamethasone 4 Mg Tablet) 6 mg PO DAILY [facility] Stop: 05/16/20 10:01 Last Admin: 05/13/20 08:22 Dose: 6 mg Documented by: Diphenoxylate HCl/Atropine (Diphenoxylate/Atrop 1 Tablet) 2 tablet PO 4X/DAY PRN PRN PRN Reason: Diarrhea Last Admin: 05/09/20 15:05 Dose: 2 tablet Documented by: Fluticasone Propionate (Fluticasone 0.05% 1 [place] Nasal.Sry) 1 spray NASAL BID [facility] Last Admin: 05/13/20 21:33 Dose: Not Given Documented by: Hydralazine HCl (Hydralazine 20 Mg/Ml Vial) 10 mg IV Q4H PRN PRN PRN Reason: SBP > 160 Last Admin: 05/10/20 04:10 Dose: 10 mg Documented by: Sodium Chloride () 250 mls @ 15 mls/hr IV .[id number] PRN PRN Reason: Saline Flush Sodium Chloride () 250 mls @ 15 mls/hr IV .[id number] PRN PRN Reason: Additional IVPB Infusion Lisinopril (Lisinopril 20 Mg Tablet) 20 mg PO DAILY [facility] Last Admin: 05/13/20 08:22 Dose: 20 mg Documented by: Ondansetron HCl (Ondansetron 4 Mg/2 Ml Vial) 4 mg IV Q8H PRN PRN PRN Reason: NAUSEA/VOMITING Last Admin: 05/10/20 03:20 Dose: 4 mg Documented by: Sodium Chloride (0.9% Saline Lock 10 Ml Syringe) 10 - 40 ml IV UD PRN PRN Reason: SALINE FLUSH Last Admin: 05/13/20 08:21 Dose: 10 ml Documented by: Sodium Chloride (Sodium Chloride 0.65% 1 [place].Btl) 2 spray NASAL TID PRN PRN PRN Reason: NASAL DRYNESS Last Admin: 05/11/20 10:31 Dose: 2 spray Documented by: Medical Necessity - Tobacco Use Smoking Status: Former smoker Tobacco Use: Non-smoker Assessment/Plan All Active Problems Coronavirus infection (Acute) Interstitial pneumonitis (Acute) Hypoxia (Acute) COVID-19 (Acute) RECOMMENDATIONS: 1. Continue to wean supplemental oxygen to maintain saturations at or above 90%. 2. Encourage incentive spirometer use and mobilize patient as tolerated. 3. Continue Decadron with plans to complete a 10-day treatment course. 4. Continue Eliquis. 5. Continue attempts at gentle diuresis. IMPRESSIONS: 1. Acute hypoxic respiratory insufficiency secondary to COVID-19 pneumonia and pulmonary embolism Plan to continue current supportive measures including supplemental oxygen to maintain saturations at or above 90%. The patient has already received convalescent plasma and completed a treatment course of remdesivir. He remains systemically anticoagulated on Eliquis. Plan to continue Decadron 6 mg/day to complete a 10-day treatment course. Continue attempts at gentle diuresis as tolerated by hemodynamics and renal function. 2. Hypertension/allergic rhinitis/gout Complicates care, management, recovery and prognosis. Continue home medications as indicated. This note was generated with [employer] dictation software. It may contain incorrect words, spelling, and punctuation that were not noted in checking the note before signing. Inpatient E&M: 76202 Subs Hosp L2
[2020-05-14] MEDS: Fluticasone 0.05% 1 SPRAY NASAL.SRY NASAL (09:27)
[2020-05-14] MEDS: Ascorbic Acid 500 MG Tablet 1000 MG PO ×2 (09:28→21:10)
[2020-05-14] MEDS: Lisinopril 20 MG Tablet PO (09:28)
[2020-05-14] MEDS: Allopurinol 100 MG Tablet PO ×2 (09:28→21:10)
[2020-05-14] MEDS: dexAMETHasone 4 MG Tablet 6 MG PO (09:28)
[2020-05-14] MEDS: APIXABAN 5 MG TABLET 10 MG PO ×2 (09:28→21:10)
[2020-05-14] MEDS: 0.9% Saline Lock 10 ML Syringe IV (09:30)
[2020-05-14] MEDS: Furosemide 40 MG/4 ML Vial IV (10:39)
--- NOTE | 2020-05-14 13:37 | PCM.PN.ID ---
Patient Problems: Active and Suspected Problems Infection of left foot (Suspected) Coronavirus infection (Acute) Interstitial pneumonitis (Acute) Hypoxia (Acute) COVID-19 (Acute) Subjective: Feeling a little better, no fever, no n/v/d, still JAMISON - Physical Exam Vitals/I&O's: Vital Signs Temp Pulse Resp BP Pulse Ox 98.4 F 80 20 H 135/85 H 85 05/14/20 08:25 05/14/20 08:32 05/14/20 08:32 05/14/20 08:25 05/14/20 11:22 Oxygen Flow Rate (L/min) [ 5 AMBULATION with Oxygen] Oxygen Flow Rate (L/min) [ 0 AMBULATING on Room Air] Oxygen Flow Rate (L/min) [At 0 REST on Room Air] Oxygen Flow Rate (L/min) 5 Oxygen Delivery Method Nasal Cannula Weight: 105.1 kg Body Mass Index (BMI) 35.1 Intake and Output for Last 24 Hours 05/12/20 05/13/20 05/14/20 23:59 23:59 23:59 Intake Total 2019 2340 / 2840 960 / 960 Output Total 1300 / 1300 1400 / 1400 Balance 2019 1040 / 1540 -440 / -440 General: Alert, Cooperative, No apparent distress Lungs: Clear to auscultation, Diminished Cardiovascular: Regular rate, Regular Rhythm Abdomen: Soft, Non Tender, Non-Distended Skin: No rashes Laboratory Results 05/14/20 06:30: WBC 8.4, RBC 5.12, Hgb 15.3, Hct 48.8, MCV 95.3 H, MCH 29.9, MCHC 31.4 L, RDW Std Deviation 48.2 H, RDW Coeff of Do 13.6, Plt Count 338, MPV 10.7, Immature Gran % (Auto) 0.600, Neut % (Auto) 88.1 H, Lymph % (Auto) 7.8 L, [place] % (Auto) 2.9, Eos % (Auto) 0.4, Baso % (Auto) 0.2, Absolute Neuts (auto) 7.4, Absolute Lymphs (auto) 0.65 L, Nucleated RBC % 0 05/14/20 06:30: Sodium 138, Potassium 4.3, Chloride 105, Carbon Dioxide 22.0, Anion Gap 11, BUN 15, Creatinine 0.75, Estim Creat Clear Calc 114.00, Est GFR (MDRD) Af Amer 142, Est GFR (MDRD) Non-Af 117, BUN/Creatinine Ratio 20.1 H, Glucose 95, Calcium 8.5, Total Bilirubin 0.70, AST 53 H, ALT 113 H, Alkaline Phosphatase 71, Total Protein 7.0, Albumin 2.8 L, Globulin 4.2, Albumin/Globulin Ratio 0.7 L Current Medications Acetaminophen (Acetaminophen 325 Mg Tablet) 650 mg PO Q6H PRN PRN PRN Reason: Pain Score 1-10/Temp > 100.7 F Last Admin: 05/12/20 19:04 Dose: 650 mg Documented by: Al Hydroxide/Mg Hydroxide (Mag Hydrox/Al Hydrox/Simeth 30 Ml Udc) 15 ml PO Q4H PRN PRN PRN Reason: HEARTBURN Last Admin: 05/13/20 05:27 Dose: 15 ml Documented by: Allopurinol (Allopurinol 100 Mg Tablet) 100 mg PO BID [facility] Last Admin: 05/14/20 09:28 Dose: 100 mg Documented by: Apixaban (Apixaban 5 Mg Tablet) 10 mg PO BID [facility] Last Admin: 05/14/20 09:28 Dose: 10 mg Documented by: Ascorbic Acid (Ascorbic Acid 500 Mg Tablet) 1,000 mg PO BID [facility] Last Admin: 05/14/20 09:28 Dose: 1,000 mg Documented by: Dexamethasone (Dexamethasone 4 Mg Tablet) 6 mg PO DAILY [facility] Stop: 05/16/20 10:01 Last Admin: 05/14/20 09:28 Dose: 6 mg Documented by: Diphenoxylate HCl/Atropine (Diphenoxylate/Atrop 1 Tablet) 2 tablet PO 4X/DAY PRN PRN PRN Reason: Diarrhea Last Admin: 05/09/20 15:05 Dose: 2 tablet Documented by: Fluticasone Propionate (Fluticasone 0.05% 1 [place] Nasal.Sry) 1 spray NASAL BID [facility] Last Admin: 05/14/20 09:27 Dose: 1 spray Documented by: Hydralazine HCl (Hydralazine 20 Mg/Ml Vial) 10 mg IV Q4H PRN PRN PRN Reason: SBP > 160 Last Admin: 05/10/20 04:10 Dose: 10 mg Documented by: Sodium Chloride () 250 mls @ 15 mls/hr IV .[id number] PRN PRN Reason: Saline Flush Sodium Chloride () 250 mls @ 15 mls/hr IV .[id number] PRN PRN Reason: Additional IVPB Infusion Lisinopril (Lisinopril 20 Mg Tablet) 20 mg PO DAILY [facility] Last Admin: 05/14/20 09:28 Dose: 20 mg Documented by: Ondansetron HCl (Ondansetron 4 Mg/2 Ml Vial) 4 mg IV Q8H PRN PRN PRN Reason: NAUSEA/VOMITING Last Admin: 05/10/20 03:20 Dose: 4 mg Documented by: Sodium Chloride (0.9% Saline Lock 10 Ml Syringe) 10 - 40 ml IV UD PRN PRN Reason: SALINE FLUSH Last Admin: 05/14/20 09:30 Dose: 10 ml Documented by: Sodium Chloride (Sodium Chloride 0.65% 1 [place].Btl) 2 spray NASAL TID PRN PRN PRN Reason: NASAL DRYNESS Last Admin: 05/11/20 10:31 Dose: 2 spray Documented by: Medical Necessity - Tobacco Use Smoking Status: Former smoker Tobacco Use: Non-smoker Route of nutrition/ use of supplements: [] Nutritional Intake: [] IV Site: [] [place] Catheter: [] - Assessment/Plan Antibiotics: [] Assessment/Plan: [] Active and Suspected Problems Infection of left foot (Suspected) Coronavirus infection (Acute) Interstitial pneumonitis (Acute) Hypoxia (Acute) Fever to 102.4 on admit. On dex, eliquis, completed remdesivir. CT showed PEs. Got plasma 05/09/20. Lung sounds much better, feeling better. No more fevers. Will follow
[2020-05-15] VITALS: PULSE 78; RESP 17; O2SAT 97
[2020-05-15 05:17] VITALS: BP 111/62; PULSE 87; RESP 18; TEMP 36.9; O2SAT 96
[2020-05-15 06:45] VITALS: O2SAT 93
[2020-05-15 07:21] LABS: Absolute Lymphocyte Count 0.62 X10^3/uL (0.83-4.51); Absolute Neutrophil Count 8.7 X10^3/uL (2.0-7.7); Basophil# 0.01 X10^3/uL; Basophil% 0.1 % (0-1); Eosinophil# 0.02 X10^3/uL; Eosinophils% 0.2 % (0-5); Hematocrit 50.6 % (40-54); Lymphocyte # 0.62 X10^3/ul (4.0); Lymphocyte % 6.4 % (19-41); Mean Corp Hgb Conc 31.6 g/dL (32-36); Mean Corpuscular Volume 91.7 fL (80-94); Mean Platelet Vol. 9.9 fl (6.2-12.0); Monocyte# 0.25 X10^3/uL; Monocyte% 2.6 % (0-10); NRBC Flagged by Analyzer 0 % (0-5); Neutrophil # 8.72 X10^3/uL (2.7-7.7); Neutrophil % 90.1 % (47-70); Platelet Count 444 K/mm3 (150-450); RBC Distribution Width CV 13.6 % (11.6-14.6); RBC Distribution Width SD 46.4 fl (35.1-43.9); Red Blood Count 5.52 M/mm3 (4.6-6.2); White Blood Count 9.7 K/mm3 (4.4-11.0)
--- NOTE | 2020-05-15 07:24 | PCM.PN.HOSP ---
Patient Problems: Active and Suspected Problems Infection of left foot (Suspected) Coronavirus infection (Acute) Interstitial pneumonitis (Acute) Hypoxia (Acute) COVID-19 (Acute) Reason for Visit: Acute COVID-19 pneumonitis Subjective: Patient is a 50-year-old gentleman admitted with progressive shortness of breath with generalized body aches. Patient diagnosed with acute COVID-19 pneumonitis admitted to a monitored bed for further management 05/15/2020: Plan is for patient to be assessed for home oxygen prior to discharge Objective: GENERAL: cooperative HEENT: Atraumatic; EYES; Anicteric, Normal Conjunctiva NECK; supple, normal thyroid, RESPIRATORY: Diminished to auscultation CARDIOVASCULAR: Regular S1 S2, GI: soft, normoactive bowel sounds, : No Renal angle tenderness; EXTREMITIES: No edema, no clubbing, MUSCULOSKELETAL: no muscle waisting NEURO: Awake; no lateralizing signs. SKIN: No Rash PSYCH; Flat affect Vitals/I&O's: Vital Signs Temp Pulse Resp BP Pulse Ox 98.5 F 87 18 111/62 96 05/15/20 05:17 05/15/20 05:17 05/15/20 05:17 05/15/20 05:17 05/15/20 05:17 Oxygen Flow Rate (L/min) [ 6 AMBULATION with Oxygen] Oxygen Flow Rate (L/min) [ 0 AMBULATING on Room Air] Oxygen Flow Rate (L/min) [At 0 REST on Room Air] Oxygen Flow Rate (L/min) 3 Oxygen Delivery Method Nasal Cannula Weight: 105.1 kg Body Mass Index (BMI) 35.1 Intake and Output for Last 24 Hours 05/13/20 05/14/20 05/15/20 23:59 23:59 23:59 Intake Total 2340 / 2840 1200 / 1700 500 / 500 Output Total 1300 / 1300 1500 / 1500 Balance 1040 / 1540 -300 / 200 500 / 500 Laboratory Results 05/15/20 06:50: WBC 9.7, RBC 5.52, Hgb 16.0, Hct 50.6, MCV 91.7, MCH 29.0, MCHC 31.6 L, RDW Std Deviation 46.4 H, RDW Coeff of Do 13.6, Plt Count 444, MPV 9.9, Immature Gran % (Auto) 0.600, Neut % (Auto) 90.1 H, Lymph % (Auto) 6.4 L, [place] % (Auto) 2.6, Eos % (Auto) 0.2, Baso % (Auto) 0.1, Absolute Neuts (auto) 8.7 H, Absolute Lymphs (auto) 0.62 L, Nucleated RBC % 0 05/15/20 06:50: Sodium Pending, Potassium Pending, Chloride Pending, Carbon Dioxide Pending, Anion Gap Pending, BUN Pending, Creatinine Pending, Est GFR (MDRD) Af Amer Pending, Est GFR (MDRD) Non-Af Pending, BUN/Creatinine Ratio Pending, Glucose Pending, Calcium Pending, Total Bilirubin Pending, AST Pending, ALT Pending, Alkaline Phosphatase Pending, Total Protein Pending, Albumin Pending Current Medications Acetaminophen (Acetaminophen 325 Mg Tablet) 650 mg PO Q6H PRN PRN PRN Reason: Pain Score 1-10/Temp > 100.7 F Last Admin: 05/12/20 19:04 Dose: 650 mg Documented by: Al Hydroxide/Mg Hydroxide (Mag Hydrox/Al Hydrox/Simeth 30 Ml Udc) 15 ml PO Q4H PRN PRN PRN Reason: HEARTBURN Last Admin: 05/13/20 05:27 Dose: 15 ml Documented by: Allopurinol (Allopurinol 100 Mg Tablet) 100 mg PO BID [facility] Last Admin: 05/14/20 21:10 Dose: 100 mg Documented by: Apixaban (Apixaban 5 Mg Tablet) 10 mg PO BID [facility] Last Admin: 05/14/20 21:10 Dose: 10 mg Documented by: Ascorbic Acid (Ascorbic Acid 500 Mg Tablet) 1,000 mg PO BID [facility] Last Admin: 05/14/20 21:10 Dose: 1,000 mg Documented by: Dexamethasone (Dexamethasone 4 Mg Tablet) 6 mg PO DAILY [facility] Stop: 05/16/20 10:01 Last Admin: 05/14/20 09:28 Dose: 6 mg Documented by: Diphenoxylate HCl/Atropine (Diphenoxylate/Atrop 1 Tablet) 2 tablet PO 4X/DAY PRN PRN PRN Reason: Diarrhea Last Admin: 05/09/20 15:05 Dose: 2 tablet Documented by: Fluticasone Propionate (Fluticasone 0.05% 1 [place] Nasal.Sry) 1 spray NASAL BID [facility] Last Admin: 05/14/20 21:10 Dose: Not Given Documented by: Hydralazine HCl (Hydralazine 20 Mg/Ml Vial) 10 mg IV Q4H PRN PRN PRN Reason: SBP > 160 Last Admin: 05/10/20 04:10 Dose: 10 mg Documented by: Sodium Chloride () 250 mls @ 15 mls/hr IV .[id number] PRN PRN Reason: Saline Flush Sodium Chloride () 250 mls @ 15 mls/hr IV .[id number] PRN PRN Reason: Additional IVPB Infusion Lisinopril (Lisinopril 20 Mg Tablet) 20 mg PO DAILY [facility] Last Admin: 05/14/20 09:28 Dose: 20 mg Documented by: Ondansetron HCl (Ondansetron 4 Mg/2 Ml Vial) 4 mg IV Q8H PRN PRN PRN Reason: NAUSEA/VOMITING Last Admin: 05/10/20 03:20 Dose: 4 mg Documented by: Sodium Chloride (0.9% Saline Lock 10 Ml Syringe) 10 - 40 ml IV UD PRN PRN Reason: SALINE FLUSH Last Admin: 05/14/20 09:30 Dose: 10 ml Documented by: Sodium Chloride (Sodium Chloride 0.65% 1 [place].Btl) 2 spray NASAL TID PRN PRN PRN Reason: NASAL DRYNESS Last Admin: 05/11/20 10:31 Dose: 2 spray Documented by: STROKE Vital Signs/Narrative: Vital Signs Temp Pulse Resp BP Pulse Ox 05/15/20 05:17 98.5 F 87 18 111/62 96 Medical Necessity - Tobacco Use Smoking Status: Former smoker Tobacco Use: Non-smoker Assessment/Plan All Active Problems Coronavirus infection (Acute) Interstitial pneumonitis (Acute) Hypoxia (Acute) COVID-19 (Acute) Patient is a 50-year-old gentleman admitted with progressive shortness of breath with generalized body aches. Patient diagnosed with acute COVID-19 pneumonitis admitted to a monitored bed for further management 1. Acute hypoxic respiratory failure secondary to COVID-19 pneumonia ?Admitted to a monitored bed patient did receive convalescent plasma on 05/09/2020. Currently on Decadron and remdesivir patient to supplemental oxygen plan is for patient to be evaluated for home oxygen prior to possible discharge - 05/15/2020: Plan is for patient to be assessed for home oxygen prior to discharge 2. Allergic rhinitis ?Patient is on fluticasone at home did continue 3. Gout ?Patient is on allopurinol did continue 4. DVT prophylaxis ?[facility] Inpatient E&M: [id number] Subs Hosp L2
[2020-05-15 08:01] LABS: ALB/GLOB Ratio 0.6 RATIO (0.9-2.4); AST(SGOT) 28 U/L (15-37); Alanine Aminotransfer ALT/SGPT 96 U/L (16-61); Albumin, Serum 2.7 g/dL (3.2-5.0); Alkaline Phosphatase 69 U/L (45-117); Anion Gap 3 (5-15); BUN 30 mg/dL (7-18); BUN/Creat Ratio 35.4 RATIO (10-20); Calcium,Total 8.9 mg/dL (8.5-10.1); Chloride 108 mmol/L (98-107); Creatinine, Serum 0.85 mg/dL (0.70-1.30); EST Glomerular Filtration Rate 102 mL/min (>60); Est Glom Filt Rate - Afr Amer 123 mL/min (>60); Estimated Creatinine Clearance 100.59 ml/min; Globulin 4.5 g/dL (2.2-4.2); Glucose 100 mg/dL (74-106); Potassium 4.3 mmol/L (3.5-5.1); Protein, Total 7.2 g/dL (6.4-8.2); Sodium Level 139 mmol/L (136-145)
--- NOTE | 2020-05-15 09:25 | PCM.PN.PUL ---
Patient Problems: Active and Suspected Problems Infection of left foot (Suspected) Coronavirus infection (Acute) Interstitial pneumonitis (Acute) Hypoxia (Acute) COVID-19 (Acute) Subjective: The patient was seen and examined at the bedside this morning. Events from the last 24 hours have been reviewed. The patient is currently afebrile, hemodynamically stable and maintaining appropriate oxygen saturations on 3 L/min via nasal cannula. The patient remains on therapeutic Eliquis and Decadron. He has already received convalescent plasma and completed his treatment course of remdesivir. There are tentative plans for discharge home today with supplemental oxygen. Objective: The patient's most recent lab work, culture data and imaging studies have all been personally reviewed. Coronavirus PCR was positive on April 30. - Physical Exam Vitals/I&O's: Vital Signs Temp Pulse Resp BP Pulse Ox 98.5 F 87 18 111/62 93 05/15/20 05:17 05/15/20 05:17 05/15/20 05:17 05/15/20 05:17 05/15/20 06:45 Oxygen Flow Rate (L/min) [ 6 AMBULATION with Oxygen] Oxygen Flow Rate (L/min) [ 0 AMBULATING on Room Air] Oxygen Flow Rate (L/min) [At 0 REST on Room Air] Oxygen Flow Rate (L/min) 3 Oxygen Delivery Method Nasal Cannula Weight: 231 lb 11.293 oz Body Mass Index (BMI) 35.1 Intake and Output for Last 24 Hours 05/13/20 05/14/20 05/15/20 23:59 23:59 23:59 Intake Total 2340 / 2840 1200 / 1700 500 / 500 Output Total 1300 / 1300 1500 / 1500 Balance 1040 / 1540 -300 / 200 500 / 500 General: Alert, Cooperative, No apparent distress HEENT: Atraumatic, PERRLA, Normocephalic Oral: Moist Mucosa, No Gingival or Mucosal Lesions/ Ulcerations Neck: Supple, No Nodes, Trachea Midline Lungs: No rhonchi, No wheeze, No rales, Diminished Cardiovascular: Regular rate, Regular Rhythm, Normal S1, Normal S2, No murmurs Abdomen: Bowel Sounds Present, Soft, Non Tender, Obese Extremities: No clubbing, No cyanosis, No edema Skin: No breakdown Musculoskeletal: No Tenderness to Palpation of Joints or Extremities, No Muscle Wasting Lymphatic: No Cervical, Supraclavicular, or Inguinal Adenopathy Neurological: Cranial nerves II-XII grossly intact, Neuro grossly intact Psych/Mental Status: Alert and oriented to time, place, person, mood and affect Labs (Last 48 Hours) 05/14/20 05/14/20 05/15/20 06:30 06:30 06:50 WBC 8.4 9.7 RBC 5.12 5.52 Hgb 15.3 16.0 Hct 48.8 50.6 MCV 95.3 H 91.7 MCH 29.9 29.0 MCHC 31.4 L 31.6 L RDW Std Deviation 48.2 H 46.4 H RDW Coeff of Do 13.6 13.6 Plt Count 338 444 MPV 10.7 9.9 Immature Gran % (Auto) 0.600 0.600 Neut % (Auto) 88.1 H 90.1 H Lymph % (Auto) 7.8 L 6.4 L [place] % (Auto) 2.9 2.6 Eos % (Auto) 0.4 0.2 Baso % (Auto) 0.2 0.1 Absolute Neuts (auto) 7.4 8.7 H Absolute Lymphs (auto) 0.65 L 0.62 L Nucleated RBC % 0 0 Sodium 138 Potassium 4.3 Chloride 105 Carbon Dioxide 22.0 Anion Gap 11 BUN 15 Creatinine 0.75 Estim Creat Clear Calc 114.00 Est GFR (MDRD) Af Amer 142 Est GFR (MDRD) Non-Af 117 BUN/Creatinine Ratio 20.1 H Glucose 95 Calcium 8.5 Total Bilirubin 0.70 AST 53 H ALT 113 H Alkaline Phosphatase 71 Total Protein 7.0 Albumin 2.8 L Globulin 4.2 Albumin/Globulin Ratio 0.7 L 05/15/20 06:50 WBC RBC Hgb Hct MCV MCH MCHC RDW Std Deviation RDW Coeff of Do Plt Count MPV Immature Gran % (Auto) Neut % (Auto) Lymph % (Auto) [place] % (Auto) Eos % (Auto) Baso % (Auto) Absolute Neuts (auto) Absolute Lymphs (auto) Nucleated RBC % Sodium 139 Potassium 4.3 Chloride 108 H Carbon Dioxide 28.0 Anion Gap 3 L BUN 30 H Creatinine 0.85 Estim Creat Clear Calc 100.59 Est GFR (MDRD) Af Amer 123 Est GFR (MDRD) Non-Af 102 BUN/Creatinine Ratio 35.4 H Glucose 100 Calcium 8.9 Total Bilirubin 0.60 AST 28 ALT 96 H Alkaline Phosphatase 69 Total Protein 7.2 Albumin 2.7 L Globulin 4.5 H Albumin/Globulin Ratio 0.6 L Clinical Impression(s) from Imaging Studies Chest X-Ray 05/08/20 05:28 IMPRESSION: Ill-defined subpleural groundglass opacities are seen more prominent in the lung bases , may represent atypical pneumonia or viral pneumonia (COVID-19 ?). Electronically Signed: Orquidea Ramsay, at 6:10 EST Tel , Service support , Chest CTA 05/08/20 09:55 IMPRESSION: Scattered filling defects in branches of the upper lobe and lower lobe pulmonary arterial branches in comparison with the pulmonary emboli. Diffuse bilateral airspace disease in keeping with the findings of Covid 19 infection. Electronically Signed: Lionel Menjivar, at 11:12 EST , Service support , Current Medications Acetaminophen (Acetaminophen 325 Mg Tablet) 650 mg PO Q6H PRN PRN PRN Reason: Pain Score 1-10/Temp > 100.7 F Last Admin: 05/12/20 19:04 Dose: 650 mg Documented by: Al Hydroxide/Mg Hydroxide (Mag Hydrox/Al Hydrox/Simeth 30 Ml Udc) 15 ml PO Q4H PRN PRN PRN Reason: HEARTBURN Last Admin: 05/13/20 05:27 Dose: 15 ml Documented by: Allopurinol (Allopurinol 100 Mg Tablet) 100 mg PO BID [facility] Last Admin: 05/14/20 21:10 Dose: 100 mg Documented by: Apixaban (Apixaban 5 Mg Tablet) 10 mg PO BID [facility] Last Admin: 05/14/20 21:10 Dose: 10 mg Documented by: Ascorbic Acid (Ascorbic Acid 500 Mg Tablet) 1,000 mg PO BID [facility] Last Admin: 05/14/20 21:10 Dose: 1,000 mg Documented by: Dexamethasone (Dexamethasone 4 Mg Tablet) 6 mg PO DAILY [facility] Stop: 05/16/20 10:01 Last Admin: 05/14/20 09:28 Dose: 6 mg Documented by: Diphenoxylate HCl/Atropine (Diphenoxylate/Atrop 1 Tablet) 2 tablet PO 4X/DAY PRN PRN PRN Reason: Diarrhea Last Admin: 05/09/20 15:05 Dose: 2 tablet Documented by: Fluticasone Propionate (Fluticasone 0.05% 1 [place] Nasal.Sry) 1 spray NASAL BID [facility] Last Admin: 05/14/20 21:10 Dose: Not Given Documented by: Hydralazine HCl (Hydralazine 20 Mg/Ml Vial) 10 mg IV Q4H PRN PRN PRN Reason: SBP > 160 Last Admin: 05/10/20 04:10 Dose: 10 mg Documented by: Sodium Chloride () 250 mls @ 15 mls/hr IV .[id number] PRN PRN Reason: Saline Flush Sodium Chloride () 250 mls @ 15 mls/hr IV .[id number] PRN PRN Reason: Additional IVPB Infusion Lisinopril (Lisinopril 20 Mg Tablet) 20 mg PO DAILY [facility] Last Admin: 05/14/20 09:28 Dose: 20 mg Documented by: Ondansetron HCl (Ondansetron 4 Mg/2 Ml Vial) 4 mg IV Q8H PRN PRN PRN Reason: NAUSEA/VOMITING Last Admin: 05/10/20 03:20 Dose: 4 mg Documented by: Sodium Chloride (0.9% Saline Lock 10 Ml Syringe) 10 - 40 ml IV UD PRN PRN Reason: SALINE FLUSH Last Admin: 05/14/20 09:30 Dose: 10 ml Documented by: Sodium Chloride (Sodium Chloride 0.65% 1 [place].Btl) 2 spray NASAL TID PRN PRN PRN Reason: NASAL DRYNESS Last Admin: 05/11/20 10:31 Dose: 2 spray Documented by: Medical Necessity - Tobacco Use Smoking Status: Former smoker Tobacco Use: Non-smoker Assessment/Plan All Active Problems Coronavirus infection (Acute) Interstitial pneumonitis (Acute) Hypoxia (Acute) COVID-19 (Acute) RECOMMENDATIONS: 1. Continue to wean supplemental oxygen to maintain saturations at or above 90%. 2. Encourage incentive spirometer use and mobilize patient as tolerated. 3. Continue Decadron with plans to complete a 10-day treatment course. 4. Continue Eliquis. IMPRESSIONS: 1. Acute hypoxic respiratory insufficiency secondary to COVID-19 pneumonia and pulmonary embolism Plan to continue current supportive measures including supplemental oxygen to maintain saturations at or above 90%. The patient has already received convalescent plasma and completed a treatment course of remdesivir. He remains systemically anticoagulated on Eliquis. Plan to continue Decadron 6 mg/day to complete a 10-day treatment course. 2. Hypertension/allergic rhinitis/gout Complicates care, management, recovery and prognosis. Continue home medications as indicated. This note was generated with [employer] dictation software. It may contain incorrect words, spelling, and punctuation that were not noted in checking the note before signing. Inpatient E&M: [id number] Subs Hosp L2
--- NOTE | 2020-05-15 09:28 | CASEMGMT ---
KARINA CM Note: [place] [facility] [place] Plan is for dc today. Danielle ARVIZU RN ACM
[2020-05-15 09:39] VITALS: BP 130/82; PULSE 75; RESP 18; TEMP 36.9; O2SAT 92
[2020-05-15] MEDS: Lisinopril 20 MG Tablet PO (09:43)
[2020-05-15] MEDS: Ascorbic Acid 500 MG Tablet 1000 MG PO (09:43)
[2020-05-15] MEDS: Allopurinol 100 MG Tablet PO (09:43)
[2020-05-15] MEDS: APIXABAN 5 MG TABLET 10 MG PO (09:43)
[2020-05-15] MEDS: dexAMETHasone 4 MG Tablet 6 MG PO (09:44)
[2020-05-15] MEDS: Fluticasone 0.05% 1 SPRAY NASAL.SRY NASAL (09:44)
--- NOTE | 2020-05-15 10:34 | DCINST_ITS ---
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) Cellulitis of right foot (Chronic) Coronavirus infection (Acute) Interstitial pneumonitis (Acute) Hypoxia (Acute) COVID-19 (Acute) You will use the following diet at home:: No restrictions Allergies/Adverse Reactions: Allergies No Known Allergies Allergy (Verified 05/08/20 05:08) Medications to take at Discharge Allopurinol [Zyloprim] 100 mg PO BIDCM 04/17/16 Ascorbic Acid [Vitamin C] 1,000 mg PO BID 04/17/16 Fluticasone 0.05% [Flonase Nasal [place]] 1 spray NASAL DAILY 04/17/16 Magnesium 400 mg PO DAILY 05/19/18 Vozqojiv25/Folic AC/Nadh/Coq10 [Xyzbac Tablet] 1 ea PO BID 05/08/20 Acetaminophen [Tylenol Tablet] 650 mg PO Q6H PRN PRN tablet 05/15/20 Apixaban [Eliquis] 5 mg PO BID #42 tab 05/15/20 Dexamethasone [Decadron] 6 mg PO DAILY 3 Days #3 tab 05/15/20 Lisinopril [Zestril] 20 mg PO DAILY #60 tab 05/15/20 The following prescriptions were given: Dexamethasone [Decadron] 6 mg PO DAILY 3 Days #3 tab Transmission Status: Pending to [facility] Apixaban [Eliquis] 5 mg PO BID #42 tab Transmission Status: Pending to [facility] Lisinopril [Zestril] 20 mg PO DAILY #60 tab Transmission Status: Pending to [facility] Primary Care Physician: Paul De La Torre MD [Primary Care Provider] - Please follow up with your Primary Care Physician in: in 2 weeks Test Results: Test results from this visit will be discussed in further detail at your follow- up appointment, if applicable. Proposed Discharge Date: 05/15/20
--- NOTE | 2020-05-15 10:48 | DS.PCM_ITS ---
Discharge Date and Diagnosis - Problem List Patient Problems: Active and Suspected Problems Infection of left foot (Suspected) Coronavirus infection (Acute) Interstitial pneumonitis (Acute) Hypoxia (Acute) COVID-19 (Acute) Date of Admission: 05/08/20 Date of Discharge: 05/15/20 - Primary Discharge Diagnosis Acute Problems: Active Problems Coronavirus infection (Acute) Interstitial pneumonitis (Acute) Hypoxia (Acute) COVID-19 (Acute) Suspected Problems: Suspected Problems Infection of left foot (Suspected) - Secondary Discharge Diagnosis Chronic Problems: Chronic Problems Chronic ulcer of left foot with fat layer exposed (Chronic) 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 Electronically Signed: Orquidea Ramsay, at 6:10 EST Tel , Service support , Chest CTA 05/08/20 09:55 IMPRESSION: Scattered filling defects in branches of the upper lobe and lower lobe pulmonary arterial branches in comparison with the pulmonary emboli. Diffuse bilateral airspace disease in keeping with the findings of Covid 19 infection. Electronically Signed: Lionel Menjivar, at 11:12 EST , Service support , Summary of Care Provided: Patient is a 50-year-old gentleman admitted with progressive shortness of breath with generalized body aches. Patient diagnosed with acute COVID-19 pneumonitis admitted to a monitored bed for further management 1. Acute hypoxic respiratory failure secondary to COVID-19 pneumonia ?Admitted to a monitored bed patient did receive convalescent plasma on 05/09/2020. Currently on Decadron and remdesivir patient to supplemental oxygen plan is for patient to be evaluated for home oxygen prior to possible discharge -Patient was assessed for home oxygen prior to discharge which he did qualify. He will need portability since he is mobile at home and in the community. Prescription was also written for Decadron for 3 more days and Eliquis for 21 additional days. Patient was advised to self quarantine for 10 additional days since he had severe case of COVID-19 2. Allergic rhinitis ?Patient is on fluticasone at home did continue 3. Gout ?Patient is on allopurinol did continue 4. DVT prophylaxis ?Patient is on Eliquis Patient Problems: Active and Suspected Problems Infection of left foot (Suspected) Coronavirus infection (Acute) Interstitial pneumonitis (Acute) Hypoxia (Acute) COVID-19 (Acute) Objective: GENERAL: cooperative HEENT: Atraumatic; EYES; Anicteric, Normal Conjunctiva NECK; supple, normal thyroid, RESPIRATORY: Diminished to auscultation CARDIOVASCULAR: Regular S1 S2, GI: soft, normoactive bowel sounds, : No Renal angle tenderness; EXTREMITIES: No edema, no clubbing, MUSCULOSKELETAL: no muscle waisting NEURO: Awake; no lateralizing signs. SKIN: No Rash PSYCH; Flat affect - Physical Exam Vitals/I&O's: Vital Signs Temp Pulse Resp BP Pulse Ox 98.5 F 75 18 130/82 H 92 05/15/20 09:39 05/15/20 09:39 05/15/20 09:39 05/15/20 09:39 05/15/20 09:39 Oxygen Flow Rate (L/min) [ 6 AMBULATION with Oxygen] Oxygen Flow Rate (L/min) [ 0 AMBULATING on Room Air] Oxygen Flow Rate (L/min) [At 0 REST on Room Air] Oxygen Flow Rate (L/min) 3 Oxygen Delivery Method Nasal Cannula Weight: 105.1 kg Body Mass Index (BMI) 35.1 Intake and Output for Last 24 Hours 05/13/20 05/14/20 05/15/20 23:59 23:59 23:59 Intake Total 2340 / 2840 1200 / 1700 500 / 500 Output Total 1300 / 1300 1500 / 1500 Balance 1040 / 1540 -300 / 200 500 / 500 Laboratory Results 05/15/20 06:50: WBC 9.7, RBC 5.52, Hgb 16.0, Hct 50.6, MCV 91.7, MCH 29.0, MCHC 31.6 L, RDW Std Deviation 46.4 H, RDW Coeff of Do 13.6, Plt Count 444, MPV 9.9, Immature Gran % (Auto) 0.600, Neut % (Auto) 90.1 H, Lymph % (Auto) 6.4 L, [place] % (Auto) 2.6, Eos % (Auto) 0.2, Baso % (Auto) 0.1, Absolute Neuts (auto) 8.7 H, Absolute Lymphs (auto) 0.62 L, Nucleated RBC % 0 05/15/20 06:50: Sodium 139, Potassium 4.3, Chloride 108 H, Carbon Dioxide 28.0, Anion Gap 3 L, BUN 30 H, Creatinine 0.85, Estim Creat Clear Calc 100.59, Est GFR (MDRD) Af Amer 123, Est GFR (MDRD) Non-Af 102, BUN/Creatinine Ratio 35.4 H, Glucose 100, Calcium 8.9, Total Bilirubin 0.60, AST 28, ALT 96 H, Alkaline Phosphatase 69, Total Protein 7.2, Albumin 2.7 L, Globulin 4.5 H, Albumin/Globulin Ratio 0.6 L Current Medications Acetaminophen (Acetaminophen 325 Mg Tablet) 650 mg PO Q6H PRN PRN PRN Reason: Pain Score 1-10/Temp > 100.7 F Last Admin: 05/12/20 19:04 Dose: 650 mg Documented by: Al Hydroxide/Mg Hydroxide (Mag Hydrox/Al Hydrox/Simeth 30 Ml Udc) 15 ml PO Q4H PRN PRN PRN Reason: HEARTBURN Last Admin: 05/13/20 05:27 Dose: 15 ml Documented by: Allopurinol (Allopurinol 100 Mg Tablet) 100 mg PO BID [facility] Last Admin: 05/15/20 09:43 Dose: 100 mg Documented by: Apixaban (Apixaban 5 Mg Tablet) 10 mg PO BID [facility] Last Admin: 05/15/20 09:43 Dose: 10 mg Documented by: Ascorbic Acid (Ascorbic Acid 500 Mg Tablet) 1,000 mg PO BID [facility] Last Admin: 05/15/20 09:43 Dose: 1,000 mg Documented by: Dexamethasone (Dexamethasone 4 Mg Tablet) 6 mg PO DAILY [facility] Stop: 05/16/20 10:01 Last Admin: 05/15/20 09:44 Dose: 6 mg Documented by: Diphenoxylate HCl/Atropine (Diphenoxylate/Atrop 1 Tablet) 2 tablet PO 4X/DAY PRN PRN PRN Reason: Diarrhea Last Admin: 05/09/20 15:05 Dose: 2 tablet Documented by: Fluticasone Propionate (Fluticasone 0.05% 1 [place] Nasal.Sry) 1 spray NASAL BID [facility] Last Admin: 05/15/20 09:44 Dose: 1 spray Documented by: Hydralazine HCl (Hydralazine 20 Mg/Ml Vial) 10 mg IV Q4H PRN PRN PRN Reason: SBP > 160 Last Admin: 05/10/20 04:10 Dose: 10 mg Documented by: Sodium Chloride () 250 mls @ 15 mls/hr IV .[id number] PRN PRN Reason: Saline Flush Sodium Chloride () 250 mls @ 15 mls/hr IV .[id number] PRN PRN Reason: Additional IVPB Infusion Lisinopril (Lisinopril 20 Mg Tablet) 20 mg PO DAILY [facility] Last Admin: 05/15/20 09:43 Dose: 20 mg Documented by: Ondansetron HCl (Ondansetron 4 Mg/2 Ml Vial) 4 mg IV Q8H PRN PRN PRN Reason: NAUSEA/VOMITING Last Admin: 05/10/20 03:20 Dose: 4 mg Documented by: Sodium Chloride (0.9% Saline Lock 10 Ml Syringe) 10 - 40 ml IV UD PRN PRN Reason: SALINE FLUSH Last Admin: 05/14/20 09:30 Dose: 10 ml Documented by: Sodium Chloride (Sodium Chloride 0.65% 1 [place].Btl) 2 spray NASAL TID PRN PRN PRN Reason: NASAL DRYNESS Last Admin: 05/11/20 10:31 Dose: 2 spray Documented by: Discharge Diet: No Restrictions Discharge Activity: Return to Normal Activity Home Medications: Medications to take at Discharge Allopurinol [Zyloprim] 100 mg PO BIDCM 04/17/16 Ascorbic Acid [Vitamin C] 1,000 mg PO BID 04/17/16 Fluticasone 0.05% [Flonase Nasal [employer] [place]] 1 spray NASAL DAILY 04/17/16 Magnesium 400 mg PO DAILY 05/19/18 Zglbuicn83/Folic AC/Nadh/Coq10 [Xyzbac Tablet] 1 ea PO BID 05/08/20 Acetaminophen [Tylenol Tablet] 650 mg PO Q6H PRN PRN tablet 05/15/20 Apixaban [Eliquis] 5 mg PO BID #42 tab 05/15/20 Dexamethasone [Decadron] 6 mg PO DAILY 3 Days #3 tab 05/15/20 Lisinopril [Zestril] 20 mg PO DAILY #60 tab 05/15/20 Following Prescriptions Were Given to Patient: Dexamethasone [Decadron] 6 mg PO DAILY 3 Days #3 tab Transmission Status: Pending to [facility] Apixaban [Eliquis] 5 mg PO BID #42 tab Transmission Status: Pending to [facility] Lisinopril [Zestril] 20 mg PO DAILY #60 tab Transmission Status: Pending to [facility] Primary Care Physician: Paul De La Torre MD [Primary Care Provider] - Please follow up with your Primary Care Physician in: in 2 weeks Disposition: Home Minutes spent on discharge:: 35 Patient Condition:: Stable Medical Necessity - Tobacco Use Smoking Status: Former smoker Tobacco Use: Non-smoker Meaningful Use Info Meaningful Use Diagnoses (Choose all that apply): None applicable Inpatient E&M: 06744 Disch Hosp
--- NOTE | 2020-05-15 10:59 | CASEMGMT ---
KARINA CM Note: Call to [facility]. Eliquis 30 day free trial information given to the pharmacist and savings were processed. Portable tank will be delivered in the hour. No further dc needs identified. Danielle LESTERN RN ACM
--- NOTE | 2020-05-15 11:25 | PN.ID_ITS ---
Patient Problems: Active and Suspected Problems Infection of left foot (Suspected) Coronavirus infection (Acute) Interstitial pneumonitis (Acute) Hypoxia (Acute) COVID-19 (Acute) Subjective: Feeling better, anxious about going home, breathing better - Physical Exam Vitals/I&O's: Vital Signs Temp Pulse Resp BP Pulse Ox 98.5 F 75 18 130/82 H 92 05/15/20 09:39 05/15/20 09:39 05/15/20 09:39 05/15/20 09:39 05/15/20 09:39 Oxygen Flow Rate (L/min) [ 6 AMBULATION with Oxygen] Oxygen Flow Rate (L/min) [ 0 AMBULATING on Room Air] Oxygen Flow Rate (L/min) [At 0 REST on Room Air] Oxygen Flow Rate (L/min) 3 Oxygen Delivery Method Nasal Cannula Weight: 105.1 kg Body Mass Index (BMI) 35.1 Intake and Output for Last 24 Hours 05/13/20 05/14/20 05/15/20 23:59 23:59 23:59 Intake Total 2340 / 2840 1200 / 1700 500 / 500 Output Total 1300 / 1300 1500 / 1500 Balance 1040 / 1540 -300 / 200 500 / 500 General: Alert, Cooperative, No apparent distress Lungs: Clear to auscultation Cardiovascular: Regular rate, Regular Rhythm Abdomen: Soft, Non Tender, Non-Distended Skin: No rashes Laboratory Results 05/15/20 06:50: WBC 9.7, RBC 5.52, Hgb 16.0, Hct 50.6, MCV 91.7, MCH 29.0, MCHC 31.6 L, RDW Std Deviation 46.4 H, RDW Coeff of Do 13.6, Plt Count 444, MPV 9.9, Immature Gran % (Auto) 0.600, Neut % (Auto) 90.1 H, Lymph % (Auto) 6.4 L, [place] % (Auto) 2.6, Eos % (Auto) 0.2, Baso % (Auto) 0.1, Absolute Neuts (auto) 8.7 H, Absolute Lymphs (auto) 0.62 L, Nucleated RBC % 0 05/15/20 06:50: Sodium 139, Potassium 4.3, Chloride 108 H, Carbon Dioxide 28.0, Anion Gap 3 L, BUN 30 H, Creatinine 0.85, Estim Creat Clear Calc 100.59, Est GFR (MDRD) Af Amer 123, Est GFR (MDRD) Non-Af 102, BUN/Creatinine Ratio 35.4 H, Glucose 100, Calcium 8.9, Total Bilirubin 0.60, AST 28, ALT 96 H, Alkaline Phosphatase 69, Total Protein 7.2, Albumin 2.7 L, Globulin 4.5 H, Albumin/Globulin Ratio 0.6 L Current Medications Acetaminophen (Acetaminophen 325 Mg Tablet) 650 mg PO Q6H PRN PRN PRN Reason: Pain Score 1-10/Temp > 100.7 F Last Admin: 05/12/20 19:04 Dose: 650 mg Documented by: Al Hydroxide/Mg Hydroxide (Mag Hydrox/Al Hydrox/Simeth 30 Ml Udc) 15 ml PO Q4H PRN PRN PRN Reason: HEARTBURN Last Admin: 05/13/20 05:27 Dose: 15 ml Documented by: Allopurinol (Allopurinol 100 Mg Tablet) 100 mg PO BID [facility] Last Admin: 05/15/20 09:43 Dose: 100 mg Documented by: Apixaban (Apixaban 5 Mg Tablet) 10 mg PO BID [facility] Last Admin: 05/15/20 09:43 Dose: 10 mg Documented by: Ascorbic Acid (Ascorbic Acid 500 Mg Tablet) 1,000 mg PO BID [facility] Last Admin: 05/15/20 09:43 Dose: 1,000 mg Documented by: Dexamethasone (Dexamethasone 4 Mg Tablet) 6 mg PO DAILY [facility] Stop: 05/16/20 10:01 Last Admin: 05/15/20 09:44 Dose: 6 mg Documented by: Diphenoxylate HCl/Atropine (Diphenoxylate/Atrop 1 Tablet) 2 tablet PO 4X/DAY PRN PRN PRN Reason: Diarrhea Last Admin: 05/09/20 15:05 Dose: 2 tablet Documented by: Fluticasone Propionate (Fluticasone 0.05% 1 [place] Nasal.Sry) 1 spray NASAL BID [facility] Last Admin: 05/15/20 09:44 Dose: 1 spray Documented by: Hydralazine HCl (Hydralazine 20 Mg/Ml Vial) 10 mg IV Q4H PRN PRN PRN Reason: SBP > 160 Last Admin: 05/10/20 04:10 Dose: 10 mg Documented by: Sodium Chloride () 250 mls @ 15 mls/hr IV .[id number] PRN PRN Reason: Saline Flush Sodium Chloride () 250 mls @ 15 mls/hr IV .[id number] PRN PRN Reason: Additional IVPB Infusion Lisinopril (Lisinopril 20 Mg Tablet) 20 mg PO DAILY [facility] Last Admin: 05/15/20 09:43 Dose: 20 mg Documented by: Ondansetron HCl (Ondansetron 4 Mg/2 Ml Vial) 4 mg IV Q8H PRN PRN PRN Reason: NAUSEA/VOMITING Last Admin: 05/10/20 03:20 Dose: 4 mg Documented by: Sodium Chloride (0.9% Saline Lock 10 Ml Syringe) 10 - 40 ml IV UD PRN PRN Reason: SALINE FLUSH Last Admin: 05/14/20 09:30 Dose: 10 ml Documented by: Sodium Chloride (Sodium Chloride 0.65% 1 [place].Btl) 2 spray NASAL TID PRN PRN PRN Reason: NASAL DRYNESS Last Admin: 05/11/20 10:31 Dose: 2 spray Documented by: Medical Necessity - Tobacco Use Smoking Status: Former smoker Tobacco Use: Non-smoker Route of nutrition/ use of supplements: [] Nutritional Intake: [] IV Site: [] [place]e Catheter: [] - Assessment/Plan Antibiotics: [] Assessment/Plan: [] Active and Suspected Problems Infection of left foot (Suspected) Coronavirus infection (Acute) Interstitial pneumonitis (Acute) Hypoxia (Acute) Fever to 102.4 on admit. On dex, eliquis, completed remdesivir. CT showed PEs. Got plasma 05/09/20. Lung sounds much better, feeling better. No more fevers. Ok for d/c home, recommend quarantine until 05/18, d/w re: precautions. Will follow as needed, d/w Dr. Pearl
--- NOTE | 2020-05-16 14:37 | CASEMGMT ---
KARINA BRADLEY DC PHONE CALL DC DATE: 05.15.2020 DC DISPOSITION: Home DC DIAGNOSIS: COVID 19 PRESCRIPTIONS ACQUIRED BY PT: yes Intro role of CM to patient via phone. Pt is quarantining in his bedroom, has his oxygen and a pulse ox. He states he is using 3L at rest, and 5L with exertion and his pulse ox is staying around 94%. No concerns, and no questions re: medications. Pt states everything was explained well to him. His PCP has already contacted him today for f/u. A.Frances ARVIZU RN ACM
== END 2020-05-15 14:40 | disposition home or self-care (01) | DRG 177 ==
LOC: ED 06:26 → MS2 07:17
PROVIDERS: Family Medicine; Admitting Provider Hospitalist; Emergency Provider Emergency Medicine; PCP Family Medicine; Visit Provider Internal Medicine
DX: U07.1 COVID-19 (principal); J12.89 Other viral pneumonia; I26.99 Other pulmonary embolism without acute cor pulmonale; L03.115 Cellulitis of right lower limb; E44.0 Moderate protein-calorie malnutrition; J30.9 Allergic rhinitis, unspecified; R09.02 Hypoxemia; M10.9 Gout, unspecified; L97.522 Non-pressure chronic ulcer of other part of left foot with fat layer exposed; M21.962 Unspecified acquired deformity of left lower leg; G60.0 Hereditary motor and sensory neuropathy; I10 Essential (primary) hypertension; Z77.090 Contact with and (suspected) exposure to asbestos; Z87.891 Personal history of nicotine dependence; Z82.49 Family history of ischemic heart disease and other diseases of the circulatory system; Z79.899 Other long term (current) drug therapy; Z83.3 Family history of diabetes mellitus; Z79.01 Long term (current) use of anticoagulants
CPT/HCPCS: 36415; 71045; 71275; 80048; 80053; 80076; 82728; 83615; 83735; 84145; 85025; 85379; 86140; 86850; 86900; 86901; 87070; 87205; 87449; 87633; 93005; 94640; 97802; 99285; J7030; J7050; Q9967; 90686; A4216; J1940; J2405

== ENCOUNTER → 2020-06-26 08:01 | Outpatient (CLI) | payer BC, SELFPAY ==
[2020-06-13 15:12] VITALS: BMI 35.2
[2020-06-26 08:39] VITALS: PULSE 100; PULSE 101; PULSE 102; PULSE 105; PULSE 86; PULSE 87; O2SAT 90; O2SAT 91; O2SAT 93; O2SAT 95; O2SAT 96
--- NOTE | 2020-06-26 08:46 | CPS ---
PATIENT HAS O2 SETUP VIA [facility] FROM [facility] IN APR. ENTIRE TEST DONE ON RA. PT HAD NO C/O SOB HOWEVER FEELS HIS HR INCREASE. HE DECLINED NEEDING REST BREAKS
--- NOTE | 2020-06-27 08:44 | PCM.PSN.6M ---
PSN 6 Minute Walk Test - 6 Minute Walk Test 6 Minute Walk Test: 6 Minute Walk Test PSN:6-Minute Walk Test Start: 06/26/20 08:38 Freq: Status: Active Protocol: [id number] Document 06/26/20 08:39 [facility] (Rec: 06/26/20 08:47 [facility] [id number]) 6 Minute Walk Test Date Performed 06/26/20 Time Performed 08:15 Height 5 ft 9 in Weight: 225 lb Weight in Pounds 225.[address]: Raina Valdes [employer] Assistive device used: None Pre-test Oxygen Delivery Method Room Air Pulse Ox (%) 96 Pulse Rate (60-100 beats/min) 86 Dyspnea Lilli Scale (0-10) 1 1st minute Oxygen Delivery Method Room Air Pulse Ox (%) 93 Pulse Rate (60-100 beats/min) 100 Dyspnea Lilli Scale (0-10) 1 Number of Rests Taken 0 2nd minute Oxygen Delivery Method Room Air Pulse Ox (%) 90 Pulse Rate (60-100 beats/min) 101 H Dyspnea Lilli Scale (0-10) 2 Number of Rests Taken 0 3rd minute Oxygen Delivery Method Room Air Pulse Ox (%) 91 Pulse Rate (60-100 beats/min) 102 H Dyspnea Lilli Scale (0-10) 2 Number of Rests Taken 0 4th minute Oxygen Delivery Method Room Air Pulse Ox (%) 91 Pulse Rate (60-100 beats/min) 105 H Dyspnea Lilli Scale (0-10) 2 Number of Rests Taken 0 5th minute Oxygen Delivery Method Room Air Pulse Ox (%) 90 Pulse Rate (60-100 beats/min) 100 Dyspnea Lilli Scale (0-10) 2 Number of Rests Taken 0 6th minute Oxygen Delivery Method Room Air Pulse Ox (%) 91 Pulse Rate (60-100 beats/min) 101 H Dyspnea Lilli Scale (0-10) 2 Number of Rests Taken 0 Post-test Oxygen Delivery Method Room Air Pulse Ox (%) 95 Pulse Rate (60-100 beats/min) 87 Dyspnea Lilli Scale (0-10) 1 Full Laps Walked 17 Partial Lap, Number of Tiles Walked 12 Total Distance Walked (ft) 1015 06/26/20 08:46 Cardiopulmonary Services by MarlinSeptember PATIENT HAS O2 SETUP VIA [facility] FROM [facility] IN NOV. ENTIRE TEST DONE ON RA. PT HAD NO C/O SOB HOWEVER FEELS HIS HR INCREASE. HE DECLINED NEEDING REST BREAKS Initialized on 06/26/20 08:46 - END OF NOTE - Interpretation Interpretation: The patient ambulated 1015 feet over the course of 6 minutes beginning on room air without assistive devices or breaks. Pretesting oxygen saturation was noted to be 96% on room air. With ambulation, the carmen oxygen saturation was 90%. This represents a significant exertional oxygen desaturation. - Recommendations Recommendations: There is no indication for the use of supplemental oxygen at this time. However, close interval follow-up is recommended, given the degree of oxygen desaturation noted during the study.
== END ==
PROVIDERS: PCP Family Medicine; Referring Provider Nurse Practitioner Acute Care; Visit Provider Nurse Practitioner Acute Care
DX: U07.1 COVID-19 (principal)
CPT/HCPCS: 94618

== ENCOUNTER → 2020-09-03 12:52 | Outpatient (CLI) | payer BC, SELFPAY ==
[2020-06-13 15:12] VITALS: BMI 35.2
--- NOTE | 2020-09-03 12:55 | CT_ITS ---
STUDY: CT CHEST WITHOUT CONTRAST REASON FOR EXAM: Male, 50 years old. COVID-19 RADIATION DOSAGE (If Supplied By Facility): CTDIvol = ( 17.40 ) mGy, DLP = ( 604.23 ) mGycm TECHNIQUE: Transaxial imaging was performed without the administration of intravenous contrast material. Multiplanar coronal and sagittal images were reformatted. Individualized dose optimization techniques were used for this CT. COMPARISON: 05/08/2020 FINDINGS: Lung windows show the lungs to be normally expanded. There are scattered areas of groundglass and interstitial opacifications anomaly in the periphery of both lung campbell consistent with Covid pneumonia. Other possibilities include multifocal pneumonitis or drug interaction/toxicity. Soft tissue windows show normal-appearing thyroid gland. No suspicious axillary, mediastinal, or perihilar adenopathy. Normal heart and pericardium. Normal mediastinum. Normal hilar regions. Normal unenhanced pulmonary arteries. Normal aorta arch and descending thoracic aorta. There are multi-level degenerative changes of the thoracic spine. There is no demonstrated abnormality of the visualized upper abdomen. CT/Chest without Contrast IMPRESSION: Diffuse groundglass and interstitial opacifications predominantly in the periphery of both lung campbell without organized infiltrate or effusion. Findings are consistent with Covid pneumonia. Other possibilities described above. No suspicious adenopathy No pleural or pericardial effusions Electronically Signed: Toño Red MD at 13:37 EST , Service support ,
== END ==
PROVIDERS: PCP Family Medicine; Referring Provider Nurse Practitioner Acute Care; Visit Provider Nurse Practitioner Acute Care
DX: U07.1 COVID-19 (principal)
CPT/HCPCS: 71250

== ENCOUNTER → 2020-11-02 08:04 | Outpatient (CLI) | payer BC, SELFPAY ==
[2020-10-18 08:41] VITALS: BMI 36.0
[2020-11-02 10:04] LABS: Hematocrit 48.7 % (40-54); Hemoglobin 15.6 g/dL (13.0-16.5); Mean Corpuscular Hgb 29.4 pg (27.0-32.0); Mean Corpuscular Volume 91.7 fL (80-94); Mean Platelet Vol. 10.3 fl (6.2-12.0); Platelet Count 230 K/mm3 (150-450); RBC Distribution Width CV 13.5 % (11.6-14.6); RBC Distribution Width SD 45.9 fl (35.1-43.9); Red Blood Count 5.31 M/mm3 (4.6-6.2); White Blood Count 6.7 K/mm3 (4.4-11.0)
[2020-11-02 10:29] LABS: Microalbumin,Random Urine 19.4 mg/L (NO RANGE EST.); Microalbumin:Creatinine Ratio 10.3 mg/g CRE (<30 mg/g CRE)
[2020-11-02 10:49] LABS: ALB/GLOB Ratio 1.1 RATIO (0.9-2.4); AST(SGOT) 20 U/L (15-37); Alanine Aminotransfer ALT/SGPT 41 U/L (16-61); Albumin, Serum 3.7 g/dL (3.2-5.0); Alkaline Phosphatase 59 U/L (45-117); Anion Gap 5 (5-15); BUN 21 mg/dL (7-18); BUN/Creat Ratio 24.3 RATIO (10-20); Calcium,Total 8.7 mg/dL (8.5-10.1); Chloride 109 mmol/L (98-107); Cholesterol 213 mg/dL (200); Creatinine, Serum 0.86 mg/dL (0.70-1.30); EST Glomerular Filtration Rate 99 mL/min (>60); Est Glom Filt Rate - Afr Amer 120 mL/min (>60); Globulin 3.3 g/dL (2.2-4.2); Glucose 96 mg/dL (74-106); High Density Lipoprotein 38 mg/dL; Potassium 3.9 mmol/L (3.5-5.1); Sodium Level 140 mmol/L (136-145); Triglycerides 170 mg/dL; Uric Acid 5.5 mg/dL (3.5-7.2); Very Low Density Lipoprotein 34 mg/dL (5-40)
== END ==
PROVIDERS: PCP Family Medicine; Referring Provider Family Medicine; Visit Provider Family Medicine
DX: M10.9 Gout, unspecified (principal); J84.89 Other specified interstitial pulmonary diseases; E78.5 Hyperlipidemia, unspecified; I10 Essential (primary) hypertension
CPT/HCPCS: 36415; 80053; 80061; 82043; 82570; 84550; 85027

== ENCOUNTER 2022-08-26 13:01 | Outpatient (RCR) | payer BC, SELFPAY | END 2022-08-26 23:59 | LOC: NS 13:01 | PROVIDERS: PCP Family Medicine; Referring Provider Family Medicine; Visit Provider Family Medicine | DX: E66.9 Obesity, unspecified (principal); Z68.36 Body mass index [BMI] 36.0-36.9, adult | CPT/HCPCS: 97802 ==

== ENCOUNTER 2022-09-03 09:49 | Emergency (ER) | payer OTHER, BC, SELFPAY ==
[2022-09-03 09:50] VITALS: BP 152/95; PULSE 70; RESP 18; TEMP 36.2; O2SAT 100
--- NOTE | 2022-09-03 10:26 | RAD_ITS ---
STUDY: X-RAY - THORACIC SPINE REASON FOR EXAM: Male, 52 years old. Injury/Pain TECHNIQUE: 4 view(s) of the thoracic spine were obtained. COMPARISON: None. FINDINGS: Normal kyphosis of the thoracic spine. There is a mild rotatory scoliosis.. Normal thoracic vertebrae and endplates. Normal disc space heights. The soft tissue structures are unremarkable. RAD/Thoracic Spine 3 Views IMPRESSION: Mild rotatory scoliosis. Electronically Signed: Toño Red MD at 11:15 EST ,
[2022-09-03] MEDS: morphine 8 MG/ML Syringe IV (10:41)
[2022-09-03] MEDS: Ondansetron 4 MG/2 ML Vial IV (10:41)
[2022-09-03 10:43] VITALS: BMI 36.5
--- NOTE | 2022-09-03 10:55 | RAD_ITS ---
STUDY: X-RAY - LUMBAR SPINE REASON FOR EXAM: Male, 52 years old. Back pain TECHNIQUE: 3 view(s) of the lumbar spine were obtained. COMPARISON: None FINDINGS: Normal lumbar lordosis. There is no substantial scoliosis. There is a normal alignment of the vertebrae. Normal vertebral bodies and endplates. Normal disc space heights. There is no demonstrated fracture. Bilateral pars defect without spondylolisthesis There is atherosclerotic calcification of the abdominal aorta without a demonstrated aneurysm. RAD/Lumbar Spine 2 or 3 Views IMPRESSION: Multilevel degenerative changes, no acute findings Bilateral pars defect without spondylolisthesis at L5/S1 Electronically Signed: Toño Red MD at 11:11 EST ,
--- NOTE | 2022-09-03 11:23 | EDS_ITS ---
HPI History of Present Illness Chief Complaint: Fall Detail of Chief Complaint: Patient was on a ladder when he fell backwards onto his buttocks complainin Informant: patient and spouse/S.O. Onset/Context/Timing Onset: Hours (Incident occurred at approximately 0900) Mechanism/Context: Fall (Patient was up a couple of rungs on the ladder.) and Work Related Location of pain/injuries: - (Lower dorsal upper lumbar region) Quality of Pain: Dull, Aching and Throbbing Location: Lower dorsal and lumbar region Current Severity: Mild Maximum Severity: Severe Worsened by: Movement and change in position Relieved by: Nothing Associated Symptoms Associated Symptoms: Negative for Parasthesias, Weakness, Loss of function, Inability to ambulate, Loss of consciousness or Amnesia Narrative Narrative: Patient is a 52-year-old male on an experimental drug for Charcot Rocio disease and history of pulmonary embolus. He is presently on no anticoagulant. He denies head trauma. He denies loss of consciousness. He denies ringing's ears. He denies ocular, visual or auditory symptoms. He denies neck pain. He denies paresthesia, anesthesia or motor weakness in his upper or lower extremities presently or time of fall. He denies abdominal pain. He has not urinated since incident. He denies radicular pain. Tetanus Immunization: Unknown Prior similar symptoms: No Recent Illness/Hospitalization: No [facility] Medical History (Updated 09/03/22 @ 11:[address] Lei Adam MD) History of left ankle surgery History of pneumonia History of pulmonary embolism History of right ankle fusion History of right toe surgery Home Medications allopurinol 100 mg tablet 100 mg PO BIDCM GOUT 04/17/16 [History Last Taken Unknown] fluticasone propionate 50 mcg/actuation nasal spray,suspension 1 spray NASAL DAILY ALLERGIES 04/17/16 [History Last Taken Unknown] magnesium 200 mg tablet 400 mg PO DAILY SUPPLEMENT 05/19/18 [History Last Taken Unknown] acetaminophen 325 mg tablet 650 mg PO Q6H PRN PRN Pain Score 1-10/Temp > 100.7 F 05/15/20 [Rx Last Taken Unknown] psyllium husk 0.52 gram capsule (Fiber Laxative (psyllium husk)) 0.52 g PO BID 06/13/20 [History Last Taken Unknown] levocetirizine 5 mg tablet (Xyzal) 5 mg PO DAILY 10/18/20 [History Last Taken Unknown] Ju Allergy 09/03/22 [History Last Taken Unknown] irbesartan 75 mg tablet mg 09/03/22 [History Last Taken Unknown] oxycodone-acetaminophen 5 mg-325 mg tablet 1 tab PO Q6H PRN PRN pain 5 days #20 TABLETS 09/03/22 [Rx Last Taken Unknown] sertraline 50 mg tablet mg 09/03/22 [History Last Taken Unknown] Allergy/AdvReac Type Severity Reaction Status Date / Time No Known Allergies Allergy Verified 09/03/22 09:52 Family History Mother Hypertension Father Hypertension Diabetes Kidney disease Heart disease Heart attack CMT (cervical motion tenderness) Brother Hypertension Social History (Updated 09/03/22 @ 11:[address] Lei Adam MD) household members: spouse Smoking Status: Former smoker Tobacco: How many years used: 22 alcohol intake: current details: Beer x3 per week ROS ROS ED Constitutional Constitutional ED: Denies chills, fever(s), subjective, sweats, weight loss or other Eyes Eyes: Denies blurry vision, change in vision or other ENT ENT ED: Denies ear pain, rhinorrhea, sore throat or other Cardiovascular Cardiovascular: Denies chest pain, palpitations, paroxysmal nocturnal dyspnea, racing heartbeat or other Respiratory/Chest Respiratory/Chest: Denies cough, dyspnea, dyspnea on exertion, paroxysmal nocturnal dyspnea, sputum or other Gastrointestinal Gastrointestinal: Denies abdominal pain, constipation, diarrhea, melena, nausea, vomiting or other Genitourinary Genitourinary ED: Denies dysuria, hematuria, urinary frequency or other Musculoskeletal Musculoskeletal: Reports back pain; Denies arthralgias, myalgias or neck pain Integumentary Reports Abrasions Neurologic Neurologic: Denies headache(s), paresthesias or weakness Hematologic/Lymphatic Hematologic/Lymphatic: Denies easy bleeding or easy bruising EXAM Physical Exam Const Vital Signs: 09/03/22 09:50 09/03/22 10:06 Temperature 97.2 F L Temperature Source Temporal Pulse Rate 70 Respiratory Rate 18 Respiratory Depth Normal Respiratory Pattern Normal Blood Pressure 152/95 H Blood Pressure Mean 114 Pulse Ox 100 Oxygen Delivery Method Room Air Positive well nourished, well developed and obese Constitutional Narrative: Patient appears uncomfortable. When the patient sat up he experienced significant pain. General Appearance ED: well developed; Negative for NAD Nutritional Appearance: obese HEENT HEENT Narrative: Normocephalic. No clinical signs of basilar skull fracture. No septal deviation hematoma. No dental trauma. atraumatic Eyes PERRL and EOMs intact bilaterally General Eye ED: Yes other Other Details: No subconjunctival hemorrhage. Neck full ROM Neck Narrative: No pain no patient midline posterior neck. Chest Wall inspection of chest normal and palpation of chest normal Resp normal respiratory effort and clear to auscultation bilaterally Cardio regular rhythm, S1 normal heart sound, S2 normal heart sound and no murmurs Rate: regular rate GI normal to inspection, nondistended, normoactive bowel sounds, non-tender, non- distended and no masses Back/Spine normal to inspection; Negative for no thoracic nor lumbar tenderness Back/Spine Narrative: There is tenderness midline over the lumbar region L1-L4. General Back: Negative for CVA tenderness Thoracic Spine / Upper Back: thoracic spinal tenderness T9, T10, T11 and T12 Extremity Extremity Narrative: There is an abrasion dorsal mid left forearm. There is no tenderness of the phalanges, metacarpal bones, carpal bones, radius ulna, elbow or shoulder on the left side. There is no evidence of trauma to the right upper extremity or the lower extremities. Neuro oriented x3, CN's II-XII intact bilaterally, no focal motor deficits and no sensory deficits noted Neuro Narrative: DVT are symmetric with no clonus or Babinski. Deep Tendon Reflexes: Rt Triceps (C7): 2+, Lt Triceps (C7): 2+, Rt Biceps (C5, C6): 2+, Lt Biceps (C5, C6): 2+, Rt Patellar (L4): 2+, Lt Patellar (L4): 2+, Rt Ankle (S1): 2+ and Lt Ankle (S1): 2+ Deep Tendon Reflexes Back: Rt Patellar (L4): 2+, Lt Patellar (L4): 2+, Rt Ankle (S1): 2+ and Lt Ankle (S1): 2+ Plantar Reflex: Downgoing: bilateral Psych mental status grossly normal and thought process normal Skin no rashes or lesions noted, no wounds, skin turgor normal and no jaundice Trauma: abrasion MDM MDM MDM Narrative Medical decision making narrative: The patient is in significant pain IV was established. He received 8 mg of morphine for his pain. X-ray of the lumbar and dorsal spine were obtained to evaluate for fracture. Differential is fracture versus contusion. Radiography Chest X-Ray - ED: Read by ED Physician (4 views of the dorsal spine and 3 views of the lumbar spine were obtained. There is evidence of scoliosis in the dorsal spine. There is no evidence of a spondylolisthesis or spinal orthosis. Patient does have significant arthritic changes noted.) X-Ray: LS SPine (3 views independently reviewed interpreted by me. There is evidence of multiple degenerative changes.) and T-Spine (4 views were obtained. Multiple degenerative changes with scoliosis. This was independently reviewed interpreted by me.) Diagnostic Testing: Clinical Impression(s) from Imaging Studies Thoracic Spine X-Ray 09/03/22 10:26 IMPRESSION: Mild rotatory scoliosis. Electronically Signed: Toño Red MD at 11:15 EST , Lumbar Spine X-Ray 09/03/22 10:55 IMPRESSION: Multilevel degenerative changes, no acute findings Bilateral pars defect without spondylolisthesis at L5/S1 Electronically Signed: Toño Red MD at 11:11 EST , Rhythm Strip Rhythm Strip: Sinus Rhythm Rate: 70 Differential Diagnosis Differential Diagnosis: Documented in the [facility] Treatment and Re-Evaluation Narrative: Patient was reassessed at 1150. He states he has no pain if he sits still on the examination cot. If he attempts to move he has pain at is 8 out of 10. Patient was informed he will feel worse over the next 24 to 40 hours. He was discharged with opiate analgesia and instructed to take 4 ibuprofen or 2 Aleve every 8-12 hours respectively. Discharge Plan Triage Chief Complaint: Fall ED Provider: Lei Adam Dx/Rx/DC Orders Clinical Impression: Fall on and from ladder causing accidental injury, Acute lumbosacral myofascial strain, Acute thoracic myofascial strain, Abrasion of left forearm, initial encounter Instructions: ED Back Sprain/Strain Prescriptions: New oxycodone-acetaminophen [oxycodone-acetaminophen] 5-325 mg tablet 1 tab PO Q6H PRN PRN (Reason: pain) 5 Days Qty: 20 0RF No Action psyllium husk [Fiber Laxative (psyllium husk)] 0.52 gram capsule 0.52 g PO BID levocetirizine [Xyzal] 5 mg tablet 5 mg PO DAILY allopurinol 100 MG tablet 100 mg PO BIDCM fluticasone propionate 1 SPRAY spray,suspension 1 spray NASAL DAILY magnesium 200 MG tablet 400 mg PO DAILY acetaminophen 325 MG tablet 650 mg PO Q6H PRN PRN (Reason: Pain Score 1-10/Temp > 100.7 F) 0RF Ju Allergy irbesartan 75 mg tablet Label Comments: TAKE 1 TABLET BY MOUTHVONCE DAILY WITH SUPPER sertraline 50 mg tablet Label Comments: take 1 tablet by mouth once daily Primary Care Provider: Paul De La Torre Referrals: [facility]] - 3-5 Days Paul De La Torre MD [Primary Care Provider] - Activity Restrictions/Additional Instructions: 1. Apply ice 20 minutes per application every hour 8 to 10 hours a day 2. Take either for ibuprofen tablets every 8 hours or 2 Aleve tablets every 12 hours for the next 3 to 7 days 3. You will feel worse over the next 24 to 48 hours. 4. You will hurt in more places and you presently do 5. You may hurt up to and longer than a week. Disposition Disposition: Home, Self Care
[2022-09-03 12:00] VITALS: PULSE 87; RESP 18; O2SAT 100
== END 2022-09-03 12:11 | disposition home or self-care (01) ==
PROVIDERS: Emergency Provider Emergency Medicine; PCP Family Medicine; Visit Provider Emergency Medicine
DX: S39.012A Strain of muscle, fascia and tendon of lower back, initial encounter (principal); S50.812A Abrasion of left forearm, initial encounter; Z87.891 Personal history of nicotine dependence; Y99.0 Civilian activity done for income or pay; W11.XXXA Fall on and from ladder, initial encounter; S29.019A Strain of muscle and tendon of unspecified wall of thorax, initial encounter
CPT/HCPCS: 72072; 72100; 96374; 96375; 99283; A4216; J2405

== ENCOUNTER 2022-09-16 13:00 | Outpatient (RCR) | payer BC, SELFPAY | END 2022-09-26 23:59 | LOC: NS 13:00 | PROVIDERS: PCP Family Medicine; Referring Provider Family Medicine; Visit Provider Family Medicine | DX: Z71.3 Dietary counseling and surveillance (principal); E66.9 Obesity, unspecified; Z68.36 Body mass index [BMI] 36.0-36.9, adult; M10.9 Gout, unspecified | CPT/HCPCS: 97803 ==

== ENCOUNTER 2022-10-14 14:01 | Outpatient (RCR) | payer BC, SELFPAY | END 2022-10-26 23:59 | LOC: NS 14:01 | PROVIDERS: PCP Family Medicine; Referring Provider Family Medicine; Visit Provider Family Medicine | DX: Z71.3 Dietary counseling and surveillance (principal); E66.9 Obesity, unspecified; Z68.36 Body mass index [BMI] 36.0-36.9, adult; M10.9 Gout, unspecified | CPT/HCPCS: 97803 ==

== ENCOUNTER → 2022-10-22 | Outpatient (CLI) | payer BC, SELFPAY ==
[2022-10-22 11:08] LABS: ALB/GLOB Ratio 1.1 RATIO (0.9-2.4); AST(SGOT) 29 U/L (15-37); Alanine Aminotransfer ALT/SGPT 36 U/L (16-61); Albumin, Serum 3.7 g/dL (3.2-5.0); Alkaline Phosphatase 59 U/L (45-117); Anion Gap 4 (5-15); BUN 25 mg/dL (7-18); BUN/Creat Ratio 26.9 RATIO (10-20); Calcium,Total 9.3 mg/dL (8.5-10.1); Chloride 109 mmol/L (98-107); Cholesterol 216 mg/dL (200); Creatinine, Serum 0.93 mg/dL (0.70-1.30); EST Glomerular Filtration Rate 91 mL/min (>60); Est Glom Filt Rate - Afr Amer 110 mL/min (>60); Globulin 3.5 g/dL (2.2-4.2); Glucose 96 mg/dL (74-106); High Density Lipoprotein 38 mg/dL; Potassium 4.6 mmol/L (3.5-5.1); Protein, Total 7.2 g/dL (6.4-8.2); Sodium Level 138 mmol/L (136-145); Thyroid Stim Hormone (TSH) 2.36 uIU/mL (0.358-3.74); Triglycerides 162 mg/dL; Uric Acid 6.5 mg/dL (3.5-7.2); Very Low Density Lipoprotein 32 mg/dL (5-40)
[2022-10-22 11:20] LABS: Microalbumin,Random Urine 22.5 mg/L (NO RANGE EST.); Microalbumin:Creatinine Ratio 12.3 mg/g CRE (<30 mg/g CRE)
[2022-10-22 11:22] LABS: Hemoglobin A1c 5.5 % (3.8-5.6)
== END | disposition home or self-care (01) ==
LOC: MTLAB 07:40
PROVIDERS: PCP Family Medicine; Referring Provider Family Medicine; Visit Provider Family Medicine
DX: E66.9 Obesity, unspecified (principal); I10 Essential (primary) hypertension; M10.9 Gout, unspecified
CPT/HCPCS: 36415; 80053; 80061; 82043; 82570; 83036; 84443; 84550

== ENCOUNTER 2022-11-17 15:08 | Outpatient (RCR) | payer BC, SELFPAY | END 2022-11-26 23:59 | LOC: NS 15:08 | PROVIDERS: PCP Family Medicine; Referring Provider Family Medicine; Visit Provider Family Medicine | DX: Z71.3 Dietary counseling and surveillance (principal); E66.9 Obesity, unspecified; Z68.36 Body mass index [BMI] 36.0-36.9, adult; M10.9 Gout, unspecified | CPT/HCPCS: 97803 ==

== ENCOUNTER 2022-12-01 14:02 | Outpatient (RCR) | payer BC, SELFPAY | END 2022-12-26 23:59 | LOC: NS 14:02 | PROVIDERS: PCP Family Medicine; Referring Provider Family Medicine; Visit Provider Family Medicine | DX: Z71.3 Dietary counseling and surveillance (principal); E66.9 Obesity, unspecified; Z68.36 Body mass index [BMI] 36.0-36.9, adult; M10.9 Gout, unspecified | CPT/HCPCS: 97803 ==

== ENCOUNTER 2023-01-08 14:00 | Outpatient (RCR) | payer BC, SELFPAY | END 2023-01-26 23:59 | LOC: NS 14:00 | PROVIDERS: PCP Family Medicine; Referring Provider Family Medicine; Visit Provider Family Medicine | DX: Z71.3 Dietary counseling and surveillance (principal); E66.9 Obesity, unspecified; Z68.36 Body mass index [BMI] 36.0-36.9, adult; M10.9 Gout, unspecified | CPT/HCPCS: 97803 ==

== ENCOUNTER → 2024-04-07 | Outpatient (CLI) | payer BC, SELFPAY ==
[2024-04-07 12:01] LABS: AST(SGOT) 34 U/L (15-37); Alanine Aminotransfer ALT/SGPT 44 U/L (16-61); Albumin, Serum 3.6 g/dL (3.2-5.0); Alkaline Phosphatase 58 U/L (45-117); Anion Gap 5 (5-15); BUN 21 mg/dL (7-18); BUN/Creat Ratio 25.3 RATIO (10-20); Calcium,Total 8.9 mg/dL (8.5-10.1); Chloride 110 mmol/L (98-107); Cholesterol 215 mg/dL (200); Creatinine, Serum 0.83 mg/dL (0.70-1.30); EST Glomerular Filtration Rate 102 mL/min (>60); Est Glom Filt Rate - Afr Amer 124 mL/min (>60); Globulin 3.6 g/dL (2.2-4.2); Glucose 103 mg/dL (74-106); High Density Lipoprotein 42 mg/dL; PSA,Total- Diagnostic 0.92 ng/mL (0.0-4.0); Potassium 4.9 mmol/L (3.5-5.1); Protein, Total 7.2 g/dL (6.4-8.2); Sodium Level 138 mmol/L (136-145); Triglycerides 203 mg/dL; Uric Acid 6.3 mg/dL (3.5-7.2); Very Low Density Lipoprotein 41 mg/dL (5-40)
[2024-04-07 12:18] LABS: Hemoglobin A1c 5.7 % (3.8-5.6)
== END | disposition home or self-care (01) ==
LOC: MTLAB 08:00
PROVIDERS: PCP Family Medicine; Referring Provider Family Medicine; Visit Provider Family Medicine
DX: M10.9 Gout, unspecified (principal); E66.9 Obesity, unspecified; Z12.5 Encounter for screening for malignant neoplasm of prostate
CPT/HCPCS: 36415; 80053; 80061; 83036; 84153; 84443; 84550

== ENCOUNTER → 2025-03-14 | Outpatient (CLI) | payer BC, SELFPAY ==
--- OUTSIDE RECORDS SUMMARY | 2025-03-14 08:19 | XMS RPT_ITS | CCD ---
Author Organization [facility] Inform ion Partnership [facility] Care Team Providers Care Supervisor Pigment Making Name Role Phone ELSHEIKH, BAKRI H Referring Unavailable DE LA TORRE, ESPERANZA A Primary Care Unavailable ELSHEIKH, BAKRI H Referring Unavailable DE LA TORRE, ESPERANZA A Primary Care Unavailable ELSHEIKH, BAKRI H Referring Unavailable DE LA TORRE, ESPERANZA A Primary Care Unavailable ELSHEIKH, BAKRI H Referring Unavailable ELSHEIKH, BAKRI H Attending Unavailable DE LA TORRE, ESPERANZA A Primary Care Unavailable ELSHEIKH, BAKRI H Referring Unavailable DE LA TORRE, ESPERANZA A Primary Care Unavailable ELSHEIKH, BAKRI H Referring Unavailable DE LA TORRE, ESPERANZA A Primary Care Unavailable ELSHEIKH, BAKRI H Referring Unavailable DE LA TORRE, ESPERANZA A Primary Care Unavailable De La Torre, Esperanza Referring Unavailable De La Torre, Esperanza Attending Unavailable De La Torre, Esperanza Primary Care Unavailable Medications Current Medications Medication Drug Class(es) Dates Sig (Normalized) Sig (Original) acetaminophen 325 mg oral tablet (6 sources) Start: 05-15-2020 take 650 mg by mouth every six hours as needed Acetaminophen Active 650 MG PO EVERY 6 HOURS NEEDED May 15, 2020 1:00am acetaminophen 325 mg / oxyCODONE hydrochloride 5 mg oral tablet (5 sources) Opioid Agonist Start: 09-03-2022 take 1 tablet by mouth every six hours as needed Oxycodone-Acetamino phen Active 1 TABLET PO EVERY 6 HOURS NEEDED 15 11September 03, 2022 Ju Allergy (5 sources) Start: 09-03-2022 Ju Allergy Active September 03, 2022 1:00am Start: 09-03-2022 Ju Allerg y Active September 03, 2022 12:00am allopurinol 100 mg oral tablet (6 sources) Xanthine Oxidase Inhibitor Start: 04-17-2016 take 100 mg by mouth twice daily at mealtime Allopurinol Active 100 MG PO TWICE DAILY WITH MEALS April 17, 2016 12:00am ascorbic acid 500 mg chewable tablet (1 source) Vitamin C Start: 04-17-2016 take 1000 mg by mouth twice daily Ascorbic Acid (Vitamin C) Active 1000 MG PO TWICE A DAY April 16, 2016 11:00pm cholecalciferol 0.01 mg oral tablet (1 source) Vitamin D Start: 06-13-2020 take 500 [IU] by mouth once daily Cholecalciferol (Vitamin D3) Active 500 UNIT PO DAILY June 13, 2020 12:00am fluticasone propionate 0.05 mg/actuat metered dose nasal spray (6 sources) Corticosteroid Start: 04-17-2016 Fluticasone Propionate Active 1 SPRAY NASAL DAILY April 17, 2016 12:00am irbesartan 75 mg oral tablet (5 sources) Angiotensin 2 Receptor Leyla Start: 09-03-2022 Irbesartan Active MG September 03, 2022 1:00am levocetirizine dihydrochloride 5 mg oral tablet (6 sources) Histamine-1 Receptor Antagonist Start: 10-18-2020 take 1 tablet by mouth once daily Levocetirizine (Xyzal) 5 mg tablet Active 5 MG PO DAILY October 18, 2020 12:00am Magnesium (6 sources) Start: 05-19-2018 take 400 mg by mouth once daily Magnesium Active 400 MG PO DAILY May 19, 2018 1:00am Start: 05-19-2018 take 400 mg by mouth once jeremías y Magnesium Active 400 MG PO DAILY May 19, 2018 12:00am psyllium 520 mg oral capsule (6 sources) Start: 06-13-2020 Psyllium Husk (Fiber Laxative (Psyllium Husk)) 0.52 gram capsule Active 0.52 GM PO TWICE A DAY June 13, 2020 1:00am sertraline 50 mg oral tablet (11 sources) Serotonin Reuptake Inhibitor Start: 09-03-2022 Sertraline Active MG September 03, 2022 1:00am Start: 06-13-2020 End: 10-18-2020 take 1 tablet by mouth once daily Sertraline (Zoloft) 50 mg tablet Discontinued 50 MG PO DAILY June 13, 2020 1:00am October 18, 2020 8:48am Completed/Discontinued Medications Medication Drug Class(es) Dates Sig (Normalized) Sig (Original) apixaban 5 mg oral tablet (12 sources) Factor Xa Inhibitor Start: 05-15-2020 End: 10-18-2020 take 5 mg by mouth twice daily Apixaban Discontinued 5 MG PO TWICE A DAY 60 June 13, 2020 3:58pm October 18, 2020 9:06am dexamethasone 6 mg oral tablet (6 sources) Corticosteroid Start: 05-15-2020 End: 05-18-2020 take 6 mg by mouth once daily Dexamethasone Discontinued 6 MG PO DAILY 3 3 May 15, 2020 1:00am May 18, 2020 1:03am fexofenadine hydrochloride 180 mg oral tablet (6 sources) Histamine-1 Receptor Antagonist Start: 06-13-2020 End: 10-18-2020 take 1 tablet by mouth twice daily Fexofenadine (Ju Allergy) 180 mg tablet Discontinued 180 MG PO TWICE A DAY June 13, 2020 1:00am October 18, 2020 8:48am lisinopril 20 mg oral tablet (6 sources) Angiotensin Converting Enzyme Inhibitor Start: 05-15-2020 End: 10-18-2020 take 20 mg by mouth once daily Lisinopril Discontinued 20 MG PO DAILY 60 May 15, 2020 1:00am October 18, 2020 8:47am Bsdsprso65-Iibad Rp-Nopt-Dpe33 (6 sources) Start: 05-08-2020 End: 06-13-2020 Vzmtvvqf70-Wsbms Zd-Mcar-Psg22 Discontinued 1 EACH PO TWICE A DAY May 08, 2020 1:00am June 13, 2020 3:17pm Start: 05-08-2020 End: 06-13-2020 Rzubxymz73-Lsikp Ac-Nadh-Coq 10 Discontinued 1 EACH PO TWICE A DAY May 08, 2020 12:00am June 13, 2020 2:17pm Problems Active Problems Problem Classification Problem Date Documented Da te Episodic/Chronic Acquired foot deformities (6 sources) Talipes cavus; Translations: [Congenital pes cavus, left foot] 08-04-2018 Episodic Chronic ulcer of skin (6 sources) Non-pressure chronic ulcer of other part of left foot with fat layer exposed; Translations: [Chronic ulcer of left foot with fat layer exposed] 08-04-2018 Chronic E Codes: Fall (5 sources) Fall from ladder; Translations: [Fall on and from ladder, initial encounter] 09-03-2022 Episodic Gout and other crystal arthropathies (1 source) Gout, unspecified; Translations: [Gout, unspecified] Onset: 04-27-2024 Chronic Other injuries and conditions due to external causes (6 sources) Delayed healing of wound; Translations: [Other injury of unspecified body region, subsequent encounter] 08-04-2018 Episodic Other lower respiratory disease (6 sources) Interstitial pneumonia; 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] 05-08-2020 Chronic Other lower respiratory disease (6 sources) Hypoxia; Translations: [Hypoxemia] 05-08-2020 Episodic Other nervous system disorders (6 sources) Hereditary motor and sensory neuropathy; 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 Other nervous system disorders (2 sources) Hereditary motor and sensory neuropathy; 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 Pulmonary heart disease (6 sources) Pulmonary embolism; Translations: [Other pulmonary embolism without acute cor pulmonale] 10-18-2020 Episodic Skin and subcutaneous tissue infections (6 sources) Cellulitis of foot; Translations: [Cellulitis of right lower limb] 08-04-2018 Episodic Sprains and strains (10 sources) Strain of thoracic region; Translations: [Strain of muscle and tendon of unspecified wall of thorax, initial encounter] 09-03-2022 Episodic Viral infection (12 sources) Disease caused by 2019-nCoV; Translations: [COVID-19] 10-18-2020 Episodic Past or Other Problems Problem Classification Problem Date Documented Da te Episodic/Chronic Unclassified (5 sources) Abrasion of left forearm, initial encounter 09-03-2022 Results Test Name Value Interpretation Reference Range Facility Comprehensive Metabolic Prof maile 04-07-2024 Albumin [Mass/Vol] 3.6 g/dL Normal 3.2-5.0 [facility] Comment on above: Performed By: #### L 501.9940, L500.4050, L501.1400, L501.9985, L500.4100, L501.9520 #### [facility] [address] [place], [address] Albumin/Globulin [Mass ratio] 1.0 {ratio} Normal 0.9-2.4 [facility] Comment on above: Performed By: #### L 501.9940, L500.4050, L501.1400, L501.9985, L500.4100, L501.9520 #### [facility] [address] [place], [address] ALK P 58 U/L Normal 45-117 [facility] Comment on above: Performed By: #### L 501.9940, L500.4050, L501.1400, L501.9985, L500.4100, L501.9520 #### [facility] [address] [place], [address] ALT [Catalytic activity/Vol] 44 U/L Normal 16-61 [facility] Comment on above: Performed By: #### L 501.9940, L500.4050, L501.1400, L501.9985, L500.4100, L501.9520 #### [facility] [address] [place], [address] AST [Catalytic activity/Vol] 34 U/L Normal 15-37 [facility] Comment on above: Result Comment: Mode rate Hemolysis, Result may be falsely increased. Performed By: #### L 501.9940, L500.4050, L501.1400, L501.9985, L500.4100, L501.9520 #### [facility] [address] [place], [address] Bilirubin [Mass/Vol] 0.60 mg/dL Normal 0.20-1.00 [facility] Comment on above: Result Comment: For patients on eltrombopag therapy, use of Dimension [place] TBIL is not recommended. Performed By: #### L 501.9940, L500.4050, L501.1400, L501.9985, L500.4100, L501.9520 #### [facility] [address] [place], [address] BUN/CRE 25.3 RATIO High 10-20 [facility] Comment on above: Performed By: #### L 501.9940, L500.4050, L501.1400, L501.9985, L500.4100, L501.9520 #### [facility] [address] [place], [address] CA,Total 8.9 mg/dL Normal 8.5-10.1 [facility] Comment on above: Performed By: #### L 501.9940, L500.4050, L501.1400, L501.9985, L500.4100, L501.9520 #### [facility] [address] [place], [address] Chloride [Moles/Vol] 110 mmol/L High 98-107 [facility] Comment on above: Performed By: #### L 501.9940, L500.4050, L501.1400, L501.9985, L500.4100, L501.9520 #### [facility] [address] [place], [address] CO2 [Moles/Vol] 24.0 mmol/L Normal 21.0-32.0 [facility] Comment on above: Performed By: #### L 501.9940, L500.4050, L501.1400, L501.9985, L500.4100, L501.9520 #### [facility] [address] [place], [address] Creatinine [Mass/Vol] 0.83 mg/dL Normal 0.70-1.30 [facility] Comment on above: Result Comment: The validity of the calculated GFR GFRAA in patients over 70 years has not been determined. Clinical correlation is essential. Performed By: #### L 501.9940, L500.4050, L501.1400, L501.9985, L500.4100, L501.9520 #### [facility] [address] [place], [address] EST GFR - AA 124 mL/min Normal >60 [facility] Comment on above: Result Comment: Afri can Montenegrin GFR Calc Performed By: #### L 501.9940, L500.4050, L501.1400, L501.9985, L500.4100, L501.9520 #### [facility] [address] [place], [address] GAP 5 Normal 5-15 [facility] Comment on above: Performed By: #### L 501.9940, L500.4050, L501.1400, L501.9985, L500.4100, L501.9520 #### [facility] [address] [place], [address] GFR/1.73 sq M.predicted among non-blacks MDRD (S/P/Bld) [Vol rate/Area] 102 mL/min/{1.73_m2} Normal >60 [facility] Comment on above: Result Comment: Non- GFR Calc Performed By: #### L 501.9940, L500.4050, L501.1400, L501.9985, L500.4100, L501.9520 #### [facility] [address] [place], [address] Globulin (S) [Mass/Vol] 3.6 g/dL Normal 2.2-4.2 [facility] Comment on above: Performed By: #### L 501.9940, L500.4050, L501.1400, L501.9985, L500.4100, L501.9520 #### [facility] [address] [place], [address] Glucose [Mass/Vol] 103 mg/dL Normal 74-106 [facility] Comment on above: Result Comment: Fast ing Glucose result from 100 to 125 mg/dL suggests IMPAIRED HOMEOSTASIS per A.D.A. criteria. Performed By: #### L 501.9940, L500.4050, L501.1400, L501.9985, L500.4100, L501.9520 #### [facility] [address] [place], [address] Potassium [Moles/Vol] 4.9 mmol/L Normal 3.5-5.1 [facility] Comment on above: Result Comment: Mode rate Hemolysis, Result may be falsely increased. Performed By: #### L 501.9940, L500.4050, L501.1400, L501.9985, L500.4100, L501.9520 #### [facility] [address] [place], [address] Sodium [Moles/Vol] 138 mmol/L Normal 136-145 [facility] Comment on above: Performed By: #### L 501.9940, L500.4050, L501.1400, L501.9985, L500.4100, L501.9520 #### [facility] [address] [place], [address] T PROT 7.2 g/dL Normal 6.4-8.2 [facility] Comment on above: Performed By: #### L 501.9940, L500.4050, L501.1400, L501.9985, L500.4100, L501.9520 #### [facility] [address] [place], [address] Urea nitrogen [Mass/Vol] 21 mg/dL High 7-18 [facility] Comment on above: Performed By: #### L 501.9940, L500.4050, L501.1400, L501.9985, L500.4100, L501.9520 #### [facility] [address] [place], [address] Hemoglobin A1con 04-07-2024 HbA1c (Bld) [Mass fraction] 5.7 % High 3.8-5.6 [facility] Comment on above: Result Comment: Norm al < 5.7 % Prediabetic 5.7 - 6.4 % Diabetic >or= 6.5 % Please note range changes. Performed By: #### L 501.9940, L500.4050, L501.1400, L501.9985, L500.4100, L501.9520 #### [facility] [address] [place], [address] Lipid Profileon 04-07-2024 Cholesterol [Mass/Vol] 215 mg/dL High [address] [facility] Comment on above: Result Comment: <200 mg/dL Desirable 200-240 mg/dL Borderline >240 mg/dL High Risk Performed By: #### L 501.9940, L500.4050, L501.1400, L501.9985, L500.4100, L501.9520 #### [facility] [address] [place], [address] Cholesterol in HDL [Mass/Vol] 42 mg/dL Normal [facility] Comment on above: Result Comment: The drugs N-Acetylcysteine and Metamizole may falsely depress this assay. Reference Range HDL <40 mg/dL Low HDL Cholesterol HDL >or= 60 mg/dL High HDL Cholesterol Performed By: #### L 501.9940, L500.4050, L501.1400, L501.9985, L500.4100, L501.9520 #### [facility] [address] [place], [address] Cholesterol in LDL [Mass/Vol] 132 mg/dL High 0-130 [facility] Comment on above: Performed By: #### L 501.9940, L500.4050, L501.1400, L501.9985, L500.4100, L501.9520 #### [facility] [address] [place], [address] Cholesterol in VLDL [Mass/Vol] 41 mg/dL High 5-40 [facility] Comment on above: Performed By: #### L 501.9940, L500.4050, L501.1400, L501.9985, L500.4100, L501.9520 #### [facility] [address] [place], [address] Triglyceride [Mass/Vol] 203 mg/dL High W [facility] Comment on above: Result Comment: The drugs N-Acetylcysteine and Metamizole may falsely depress this assay. Serum Triglycerides Reference Interval Normal <150 mg/dL Borderline high 150 - 199 mg/dL High 200 - 499 mg/dL Very High > or = 500 mg/dL Performed By: #### L 501.9940, L500.4050, L501.1400, L501.9985, L500.4100, L501.9520 #### [facility] [address] [place], [address] PSA,Total- Diagnosticon 03-29 PSA, DIAGNOSTIC 0.92 ng/mL Normal 0.0-4.0 [facility] Comment on above: Result Comment: This test was performed using the TPSA assay method for the [employer] chemistry system. Values obtained with different assay methods cannot be used interchangably. When changing PSA assays in the course of monitoring a patient, additional sequential testing should be carried out to confirm baseline values. Performed By: #### L 501.9940, L500.4050, L501.1400, L501.9985, L500.4100, L501.9520 #### [facility] [address] [place], [address] Thyroid Stim Hormone (TSH)on 04-07-2024 TSH 2.770 uIU/mL Normal 0.358-3.740 [facility] Comment on above: Performed By: #### L 501.9940, L500.4050, L501.1400, L501.9985, L500.4100, L501.9520 #### [facility] [address] [place], [address] Uric Acidon 04-07-2024 URIC 6.3 mg/dL Normal 3.5-7.2 [facility] Comment on above: Result Comment: The drugs N-Acetylcysteine and Metamizole may falsely depress this assay. Performed By: #### L 501.9940, L500.4050, L501.1400, L501.9985, L500.4100, L501.9526 #### [facility] [address] [place], [address] Basophil percentageOrdered B y: Dr. De La Torre on 10-22-2022 Bilirubin [Mass/Vol] 0.40 mg/dL 0.20-1.00 [facility] Comment on above: For patients on eltr ombopag therapy, use of Dimension [place] TBIL is not recommended. Chloride [Moles/Vol] 109 mmol/L 98-107 [facility] Cholesterol [Mass/Vol] 216 mg/dL <[address] [facility] Comment on above: <200 mg/dL Desirable 200-240 mg/dL Borderline >240 mg/dL High Risk Glucose [Mass/Vol] 96 mg/dL 74-106 [facility] Potassium [Moles/Vol] 4.6 mmol/L 3.5-5.1 [facility] Protein [Mass/Vol] 7.2 g/dL 6.4-8.2 [facility] Sodium [Moles/Vol] 138 mmol/L 136-145 [facility] Triglyceride [Mass/Vol] 162 mg/dL <[address] [facility] Comment on above: The drugs N-Acetylcy steine and Metamizole may falsely depress this assay.Serum Triglycerides Reference Interval Normal <150 mg/dL Borderline high 150 - 199 mg/dL High 200 - 499 mg/dL Very High > or = 500 mg/dL Laboratory - Chemistry and C hemistry - challengeOrdered By: Dr. De La Torre on 10-22-2022 ALP [Catalytic activity/Vol] 59 U/L 45-117 [facility] ALT [Catalytic activity/Vol] 36 U/L 16-61 [facility] CO2 [Moles/Vol] 25.0 mmol/L 21.0-32.0 [facility] Globulin (S) [Mass/Vol] 3.5 g/dL 2.2-4.2 [facility] Urea nitrogen/Creatinine [Mass ratio] 26.9 mg/mg 10-20 [facility] No Panel InformationOrdered By: Dr. De La Torre on 10-22-2022 Estimated GFR (MDRD) Amer 110 mL/min >60 [facility] Comment on above: GFR Calc Estimated GFR (MDRD) Non-Af Amer 91 mL/min >60 [facility] Comment on above: Non- GFR Calc Thyroid Stimulating Hormone (TSH) 2.36 uIU/mL 0.358-3.74 [facility] Urine Microalbumin/Creatinine Ratio 12.3 mg/g CRE <30 [facility] Serum or plasma albumin marleny urement (mass/volume)Ordered By: Dr. De La Torre on 10-22-2022 Albumin [Mass/Vol] 3.7 g/dL 3.2-5.0 [facility] Serum or plasma albumin/glob ulin mass ratioOrdered By: Dr. De La Torre on 10-22-2022 Albumin/Globulin [Mass ratio] 1.1 {ratio} 0.9-2.4 [facility] Serum or plasma calcium marleny urement (mass/volume)Ordered By: Dr. De La Torre on 10-22-2022 Calcium [Mass/Vol] 9.3 mg/dL 8.5-10.1 [facility] Serum or plasma cholesterol in HDL measurement (mass/volume)Ordered By: Dr. De La Torre on 10-22-2022 Cholesterol in HDL [Mass/Vol] 38 mg/dL >40 [facility] Comment on above: The drugs N-Acetylcy steine and Metamizole may falsely depress this assay. Reference Range HDL <40 mg/dL Low HDL Cholesterol HDL >or= 60 mg/dL High HDL Cholesterol Serum or plasma cholesterol in VLDL measurement (mass/volume)Ordered By: Dr. De La Torre on 10-22-2022 Cholesterol in VLDL [Mass/Vol] 32 mg/dL 5-40 [facility] Serum or plasma creatinine m easurement (mass/volume)Ordered By: Dr. De La Torre on 10-22-2022 Creatinine [Mass/Vol] 0.93 mg/dL 0.70-1.30 [facility] Comment on above: The validity of the calculated GFR & GFRAA in patients over 70 years has not been determined. Clinical correlation is essential. Serum or plasma low density lipoprotein (LDL) cholesterol measurement (mass/volume)Ordered By: Dr. De La Torre on 10-22-2022 Cholesterol in LDL [Mass/Vol] 146 mg/dL 0-130 [facility] Serum or plasma urea nitroge n measurement (mass/volume)Ordered By: Dr. De La Torre on 10-22-2022 Urea nitrogen [Mass/Vol] 25 mg/dL 7-18 [facility] Serum or plasma uric acid me asurement (mass/volume)Ordered By: Dr. De La Torre on 10-22-2022 Urate [Mass/Vol] 6.5 mg/dL 3.5-7.2 [facility] Comment on above: The drugs N-Acetylcy steine and Metamizole may falsely depress this assay. Thin prep Papanicolaou smear with manual screeningOrdered By: Dr. De La Torre on 10-22-2022 Thin prep Papanicolaou smear with manual screening 29 U/L 15-37 [facility] Thin prep Papanicolaou smear with manual screening 4 5-15 [facility] Thin prep Papanicolaou smear with manual screening 22.5 mg/L NO RANGE EST. [facility] Urine creatinine measurement (mass/volume)Ordered By: Dr. De La Torre on 10-22-2022 Creatinine (U) [Mass/Vol] 183.00 mg/dL NO RANGE EST. [facility] Whole blood hemoglobin A1c/t otal hemoglobin ratio (mass fraction)Ordered By: Dr. De La Torre on 10-22-2022 HbA1c (Bld) [Mass fraction] 5.5 % 3.8-5.6 [facility] Comment on above: Normal < 5.7 % Predi abetic 5.7 - 6.4 % Diabetic >or= 6.5 % Please note range changes. HISTORY PHYSICALon HISTORY PHYSICAL HNO ID: [id number] Author: Watson Bhatti MD Service: General Surgery Author Type: Physician Type: HANDP Filed: 03/11/2021 8:55 AM Note Text: UPDATED HISTORY AND PHYSICAL EXAMINATION SERVICE DATE: 03/11/2021 SERVICE TIME: 8:55 AM PHYSICAL EXAM MUST BE COMPLETED ON ADMISSION The History and Physical (completed in the past 30 days) has been reviewed and the patient has been examined. The contents accurately reflect the patient's condition with the following additions or revisions since the HANDP was completed. Examination indicates no changes. This HANDP can be found in the Electronic Medical Record dated 01/30/21. SIGNATURE: Watson Bhatti III, MD PATIENT NAME: Dillan Fry DATE: March 11, 2021 TIME: 8:55 AM Normal [facility] NURSING PROGon 03-11-2021 NURSING PROG HNO ID: [id number] Author: Matthew Barlow RN Service: Nursing Author Type: Registered Nurse Type: Nursing Progress Note Filed: 03/11/2021 9:00 AM Note Text: [facility] PRE-OP NURSING HAND OFF NOTE SBAR Hand off given to Aliyah Zhao RN. Hand off was communicated verbally and at the patient's bedside and all questions were answered. Matthew Barlow RN Normal [facility] SURGICAL PATHOLOGYon 021 SURGICAL PATHOLOGY Specimen originated from [facility] Specimen #: [id number] Submitting Physician: WATSON BHATTI ([id number]) FINAL DIAGNOSIS Splenic flexure polyp, polypectomy - Tubular adenoma. KAORL CLARK MD (Electronic Signature) SPECIMEN SUBMITTED A: SPLENIC FLEXURE POLYP CLINICAL DATA SCREENING GROSS DESCRIPTION A. Received in formalin is a segment of magdaleno-brown polypoid tissue measuring 0.6 x 0.4 x 0.3 cm. A stalk is noted measuring 0.2 cm in length. The specimen is bisected and totally submitted in one cassette. Gross examination performed at [facility], [address] [place], [place] [id number] 03/11/2021 10:07:25 PM Date of Report: 03/12/2021 Date of Procedure: 03/11/2021 Date of Receipt: 03/11/2021 Submitted by: WATSON BHATTI ([id number]) Location: [id number] Diagnostic interpretation performed at [facility] [place], [address] [place] [address]. [place] Number: [id number] Normal [facility] CNOVon 01-30-2021 CNOV Office Visit (GENSWS) ---- DILLAN FRY ([id number]) 1970 M Date Time Provider Department 01/30/21 8:00 AM BRANT JASON During your visit today, we recorded the following information about you: Temperature Pulse Blood pressure Weight 97.7 degrees 76/minute 130/78 112.9 kg Height 1.753 m Sherie Dupont RN 01/30/2021 8:24 AM Signed REVIEW OF SYSTEMS: General: The patient denies fatigue, denies weight loss, denies weight gain, denies feeling hot, and denies feelings of cold. Eyes: The patient denies glaucoma, denies eye injury/surgery, wears glasses or contacts. Ear/Nose/Throat: The patient denies allergies, NOTES hayfever, denies ear infections, and denies bloody noses. Cardiovascular: The patient denies chest pain, denies heart disease, NOTES high blood pressure,denies cardiac stent, denies prior heart attack, denies irregular heart beat, denies high cholesterol, denies poor circulation, denies heart failure, other cardiac issues, denies claudication, denies cold feet, denies peripheral arterial stent. Respiratory: The patient denies tuberculosis, denies pneumonia, denies frequent cough, NOTES pulmonary embolism, denies shortness of breath, and denies coughing up blood. Gastrointestinal: The patient denies difficulty swallowing, denies acid reflux, denies ulcers, denies vomiting, denies jaundice/hepatitis, denies gallbladder problems, denies black or tarry stools, denies hemorrhoids, denies bleeding from rectum, denies diverticulitis, denies constipation, denies diarrhea, denies loss of stool control, and denies hernias. Kidney/Bladder: The patient denies kidney stones, denies urine infections, and denies bloody urine. Skin: The patient denies a history of skin cancer, denies bleeding/changing moles, and denies a history of skin rash. Neurologic: The patient denies a history of epilepsy/convulsion s, denies headaches, denies head/spinal injuries, and denies stroke/TIA. Psychiatric: The patient denies psychiatric medications, denies depression, and denies voices, denies substance abuse. Endocrine: The patient denies thyroid disorders, denies diabetes, and denies hormonal problems. Hematologic: The patient denies a history of bruising, denies bleeding, and denies anemia, NOTES blood clots. Infections: The patient denies a history of measles and mumps, denies rheumatic fever, and denies sexually transmitted diseases. Musculoskeletal: The patient denies back pain/injury, denies back problems, denies sciatica, denies knee/foot trouble, denies arthritis, or NOTES gout. When was patient's last Mammogram screening? N/A Last Colonoscopy: None KARINA Orourke PA-C 02/05/2021 5:04 PM Signed HISTORY AND PHYSICAL Dillan Garciawilson 1970 REFERRING PHYSICIAN: Esperanza De La Torre MD CHIEF COMPLAINT: Consult (baseline colonoscopy) HPI: The patient is a 50 year old male referred for endoscopy. Edmarita notes no colon complaints. Patient denies any change in bowel habits, weight changes, blood in stools, black tarry stools or abdominal pain. Denies family history of colon issues. The patient notes no upper GI complaints. Dillan has not undergone prior endoscopy. Patient's past medical history is significant for hypertension, gout, and COVID-19 infection that was complicated by pulmonary embolism-patient reports this was almost a year ago. He was on Eliquis for 6 months. He followed with Dr. Terry at [facility] for this episode. following the PE and has now completed this. He denies any shortness of breath or chest pain currently. Patient follows with Dr. Esperanza De La Torre in primary care. His most recent office visit note is reviewed. Denies problems with sedation in the past. PAST MEDICAL HISTORY Diagnosis Date - Fijaulj-Vqnxv-Lphng disease - COVID-19 04/2020 - Essential hypertension - Gout - Pulmonary embolism (HCC) 04/2020 from Covid - Seasonal allergies PAST SURGICAL HISTORY Procedure Laterality Date - PAST SURGICAL HISTORY OF R foot surgery Current Outpatient Medications Medication Sig - irbesartan (AVAPRO) 75 mg tablet take 1 tablet by mouth AT SUPPER - magnesium oxide 200 mg magnesium chew Take 400 mg by mouth. - fluticasone propionate (FLONASE NASAL) Use in the nose. - levocetirizine (XYZAL) 5 mg tablet Take 5 mg by mouth. - calcium polycarbophil (FIBERTAB ORAL) Take by mouth. - allopurinol 100 mg tablet Take 1 tablet by mouth twice daily. - peg 3350-Electrolytes (GOLYTELY) 236-22.74-6.74 -5.86 gram suspension Take 4,000 mL by mouth one time only for 1 dose. - ascorbic acid (VITAMIN C) 500 mg tablet Take 1 tablet by mouth twice daily. (Patient not taking: Reported on 01/30/2021 ) No current facility-administer ed medications for this visit. ALLERGIES: Patient has no known allergies. PERSONAL HISTORY: Social History Tob (more content not included)... [facility] Tele[facility] ([facility]) ---- DILLAN FRY ([id number]) 1970 M Date Time Provider Department 01/30/21 WATSON [facility]AT[facility] [employer] During your visit today, we recorded the following information about you: Ángel Garcia 01/30/2021 4:26 PM Signed 03-11-2021 colon [facility] SURGICAL PHONE NOTE Date of Procedure/Surgery: 03-11-2021 Procedure/Surgery Type: Colonoscopy ? SEDATION:Conscious Sedation Location of Planned Procedure/Surgery: ? [facility] Surgery/Procedure Ordered: Yes COVID Testing Required: (FOR MAC CASES AND ASC PROCEDURES OTHER THAN COLON AND EGD): No Pre-Op Clearance Needed: No Prep Ordered:Yes: CALVIN Prep Instructions given:Yes: Given in the office. Referral Completed:PAVE to complete. Patient Diabetic:No. 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 #:[id number] Prescriptions as of 03/13/2021 - irbesartan (AVAPRO) 75 mg tablet take 1 tablet by mouth AT SUPPER - magnesium oxide 200 mg magnesium chew Take 400 mg by mouth. - fluticasone propionate (FLONASE NASAL) Use in the nose. - levocetirizine (XYZAL) 5 mg tablet Take 5 mg by mouth. - calcium polycarbophil (FIBERTAB ORAL) Take by mouth. - allopurinol 100 mg tablet Take 1 tablet by mouth twice daily. - ascorbic acid (VITAMIN C) 500 mg tablet Take 1 tablet by mouth twice daily. Problem List As Of Date 01/30/2021 Noted Resolved Acquired pes cavus [M21.6X9] 06/18/2010 Claw toe (acquired) [M20.5X9] 06/02/2011 Encounter Status:Closed by ÁNGEL GARCIA on 03/13/21 [facility] 01-30-2021 [facility] Patient:Paco Fry E MRN: Height:5' 9(1.753 m) Weight:No patient weight recorded within the last 30 days. Outpatient Medications as of 03/11/21: irbesartan (AVAPRO) 75 mg tablet magnesium oxide 200 mg magnesium chew fluticasone propionate (FLONASE NASAL) levocetirizine (XYZAL) 5 mg tablet calcium polycarbophil (FIBERTAB ORAL) allopurinol 100 mg tablet ascorbic acid (VITAMIN C) 500 mg tablet Admission/Clinic Administered Medications as of 03/11/21: lactated ringers iv infusion Problem List: Acquired pes cavus [M21.6X9] Claw toe (acquired) [M20.5X9] Allergies: No Known Allergies Date Verified:03/11/21 Lab Values No results within the last 30 days for the following basenames: K,HCT No progress notes entered within the past 30 days Normal [facility] Vital Signs Date Time Vital Sign Value Performing Clinician Svetlana milan 11-17-2022 16:32-0400 Body height 175.26 cm [facility] 11-17-2022 16:32-0400 Body weight 111.67 kg [facility] 10-14-2022 15:12-0400 Body height 175.26 cm [facility] 10-14-2022 15:12-0400 Body weight 112.58 kg [facility] 09-16-2022 14:12-0400 Body height 175.26 cm [facility] 09-16-2022 14:12-0400 Body weight 114.39 kg [facility] 09-03-2022 12:00-0500 Heart rate 87 /min [facility] 09-03-2022 12:00-0500 Respiratory rate 18 /min [facility] 09-03-2022 12:00-0500 SaO2% (BldA) [Mass fraction] 100 % [facility] 09-03-2022 10:43-0500 Body mass index (BMI) [Ratio] 36.5 kg/m2 [facility] 09-03-2022 10:43-0500 Body weight 112.1 kg [facility] 09-03-2022 09:50-0500 Body height 175.26 cm [facility] 09-03-2022 09:50-0500 Body temperature 97.2 [degF] [facility] 09-03-2022 09:50-0500 Diastolic blood pressure 95 mm[Hg] [facility] 09-03-2022 09:50-0500 Systolic blood pressure 152 mm[Hg] [facility] 08-26-2022 14:51-0500 Body weight 113.76 kg [facility] Encounters Encounter Date Encounter Type Care Provider Facility Start: 04-07-2024 End: 04-07-2024 ambulatory Esperanza De La Torre Facility:[facility] Start: 07-24-2023 ambulatory BAKRI H ELSHEIKH Facili ty:[facility] Start: 07-24-2023 ambulatory BAKRI H ELSHEIKH Facili ty:[facility] Start: 07-24-2023 Patient encounter procedure BAKRI H THOMASIKH Facility:[facility] Start: 04-28-2023 ambulatory BAKRI H ELSHEIKH Facili ty:[facility] Start: 04-28-2023 ambulatory BAKRI H ELSHEIKH Facili ty:[facility] Start: 01-23-2023 ambulatory BAKRI H ELSHEIKH Facili ty:[facility] Start: 11-17-2022 End: 11-26-2022 ambulatory [facility] Work Phone: Start: 11-17-2022 End: 11-26-2022 Discharged Recurring [facility] Start: 10-22-2022 End: 10-22-2022 ambulatory [facility] Work Phone: Start: 10-22-2022 End: 10-22-2022 Patient encounter procedure [facility] Start: 10-17-2022 ambulatory BAKRI H ELSHEIKH Facili ty:[facility] Start: 10-14-2022 End: 10-26-2022 ambulatory [facility] Work Phone: Start: 10-14-2022 End: 10-26-2022 Discharged Recurring [facility] Start: 09-16-2022 End: 09-26-2022 ambulatory [facility] Work Phone: Start: 09-16-2022 End: 09-26-2022 Discharged Recurring [facility] Start: 09-03-2022 End: 09-03-2022 Emergency department patient visit [facility] Start: 08-26-2022 End: 08-26-2022 ambulatory [facility] Work Phone: Start: 08-26-2022 End: 08-26-2022 Discharged Recurring [facility] Procedures Date Procedure Procedure Detail Performing Clinician Start: 09-03-2022 X-ray of lumbar spin e, two or three views Start: 09-03-2022 Radiography of thoracic spine Plan of Treatment Date Care Activity Detail Author Patient Education ED Back Sprain/Strain W [facility] Work Phone: Patient referral [facility] Work Phone: Immunizations Immunization Date Immunization Notes Care Provider Simon pappas 05-08-2020 influenza, seasonal, injectable [facility] 04-17-2016 tetanus toxoid, redu kyle diphtheria toxoid, and acellular pertussis vaccine, adsorbed [facility] Payers Date Payer Category Payer Self-pay [id number] 2011 Unknown KULDIP [id number] 2011 Unknown [id number] 1970 Unknown [id number] 2.. [id number] 1970 Unknown [id number] Unknown [id number] Unknown [id number] Social History Date Type Detail Facility Start: 10-18-2020 End: 09-03-2022 Tobacco smoking status NHIS Unknown if ever smoked [facility] Start: 05-08-2020 None [facility] Start: 05-08-2020 Spouse/ Signif icant Other [facility] Start: 05-08-2020 Non-smoker [facility] Start: 1970 Sex Assigned At Male W [facility] Hospital Discharge instructions 09-03-2022 Note Date & Type Note Facility 09-03-2022 Hospital Discharg e instructions Additional Instructions 1. Apply ice 20 minutes per application every hour 8 to 10 hours a day 2. Take either for ibuprofen tablets every 8 hours or 2 Aleve tablets every 12 hours for the next 3 to 7 days 3. You will feel worse over the next 24 to 48 hours. 4. You will hurt in more places and you presently do 5. You may hurt up to and longer than a week. [facility] Work Phone: Progress note 03-18-2021 Note Date & Type Note Facility 03-18-2021 Note HNO ID: [id number] Author: Brant Jason PA-C Service: ? Author Type: Physician Global Climate Change Researcher Type: Progress Notes Filed: 03/18/2021 4:25 PM Note Text: In lieu of an in-person visit due to COVID-19 concerns, a virtual visit was performed on the patient. Patient is aware that I am not fully able to assess symptoms and do a full physical examination including vital signs assessment at this time. Patient consents to this encounter. No video was used in the evaluation of this patient, as the patient preferred a telephone call. I personally called patient by telephone. FOLLOW UP VISIT - END[id number] DATE OF SERVICE: 03/18/2021 : 1970 REFERRING PHYSICIAN: Esperanza De La Torre MD Dillan is a patient I am following for screening colonoscopy. Dr. Bhatti performed lower endoscopy on 03/11/21. The patient was found to have small, non-bleeding internal hemorrhoids and a 5 mm polyp at the hepatic flexure which was removed. Pathology demonstrated: FINAL DIAGNOSIS Splenic flexure polyp, polypectomy - Tubular adenoma. The patient notes no complaints since the procedure. On limited video-enabled visual exam: Patient appears alert, cooperative, in no acute distress Normal speech and affect, answers all questions appropriately Assessment IMPRESSION: s/p colonoscopy with polypectomy, single tubular adenoma less than 1 cm in size PLAN: The operative findings and pathology report were reviewed with the patient, and the patient has had the opportunity to ask questions and have questions answered. If the patient notes any problems or changes in bowel function, the patient should contact me immediately. Otherwise I recommend follow up endoscopy in 5 years per current screening guidelines as reviewed with patient. HM updated and recall letter generated. Patient verbalized understanding of all above and agreed with the plan Diagnoses: (D12.6) Tubular adenoma of colon (primary encounter diagnosis) I spent a total of 20 minutes on the date of the service which included preparing to see the patient, [id number] patient care, completing clinical documentation, obtaining and/or reviewing separately obtained history, independently interpreting results (not separately reported), communicating results to the patient/family/caregiver and care coordination (not separately reported). Brant Jason PA-C [facility] Clinical Note 03-11-2021 Note Date & Type Note Facility 03-11-2021 Note HNO ID: [id number] Author: Marie Chilel RN Service: ? Author Type: Registered Nurse Type: Nursing Progress Note Filed: 03/11/2021 9:37 AM Note Text: Abdomen soft non-distended. [facility] Progress note 01-30-2021 Note Date & Type Note Facility 01-30-2021 Note HNO ID: [id number] Author: Brant Jason PA-C Service: ? Author Type: Physician Global Climate Change Researcher Type: Progress Notes Filed: 02/05/2021 5:04 PM Note Text: HISTORY AND PHYSICAL Dillan Fry 1970 REFERRING PHYSICIAN: Esperanza De La Torre MD CHIEF COMPLAINT: Consult (baseline colonoscopy) HPI: The patient is a 50 year old male referred for endoscopy. Dillan notes no colon complaints. Patient denies any change in bowel habits, weight changes, blood in stools, black tarry stools or abdominal pain. Denies family history of colon issues. The patient notes no upper GI complaints. Dillan has not undergone prior endoscopy. Patient's past medical history is significant for hypertension, gout, and COVID-19 infection that was complicated by pulmonary embolism-patient reports this was almost a year ago. He was on Eliquis for 6 months. He followed with Dr. Terry at [facility] for this episode. following the PE and has now completed this. He denies any shortness of breath or chest pain currently. Patient follows with Dr. Esperanza De La Torre in primary care. His most recent office visit note is reviewed. Denies problems with sedation in the past. PAST MEDICAL HISTORY Diagnosis Date - Tajafkg-Wzaxj-Vshub disease - COVID-19 04/2020 - Essential hypertension - Gout - Pulmonary embolism (HCC) 04/2020 from Covid - Seasonal allergies PAST SURGICAL HISTORY Procedure Laterality Date - PAST SURGICAL HISTORY OF R foot surgery Current Outpatient Medications Medication Sig - irbesartan (AVAPRO) 75 mg tablet take 1 tablet by mouth AT SUPPER - magnesium oxide 200 mg magnesium chew Take 400 mg by mouth. - fluticasone propionate (FLONASE NASAL) Use in the nose. - levocetirizine (XYZAL) 5 mg tablet Take 5 mg by mouth. - calcium polycarbophil (FIBERTAB ORAL) Take by mouth. - allopurinol 100 mg tablet Take 1 tablet by mouth twice daily. - peg 3350-Electrolytes (GOLYTELY) 236-22.74-6.74 -5.86 gram suspension Take 4,000 mL by mouth one time only for 1 dose. - ascorbic acid (VITAMIN C) 500 mg tablet Take 1 tablet by mouth twice daily. (Patient not taking: Reported on 01/30/2021 ) No current facility-administered medications for this visit. ALLERGIES: Patient has no known allergies. PERSONAL HISTORY: Social History Tobacco Use - Smoking status: Former Smoker Packs/day: 0.75 Years: 20.00 Pack years: 15.00 Types: Cigarettes Quit date: 02/27/2008 Years since quittin.9 - Smokeless tobacco: Never Used Vaping Use - Vaping Use: Never used Substance Use Topics - Alcohol use: Yes Alcohol/week: 15.0 standard drinks Types: 6 Cans of Beer (12oz) per week Comment: drinks in binges maybe once a month but heavy at that time. - Drug use: No Comment: remote pot FAMILY HISTORY: FAMILY HISTORY Problem Relation Age of Onset - Hypertension Mother - Diabetes Father - Hypertension Father - Hypertension Brother - Breast Cancer Maternal Grandmother - Diabetes Maternal Grandfather REVIEW OF SYMPTOMS: The review of systems data was entered by the nurse and reviewed by me Nursing Notes: Sherie Dupont RN 01/30/2021 8:24 AM Signed REVIEW OF SYSTEMS: General: The patient denies fatigue, denies weight loss, denies weight gain, denies feeling hot, and denies feelings of cold. Eyes: The patient denies glaucoma, denies eye injury/surgery, wears glasses or contacts. Ear/Nose/Throat: The patient denies allergies, NOTES hayfever, denies ear infections, and denies bloody noses. Cardiovascular: The patient denies chest pain, denies heart disease, NOTES high blood pressure,denies cardiac stent, denies prior heart attack, denies irregular heart beat, denies high cholesterol, denies poor circulation, denies heart failure, other cardiac issues, denies claudication, denies cold feet, denies peripheral arterial stent. Respiratory: The patient denies tuberculosis, denies pneumonia, denies frequent cough, NOTES pulmonary embolism, denies shortness of breath, and denies coughing up blood. Gastrointestinal: The patient denies difficulty swallowing, denies acid reflux, denies ulcers, denies vomiting, denies jaundice/hepatitis, denies gallbladder problems, denies black or tarry stools, denies hemorrhoids, denies bleeding from rectum, denies diverticulitis, denies constipation, denies diarrhea, denies loss of stool control, and denies hernias. Kidney/Bladder: The patient denies kidney stones, denies urine infections, and denies bloody urine. Skin: The patient denies a history of skin cancer, denies bleeding/changing moles, and denies a history of skin rash. Neurologic: The patient denies a history of epilepsy/convulsions, denies headaches, denies head/spinal injuries, and denies stroke/TIA. Psychiatric: The patient denies psychiatric medications, denies depression, and denies voices, denies substance abuse. Endocrine: The patient denies thyroid disorders, de (more content not included)... [facility] Discharge summary Note Date & Type Note Facility Discharge summary Note Date/Time September 03, 2022 11:29am [facility] Medical Records Department [address] [place] [address] Emergency Department Summary 09/03/22 MR#: [id number] Acct: [id number] Name: DILLAN FRY Rep #:[id number] : 1970 52 From: Lei Adam MD PCP: Dr. Esperanza De La Torre MD Status:REG ER Location: ED HPI History of Present Illness Chief Complaint: Fall Detail of Chief Complaint: Patient was on a ladder when he fell backwards onto his buttocks complainin Informant: patient and spouse/S.O. Onset/Context/Timing Onset: Hours (Incident occurred at approximately 0900) Mechanism/Context: Fall (Patient was up a couple of rungs on the ladder.) and Work Related Location of pain/injuries: - (Lower dorsal upper lumbar region) Quality of Pain: Dull, Aching and Throbbing Location: Lower dorsal and lumbar region Current Severity: Mild Maximum Severity: Severe Worsened by: Movement and change in position Relieved by: Nothing Associated Symptoms Associated Symptoms: Negative for Parasthesias, Weakness, Loss of function, Inability to ambulate, Loss of consciousness or Amnesia Narrative Narrative: Patient is a 52-year-old male on an experimental drug for Charcot Rocio disease and history of pulmonary embolus. He is presently on no anticoagulant. He denies head trauma. He denies loss of consciousness. He denies ringing's ears. He denies ocular, visual or auditory symptoms. He denies neck pain. He deniesparesthesia, anesthesia or motor weakness in his upper or lower extremities presently or time of fall. He denies abdominal pain. He has not urinated sinceincident. He denies radicular pain. Tetanus Immunization: Unknown Prior similar symptoms: No Recent Illness/Hospitalization: No PFSH [facility] Medical History (Updated 09/03/22 @ 11:[address] Lei Adam MD) History of left ankle surgery History of pneumonia History of pulmonary embolism History of right ankle fusion History of right toe surgery Home Medications allopurinol 100 mg tablet 100 mg PO BIDCM GOUT 04/17/16 [History Last Taken Unknown] fluticasone propionate 50 mcg/actuation nasal spray,suspension 1 spray NASAL DAILY ALLERGIES 04/17/16 [History Last Taken Unknown] magnesium 200 mg tablet 400 mg PO DAILY SUPPLEMENT 05/19/18 [History Last Taken Unknown] acetaminophen 325 mg tablet 650 mg PO Q6H PRN PRN Pain Score 1-10/Temp > 100.7 F107/15/19 [Rx Last Taken Unknown] psyllium husk 0.52 gram capsule (Fiber Laxative (psyllium husk)) 0.52 g PO BID 06/13/20 [History Last Taken Unknown] levocetirizine 5 mg tablet (Xyzal) 5 mg PO DAILY 10/18/20 [History Last Taken Unknown] Ju Allergy 09/03/22 [History Last Taken Unknown] irbesartan 75 mg tablet mg 09/03/22 [History Last Taken Unknown] oxycodone-acetaminophen 5 mg-325 mg tablet 1 tab PO Q6H PRN PRN pain 5 days #20 TABLETS 09/03/22 [Rx Last Taken Unknown] sertraline 50 mg tablet mg 09/03/22 [History Last Taken Unknown] Allergy/AdvReac Type Severity Reaction Status Date / Time No Known Allergies Allergy Verified 09/03/22 09:52 Family History Mother Hypertension Father Hypertension Diabetes Kidney disease Heart disease Heart attack CMT (cervical motion tenderness) Brother Hypertension Social History (Updated 09/03/22 @ 11:[address] Lei Adam MD) household members: spouse Smoking Status: Former smoker Tobacco: How many years used: 22 alcohol intake: current details: Beer x3 per week ROS ROS ED Constitutional Constitutional ED: Denies chills, fever(s), subjective, sweats, weight loss or other Eyes Eyes: Denies blurry vision, change in vision or other ENT ENT ED: Denies ear pain, rhinorrhea, sore throat or other Cardiovascular Cardiovascular: Denies chest pain, palpitations, paroxysmal nocturnal dyspnea, racing heartbeat or other Respiratory/Chest Respiratory/Chest: Denies cough, dyspnea, dyspnea on exertion, paroxysmal nocturnal dyspnea, sputum or other Gastrointestinal Gastrointestinal: Denies abdominal pain, constipation, diarrhea, melena, nausea,vomiting or other Genitourinary Genitourinary ED: Denies dysuria, hematuria, urinary frequency or other Musculoskeletal Musculoskeletal: Reports back pain; Denies arthralgias, myalgias or neck pain Integumentary Reports Abrasions Neurologic Neurologic: Denies headache(s), paresthesias or weakness Hematologic/Lymphatic Hematologic/Lymphatic: Denies easy bleeding or easy bruising EXAM Physical Exam Const Vital Signs: 09/03/22 09:50 09/03/22 10:06 Temperature 97.2 F L Temperature Source Temporal Pulse Rate 70 Respiratory Rate 18 Respiratory Depth Normal Respiratory Pattern Normal Blood Pressure 152/95 H Blood Pressure Mean 114 Pulse Ox 100 Oxygen Delivery Method Room Air Positive well nourished, well developed and obese Constitutional Narrative: Patient appears uncomfortable. When the patient sat up he experienced significant pain. General Appearance ED: well developed; Negative for NAD Nutritional Appearance: obese HEENT HEENT Narrative: Normocephalic. No clinical signs of basilar skull fracture. No septal deviation hematoma. No dental trauma. atraumatic Eyes PERRL and EOMs intact bilaterally General Eye ED: Yes other Other Details: No subconjunctival hemorrhage. Neck full ROM Neck Narrative: No pain no patient midline posterior neck. Chest Wall inspection of chest normal and palpation of chest normal Resp normal respiratory effort and clear to auscultation bilaterally Cardio regular rhythm, S1 normal heart sound, S2 normal heart sound and no murmurs Rate: regular rate GI normal to inspection, nondistended, normoactive bowel sounds, non-tender, non-distended and no masses Back/Spine normal to inspection; Negative for no thoracic nor lumbar tenderness Back/Spine Narrative: There is tenderness midline over the lumbar region L1-L4. General Back: Negative for CVA tenderness Thoracic Spine / Upper Back: thoracic spinal tenderness T9, T10, T11 and T12 Extremity Extremity Narrative: There is an abrasion dorsal mid left forearm. There is no tenderness of the phalanges, metacarpal bones, carpal bones, radius ulna, elbow or shoulder on theleft side. There is no evidence of trauma to the right upper extremity or the lower extremities. Neuro oriented x3, CN's II-XII intact bilaterally, no focal motor deficits and no sensory deficits noted Neuro Narrative: DVT are symmetric with no clonus or Babinski. Deep Tendon Reflexes: Rt Triceps (C7): 2+, Lt Triceps (C7): 2+, Rt Biceps (C5, C6): 2+, Lt Biceps (C5, C6): 2+, Rt Patellar (L4): 2+, Lt Patellar (L4): 2+, Rt Ankle (S1): 2+ and Lt Ankle (S1): 2+ Deep Tendon Reflexes Back: Rt Patellar (L4): 2+, Lt Patellar (L4): 2+, Rt Ankle (S1): 2+ and Lt Ankle (S1): 2+ Plantar Reflex: Downgoing: bilateral Psych mental status grossly normal and thought process normal Skin no rashes or lesions noted, no wounds, skin turgor normal and no jaundice Trauma: abrasion [facility] MDM Narrative Medical decision making narrative: The patient is in significant pain IV was established. He received 8 mg of morphine for his pain. X-ray of the lumbar and dorsal spine were obtained to evaluate for fracture. Differential is fracture versus contusion. Radiography Chest X-Ray - ED: Read by ED Physician (4 views of the dorsal spine and 3 views of the lumbar spine were obtained. There is evidence of scoliosis in the dorsalspine. There is no evidence of a spondylolisthesis or spinal orthosis. Patientdoes have significant arthritic changes noted.) X-Ray: LS SPine (3 views independently reviewed interpreted by me. There is evidence of multiple degenerative changes.) and T-Spine (4 views were obtained. Multiple degenerative changes with scoliosis. This was independently reviewed interpreted by me.) Diagnostic Testing: Clinical Impression(s) from Imaging Studies Thoracic Spine X-Ray 09/03/22 10:26 IMPRESSION: Mild rotatory scoliosis. 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 He states he has no pain if he sits still on the examination cot. If he attempts to move he has pain at is 8 out of 10. Patient was informed he will feel worse over the next 24 to 40 hours. He was discharged with opiate analgesia and instructed to take 4 ibuprofen or 2 Aleve every 8-12 hours respectively. Discharge Plan Triage Chief Complaint: Fall ED Provider: Lei Adam Dx/Rx/DC Orders Clinical Impression: Fall on and from ladder causing accidental injury, Acute lumbosacral myofascialstrain, Acute thoracic myofascial strain, Abrasion of left forearm, initial encounter Instructions: ED Back Sprain/Strain Prescriptions: New oxycodone-acetaminophen [oxycodone-acetaminophen] 5-325 mg tablet 1 tab PO Q6H PRN PRN (Reason: pain) 5 Days Qty: 20 0RF No Action psyllium husk [Fiber Laxative (psyllium husk)] 0.52 gram capsule 0.52 g PO BID levocetirizine [Xyzal] 5 mg tablet 5 mg PO DAILY allopurinol 100 MG tablet 100 mg PO BIDCM fluticasone propionate 1 SPRAY spray,suspension 1 spray NASAL DAILY magnesium 200 MG tablet 400 mg PO DAILY acetaminophen 325 MG tablet 650 mg PO Q6H PRN PRN (Reason: Pain Score 1-10/Temp > 100.7 F) 0RF Ju Allergy irbesartan 75 mg tablet Label Comments: TAKE 1 TABLET BY MOUTHVONCE DAILY WITH SUPPER sertraline 50 mg tablet Label Comments: take 1 tablet by mouth once daily Primary Care Provider: Esperanza De La Torre Referrals: [facility] [Group of Physicians] - 3-5 Days Esperanza De La Torre MD [Primary Care Provider] - Activity Restrictions/Additional Instructions: 1. Apply ice 20 minutes per application every hour 8 to 10 hours a day 2. Take either for ibuprofen tablets every 8 hours or 2 Aleve tablets every 12 hours for the next 3 to 7 days 3. You will feel worse over the next 24 to 48 hours. 4. You will hurt in more places and you presently do 5. You may hurt up to and longer than a week. Disposition Disposition: Home, Self Care What to do if you have Problems For any increased pain, shortness of breath, bleeding, nausea or vomiting, chestpain, or any unexpected problems, contact your Primary Care Provider. Call [facility] ([phone]) or report to the closest Emergency Room. Call 911 if necessary. 09/03/22 1200 <Electronically signed by Lei Adam MD> Cosigner Signature (if applicable): CC: Dr. Esperanza De La Torre MD ~ Signed [facility] Work Phone: Evaluation note Note Date & Type Note Facility Evaluation note No assessment information availa ble [facility] Work Phone: Summary Purpose Family History No Family History Records Found Relationship Condition Age at Onset Recorded Date/T gamaliel mother Hypertension Unknown father Hypertension Unknown Diabetes mellitus Unknown Kidney disorder Unknown Cardiac disease Unknown Cervical motion tenderness Unknown brother Hypertension Unknown Advance Directives No Advanced Directives Records Found Advance Directive Response Recorded Date/ Time Living Will No June 13, 020 3:12pm Power of Ground Layer No June 13, 2020 3:12pm Advance Directive Response Recorded Date/ Time Living Will No September 03, 2022 10:06am Power of Ground Layer No September 03 3 10:06am Advance Directive Response Recorded Date/ Time Living Will No September 03, 2022 11:06am Power of Ground Layer No September 03 3 11:06am Chief Complaint and Reason for Visit Chief Complaint OBESITY Chief Complaint OBESITY FALL Chief Complaint OBESITY FALL OBESITY Chief Complaint OBESITY FALL OBESITY 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 Chief Complaint OBESITY 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 Esperanza De La Torre MD Family Provider Active Dr. Esperanza De La Torre MD Primary Care Provider Active Team Status: Inactive Member Role Status Dates Dr. Esperanza De La Torre MD Primary Care Provide r, Attending Provider, Referring Provider Active Team Status: Inactive Member Role Status Dates Dr. Esperanza De La Torre MD Primary Care Provider Active Dr. Lei Adam MD Emergency Provider Active Team Status: Inactive Member Role Status Dates Dr. Esperanza De La Torre MD Primary Care Provider Active Dr. Lei Adam MD Attending Provider, Emergency Provi steve Active Team Status: Active Member Role Status Dates Dr. Esperanza De La Torre MD Primary Care Provide r, Attending Provider, Referring Provider Active Goals (unrecognized section and content) Goals may be documented in a n alternate sectionGoals may be documented in an alternate sectionGoals may be documented in an alternate sectionGoals may be documented in an alternate sectionGoals may be documented in an alternate sectionGoals may be documented in an alternate section FOR RECORDS PERTAINING TO PATIENTS WHO ARE OR HAVE BEEN ENROLLED IN A CHEMICAL DEPENDENCY/SUBSTANCEABUSE PROGRAM, SOME INFORMATION MAY BE OMITTED. This clinical summary was aggregated from multiple sources. Caution should be exercised in using it in the provision of clinical care. This summary normalizes information from multiple sources, and as a consequence, information in this document may materially change the coding, format and clinical context of patient data. In addition, data may be omitted in some cases. CLINICAL DECISIONS SHOULD BE BASED ON THE PRIMARY CLINICAL RECORDS. [facility]. provides no warranty or guarantee of the accuracy or completeness of information in this document.
[2025-03-14 10:17] LABS: Hematocrit 45.2 % (40-54); Hemoglobin 14.9 g/dL (13.0-16.5); Immature Granulocytes Count 0.010 X10^3/uL (0.0-0.0); Mean Corp Hgb Conc 33.0 g/dL (32-36); Mean Corpuscular Volume 90.0 fL (80-94); Mean Platelet Vol. 10.0 fl (6.2-12.0); NRBC Flagged by Analyzer 0 % (0-5); Platelet Count 235 K/mm3 (150-450); RBC Distribution Width CV 13.8 % (11.6-14.6); RBC Distribution Width SD 45.5 fl (35.1-43.9); Red Blood Count 5.02 M/mm3 (4.6-6.2); White Blood Count 7.0 K/mm3 (4.4-11.0)
[2025-03-14 10:24] LABS: Microalbumin,Random Urine < 12.0 mg/L (<20 mg/L)
[2025-03-14 11:00] LABS: AST(SGOT) 31 U/L (<=37); Alanine Aminotransfer ALT/SGPT 40 U/L (<=46); Albumin, Serum 4.1 g/dL (3.5-5.0); Alkaline Phosphatase 58 U/L (40-129); Anion Gap 13 (5-15); BUN 20 mg/dL (4-19); BUN/Creat Ratio 22.8 RATIO (10-20); Calcium,Total 9.0 mg/dL (7.6-11.0); Carbon Dioxide 22.8 mmol/L (21.0-32.0); Chloride 106 mmol/L (98-108); Globulin 2.7 g/dL (2.2-4.2); Glucose 105 mg/dL (70-99); Potassium 4.0 mmol/L (3.3-5.1); Uric Acid 5.9 mg/dL (3.5-7.2)
== END | disposition home or self-care (01) ==
LOC: MTLAB 07:57
PROVIDERS: PCP Family Medicine; Referring Provider Family Medicine; Visit Provider Family Medicine
DX: E66.812 Obesity, class 2 (principal); E66.01 Morbid (severe) obesity due to excess calories; I10 Essential (primary) hypertension; M10.9 Gout, unspecified
CPT/HCPCS: 36415; 80053; 82043; 84550; 85025